=== PATIENT | female | born 1935 | race Caucasian/White ===

== ENCOUNTER → 2016-06-24 | Outpatient (CLI) | payer MEDICARE, OTHER ==
--- NOTE | 2016-06-24 12:09 | KCIC ---
Bilateral digital screening mammograms with CAD: HISTORY Routine screening. COMPARISON Comparison is made to previous studies dated back to 06/07/2014. FINDINGS Breast density category C. The skin and nipples show no abnormalities. No abnormal lymph nodes are seen in the axilla. The breast parenchyma shows heterogeneous density. There are no dominant masses, suspicious calcifications or architectural distortions. Benign appearing calcifications are present. IMPRESSION No evidence of malignancy. Recommend routine annual mammographic screening. This study was interpreted with the benefit of Computerized Aided Detection (CAD). Mammography is not 100% sensitive in detecting breast cancer. Therefore, a self breast exam and a clinical breast exam are very important. A negative mammogram does not negate a clinically suspicious finding and should not result in a delay in biopsying a clinically suspicious abnormality. BI-RADS category 2. Benign. This patient's information has been entered into a reminder system for the patient to be notified with the results of this examination and a target date for her next mammograms. Electronically signed by: Sharonda Currie MD (Jun 24, 2016 12:07:11)
== END | disposition home or self-care (01) ==
LOC: KCIC MAMMO 10:42
PROVIDERS: ATTEND Family Medicine
DX: Z12.31 Encounter for screening mammogram for malignant neoplasm of breast (principal)
CPT/HCPCS: G0202; 77067

== ENCOUNTER → 2017-02-16 | Outpatient (CLI) | payer MEDICARE, OTHER ==
--- NOTE | 2017-02-16 12:13 | KCIC ---
EXAM: Left lower extremity sonogram. HISTORY: Left lower extremity lump and contusion. TECHNIQUE: Sonographic imaging of the left mclain at the site of palpable concern was performed. COMPARISON: None. FINDINGS: There is a complex fluid collection within the anterior lateral mclain soft tissues at the site of palpable concern measuring 7.0 x 3.7 x 1.2 cm in maximum dimensions. There is surrounding soft tissue edema. IMPRESSION: 7.0 cm complex fluid collection within the anterolateral mclain soft tissues, the appearance of which favors a hematoma. There is surrounding soft tissue edema. Continued follow-up of palpable abnormalities is recommended. Electronically signed by: Yanira Valenzuela MD (02/16/2017 12:10 PM) [id number]
--- NOTE | 2017-02-16 12:17 | KCIC ---
Two-view left tibia-fibula and two-view right foot dated 02/16/2017. No comparison available. Clinical indication: Right foot and left calf pain. FINDINGS: Two-view left tibia-fibula show evidence of prior total knee arthroplasty. Femoral and tibial components are intact. No periprosthetic fracture or malalignment. Postsurgical changes of the patella. There is an old healed fracture of the proximal one third fibular shaft. The distal tibia and fibular are intact. Nonspecific calcifications within the soft tissues. 2 views of the right foot show normal bony alignment. There is moderate to severe hallux valgus deformity at the first MTP joint. Moderate degenerative change of the interphalangeal joints and Lisfranc joints. No acute osseous or articular abnormality. Prominent calcaneal spur with vascular calcinosis. Impression left tibia-fibula: 1. No acute radiographic abnormality. 2. Status post left knee arthroplasty. 3. Old healed fracture of the proximal one third fibular shaft. Impression right foot: 1. No acute radiographic abnormality. 2. Degenerative changes as described above. 3. Moderate to severe hallux valgus deformity. Electronically signed by: Levi Philippe MD (02/16/2017 12:14 PM) [facility]
== END | disposition home or self-care (01) ==
LOC: KCIC 11:09
PROVIDERS: ATTEND Family Medicine
DX: S80.12XA Contusion of left lower leg, initial encounter (principal); M79.89 Other specified soft tissue disorders; M20.11 Hallux valgus (acquired), right foot; Z98.890 Other specified postprocedural states; Z96.652 Presence of left artificial knee joint; X58.XXXA Exposure to other specified factors, initial encounter; Y93.89 Activity, other specified; Y92.89 Other specified places as the place of occurrence of the external cause; Y99.8 Other external cause status
CPT/HCPCS: 73590; 73620; 76881

== ENCOUNTER 2018-05-17 15:26 | Emergency (ER) | payer MEDICARE, OTHER ==
[~2018-05-17] VITALS: Ht 154.9 cm; Wt 77.6 kg
[2018-05-17 16:00] VITALS: BP 169/77
[2018-05-17 16:06] LABS: BILIRUBIN,URINE NEGATIVE (NEG); CLARITY,URINE CLOUDY; COLOR,URINE YELLOW; NITRITE,URINE POSITIVE (NEG); PROTEIN,URINE >=300 mg/dL (NEG-TRACE); UROBILINOGEN,URINE 0.2 mg/dL (0.2 mg/dL)
[2018-05-17 16:19] LABS: BACTERIA,URINE MANY /HPF (0-FEW); SQUAMOUS EPITHELIAL CELL,UR MOD /LPF; WBC,URINE >40 /HPF (0-4)
[2018-05-17] MEDS ORDERED: CEPH-264 PO (16:30)
--- NOTE | 2018-05-17 16:31 | PHYS DOC ---
Past Medical History Past Medical History: Diabetes-Type II, High Cholesterol, Hypertension Additional Past Medical Histor: gout, low kidney function Past Surgical History: Appendectomy, Cholecystectomy, Tonsillectomy Additional Past Surgical Histo: ulcer, knee replacements Alcohol Use: None Drug Use: None Adult General Chief Complaint Chief Complaint: PAIN ON URINATION [facility] HPI Patient is a 82 year old female who presents with burning, urgency and frequency with urination. The patient states that her symptoms have been worsening over the past 3 days. The patient states that she has also had one bout of diarrhea. She states that she feels like she needs to urinate but only a few drops will come out. She denies fever, nausea or back pain. Review of Systems Review of Systems Constitutional: Denies fever or chills [] Respiratory: Denies cough or shortness of breath [] Cardiovascular: No additional information not addressed in HPI [] GI: Denies abdominal pain, nausea, vomiting, bloody stools or diarrhea [] : See history of present illness Musculoskeletal: Denies back pain or joint pain [] Integument: Denies rash or skin lesions [] Neurologic: Denies headache, focal weakness or sensory changes [] Endocrine: Denies polyuria or polydipsia [] All other systems were reviewed and found to be within normal limits, except as documented in this note. Physical Exam Physical Exam Constitutional: Well developed, well nourished, no acute distress, non-toxic appearance. [] Cardiovascular:Heart rate regular rhythm, no murmur [] Lungs & Thorax: Bilateral breath sounds clear to auscultation [] Abdomen: Bowel sounds normal, soft, mild suprapubic tenderness, no masses, no pulsatile masses. [] Skin: Warm, dry, no erythema, no rash. [] Back: No tenderness, no CVA tenderness. [] Extremities: No tenderness, no cyanosis, no clubbing, ROM intact, no edema. [] Neurologic: Alert and oriented X 3, normal motor function, normal sensory function, no focal deficits noted. [] Psychologic: Affect normal, judgement normal, mood normal. [] Current Patient Data Vital Signs Vital Signs Date Time Temp Pulse Resp B/P (MAP) Pulse Ox O2 Delivery O2 Flow Rate FiO2 05/17/18 16:00 98.0 83 18 169/77 (107) 95 Room Air 98.0 Lab Values Laboratory Tests Test 05/17/18 14:55 Urine Collection Type Unknown Urine Color Yellow Urine Clarity Cloudy Urine pH 6.0 Urine Specific [place] 1.010 Urine Protein >=300 mg/dL (NEG-TRACE) Urine Glucose (UA) Negative mg/dL (NEG) Urine Ketones (Stick) Negative mg/dL (NEG) Urine Blood Moderate (NEG) Urine Nitrite Positive (NEG) Urine Bilirubin Negative (NEG) Urine Urobilinogen Dipstick 0.2 mg/dL (0.2 mg/dL) Urine Leukocyte Esterase Large (NEG) Urine RBC 6-10 /HPF (0-2) Urine WBC >40 /HPF (0-4) Urine Squamous Epithelial Cells Mod /LPF Urine Bacteria Many /HPF (0-FEW) Urine Mucus Mod /LPF EKG EKG [] Radiology/Procedures Radiology/Procedures [] Course & Med Decision Making Course & Med Decision Making Pertinent Labs and Imaging studies reviewed. (See chart for details) []The patient is positive for a large UTI. She is to follow-up with her primary care provider in one week for urine recheck. She will be placed on antibiotics. She is in agreement with this plan. Dragon Disclaimer Dragon Disclaimer This electronic medical record was generated, in whole or in part, using a voice recognition dictation system. Departure Departure Impression: Primary Impression: UTI (urinary tract infection) Disposition: 01 HOME, SELF-CARE Condition: STABLE Referrals: JODI STEINBERG MD (PCP) Patient Instructions: Urinary Tract Infection Additional Instructions: Take the antibiotic as prescribed. Increase fluids and rest. Follow-up with your primary care provider in one week for urine recheck. If worsening return to the emergency department. Scripts Cephalexin (KEFLEX) 500 Mg Capsule 1 CAP PO TID for UTI, #21 CAP Prov: VINCENT BOUDREAUX RESEARCH PHYSICIAN 05/17/18 VINCENT BOUDREAUX RESEARCH PHYSICIAN May 17, 2018 16:31
[2018-07-18] MEDS ORDERED: INSU100I13 SQ ×2 (10:59→11:00)
[2018-07-18] MEDS ORDERED: INSU100I11 SQ ×2 (10:59→11:01)
[2018-07-18] MEDS ORDERED: CEPH-264 PO (11:02)
== END 2018-05-17 16:37 | disposition home or self-care (01) ==
LOC: ER 15:26
DX: N39.0 Urinary tract infection, site not specified (principal); I10 Essential (primary) hypertension; E78.00 Pure hypercholesterolemia, unspecified; E11.9 Type 2 diabetes mellitus without complications; M10.9 Gout, unspecified; Z90.89 Acquired absence of other organs; Z90.49 Acquired absence of other specified parts of digestive tract
CPT/HCPCS: 81001; 87086; 99283

== ENCOUNTER 2018-07-16 12:01 | Inpatient (IN) | payer MEDICARE, OTHER ==
[~2018-07-16] VITALS: Ht 149.9 cm; Wt 74.4 kg
[~2018-07-16 12:01] MED LIST: CEPH-264 PO
[2018-07-16 12:34] LABS: BASO % 0 % (0-3); EOS % 0 % (0-3); HEMATOCRIT 36.9 % (36.0-47.0); HEMOGLOBIN 12.6 g/dL (12.0-15.5); LYMPH % 11 % (24-48); MEAN CORPUSCULAR HEMOGLOBIN 31 pg (25-35); MEAN CORPUSCULAR HGB CONC 34 g/dL (31-37); MEAN CORPUSCULAR VOLUME 89 fL (79-100); MONO # 0.6 x10^3/uL (0.0-1.1); MONO % 7 % (0-9); NEUT # 7.5 x10^3uL (1.8-7.7); NEUT % 81 % (31-73); PLATELET COUNT 242 x10^3/uL (140-400); RED BLOOD COUNT 4.14 x10^6/uL (3.50-5.40); RED CELL DISTRIBUTION WIDTH 15.5 % (11.5-14.5); WHITE BLOOD COUNT 9.3 x10^3/uL (4.0-11.0)
[2018-07-16 12:42] LABS: ALBUMIN 3.2 g/dL (3.4-5.0); CREATININE 2.3 mg/dL (0.6-1.0); DIRECT BILIRUBIN 0.1 mg/dL (0.0-0.2); GFR 20.4; POTASSIUM 3.3 mmol/L (3.5-5.1); TOTAL BILIRUBIN 0.3 mg/dL (0.2-1.0); TOTAL PROTEIN 7.1 g/dL (6.4-8.2)
--- NOTE | 2018-07-16 12:43 | PHYS DOC ---
Past Medical History Past Medical History: Diabetes-Type II, High Cholesterol, Hypertension Additional Past Medical Histor: gout, low kidney function Past Surgical History: Appendectomy, Cholecystectomy, Tonsillectomy Additional Past Surgical Histo: ulcer, knee replacements Alcohol Use: None Drug Use: None Adult General Chief Complaint Chief Complaint: BLOOD SUGAR PROBLEM HPI HPI 82-year-old male presenting to the emergency department today with elevated blood sugar. She was seen in clinic and has noticed her blood sugar has been elevated for approximately 3-4 days. Blood sugar in the mid 400s. Patient does not take insulin. She takes metformin. She is a type II diabetic. She feels generally tired but denies any pain. She denies any fevers or chills. Review of systems is negative for chest pain abdominal pain nausea vomiting. All other review of systems is negative unless otherwise noted in history of present illness. ED course: 82-year-old female presenting the emergency department today with elevated blood sugar. On arrival she is afebrile with normal heart rate. Blood work ordered. Blood work shows normal CBC. Chemistry panel shows pseudohyponatremia with mild hypokalemia. Hyperglycemia. Elevation in BUN and creatinine without previous for comparison. Urinalysis suggestive of possible infection. We gave the patient is small dose of insulin with IV fluids. We will admit the patient to the hospital. We gave IV antibiotics for the patient's probable urinary tract infection. I spoke with Dr. rosa who accepts the patient for admission. I placed a basic bridge orders. Review of Systems Review of Systems SEE ABOVE. Current Medications Current Medications Current Medications Medications (Trade) Dose Ordered Sig/Latricia Start Time Stop Time Status Last Admin Dose Admin Insulin Human Regular (HumuLIN R VIAL) 5 unit 1X ONCE 07/16/18 13:30 07/16/18 14:04 DC 07/16/18 14:09 5 UNIT Morphine Sulfate (Morphine Sulfate) 2 mg PRN Q2HR PRN 07/16/18 13:30 07/17/18 13:29 Ondansetron HCl (Zofran) 4 mg PRN Q8HRS PRN 07/16/18 13:30 07/17/18 13:29 Sodium Chloride 1,000 ml @ 100 mls/hr Q10H 07/16/18 13:24 07/16/18 23:23 07/16/18 13:24 100 MLS/HR Physical Exam Physical Exam SEE ABOVE Constitutional: Well developed, well nourished, no acute distress, non-toxic appearance. [] HENT: Normocephalic, atraumatic, bilateral external ears normal, oropharynx moist, no oral exudates, nose normal. [] Eyes: PERRLA, EOMI, conjunctiva normal, no discharge. [] Neck: Normal range of motion, no tenderness, supple, no stridor. [] Cardiovascular:Heart rate regular rhythm, no murmur [] Lungs & Thorax: Bilateral breath sounds clear to auscultation [] Abdomen: Bowel sounds normal, soft, no tenderness, no masses, no pulsatile masses. [] Skin: Warm, dry, no erythema, no rash. [] Back: No tenderness, no CVA tenderness. [] Extremities: No tenderness, no cyanosis, no clubbing, ROM intact, no edema. [] Neurologic: Alert and oriented X 3, normal motor function, normal sensory function, no focal deficits noted. [] Psychologic: Affect normal, judgement normal, mood normal. [] Current Patient Data Vital Signs Vital Signs Date Time Temp Pulse Resp B/P (MAP) Pulse Ox O2 Delivery O2 Flow Rate FiO2 07/16/18 13:05 Room Air 07/16/18 12:46 97.6 93 16 149/94 (112) 99 97.6 Lab Values Laboratory Tests Test 07/16/18 12:09 07/16/18 12:20 07/16/18 13:00 07/16/18 13:41 Glucose (Fingerstick) 441 mg/dL (70-99) H White Blood Count 9.3 x10^3/uL (4.0-11.0) Red Blood Count 4.14 x10^6/uL (3.50-5.40) Hemoglobin 12.6 g/dL (12.0-15.5) Hematocrit 36.9 % (36.0-47.0) Mean Corpuscular Volume 89 fL (79-100) Mean Corpuscular Hemoglobin 31 pg (25-35) Mean Corpuscular Hemoglobin Concent 34 g/dL (31-37) Red Cell Distribution Width 15.5 % (11.5-14.5) H Platelet Count 242 x10^3/uL (140-400) Neutrophils (%) (Auto) 81 % (31-73) H Lymphocytes (%) (Auto) 11 % (24-48) L Monocytes (%) (Auto) 7 % (0-9) Eosinophils (%) (Auto) 0 % (0-3) Basophils (%) (Auto) 0 % (0-3) Neutrophils # (Auto) 7.5 x10^3uL (1.8-7.7) Lymphocytes # (Auto) 1.0 x10^3/uL (1.0-4.8) Monocytes # (Auto) 0.6 x10^3/uL (0.0-1.1) Eosinophils # (Auto) 0.0 x10^3/uL (0.0-0.7) Basophils # (Auto) 0.0 x10^3/uL (0.0-0.2) Sodium Level 125 mmol/L (136-145) L Potassium Level 3.3 mmol/L (3.5-5.1) L Chloride Level 86 mmol/L (98-107) L Carbon Dioxide Level 27 mmol/L (21-32) Anion Gap 12 (6-14) Blood Urea Nitrogen 34 mg/dL (7-20) H Creatinine 2.3 mg/dL (0.6-1.0) H Estimated GFR (Cockcroft-Gault) 20.4 Glucose Level 520 mg/dL (70-99) *H Calcium Level 10.0 mg/dL (8.5-10.1) Total Bilirubin 0.3 mg/dL (0.2-1.0) Direct Bilirubin 0.1 mg/dL (0.0-0.2) Aspartate Amino Transferase (AST) 23 U/L (15-37) Alanine Aminotransferase (ALT) 28 U/L (14-59) Alkaline Phosphatase 92 U/L (46-116) Troponin I Quantitative 0.036 ng/mL (0.000-0.055) Total Protein 7.1 g/dL (6.4-8.2) Albumin 3.2 g/dL (3.4-5.0) L Lipase 649 U/L (73-393) H O2 Saturation 94 % (92-99) Arterial Blood pH 7.45 (7.35-7.45) Arterial Blood pCO2 at Patient Temp 38 mmHg (35-46) Arterial Blood pO2 at Patient Temp 72 mmHg (65-108) Arterial Blood HCO3 26 mmol/L (21-28) Arterial Blood Base Excess 2 mmol/L (-3-3) FiO2 21% Urine Collection Type Unknown Urine Color Yellow Urine Clarity Clear Urine pH 5.5 Urine Specific [place] 1.015 Urine Protein Negative mg/dL (NEG-TRACE) Urine Glucose (UA) >=1000 mg/dL (NEG) Urine Ketones (Stick) Negative mg/dL (NEG) Urine Blood Large (NEG) Urine Nitrite Negative (NEG) Urine Bilirubin Negative (NEG) Urine Urobilinogen Dipstick 0.2 mg/dL (0.2 mg/dL) Urine Leukocyte Esterase Moderate (NEG) Urine RBC Tntc /HPF (0-2) Urine WBC >40 /HPF (0-4) Urine Squamous Epithelial Cells Many /LPF Urine Bacteria Many /HPF (0-FEW) Laboratory Tests 07/16/18 12:20 Laboratory Tests 07/16/18 12:20 EKG EKG [] Radiology/Procedures Radiology/Procedures [] Course & Med Decision Making Course & Med Decision Making Pertinent Labs and Imaging studies reviewed. (See chart for details) [] Dragon Disclaimer Dragon Disclaimer This electronic medical record was generated, in whole or in part, using a voice recognition dictation system. Departure Departure Impression: Primary Impression: Hyperglycemia Additional Impressions: Urinary tract infection Acute kidney injury Hypokalemia Disposition: ADMITTED INPATIENT Admitting Physician: Anaid Rosa Condition: STABLE Referrals: ALEX ELLIS MD (PCP) Problem Qualifiers VIRA VELEZ MD Jul 16, 2018 12:43
[2018-07-16 13:12] LABS: BASE EXCESS ABG 2 mmol/L (-3-3); HCO3 ABG 26 mmol/L (21-28); PCO2 ABG 38 mmHg (35-46); PO2 ABG 72 mmHg (65-108); SAT O2 ABG 94 % (92-99)
[2018-07-16 13:14] LABS: FIO2 ABG 21%
[2018-07-16] MEDS ORDERED: IV NORMAL SALINE 1000ML BAG 1,000 ML IV SCH (13:24)
[2018-07-16] MEDS ORDERED: IV NORMAL SALINE 1000ML BAG 1,000 ML IV ONE (13:30)
[2018-07-16] MEDS ORDERED: ONDANSETRON PF 4 MG/2 ML VIAL. IV PRN (13:30)
[2018-07-16] MEDS ORDERED: MORPHINE SULFATE 2 MG/ML VIAL. IV PRN (13:30)
[2018-07-16] MEDS ORDERED: INSULIN REGULAR 100 UNIT/ML 3ML VIAL. IV ONE (13:30)
[2018-07-16 13:58] LABS: BILIRUBIN,URINE NEGATIVE (NEG); CLARITY,URINE CLEAR; COLOR,URINE YELLOW; NITRITE,URINE NEGATIVE (NEG); PH,URINE 5.5; PROTEIN,URINE NEGATIVE (NEG-TRACE); UROBILINOGEN,URINE 0.2 mg/dL (0.2 mg/dL)
[2018-07-16 14:07] LABS: BACTERIA,URINE MANY /HPF (0-FEW); RBC,URINE TNTC /HPF (0-2); SQUAMOUS EPITHELIAL CELL,UR MANY /LPF; WBC,URINE >40 /HPF (0-4)
[2018-07-16] MEDS ORDERED: cefTRIAXone IV Push 1 GM VIAL. IVP ONE (15:30)
[2018-07-16] MEDS ORDERED: POTASSIUM CHLORIDE 20 MEQ TABLET.ER. PO ONE (16:15)
[2018-07-16] MEDS ORDERED: INSULIN GLARGINE 300 UNITS/3 ML INSULN.PEN. SQ SCH (16:30)
[2018-07-16] MEDS ORDERED: INSULIN LISPRO 300 UNITS/3 ML INSULN.PEN. SQ SCH (17:00)
[2018-07-16] MEDS ORDERED: MAGNESIUM SULFATE 2GM 50 ML IV ONE (17:00)
[2018-07-16 17:33] VITALS: BP 168/73
[2018-07-16] MEDS ORDERED: SIMV20TA3 PO (18:20)
[2018-07-16] MEDS ORDERED: METF850T8 PO (18:20)
[2018-07-16] MEDS ORDERED: OMEG1CAP6 PO (18:20)
[2018-07-16] MEDS ORDERED: VERA240C2 PO (18:20)
[2018-07-16] MEDS ORDERED: L GA1CAP2 PO (18:20)
[2018-07-16] MEDS ORDERED: PRED2.5T PO (18:20)
[2018-07-16] MEDS ORDERED: CLON0.1T PO (18:20)
[2018-07-16] MEDS ORDERED: LOPE1LIQ7 PO (18:20)
[2018-07-16] MEDS ORDERED: ALLO100T PO (18:20)
[2018-07-16] MEDS ORDERED: ASPI-630 PO (18:20)
[2018-07-16] MEDS ORDERED: LISI1TAB7 PO (18:20)
[2018-07-16] MEDS ORDERED: GEMF600T8 PO (18:20)
[2018-07-16] MEDS ORDERED: POTA10TA12 PO (18:38)
[2018-07-16 19:59] VITALS: BP 177/72
--- NOTE | 2018-07-16 20:34 | PDOC1 ---
History and Physical Date of Admission Date of Admission DATE: 07/16/18 TIME: 20:24 Source Source: Chart review, Patient History of Present Illness History of Present Illness Yodit is an 82-year-old admit with UTI and elevated blood sugar, sent to the ER from clinic for labs changed, her primary care is Dr. Veronica, [place] She takes metformin. She is a type II diabetic. 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 [facility] that i am not familiar with the name, but on a taper, now on 9mg daily prednisone Past Medical History Cardiovascular: HTN Psych: No pertinent hx Musculoskeletal: low back pain, Osteoarthritis, Swelling, Stiffness Endocrine: Diabetes Family History Family History: Diabetes Social History Smoke: No ALCOHOL: none Current Problem List Problem List Problems Medical Problems: (1) Acute kidney injury Status: Acute (2) Hyperglycemia Status: Acute (3) Hypokalemia Status: Acute (4) Urinary tract infection Status: Acute Current Medications Current Medications Current Medications Sodium Chloride 1,000 ml @ 1,000 mls/hr 1X ONCE IV Last administered on 07/16/18at 14:11; Start 07/16/18 at 13:30; Stop 07/16/18 at 14:29; Status DC Insulin Human Regular (HumuLIN R VIAL) 5 unit 1X ONCE IV Last administered on 07/16/18at 14:09; Start 07/16/18 at 13:30; Stop 07/16/18 at 14:04; Status DC Ondansetron HCl (Zofran) 4 mg PRN Q8HRS PRN IV NAUSEA/VOMITING; Start 07/16/18 at 13:30; Stop 07/17/18 at 13:29 Morphine Sulfate (Morphine Sulfate) 2 mg PRN Q2HR PRN IV PAIN; Start 07/16/18 at 13:30; Stop 07/17/18 at 13:29 Sodium Chloride 1,000 ml @ 100 mls/hr Q10H IV Last administered on 07/16/18at 13:24; Start 07/16/18 at 13:24; Stop 07/16/18 at 23:23 Ceftriaxone Sodium (Rocephin) 1 gm 1X ONCE IVP Last administered on 07/16/18at 15:36; Start 07/16/18 at 15:30; Stop 07/16/18 at 15:31; Status DC Potassium Chloride (Klor-Con) 40 meq 1X ONCE PO Last administered on 07/16/18at 18:42; Start 07/16/18 at 16:15; Stop 07/16/18 at 16:18; Status DC Magnesium Sulfate 50 ml @ 25 mls/hr 1X ONCE IV Last administered on 07/16/18at 18:43; Start 07/16/18 at 17:00; Stop 07/16/18 at 18:59; Status DC Insulin Human Lispro (HumaLOG) 10 units TIDWMEALS SQ Last administered on 07/16/18at 18:52; Start 07/16/18 at 17:00 Insulin Glargine (Lantus) 18 units QHS SQ Last administered on 07/16/18at 18:53; Start 07/16/18 at 16:30 Active Scripts Active Keflex (Cephalexin) 500 Mg Capsule 1 Cap PO TID Reported Potassium Chloride 10 Meq Tab.sr.24h 10 Meq PO DAILY Verapamil Er (Verapamil Hcl) 240 Mg Cap24h.pel 1 Cap PO DAILY Clonidine Hcl 0.1 Mg Tablet 0.1 Mg PO BID Metformin Hcl 850 Mg Tablet 850 Mg PO BIDWMEALS Gemfibrozil 600 Mg Tablet 1 Tab PO BID Simvastatin 20 Mg Tablet 1 Tab PO QHS Lisinopril-Hctz 20-25 Mg Tab (Lisinopril/Hydrochlorothiazide) 1 Each Tablet 1 Tab PO BID Allopurinol 100 Mg Tablet 1 Tab PO BID Aspirin 81 Mg Tab.chew 1 Tab PO DAILY Fish Oil 1,000 Mg Capsule (Archer-3 Fatty Acids/Fish Oil) 1 Each Capsule 1 Each PO DAILY Imodium A-D (Loperamide Hcl) 1 Mg/7.5 Ml Liquid 1 Mg PO HS Gillespie Graphenix Development Capsule (L Gasseri/B Bifidum/B Longum) 1 Each Capsule 1 Each PO DAILY Prednisone 2.5 Mg Tablet 9 Mg PO DAILY Allergies Allergies: Coded Allergies: No Known Drug Allergies (Unverified , 07/16/18) ROS General: YES: Chills PSYCHOLOGICAL ROS: No: Anxiety, Behavioral Disorder, Concentration difficultie, Decreased libido, Depression, Disorientation, Hallucinations, Hostility, Irritablity, Memory difficulties, Mood Swings, Obsessive thoughts, Physical abuse, Sexual abuse, Sleep disturbances, Suicidal ideation, Other Eyes: No Blurry vision, No Decreased vision, No Double vision, No Dry eyes, No Excessive tearing, No Eye Pain, No Itchy Eyes, No Loss of vision, No Photophobia, No Scotomata, No Uses contacts, No Uses glasses, No Other HEENT: No: Heacaches, Visual Changes, Hearing change, Nasal congestion, Nasal discharge, Oral lesions, Sinus pain, Sore Throat, Epistaxis, Sneezing, Snoring, Tinnitus, Vertigo, Vocal changes, Other Respiratory: No: Cough, Hemoptysis, Orthopnea, Pleuritic Pain, Shortness of breath, SOB with excertion, Sputum Changes, Stridor, Tachypnea, Wheezing, Other Gastrointestinal: Yes Nausea; No Vomiting, No Diarrhea, No Constipation, No Melena, No Hematochezia, No Other Genitourinary: No Dysuria, No Frequency, No Incontinence, No Hematuria, No Retention, No Discharge, No Urgency, No Pain, No Flank Pain, No Other, No , No , No , No , No , No , No Musculoskeletal: Yes Joint Pain, Yes Joint Stiffness, Yes Joint Swelling, Yes Pain In:, Yes Swelling In:; No Gait Disturbance, No Muscle Pain, No Muscular Weakness, No Other Neurological: No Behavorial Changes, No Bowel/Bladder ControlChng, No Confusion, No Dizziness, No Gait Disturbance, No Headaches, No Impaired Coord/balance, No Memory Loss, No Numbness/Tingling, No Seizures, No Speech Problems, No Tremors, No Visual Changes, No Weakness, No Other Skin: No Dry Skin, No Eczema, No Hair Changes, No Lumps, No Mole Changes, No Mottling, No Nail Changes, No Pruritus, No Rash, No Skin Lesion Changes, No Other, No Acne Physical Exam General: Alert, Cooperative, No acute distress HEENT: Mucous membr. moist/pink Lungs: Normal air movement Heart: no murmurs Abdomen: Normal bowel sounds, Soft Extremities: No cyanosis, Normal pulses, Other (tender swollen joints, fingers, ITp) Skin: No breakdown Neuro: Normal speech, Sensation intact Psych/Mental Status: Mood NL Vitals Vitals Vital Signs Date Time Temp Pulse Resp B/P (MAP) Pulse Ox O2 Delivery O2 Flow Rate FiO2 07/16/18 18:00 Room Air 07/16/18 17:33 98.2 83 18 168/73 (104) 94 98.2 Labs Labs Laboratory Tests Test 07/16/18 12:09 07/16/18 12:20 07/16/18 13:00 07/16/18 13:41 Glucose (Fingerstick) 441 mg/dL (70-99) White Blood Count 9.3 x10^3/uL (4.0-11.0) Red Blood Count 4.14 x10^6/uL (3.50-5.40) Hemoglobin 12.6 g/dL (12.0-15.5) Hematocrit 36.9 % (36.0-47.0) Mean Corpuscular Volume 89 fL (79-100) Mean Corpuscular Hemoglobin 31 pg (25-35) Mean Corpuscular Hemoglobin Concent 34 g/dL (31-37) Red Cell Distribution Width 15.5 % (11.5-14.5) Platelet Count 242 x10^3/uL (140-400) Neutrophils (%) (Auto) 81 % (31-73) Lymphocytes (%) (Auto) 11 % (24-48) Monocytes (%) (Auto) 7 % (0-9) Eosinophils (%) (Auto) 0 % (0-3) Basophils (%) (Auto) 0 % (0-3) Neutrophils # (Auto) 7.5 x10^3uL (1.8-7.7) Lymphocytes # (Auto) 1.0 x10^3/uL (1.0-4.8) Monocytes # (Auto) 0.6 x10^3/uL (0.0-1.1) Eosinophils # (Auto) 0.0 x10^3/uL (0.0-0.7) Basophils # (Auto) 0.0 x10^3/uL (0.0-0.2) Sodium Level 125 mmol/L (136-145) Potassium Level 3.3 mmol/L (3.5-5.1) Chloride Level 86 mmol/L (98-107) Carbon Dioxide Level 27 mmol/L (21-32) Anion Gap 12 (6-14) Blood Urea Nitrogen 34 mg/dL (7-20) Creatinine 2.3 mg/dL (0.6-1.0) Estimated GFR (Cockcroft-Gault) 20.4 Glucose Level 520 mg/dL (70-99) Calcium Level 10.0 mg/dL (8.5-10.1) Total Bilirubin 0.3 mg/dL (0.2-1.0) Direct Bilirubin 0.1 mg/dL (0.0-0.2) Aspartate Amino Transf (AST/SGOT) 23 U/L (15-37) Alanine Aminotransferase (ALT/SGPT) 28 U/L (14-59) Alkaline Phosphatase 92 U/L (46-116) Troponin I Quantitative 0.036 ng/mL (0.000-0.055) Total Protein 7.1 g/dL (6.4-8.2) Albumin 3.2 g/dL (3.4-5.0) Lipase 649 U/L (73-393) O2 Saturation 94 % (92-99) Arterial Blood pH 7.45 (7.35-7.45) Arterial Blood pCO2 at Patient Temp 38 mmHg (35-46) Arterial Blood pO2 at Patient Temp 72 mmHg (65-108) Arterial Blood HCO3 26 mmol/L (21-28) Arterial Blood Base Excess 2 mmol/L (-3-3) FiO2 21% Urine Collection Type Unknown Urine Color Yellow Urine Clarity Clear Urine pH 5.5 Urine Specific Phillips 1.015 Urine Protein Negative mg/dL (NEG-TRACE) Urine Glucose (UA) >=1000 mg/dL (NEG) Urine Ketones (Stick) Negative mg/dL (NEG) Urine Blood Large (NEG) Urine Nitrite Negative (NEG) Urine Bilirubin Negative (NEG) Urine Urobilinogen Dipstick 0.2 mg/dL (0.2 mg/dL) Urine Leukocyte Esterase Moderate (NEG) Urine RBC Tntc /HPF (0-2) Urine WBC >40 /HPF (0-4) Urine Squamous Epithelial Cells Many /LPF Urine Bacteria Many /HPF (0-FEW) Test 07/16/18 14:39 07/16/18 16:12 07/16/18 18:31 Glucose (Fingerstick) 362 mg/dL (70-99) 317 mg/dL (70-99) 361 mg/dL (70-99) Laboratory Tests Test 07/16/18 12:09 07/16/18 12:20 07/16/18 13:00 07/16/18 13:41 Glucose (Fingerstick) 441 mg/dL (70-99) White Blood Count 9.3 x10^3/uL (4.0-11.0) Red Blood Count 4.14 x10^6/uL (3.50-5.40) Hemoglobin 12.6 g/dL (12.0-15.5) Hematocrit 36.9 % (36.0-47.0) Mean Corpuscular Volume 89 fL (79-100) Mean Corpuscular Hemoglobin 31 pg (25-35) Mean Corpuscular Hemoglobin Concent 34 g/dL (31-37) Red Cell Distribution Width 15.5 % (11.5-14.5) Platelet Count 242 x10^3/uL (140-400) Neutrophils (%) (Auto) 81 % (31-73) Lymphocytes (%) (Auto) 11 % (24-48) Monocytes (%) (Auto) 7 % (0-9) Eosinophils (%) (Auto) 0 % (0-3) Basophils (%) (Auto) 0 % (0-3) Neutrophils # (Auto) 7.5 x10^3uL (1.8-7.7) Lymphocytes # (Auto) 1.0 x10^3/uL (1.0-4.8) Monocytes # (Auto) 0.6 x10^3/uL (0.0-1.1) Eosinophils # (Auto) 0.0 x10^3/uL (0.0-0.7) Basophils # (Auto) 0.0 x10^3/uL (0.0-0.2) Sodium Level 125 mmol/L (136-145) Potassium Level 3.3 mmol/L (3.5-5.1) Chloride Level 86 mmol/L (98-107) Carbon Dioxide Level 27 mmol/L (21-32) Anion Gap 12 (6-14) Blood Urea Nitrogen 34 mg/dL (7-20) Creatinine 2.3 mg/dL (0.6-1.0) Estimated GFR (Cockcroft-Gault) 20.4 Glucose Level 520 mg/dL (70-99) Calcium Level 10.0 mg/dL (8.5-10.1) Total Bilirubin 0.3 mg/dL (0.2-1.0) Direct Bilirubin 0.1 mg/dL (0.0-0.2) Aspartate Amino Transf (AST/SGOT) 23 U/L (15-37) Alanine Aminotransferase (ALT/SGPT) 28 U/L (14-59) Alkaline Phosphatase 92 U/L (46-116) Troponin I Quantitative 0.036 ng/mL (0.000-0.055) Total Protein 7.1 g/dL (6.4-8.2) Albumin 3.2 g/dL (3.4-5.0) Lipase 649 U/L (73-393) O2 Saturation 94 % (92-99) Arterial Blood pH 7.45 (7.35-7.45) Arterial Blood pCO2 at Patient Temp 38 mmHg (35-46) Arterial Blood pO2 at Patient Temp 72 mmHg (65-108) Arterial Blood HCO3 26 mmol/L (21-28) Arterial Blood Base Excess 2 mmol/L (-3-3) FiO2 21% Urine Collection Type Unknown Urine Color Yellow Urine Clarity Clear Urine pH 5.5 Urine Specific Phillips 1.015 Urine Protein Negative mg/dL (NEG-TRACE) Urine Glucose (UA) >=1000 mg/dL (NEG) Urine Ketones (Stick) Negative mg/dL (NEG) Urine Blood Large (NEG) Urine Nitrite Negative (NEG) Urine Bilirubin Negative (NEG) Urine Urobilinogen Dipstick 0.2 mg/dL (0.2 mg/dL) Urine Leukocyte Esterase Moderate (NEG) Urine RBC Tntc /HPF (0-2) Urine WBC >40 /HPF (0-4) Urine Squamous Epithelial Cells Many /LPF Urine Bacteria Many /HPF (0-FEW) Test 07/16/18 14:39 07/16/18 16:12 07/16/18 18:31 Glucose (Fingerstick) 362 mg/dL (70-99) 317 mg/dL (70-99) 361 mg/dL (70-99) VTE Prophylaxis Ordered VTE Prophylaxis Devices: No VTE Pharmacological Prophylaxi: Yes Assessment/Plan Assessment/Plan hyperglycemia hyperosmolar not ketotic exacebation with pseudohyponatremia acute renal failure, hydrate, renal consult, likely vasomotor and electrolyte pancreatitis wihtout abd pain UTI, rocephin, has been on PO abx at home obese, BMI 33 dm2, check a1c admit DIONISIO VICENET MD Jul 16, 2018 20:34
[2018-07-16] MEDS ORDERED: DEXTROSE 50% 25 GM / 50ML DISP.SYRIN. IV PRN (20:45)
[2018-07-16] MEDS ORDERED: SIMVASTATIN 20 MG TABLET PO SCH (21:00)
[2018-07-16] MEDS: LOPERAMIDE 2 MG/10 ML ORAL SOLUTION. PO SCH (21:00)
[2018-07-16] MEDS: ALLOPURINOL 100 MG TABLET. PO SCH (21:44)
[2018-07-16] MEDS: ATORVASTATIN CALCIUM 10 MG TABLET. PO SCH (21:44)
[2018-07-16] MEDS: cloNIDine HCL 0.1 MG TABLET PO SCH (21:44)
[2018-07-16] MEDS: predniSONE 1 MG TABLET PO SCH (21:45)
[2018-07-16] MEDS: IV NORMAL SALINE 1000ML BAG 1,000 ML IV SCH (21:48)
[2018-07-16] MEDS: HEPARIN for SUB-Q USE 5,000 UNIT/ML VIAL. SQ SCH (22:00)
[2018-07-16] MEDS: INSULIN LISPRO 300 UNITS/3 ML INSULN.PEN. SQ SCH (22:02)
[2018-07-16 23:59] VITALS: BP 131/52
[2018-07-17 03:35] VITALS: BP 169/65
[2018-07-17 04:41] LABS: BASO % 0 % (0-3); EOS % 0 % (0-3); HEMATOCRIT 34.2 % (36.0-47.0); HEMOGLOBIN 11.7 g/dL (12.0-15.5); LYMPH # 0.8 x10^3/uL (1.0-4.8); LYMPH % 11 % (24-48); MEAN CORPUSCULAR HEMOGLOBIN 31 pg (25-35); MEAN CORPUSCULAR HGB CONC 34 g/dL (31-37); MEAN CORPUSCULAR VOLUME 89 fL (79-100); MONO # 0.6 x10^3/uL (0.0-1.1); MONO % 7 % (0-9); NEUT # 6.3 x10^3uL (1.8-7.7); NEUT % 81 % (31-73); PLATELET COUNT 210 x10^3/uL (140-400); RED BLOOD COUNT 3.83 x10^6/uL (3.50-5.40); RED CELL DISTRIBUTION WIDTH 15.7 % (11.5-14.5); WHITE BLOOD COUNT 7.7 x10^3/uL (4.0-11.0)
[2018-07-17 05:00] LABS: CALCIUM 9.2 mg/dL (8.5-10.1); CREATININE 1.5 mg/dL (0.6-1.0); GFR 33.3
[2018-07-17] MEDS: HEPARIN for SUB-Q USE 5,000 UNIT/ML VIAL. SQ SCH ×3 (06:00→22:00)
[2018-07-17 07:00] VITALS: BP 176/81
[2018-07-17] MEDS: INSULIN LISPRO 300 UNITS/3 ML INSULN.PEN. SQ SCH ×7 (07:30→21:00)
[2018-07-17] MEDS: IV NORMAL SALINE 1000ML BAG 1,000 ML IV SCH (08:19)
[2018-07-17] MEDS: predniSONE 5 MG TABLET PO SCH (08:23)
[2018-07-17] MEDS: VERAPAMIL SR 120 MG TABLET.ER. PO SCH (08:23)
[2018-07-17] MEDS: cloNIDine HCL 0.1 MG TABLET PO SCH ×2 (08:24→20:47)
[2018-07-17] MEDS: ASPIRIN CHEWABLE 81 MG TABLET. PO SCH (08:25)
[2018-07-17] MEDS: ALLOPURINOL 100 MG TABLET. PO SCH ×2 (08:28→20:46)
[2018-07-17] MEDS: INSULIN GLARGINE 300 UNITS/3 ML INSULN.PEN. SQ SCH (08:37)
[2018-07-17] MEDS ORDERED: POTASSIUM CHLORIDE 10 MEQ TABLET.ER. PO SCH (09:00)
--- NOTE | 2018-07-17 10:52 | PDOC ---
PROGRESS NOTES History of Present Illness History of Present Illness VTE Prophylaxis Ordered VTE Prophylaxis Devices: No VTE Pharmacological Prophylaxi: Yes Assessment/Plan hyperglycemia hyperosmolar not ketotic exacerbation with pseudohyponatremia acute renal failure, hydrate, slow to resolve renal consult, likely vasomotor and electrolyte pancreatitis without abd pain UTI, rocephin, has been on PO abx at home obese, BMI 33 dm2, check a1c hypokalemia on replacement admit replace k follow renal fx in AM iv fluid support CONTINUE LANTUS HS Vitals Vitals Vital Signs Date Time Temp Pulse Resp B/P (MAP) Pulse Ox O2 Delivery O2 Flow Rate FiO2 07/17/18 08:24 76 176/81 07/17/18 08:00 Room Air 07/17/18 07:00 98.6 18 95 98.6 Physical Exam Physical Exam Physical Exam General: Alert, Cooperative, No acute distress HEENT: Mucous membr. moist/pink Lungs: Normal air movement Heart: no murmurs Abdomen: Normal bowel sounds, Soft Extremities: No cyanosis, Normal pulses, Other (tender swollen joints, fingers, ITp) Skin: No breakdown Neuro: Normal speech, Sensation intact Psych/Mental Status: Mood NL General: Alert, Cooperative, No acute distress Abdomen: Normal bowel sounds, Soft Extremities: No cyanosis, Normal pulses, Other (tender swollen joints, fingers, ITp) Skin: No breakdown Labs LABS Laboratory Tests Test 07/16/18 12:09 07/16/18 12:20 07/16/18 13:00 07/16/18 13:41 Glucose (Fingerstick) 441 mg/dL (70-99) White Blood Count 9.3 x10^3/uL (4.0-11.0) Red Blood Count 4.14 x10^6/uL (3.50-5.40) Hemoglobin 12.6 g/dL (12.0-15.5) Hematocrit 36.9 % (36.0-47.0) Mean Corpuscular Volume 89 fL (79-100) Mean Corpuscular Hemoglobin 31 pg (25-35) Mean Corpuscular Hemoglobin Concent 34 g/dL (31-37) Red Cell Distribution Width 15.5 % (11.5-14.5) Platelet Count 242 x10^3/uL (140-400) Neutrophils (%) (Auto) 81 % (31-73) Lymphocytes (%) (Auto) 11 % (24-48) Monocytes (%) (Auto) 7 % (0-9) Eosinophils (%) (Auto) 0 % (0-3) Basophils (%) (Auto) 0 % (0-3) Neutrophils # (Auto) 7.5 x10^3uL (1.8-7.7) Lymphocytes # (Auto) 1.0 x10^3/uL (1.0-4.8) Monocytes # (Auto) 0.6 x10^3/uL (0.0-1.1) Eosinophils # (Auto) 0.0 x10^3/uL (0.0-0.7) Basophils # (Auto) 0.0 x10^3/uL (0.0-0.2) Sodium Level 125 mmol/L (136-145) Potassium Level 3.3 mmol/L (3.5-5.1) Chloride Level 86 mmol/L (98-107) Carbon Dioxide Level 27 mmol/L (21-32) Anion Gap 12 (6-14) Blood Urea Nitrogen 34 mg/dL (7-20) Creatinine 2.3 mg/dL (0.6-1.0) Estimated GFR (Cockcroft-Gault) 20.4 Glucose Level 520 mg/dL (70-99) Calcium Level 10.0 mg/dL (8.5-10.1) Total Bilirubin 0.3 mg/dL (0.2-1.0) Direct Bilirubin 0.1 mg/dL (0.0-0.2) Aspartate Amino Transf (AST/SGOT) 23 U/L (15-37) Alanine Aminotransferase (ALT/SGPT) 28 U/L (14-59) Alkaline Phosphatase 92 U/L (46-116) Troponin I Quantitative 0.036 ng/mL (0.000-0.055) Total Protein 7.1 g/dL (6.4-8.2) Albumin 3.2 g/dL (3.4-5.0) Lipase 649 U/L (73-393) O2 Saturation 94 % (92-99) Arterial Blood pH 7.45 (7.35-7.45) Arterial Blood pCO2 at Patient Temp 38 mmHg (35-46) Arterial Blood pO2 at Patient Temp 72 mmHg (65-108) Arterial Blood HCO3 26 mmol/L (21-28) Arterial Blood Base Excess 2 mmol/L (-3-3) FiO2 21% Urine Collection Type Unknown Urine Color Yellow Urine Clarity Clear Urine pH 5.5 Urine Specific [place] 1.015 Urine Protein Negative mg/dL (NEG-TRACE) Urine Glucose (UA) >=1000 mg/dL (NEG) Urine Ketones (Stick) Negative mg/dL (NEG) Urine Blood Large (NEG) Urine Nitrite Negative (NEG) Urine Bilirubin Negative (NEG) Urine Urobilinogen Dipstick 0.2 mg/dL (0.2 mg/dL) Urine Leukocyte Esterase Moderate (NEG) Urine RBC Tntc /HPF (0-2) Urine WBC >40 /HPF (0-4) Urine Squamous Epithelial Cells Many /LPF Urine Bacteria Many /HPF (0-FEW) Test 07/16/18 14:39 07/16/18 16:12 07/16/18 18:31 07/16/18 21:47 Glucose (Fingerstick) 362 mg/dL (70-99) 317 mg/dL (70-99) 361 mg/dL (70-99) 214 mg/dL (70-99) Test 07/17/18 04:00 07/17/18 07:39 White Blood Count 7.7 x10^3/uL (4.0-11.0) Red Blood Count 3.83 x10^6/uL (3.50-5.40) Hemoglobin 11.7 g/dL (12.0-15.5) Hematocrit 34.2 % (36.0-47.0) Mean Corpuscular Volume 89 fL (79-100) Mean Corpuscular Hemoglobin 31 pg (25-35) Mean Corpuscular Hemoglobin Concent 34 g/dL (31-37) Red Cell Distribution Width 15.7 % (11.5-14.5) Platelet Count 210 x10^3/uL (140-400) Neutrophils (%) (Auto) 81 % (31-73) Lymphocytes (%) (Auto) 11 % (24-48) Monocytes (%) (Auto) 7 % (0-9) Eosinophils (%) (Auto) 0 % (0-3) Basophils (%) (Auto) 0 % (0-3) Neutrophils # (Auto) 6.3 x10^3uL (1.8-7.7) Lymphocytes # (Auto) 0.8 x10^3/uL (1.0-4.8) Monocytes # (Auto) 0.6 x10^3/uL (0.0-1.1) Eosinophils # (Auto) 0.0 x10^3/uL (0.0-0.7) Basophils # (Auto) 0.0 x10^3/uL (0.0-0.2) Sodium Level 139 mmol/L (136-145) Potassium Level 3.0 mmol/L (3.5-5.1) Chloride Level 102 mmol/L (98-107) Carbon Dioxide Level 26 mmol/L (21-32) Anion Gap 11 (6-14) Blood Urea Nitrogen 26 mg/dL (7-20) Creatinine 1.5 mg/dL (0.6-1.0) Estimated GFR (Cockcroft-Gault) 33.3 Glucose Level 159 mg/dL (70-99) Calcium Level 9.2 mg/dL (8.5-10.1) Glucose (Fingerstick) 144 mg/dL (70-99) Assessment and Plan Assessmemt and Plan Problems Medical Problems: (1) Acute kidney injury Status: Acute (2) Hyperglycemia Status: Acute (3) Hypokalemia Status: Acute (4) Urinary tract infection Status: Acute Comment Review of Relevant I have reviewed the following items yudi (where applicable) has been applied. Labs Laboratory Tests Test 07/16/18 12:09 07/16/18 12:20 07/16/18 13:00 07/16/18 13:41 Glucose (Fingerstick) 441 mg/dL (70-99) White Blood Count 9.3 x10^3/uL (4.0-11.0) Red Blood Count 4.14 x10^6/uL (3.50-5.40) Hemoglobin 12.6 g/dL (12.0-15.5) Hematocrit 36.9 % (36.0-47.0) Mean Corpuscular Volume 89 fL (79-100) Mean Corpuscular Hemoglobin 31 pg (25-35) Mean Corpuscular Hemoglobin Concent 34 g/dL (31-37) Red Cell Distribution Width 15.5 % (11.5-14.5) Platelet Count 242 x10^3/uL (140-400) Neutrophils (%) (Auto) 81 % (31-73) Lymphocytes (%) (Auto) 11 % (24-48) Monocytes (%) (Auto) 7 % (0-9) Eosinophils (%) (Auto) 0 % (0-3) Basophils (%) (Auto) 0 % (0-3) Neutrophils # (Auto) 7.5 x10^3uL (1.8-7.7) Lymphocytes # (Auto) 1.0 x10^3/uL (1.0-4.8) Monocytes # (Auto) 0.6 x10^3/uL (0.0-1.1) Eosinophils # (Auto) 0.0 x10^3/uL (0.0-0.7) Basophils # (Auto) 0.0 x10^3/uL (0.0-0.2) Sodium Level 125 mmol/L (136-145) Potassium Level 3.3 mmol/L (3.5-5.1) Chloride Level 86 mmol/L (98-107) Carbon Dioxide Level 27 mmol/L (21-32) Anion Gap 12 (6-14) Blood Urea Nitrogen 34 mg/dL (7-20) Creatinine 2.3 mg/dL (0.6-1.0) Estimated GFR (Cockcroft-Gault) 20.4 Glucose Level 520 mg/dL (70-99) Calcium Level 10.0 mg/dL (8.5-10.1) Total Bilirubin 0.3 mg/dL (0.2-1.0) Direct Bilirubin 0.1 mg/dL (0.0-0.2) Aspartate Amino Transf (AST/SGOT) 23 U/L (15-37) Alanine Aminotransferase (ALT/SGPT) 28 U/L (14-59) Alkaline Phosphatase 92 U/L (46-116) Troponin I Quantitative 0.036 ng/mL (0.000-0.055) Total Protein 7.1 g/dL (6.4-8.2) Albumin 3.2 g/dL (3.4-5.0) Lipase 649 U/L (73-393) O2 Saturation 94 % (92-99) Arterial Blood pH 7.45 (7.35-7.45) Arterial Blood pCO2 at Patient Temp 38 mmHg (35-46) Arterial Blood pO2 at Patient Temp 72 mmHg (65-108) Arterial Blood HCO3 26 mmol/L (21-28) Arterial Blood Base Excess 2 mmol/L (-3-3) FiO2 21% Urine Collection Type Unknown Urine Color Yellow Urine Clarity Clear Urine pH 5.5 Urine Specific [place] 1.015 Urine Protein Negative mg/dL (NEG-TRACE) Urine Glucose (UA) >=1000 mg/dL (NEG) Urine Ketones (Stick) Negative mg/dL (NEG) Urine Blood Large (NEG) Urine Nitrite Negative (NEG) Urine Bilirubin Negative (NEG) Urine Urobilinogen Dipstick 0.2 mg/dL (0.2 mg/dL) Urine Leukocyte Esterase Moderate (NEG) Urine RBC Tntc /HPF (0-2) Urine WBC >40 /HPF (0-4) Urine Squamous Epithelial Cells Many /LPF Urine Bacteria Many /HPF (0-FEW) Test 07/16/18 14:39 07/16/18 16:12 07/16/18 18:31 07/16/18 21:47 Glucose (Fingerstick) 362 mg/dL (70-99) 317 mg/dL (70-99) 361 mg/dL (70-99) 214 mg/dL (70-99) Test 07/17/18 04:00 07/17/18 07:39 White Blood Count 7.7 x10^3/uL (4.0-11.0) Red Blood Count 3.83 x10^6/uL (3.50-5.40) Hemoglobin 11.7 g/dL (12.0-15.5) Hematocrit 34.2 % (36.0-47.0) Mean Corpuscular Volume 89 fL (79-100) Mean Corpuscular Hemoglobin 31 pg (25-35) Mean Corpuscular Hemoglobin Concent 34 g/dL (31-37) Red Cell Distribution Width 15.7 % (11.5-14.5) Platelet Count 210 x10^3/uL (140-400) Neutrophils (%) (Auto) 81 % (31-73) Lymphocytes (%) (Auto) 11 % (24-48) Monocytes (%) (Auto) 7 % (0-9) Eosinophils (%) (Auto) 0 % (0-3) Basophils (%) (Auto) 0 % (0-3) Neutrophils # (Auto) 6.3 x10^3uL (1.8-7.7) Lymphocytes # (Auto) 0.8 x10^3/uL (1.0-4.8) Monocytes # (Auto) 0.6 x10^3/uL (0.0-1.1) Eosinophils # (Auto) 0.0 x10^3/uL (0.0-0.7) Basophils # (Auto) 0.0 x10^3/uL (0.0-0.2) Sodium Level 139 mmol/L (136-145) Potassium Level 3.0 mmol/L (3.5-5.1) Chloride Level 102 mmol/L (98-107) Carbon Dioxide Level 26 mmol/L (21-32) Anion Gap 11 (6-14) Blood Urea Nitrogen 26 mg/dL (7-20) Creatinine 1.5 mg/dL (0.6-1.0) Estimated GFR (Cockcroft-Gault) 33.3 Glucose Level 159 mg/dL (70-99) Calcium Level 9.2 mg/dL (8.5-10.1) Glucose (Fingerstick) 144 mg/dL (70-99) Laboratory Tests Test 07/16/18 12:09 07/16/18 12:20 07/16/18 13:00 07/16/18 13:41 Glucose (Fingerstick) 441 mg/dL (70-99) White Blood Count 9.3 x10^3/uL (4.0-11.0) Red Blood Count 4.14 x10^6/uL (3.50-5.40) Hemoglobin 12.6 g/dL (12.0-15.5) Hematocrit 36.9 % (36.0-47.0) Mean Corpuscular Volume 89 fL (79-100) Mean Corpuscular Hemoglobin 31 pg (25-35) Mean Corpuscular Hemoglobin Concent 34 g/dL (31-37) Red Cell Distribution Width 15.5 % (11.5-14.5) Platelet Count 242 x10^3/uL (140-400) Neutrophils (%) (Auto) 81 % (31-73) Lymphocytes (%) (Auto) 11 % (24-48) Monocytes (%) (Auto) 7 % (0-9) Eosinophils (%) (Auto) 0 % (0-3) Basophils (%) (Auto) 0 % (0-3) Neutrophils # (Auto) 7.5 x10^3uL (1.8-7.7) Lymphocytes # (Auto) 1.0 x10^3/uL (1.0-4.8) Monocytes # (Auto) 0.6 x10^3/uL (0.0-1.1) Eosinophils # (Auto) 0.0 x10^3/uL (0.0-0.7) Basophils # (Auto) 0.0 x10^3/uL (0.0-0.2) Sodium Level 125 mmol/L (136-145) Potassium Level 3.3 mmol/L (3.5-5.1) Chloride Level 86 mmol/L (98-107) Carbon Dioxide Level 27 mmol/L (21-32) Anion Gap 12 (6-14) Blood Urea Nitrogen 34 mg/dL (7-20) Creatinine 2.3 mg/dL (0.6-1.0) Estimated GFR (Cockcroft-Gault) 20.4 Glucose Level 520 mg/dL (70-99) Calcium Level 10.0 mg/dL (8.5-10.1) Total Bilirubin 0.3 mg/dL (0.2-1.0) Direct Bilirubin 0.1 mg/dL (0.0-0.2) Aspartate Amino Transf (AST/SGOT) 23 U/L (15-37) Alanine Aminotransferase (ALT/SGPT) 28 U/L (14-59) Alkaline Phosphatase 92 U/L (46-116) Troponin I Quantitative 0.036 ng/mL (0.000-0.055) Total Protein 7.1 g/dL (6.4-8.2) Albumin 3.2 g/dL (3.4-5.0) Lipase 649 U/L (73-393) O2 Saturation 94 % (92-99) Arterial Blood pH 7.45 (7.35-7.45) Arterial Blood pCO2 at Patient Temp 38 mmHg (35-46) Arterial Blood pO2 at Patient Temp 72 mmHg (65-108) Arterial Blood HCO3 26 mmol/L (21-28) Arterial Blood Base Excess 2 mmol/L (-3-3) FiO2 21% Urine Collection Type Unknown Urine Color Yellow Urine Clarity Clear Urine pH 5.5 Urine Specific [place] 1.015 Urine Protein Negative mg/dL (NEG-TRACE) Urine Glucose (UA) >=1000 mg/dL (NEG) Urine Ketones (Stick) Negative mg/dL (NEG) Urine Blood Large (NEG) Urine Nitrite Negative (NEG) Urine Bilirubin Negative (NEG) Urine Urobilinogen Dipstick 0.2 mg/dL (0.2 mg/dL) Urine Leukocyte Esterase Moderate (NEG) Urine RBC Tntc /HPF (0-2) Urine WBC >40 /HPF (0-4) Urine Squamous Epithelial Cells Many /LPF Urine Bacteria Many /HPF (0-FEW) Test 07/16/18 14:39 07/16/18 16:12 07/16/18 18:31 07/16/18 21:47 Glucose (Fingerstick) 362 mg/dL (70-99) 317 mg/dL (70-99) 361 mg/dL (70-99) 214 mg/dL (70-99) Test 07/17/18 04:00 07/17/18 07:39 White Blood Count 7.7 x10^3/uL (4.0-11.0) Red Blood Count 3.83 x10^6/uL (3.50-5.40) Hemoglobin 11.7 g/dL (12.0-15.5) Hematocrit 34.2 % (36.0-47.0) Mean Corpuscular Volume 89 fL (79-100) Mean Corpuscular Hemoglobin 31 pg (25-35) Mean Corpuscular Hemoglobin Concent 34 g/dL (31-37) Red Cell Distribution Width 15.7 % (11.5-14.5) Platelet Count 210 x10^3/uL (140-400) Neutrophils (%) (Auto) 81 % (31-73) Lymphocytes (%) (Auto) 11 % (24-48) Monocytes (%) (Auto) 7 % (0-9) Eosinophils (%) (Auto) 0 % (0-3) Basophils (%) (Auto) 0 % (0-3) Neutrophils # (Auto) 6.3 x10^3uL (1.8-7.7) Lymphocytes # (Auto) 0.8 x10^3/uL (1.0-4.8) Monocytes # (Auto) 0.6 x10^3/uL (0.0-1.1) Eosinophils # (Auto) 0.0 x10^3/uL (0.0-0.7) Basophils # (Auto) 0.0 x10^3/uL (0.0-0.2) Sodium Level 139 mmol/L (136-145) Potassium Level 3.0 mmol/L (3.5-5.1) Chloride Level 102 mmol/L (98-107) Carbon Dioxide Level 26 mmol/L (21-32) Anion Gap 11 (6-14) Blood Urea Nitrogen 26 mg/dL (7-20) Creatinine 1.5 mg/dL (0.6-1.0) Estimated GFR (Cockcroft-Gault) 33.3 Glucose Level 159 mg/dL (70-99) Calcium Level 9.2 mg/dL (8.5-10.1) Glucose (Fingerstick) 144 mg/dL (70-99) Medications Current Medications Sodium Chloride 1,000 ml @ 1,000 mls/hr 1X ONCE IV Last administered on 07/16/18at 14:11; Start 07/16/18 at 13:30; Stop 07/16/18 at 14:29; Status DC Insulin Human Regular (HumuLIN R VIAL) 5 unit 1X ONCE IV Last administered on 07/16/18at 14:09; Start 07/16/18 at 13:30; Stop 07/16/18 at 14:04; Status DC Ondansetron HCl (Zofran) 4 mg PRN Q8HRS PRN IV NAUSEA/VOMITING; Start 07/16/18 at 13:30; Stop 07/17/18 at 13:29 Morphine Sulfate (Morphine Sulfate) 2 mg PRN Q2HR PRN IV PAIN; Start 07/16/18 at 13:30; Stop 07/17/18 at 13:29 Sodium Chloride 1,000 ml @ 100 mls/hr Q10H IV Last administered on 07/16/18at 13:24; Start 07/16/18 at 13:24; Stop 07/16/18 at 23:23; Status DC Ceftriaxone Sodium (Rocephin) 1 gm 1X ONCE IVP Last administered on 07/16/18at 15:36; Start 07/16/18 at 15:30; Stop 07/16/18 at 15:31; Status DC Potassium Chloride (Klor-Con) 40 meq 1X ONCE PO Last administered on 07/16/18at 18:42; Start 07/16/18 at 16:15; Stop 07/16/18 at 16:18; Status DC Magnesium Sulfate 50 ml @ 25 mls/hr 1X ONCE IV Last administered on 07/16/18at 18:43; Start 07/16/18 at 17:00; Stop 07/16/18 at 18:59; Status DC Insulin Human Lispro (HumaLOG) 10 units TIDWMEALS SQ Last administered on 07/16/18at 18:52; Start 07/16/18 at 17:00; Stop 07/16/18 at 20:33; Status DC Insulin Glargine (Lantus) 18 units QHS SQ Last administered on 07/16/18at 18:53; Start 07/16/18 at 16:30; Stop 07/16/18 at 20:33; Status DC Sodium Chloride 1,000 ml @ 100 mls/hr Q10H IV Last administered on 07/17/18at 08:19; Start 07/16/18 at 20:30 Ceftriaxone Sodium (Rocephin) 1 gm Q24H IVP ; Start 07/17/18 at 15:00 Heparin Sodium (Porcine) (Heparin Sodium) 5,000 unit Q8HRS SQ ; Start 07/16/18 at 22:00 Allopurinol (Zyloprim) 100 mg BID PO Last administered on 07/17/18at 08:28; Start 07/16/18 at 21:00 Aspirin (Children'S Aspirin) 81 mg DAILY PO Last administered on 07/17/18at 08:25; Start 07/17/18 at 09:00 Clonidine HCl (Catapres) 0.1 mg BID PO Last administered on 07/17/18at 08:24; Start 07/16/18 at 21:00 Potassium Chloride (Klor-Con) 10 meq DAILY PO Last administered on 07/17/18at 08:25; Start 07/17/18 at 09:00 Loperamide HCl (Imodium) 1 mg QHS PO ; Start 07/16/18 at 21:00 Simvastatin (Zocor) 20 mg HS PO ; Start 07/16/18 at 21:00; Stop 07/16/18 at 21:00; Status DC Verapamil HCl (Calan Sr) 240 mg DAILY PO Last administered on 07/17/18 08:23; Start 07/17/18 at 09:00 Prednisone (Prednisone) 5 mg DAILY PO Last administered on 07/17/18 08:23; Start 07/17/18 at 09:00 Prednisone (Prednisone) 4 mg QHS PO Last administered on 07/16/18 21:45; Start 07/16/18 at 21:00 Insulin Human Lispro (HumaLOG) 0-9 UNITS QIDACHS SQ Last administered on 07/16/18 22:02; Start 07/16/18 at 21:00 Dextrose (Dextrose 50%-Water Syringe) 12.5 gm PRN Q15MIN PRN IV SEE COMMENTS; Start 07/16/18 at 20:45 Insulin Glargine (Lantus) 25 units DAILY08 SQ Last administered on 07/17/18 08:37; Start 07/17/18 at 08:00 Insulin Human Lispro (HumaLOG) 15 units TIDWMEALS SQ Last administered on 07/17/18 08:36; Start 07/17/18 at 08:00 Atorvastatin Calcium (Lipitor) 10 mg QHS PO Last administered on 07/16/18 21:44; Start 07/16/18 at 21:00 Active Scripts Active Keflex (Cephalexin) 500 Mg Capsule 1 Cap PO TID Reported Potassium Chloride 10 Meq Tab.sr.24h 10 Meq PO DAILY Verapamil Er (Verapamil Hcl) 240 Mg Cap24h.pel 1 Cap PO DAILY Clonidine Hcl 0.1 Mg Tablet 0.1 Mg PO BID Metformin Hcl 850 Mg Tablet 850 Mg PO BIDWMEALS Gemfibrozil 600 Mg Tablet 1 Tab PO BID Simvastatin 20 Mg Tablet 1 Tab PO QHS Lisinopril-Hctz 20-25 Mg Tab (Lisinopril/Hydrochlorothiazide) 1 Each Tablet 1 Tab PO BID Allopurinol 100 Mg Tablet 1 Tab PO BID Aspirin 81 Mg Tab.chew 1 Tab PO DAILY Fish Oil 1,000 Mg Capsule ([place]-3 Fatty Acids/Fish Oil) 1 Each Capsule 1 Each PO DAILY Imodium A-D (Loperamide Hcl) 1 Mg/7.5 Ml Liquid 1 Mg PO HS BitRock Capsule (L Gasseri/B Bifidum/B Longum) 1 Each Capsule 1 Each PO DAILY Prednisone 2.5 Mg Tablet 9 Mg PO DAILY Vitals/I & O Vital Sign - Last 24 Hours 07/16/18 07/16/18 07/16/18 07/16/18 12:46 13:05 13:45 14:45 Temp 97.6 97.6 Pulse 93 86 78 Resp 16 16 16 B/P (MAP) 149/94 (112) 157/83 (107) 176/79 (111) Pulse Ox 99 96 97 O2 Delivery Room Air Room Air Room Air Room Air 07/16/18 07/16/18 07/16/18 07/16/18 15:45 16:45 17:33 18:00 Temp 98.2 98.2 Pulse 76 78 83 Resp 17 17 18 B/P (MAP) 153/76 (101) 148/69 (95) 168/73 (104) Pulse Ox 97 96 94 O2 Delivery Room Air Room Air Room Air Room Air 07/16/18 07/16/18 07/16/18 07/16/18 19:59 20:00 21:44 23:59 Temp 97.6 98.0 97.6 98.0 Pulse 86 86 68 Resp 20 19 B/P (MAP) 177/72 (107) 177/72 131/52 (78) Pulse Ox 96 95 O2 Delivery Room Air Room Air Room Air 07/17/18 07/17/18 07/17/18 07/17/18 03:35 07:00 08:00 08:23 Temp 98.0 98.6 98.0 98.6 Pulse 80 76 76 Resp 18 18 B/P (MAP) 169/65 (99) 176/81 (112) 176/81 Pulse Ox 97 95 O2 Delivery Room Air Room Air Room Air 07/17/18 08:24 Pulse 76 B/P (MAP) 176/81 Intake and Output 07/16/18 07/16/18 07/17/18 14:59 22:59 06:59 Intake Total 1000 ml Balance 1000 ml PHUONG SAPP MD Jul 17, 2018 10:52
[2018-07-17 11:00] VITALS: BP 133/67
[2018-07-17] MEDS ORDERED: POTASSIUM CHLORIDE 20 MEQ TABLET.ER. PO ONE (11:45)
--- NOTE | 2018-07-17 12:23 | PDOC2 ---
CONSULT Date of Consult Date of Consult DATE: 07/17/18 TIME: 12:21 Reason for Consult Reason for Consult: Acute renal failure Referring Physician Referring Physician: Carlito Identification/Chief Complaint Chief Complaint Hyperglycemia Source Source: Caregiver, Patient History of Present Illness Reason for Visit: Yodit is a pleasant 82-year-old female with known chronic disease stage III. She is followed by Dr. Hernandes in our practice. She had blood work done at [facility] on Thursday and was noted to have extremely elevated sugars and was sent to the ER for further evaluation. She claims that she was recently put on prednisone due to her arthritis and that that was being weaned. She also did not have test strips to check her sugars and she wasn't doing so. She claims she was watching her diet closely but did not know what her sugars were running until she had the abnormal tests. On arriving here at her sugars were 441 and 520 on her BMP. She was also noted to be hyponatremic, hypokalemic as well as had a mildly elevated lipase. She denies fevers chills nausea vomiting or diarrhea at this time. She claims is feeling well at this time. She does not know what her baseline creatinine is however her BUN/creatinine were 34 and 2.3 corresponding to a GFR of 20 mL/m and was admitted to the hospital with acute renal failure and we were asked to see her for the same. Past Medical History Cardiovascular: HTN Psych: No pertinent hx Musculoskeletal: low back pain, Osteoarthritis, Swelling, Stiffness Endocrine: Diabetes Family History Family History: Diabetes, Other (noncontributory due to advanced age) Social History No ALCOHOL: none Current Problem List Problem List Problems Medical Problems: (1) Acute kidney injury Status: Acute (2) Hyperglycemia Status: Acute (3) Hypokalemia Status: Acute (4) Urinary tract infection Status: Acute Current Medications Current Medications Current Medications Sodium Chloride 1,000 ml @ 1,000 mls/hr 1X ONCE IV Last administered on 06/22 09/08at 14:11; Start 07/16/18 at 13:30; Stop 07/16/18 at 14:29; Status DC Insulin Human Regular (HumuLIN R VIAL) 5 unit 1X ONCE IV Last administered on 07/16/18at 14:09; Start 07/16/18 at 13:30; Stop 07/16/18 at 14:04; Status DC Ondansetron HCl (Zofran) 4 mg PRN Q8HRS PRN IV NAUSEA/VOMITING; Start 07/16/18 at 13:30; Stop 07/17/18 at 13:29 Morphine Sulfate (Morphine Sulfate) 2 mg PRN Q2HR PRN IV PAIN; Start 07/16/18 at 13:30; Stop 07/17/18 at 13:29 Sodium Chloride 1,000 ml @ 100 mls/hr Q10H IV Last administered on 07/16/18at 13:24; Start 07/16/18 at 13:24; Stop 07/16/18 at 23:23; Status DC Ceftriaxone Sodium (Rocephin) 1 gm 1X ONCE IVP Last administered on 07/16/18at 15:36; Start 07/16/18 at 15:30; Stop 07/16/18 at 15:31; Status DC Potassium Chloride (Klor-Con) 40 meq 1X ONCE PO Last administered on 07/16/18at 18:42; Start 07/16/18 at 16:15; Stop 07/16/18 at 16:18; Status DC Magnesium Sulfate 50 ml @ 25 mls/hr 1X ONCE IV Last administered on 07/16/18at 18:43; Start 07/16/18 at 17:00; Stop 07/16/18 at 18:59; Status DC Insulin Human Lispro (HumaLOG) 10 units TIDWMEALS SQ Last administered on 07/16/18at 18:52; Start 07/16/18 at 17:00; Stop 07/16/18 at 20:33; Status DC Insulin Glargine (Lantus) 18 units QHS SQ Last administered on 07/16/18at 18:53; Start 07/16/18 at 16:30; Stop 07/16/18 at 20:33; Status DC Sodium Chloride 1,000 ml @ 100 mls/hr Q10H IV Last administered on 07/17/18at 08:19; Start 07/16/18 at 20:30 Ceftriaxone Sodium (Rocephin) 1 gm Q24H IVP ; Start 07/17/18 at 15:00 Heparin Sodium (Porcine) (Heparin Sodium) 5,000 unit Q8HRS SQ ; Start 07/16/18 at 22:00 Allopurinol (Zyloprim) 100 mg BID PO Last administered on 07/17/18 08:28; Start 07/16/18 at 21:00 Aspirin (Children'S Aspirin) 81 mg DAILY PO Last administered on 07/17/18 08:25; Start 07/17/18 at 09:00 Clonidine HCl (Catapres) 0.1 mg BID PO Last administered on 07/17/18 08:24; Start 07/16/18 at 21:00 Potassium Chloride (Klor-Con) 10 meq DAILY PO Last administered on 07/17/18 08:25; Start 07/17/18 at 09:00 Loperamide HCl (Imodium) 1 mg QHS PO ; Start 07/16/18 at 21:00 Simvastatin (Zocor) 20 mg HS PO ; Start 07/16/18 at 21:00; Stop 07/16/18 at 21:00; Status DC Verapamil HCl (Calan Sr) 240 mg DAILY PO Last administered on 07/17/18 08:23; Start 07/17/18 at 09:00 Prednisone (Prednisone) 5 mg DAILY PO Last administered on 07/17/18 08:23; Start 07/17/18 at 09:00 Prednisone (Prednisone) 4 mg QHS PO Last administered on 07/16/18 21:45; Start 07/16/18 at 21:00 Insulin Human Lispro (HumaLOG) 0-9 UNITS QIDACHS SQ Last administered on 22:02; Start 07/16/18 at 21:00 Dextrose (Dextrose 50%-Water Syringe) 12.5 gm PRN Q15MIN PRN IV SEE COMMENTS; Start 07/16/18 at 20:45 Insulin Glargine (Lantus) 25 units DAILY08 SQ Last administered on 07/17/18 08:37; Start 07/17/18 at 08:00 Insulin Human Lispro (HumaLOG) 15 units TIDWMEALS SQ Last administered on 07/17/18 12:15; Start 07/17/18 at 08:00 Atorvastatin Calcium (Lipitor) 10 mg QHS PO Last administered on 07/16/18 21:44; Start 07/16/18 at 21:00 Potassium Chloride (Klor-Con) 40 meq 1X ONCE PO Last administered on 07/17/18 12:10; Start 07/17/18 at 11:45; Stop 07/17/18 at 11:46; Status DC Potassium Chloride (Klor-Con) 20 meq DAILYWBKFT PO ; Start 07/18/18 at 08:00 Active Scripts Active Keflex (Cephalexin) 500 Mg Capsule 1 Cap PO TID Reported Potassium Chloride 10 Meq Tab.sr.24h 10 Meq PO DAILY Verapamil Er (Verapamil Hcl) 240 Mg Cap24h.pel 1 Cap PO DAILY Clonidine Hcl 0.1 Mg Tablet 0.1 Mg PO BID Metformin Hcl 850 Mg Tablet 850 Mg PO BIDWMEALS Gemfibrozil 600 Mg Tablet 1 Tab PO BID Simvastatin 20 Mg Tablet 1 Tab PO QHS Lisinopril-Hctz 20-25 Mg Tab (Lisinopril/Hydrochlorothiazide) 1 Each Tablet 1 Tab PO BID Allopurinol 100 Mg Tablet 1 Tab PO BID Aspirin 81 Mg Tab.chew 1 Tab PO DAILY Fish Oil 1,000 Mg Capsule ([place]-3 Fatty Acids/Fish Oil) 1 Each Capsule 1 Each PO DAILY Imodium A-D (Loperamide Hcl) 1 Mg/7.5 Ml Liquid 1 Mg PO HS [employer] Capsule (L Gasseri/B Bifidum/B Longum) 1 Each Capsule 1 Each PO DAILY Prednisone 2.5 Mg Tablet 9 Mg PO DAILY Allergies Allergies: Coded Allergies: No Known Drug Allergies (Unverified , 07/16/18) ROS Review of System As dictated in history of present illness otherwise grossly negative Physical Exam Physical Exam General Appearance: Awake Alert Oriented x 3 In no Distress Eyes: VIsion Unchanged Conjunctiva Normal EN: No EN Drainage Mucous Memb. moist Neck: no JVD no JVP Supple no Thyromegaly, Web neck CVS: S1 S2 no Murmur No Gallop No Rub no Edema Resp: no Rales no Rhonchi no Acc. Muscle use GI: BAS +ve NO Bruit Non Tender Non Distended : no CVA tenderness; no Suprapubic Tenderness SKIN: no Rashes Breast Exam deferred Mu.Sk: Adequate ROM no Muscle Atrophy, mild thoracic kyphosis Heme: Unable to palpate Obvious LAD no Splenomegaly NEURO: Good Strength and Tone Cranial Nerves II - XII grossly intact Psych: not Depressed no Active hallucination Vital Signs Vital Signs Date Time Temp Pulse Resp B/P (MAP) Pulse Ox O2 Delivery O2 Flow Rate FiO2 07/17/18 11:00 98.2 70 18 133/67 (89) 94 Room Air 98.2 Assessment & Plan Acute kidney injury: Suspect associated with prolonged hyperglycemia. She has responded well to IV fluids. Hyponatremia: Suspect pseudohyponatremia associated with hyperglycemia. This appears to have corrected now that sugars are better. Hypokalemia: Continue supplementation at this time. Intravascular volume depletion much improved currently Underlying history of chronic kidney disease: Follow-up with Dr. Hernandes soon as scheduled. Discussed Plan of Care and prognosis etc. at length with family. Labs Labs Laboratory Tests Test 07/16/18 12:09 07/16/18 12:20 07/16/18 13:00 07/16/18 13:41 Glucose (Fingerstick) 441 mg/dL (70-99) White Blood Count 9.3 x10^3/uL (4.0-11.0) Red Blood Count 4.14 x10^6/uL (3.50-5.40) Hemoglobin 12.6 g/dL (12.0-15.5) Hematocrit 36.9 % (36.0-47.0) Mean Corpuscular Volume 89 fL (79-100) Mean Corpuscular Hemoglobin 31 pg (25-35) Mean Corpuscular Hemoglobin Concent 34 g/dL (31-37) Red Cell Distribution Width 15.5 % (11.5-14.5) Platelet Count 242 x10^3/uL (140-400) Neutrophils (%) (Auto) 81 % (31-73) Lymphocytes (%) (Auto) 11 % (24-48) Monocytes (%) (Auto) 7 % (0-9) Eosinophils (%) (Auto) 0 % (0-3) Basophils (%) (Auto) 0 % (0-3) Neutrophils # (Auto) 7.5 x10^3uL (1.8-7.7) Lymphocytes # (Auto) 1.0 x10^3/uL (1.0-4.8) Monocytes # (Auto) 0.6 x10^3/uL (0.0-1.1) Eosinophils # (Auto) 0.0 x10^3/uL (0.0-0.7) Basophils # (Auto) 0.0 x10^3/uL (0.0-0.2) Sodium Level 125 mmol/L (136-145) Potassium Level 3.3 mmol/L (3.5-5.1) Chloride Level 86 mmol/L (98-107) Carbon Dioxide Level 27 mmol/L (21-32) Anion Gap 12 (6-14) Blood Urea Nitrogen 34 mg/dL (7-20) Creatinine 2.3 mg/dL (0.6-1.0) Estimated GFR (Cockcroft-Gault) 20.4 Glucose Level 520 mg/dL (70-99) Calcium Level 10.0 mg/dL (8.5-10.1) Total Bilirubin 0.3 mg/dL (0.2-1.0) Direct Bilirubin 0.1 mg/dL (0.0-0.2) Aspartate Amino Transf (AST/SGOT) 23 U/L (15-37) Alanine Aminotransferase (ALT/SGPT) 28 U/L (14-59) Alkaline Phosphatase 92 U/L (46-116) Troponin I Quantitative 0.036 ng/mL (0.000-0.055) Total Protein 7.1 g/dL (6.4-8.2) Albumin 3.2 g/dL (3.4-5.0) Lipase 649 U/L (73-393) O2 Saturation 94 % (92-99) Arterial Blood pH 7.45 (7.35-7.45) Arterial Blood pCO2 at Patient Temp 38 mmHg (35-46) Arterial Blood pO2 at Patient Temp 72 mmHg (65-108) Arterial Blood HCO3 26 mmol/L (21-28) Arterial Blood Base Excess 2 mmol/L (-3-3) FiO2 21% Urine Collection Type Unknown Urine Color Yellow Urine Clarity Clear Urine pH 5.5 Urine Specific [place] 1.015 Urine Protein Negative mg/dL (NEG-TRACE) Urine Glucose (UA) >=1000 mg/dL (NEG) Urine Ketones (Stick) Negative mg/dL (NEG) Urine Blood Large (NEG) Urine Nitrite Negative (NEG) Urine Bilirubin Negative (NEG) Urine Urobilinogen Dipstick 0.2 mg/dL (0.2 mg/dL) Urine Leukocyte Esterase Moderate (NEG) Urine RBC Tntc /HPF (0-2) Urine WBC >40 /HPF (0-4) Urine Squamous Epithelial Cells Many /LPF Urine Bacteria Many /HPF (0-FEW) Test 07/16/18 14:39 07/16/18 16:12 07/16/18 18:31 07/16/18 21:47 Glucose (Fingerstick) 362 mg/dL (70-99) 317 mg/dL (70-99) 361 mg/dL (70-99) 214 mg/dL (70-99) Test 07/17/18 04:00 07/17/18 07:39 07/17/18 10:59 White Blood Count 7.7 x10^3/uL (4.0-11.0) Red Blood Count 3.83 x10^6/uL (3.50-5.40) Hemoglobin 11.7 g/dL (12.0-15.5) Hematocrit 34.2 % (36.0-47.0) Mean Corpuscular Volume 89 fL (79-100) Mean Corpuscular Hemoglobin 31 pg (25-35) Mean Corpuscular Hemoglobin Concent 34 g/dL (31-37) Red Cell Distribution Width 15.7 % (11.5-14.5) Platelet Count 210 x10^3/uL (140-400) Neutrophils (%) (Auto) 81 % (31-73) Lymphocytes (%) (Auto) 11 % (24-48) Monocytes (%) (Auto) 7 % (0-9) Eosinophils (%) (Auto) 0 % (0-3) Basophils (%) (Auto) 0 % (0-3) Neutrophils # (Auto) 6.3 x10^3uL (1.8-7.7) Lymphocytes # (Auto) 0.8 x10^3/uL (1.0-4.8) Monocytes # (Auto) 0.6 x10^3/uL (0.0-1.1) Eosinophils # (Auto) 0.0 x10^3/uL (0.0-0.7) Basophils # (Auto) 0.0 x10^3/uL (0.0-0.2) Sodium Level 139 mmol/L (136-145) Potassium Level 3.0 mmol/L (3.5-5.1) Chloride Level 102 mmol/L (98-107) Carbon Dioxide Level 26 mmol/L (21-32) Anion Gap 11 (6-14) Blood Urea Nitrogen 26 mg/dL (7-20) Creatinine 1.5 mg/dL (0.6-1.0) Estimated GFR (Cockcroft-Gault) 33.3 Glucose Level 159 mg/dL (70-99) Calcium Level 9.2 mg/dL (8.5-10.1) Glucose (Fingerstick) 144 mg/dL (70-99) 137 mg/dL (70-99) Laboratory Tests Test 07/16/18 13:00 07/16/18 13:41 07/16/18 14:39 07/16/18 16:12 O2 Saturation 94 % (92-99) Arterial Blood pH 7.45 (7.35-7.45) Arterial Blood pCO2 at Patient Temp 38 mmHg (35-46) Arterial Blood pO2 at Patient Temp 72 mmHg (65-108) Arterial Blood HCO3 26 mmol/L (21-28) Arterial Blood Base Excess 2 mmol/L (-3-3) FiO2 21% Urine Collection Type Unknown Urine Color Yellow Urine Clarity Clear Urine pH 5.5 Urine Specific [place] 1.015 Urine Protein Negative mg/dL (NEG-TRACE) Urine Glucose (UA) >=1000 mg/dL (NEG) Urine Ketones (Stick) Negative mg/dL (NEG) Urine Blood Large (NEG) Urine Nitrite Negative (NEG) Urine Bilirubin Negative (NEG) Urine Urobilinogen Dipstick 0.2 mg/dL (0.2 mg/dL) Urine Leukocyte Esterase Moderate (NEG) Urine RBC Tntc /HPF (0-2) Urine WBC >40 /HPF (0-4) Urine Squamous Epithelial Cells Many /LPF Urine Bacteria Many /HPF (0-FEW) Glucose (Fingerstick) 362 mg/dL (70-99) 317 mg/dL (70-99) Test 07/16/18 18:31 07/16/18 21:47 07/17/18 04:00 07/17/18 07:39 Glucose (Fingerstick) 361 mg/dL (70-99) 214 mg/dL (70-99) 144 mg/dL (70-99) White Blood Count 7.7 x10^3/uL (4.0-11.0) Red Blood Count 3.83 x10^6/uL (3.50-5.40) Hemoglobin 11.7 g/dL (12.0-15.5) Hematocrit 34.2 % (36.0-47.0) Mean Corpuscular Volume 89 fL (79-100) Mean Corpuscular Hemoglobin 31 pg (25-35) Mean Corpuscular Hemoglobin Concent 34 g/dL (31-37) Red Cell Distribution Width 15.7 % (11.5-14.5) Platelet Count 210 x10^3/uL (140-400) Neutrophils (%) (Auto) 81 % (31-73) Lymphocytes (%) (Auto) 11 % (24-48) Monocytes (%) (Auto) 7 % (0-9) Eosinophils (%) (Auto) 0 % (0-3) Basophils (%) (Auto) 0 % (0-3) Neutrophils # (Auto) 6.3 x10^3uL (1.8-7.7) Lymphocytes # (Auto) 0.8 x10^3/uL (1.0-4.8) Monocytes # (Auto) 0.6 x10^3/uL (0.0-1.1) Eosinophils # (Auto) 0.0 x10^3/uL (0.0-0.7) Basophils # (Auto) 0.0 x10^3/uL (0.0-0.2) Sodium Level 139 mmol/L (136-145) Potassium Level 3.0 mmol/L (3.5-5.1) Chloride Level 102 mmol/L (98-107) Carbon Dioxide Level 26 mmol/L (21-32) Anion Gap 11 (6-14) Blood Urea Nitrogen 26 mg/dL (7-20) Creatinine 1.5 mg/dL (0.6-1.0) Estimated GFR (Cockcroft-Gault) 33.3 Glucose Level 159 mg/dL (70-99) Calcium Level 9.2 mg/dL (8.5-10.1) Test 07/17/18 10:59 Glucose (Fingerstick) 137 mg/dL (70-99) Review All relevant outside records, renal labs, imaging studies, telemetry/EKG's were reviewed. HERNÁN CORTES MD Jul 17, 2018 12:22
[2018-07-17] MEDS ORDERED: MAGNESIUM SULFATE 2GM 50 ML IV PRN (12:45)
--- NOTE | 2018-07-17 14:40 | NUR ---
heparin nonadmin. pt up independently. wearing TEDS and SCDs in bed.
[2018-07-17 15:00] VITALS: BP 119/59
[2018-07-17] MEDS ORDERED: cefTRIAXone IV Push 1 GM VIAL. IVP SCH (15:00)
[2018-07-17] MEDS: POTASSIUM CHLORIDE 20 MEQ TABLET.ER. PO SCH ×2 (16:43→20:48)
[2018-07-17 19:00] VITALS: BP 157/67
[2018-07-17] MEDS: LOPERAMIDE 2 MG/10 ML ORAL SOLUTION. PO SCH (20:48)
[2018-07-17] MEDS: predniSONE 1 MG TABLET PO SCH (20:48)
[2018-07-17] MEDS: ATORVASTATIN CALCIUM 10 MG TABLET. PO SCH (20:48)
[2018-07-17 23:00] VITALS: BP 166/57
[2018-07-17 23:06] LABS: HEMOGLOBIN A1C 13.2 % (4.8-5.6)
[2018-07-18 03:00] VITALS: BP 171/77
[2018-07-18 04:26] LABS: BILIRUBIN,URINE NEGATIVE (NEG); CLARITY,URINE CLEAR; COLOR,URINE YELLOW; NITRITE,URINE NEGATIVE (NEG); PH,URINE 5.5; PROTEIN,URINE NEGATIVE (NEG-TRACE); UROBILINOGEN,URINE 0.2 mg/dL (0.2 mg/dL)
[2018-07-18 04:34] LABS: BACTERIA,URINE 0 /HPF (0-FEW); RBC,URINE OCC /HPF (0-2); SQUAMOUS EPITHELIAL CELL,UR FEW /LPF
[2018-07-18] MEDS: HEPARIN for SUB-Q USE 5,000 UNIT/ML VIAL. SQ SCH (05:54)
[2018-07-18 07:00] VITALS: BP 185/83
[2018-07-18] MEDS: INSULIN LISPRO 300 UNITS/3 ML INSULN.PEN. SQ SCH ×3 (07:30→11:30)
[2018-07-18] MEDS ORDERED: POTASSIUM CHLORIDE 20 MEQ TABLET.ER. PO SCH (08:00)
--- NOTE | 2018-07-18 08:05 | NUR ---
elevated BP 185/[address] Cervantes. BP meds due @ 0900. No new orders
[2018-07-18] MEDS: ALLOPURINOL 100 MG TABLET. PO SCH (08:19)
[2018-07-18] MEDS: predniSONE 5 MG TABLET PO SCH (08:20)
[2018-07-18] MEDS: cloNIDine HCL 0.1 MG TABLET PO SCH (08:20)
[2018-07-18] MEDS: VERAPAMIL SR 120 MG TABLET.ER. PO SCH (08:20)
[2018-07-18] MEDS: POTASSIUM CHLORIDE 20 MEQ TABLET.ER. PO SCH (08:21)
[2018-07-18] MEDS: ASPIRIN CHEWABLE 81 MG TABLET. PO SCH (08:21)
[2018-07-18] MEDS: INSULIN GLARGINE 300 UNITS/3 ML INSULN.PEN. SQ SCH (08:29)
[2018-07-18 09:34] LABS: CALCIUM 9.3 mg/dL (8.5-10.1); CREATININE 1.6 mg/dL (0.6-1.0); GFR 30.9; PHOSPHORUS 2.3 mg/dL (2.6-4.7); POTASSIUM 3.6 mmol/L (3.5-5.1)
[2018-07-18 09:35] LABS: BASO # 0.1 x10^3/uL (0.0-0.2); BASO % 1 % (0-3); EOS % 1 % (0-3); HEMATOCRIT 38.5 % (36.0-47.0); HEMOGLOBIN 12.8 g/dL (12.0-15.5); LYMPH # 1.3 x10^3/uL (1.0-4.8); LYMPH % 18 % (24-48); MEAN CORPUSCULAR HEMOGLOBIN 30 pg (25-35); MEAN CORPUSCULAR HGB CONC 33 g/dL (31-37); MEAN CORPUSCULAR VOLUME 91 fL (79-100); MONO # 0.3 x10^3/uL (0.0-1.1); MONO % 5 % (0-9); NEUT # 5.4 x10^3uL (1.8-7.7); NEUT % 76 % (31-73); PLATELET COUNT 322 x10^3/uL (140-400); RED BLOOD COUNT 4.23 x10^6/uL (3.50-5.40); RED CELL DISTRIBUTION WIDTH 16.2 % (11.5-14.5); WHITE BLOOD COUNT 7.2 x10^3/uL (4.0-11.0)
[2018-07-18 10:00] VITALS: BP 125/63
[2018-07-18] MEDS ORDERED: INSU100I13 SQ ×2 (10:59→11:00)
[2018-07-18] MEDS ORDERED: INSU100I11 SQ ×2 (10:59→11:01)
[2018-07-18 11:00] VITALS: BP 146/69
[2018-07-18] MEDS ORDERED: MAGNESIUM SULFATE 2GM 50 ML IV ONE (11:00)
[2018-07-18] MEDS ORDERED: CEPH-264 PO (11:02)
--- NOTE | 2018-07-18 11:04 | SNU/HH DC ---
DISCHARGE WITH HOME HEALTH DISCHARGE INFORMATION: Discharge Date: Jul 18, 2018 Final Diagnosis: Problems Medical Problems: (1) Acute kidney injury Status: Acute (2) Hyperglycemia Status: Acute (3) Hypokalemia Status: Acute (4) Urinary tract infection Status: Acute Condition on Discharge: Stable CODE STATUS: Code Status: Full HOME HEALTH: Face to Face: I certify this patient is under my care and that I, or a nurse practitioner or physician's housing assistant property manager working with me, had a face to face encounter that meets the physician face to face encounter requirements with this patient on 07/18 Medical Complications: DJD, DM (new insulin use), Other (UTI, ) Nursing Home For: Diabetic Care, Medication Management, Other: RN For Eval/Treatment: Yes Pt Meets Homebound Status: Limited distance walking, Other: (med check at home, new insulin use, ) POST DISCHARGE ORDERS: DIET AFTER DISCHARGE: ADA FOLLOW-UP: Follow up with: Dr. Veronica as soon as she is back from [place] TREATMENT/EQUIPMENT ORDERS: Adaptive Equipment Issued: None CERTIFICATION STATEMENT: Certification Statement: Certification Statement: Based on the above finding, I certify that this patient is confined to the home and needs intermittent [facility]p care, physical therapy and/or speech therapy, or continues to need occupational therapy.~ This patient is under my care, and I have initiated the establishment of the plan of care.~ This patient will be followed by myself or a community physician who will periodically review the plan of care. Home Meds Active Scripts Cephalexin (KEFLEX) 500 Mg Capsule, 1 CAP PO TID for UTI, #21 CAP Prov:DIONISIO VICENTE MD 07/18/18 Insulin Lispro (HUMALOG) 100 Unit/1 Ml Insuln.pen, 10 UNITS SQ TIDWMEALS for diabetes for 30 Days, EACH Prov:DIONISIO VICENTE MD 07/18/18 Insulin Glargine,Hum.rec.anlog (LANTUS SOLOSTAR) 100 Unit/1 Ml Insuln.pen, 25 UNITS SQ DAILY08 for hyperglycemia, diabetes for 30 Days, EACH Prov:DIONISIO VICENTE MD 07/18/18 Reported Medications Potassium Chloride (POTASSIUM CHLORIDE) 10 Meq Tab.sr.24h, 10 MEQ PO DAILY for supplement, TAB.SR 07/16/18 Verapamil Hcl (VERAPAMIL ER) 240 Mg Cap24h.pel, 1 CAP PO DAILY for HTN, #30 CAP 5 Refills 07/16/18 Clonidine Hcl (CLONIDINE HCL) 0.1 Mg Tablet, 0.1 MG PO BID for HTN, TAB 07/16/18 Gemfibrozil (GEMFIBROZIL) 600 Mg Tablet, 1 TAB PO BID for HLD, #60 TAB 5 Refills 07/16/18 Simvastatin (SIMVASTATIN) 20 Mg Tablet, 1 TAB PO QHS for HLD, #30 TAB 5 Refills 07/16/18 Lisinopril/Hydrochlorothiazide (LISINOPRIL-HCTZ 20-25 MG TAB) 1 Each Tablet, 1 TAB PO BID for HTN, #30 TAB 5 Refills 07/16/18 Allopurinol (ALLOPURINOL) 100 Mg Tablet, 1 TAB PO BID for gout, #30 TAB 5 Refills 07/16/18 Aspirin (ASPIRIN) 81 Mg Tab.chew, 1 TAB PO DAILY for heart health, #30 TAB 3 Refills 07/16/18 [place]-3 Fatty Acids/Fish Oil (FISH OIL 1,000 MG CAPSULE) 1 Each Capsule, 1 EACH PO DAILY for supplement, CAP 07/16/18 Loperamide Hcl (IMODIUM A-D) 1 Mg/7.5 Ml Liquid, 1 MG PO HS for bowel health, LIQUID 07/16/18 L Gasseri/B Bifidum/B Longum ([facility] CAPSULE) 1 Each Capsule, 1 EACH PO DAILY for bowel health, CAP 07/16/18 Prednisone (PREDNISONE) 2.5 Mg Tablet, 9 MG PO DAILY for arthritis, TAB 07/16/18 Discontinued Reported Medications Metformin Hcl (METFORMIN HCL) 850 Mg Tablet, 850 MG PO BIDWMEALS for ANTI- DIABETIC, TAB 0 Refills 07/16/18 DIONISIO VICENTE MD Jul 18, 2018 11:04
--- NOTE | 2018-07-18 11:08 | PDOC3 ---
Discharge Summary Visit Information Date of Admission: Jul 16, 2018 Date of Discharge: Jul 18, 2018 Admitting Diagnosis: acute renal failure Final Diagnosis hyperglycemia hyperosmolar not ketotic exacerbation with pseudohyponatremia acute renal failure, vasomotor and electrolyte pancreatitis without abd pain UTI, obese, BMI 33 dm2, poor control hypokalemia Problems Medical Problems: (1) Acute kidney injury Status: Acute (2) Hyperglycemia Status: Acute (3) Hypokalemia Status: Acute (4) Urinary tract infection Status: Acute Brief Hospital Course Allergies Allergies Coded Allergies Type Severity Reaction Last Updated Verified No Known Drug Allergies 07/16/18 No Vital Signs Vital Signs Date Time Temp Pulse Resp B/P (MAP) Pulse Ox O2 Delivery O2 Flow Rate FiO2 07/18/18 08:20 73 185/83 07/18/18 08:00 Room Air 07/18/18 07:00 98.1 18 93 98.1 Lab Results Laboratory Tests Test 07/16/18 12:09 07/16/18 12:20 07/16/18 13:00 07/16/18 13:41 Glucose (Fingerstick) 441 mg/dL (70-99) White Blood Count 9.3 x10^3/uL (4.0-11.0) Red Blood Count 4.14 x10^6/uL (3.50-5.40) Hemoglobin 12.6 g/dL (12.0-15.5) Hematocrit 36.9 % (36.0-47.0) Mean Corpuscular Volume 89 fL (79-100) Mean Corpuscular Hemoglobin 31 pg (25-35) Mean Corpuscular Hemoglobin Concent 34 g/dL (31-37) Red Cell Distribution Width 15.5 % (11.5-14.5) Platelet Count 242 x10^3/uL (140-400) Neutrophils (%) (Auto) 81 % (31-73) Lymphocytes (%) (Auto) 11 % (24-48) Monocytes (%) (Auto) 7 % (0-9) Eosinophils (%) (Auto) 0 % (0-3) Basophils (%) (Auto) 0 % (0-3) Neutrophils # (Auto) 7.5 x10^3uL (1.8-7.7) Lymphocytes # (Auto) 1.0 x10^3/uL (1.0-4.8) Monocytes # (Auto) 0.6 x10^3/uL (0.0-1.1) Eosinophils # (Auto) 0.0 x10^3/uL (0.0-0.7) Basophils # (Auto) 0.0 x10^3/uL (0.0-0.2) Sodium Level 125 mmol/L (136-145) Potassium Level 3.3 mmol/L (3.5-5.1) Chloride Level 86 mmol/L (98-107) Carbon Dioxide Level 27 mmol/L (21-32) Anion Gap 12 (6-14) Blood Urea Nitrogen 34 mg/dL (7-20) Creatinine 2.3 mg/dL (0.6-1.0) Estimated GFR (Cockcroft-Gault) 20.4 Glucose Level 520 mg/dL (70-99) Calcium Level 10.0 mg/dL (8.5-10.1) Total Bilirubin 0.3 mg/dL (0.2-1.0) Direct Bilirubin 0.1 mg/dL (0.0-0.2) Aspartate Amino Transf (AST/SGOT) 23 U/L (15-37) Alanine Aminotransferase (ALT/SGPT) 28 U/L (14-59) Alkaline Phosphatase 92 U/L (46-116) Troponin I Quantitative 0.036 ng/mL (0.000-0.055) Total Protein 7.1 g/dL (6.4-8.2) Albumin 3.2 g/dL (3.4-5.0) Lipase 649 U/L (73-393) O2 Saturation 94 % (92-99) Arterial Blood pH 7.45 (7.35-7.45) Arterial Blood pCO2 at Patient Temp 38 mmHg (35-46) Arterial Blood pO2 at Patient Temp 72 mmHg (65-108) Arterial Blood HCO3 26 mmol/L (21-28) Arterial Blood Base Excess 2 mmol/L (-3-3) FiO2 21% Urine Collection Type Unknown Urine Color Yellow Urine Clarity Clear Urine pH 5.5 Urine Specific [place] 1.015 Urine Protein Negative mg/dL (NEG-TRACE) Urine Glucose (UA) >=1000 mg/dL (NEG) Urine Ketones (Stick) Negative mg/dL (NEG) Urine Blood Large (NEG) Urine Nitrite Negative (NEG) Urine Bilirubin Negative (NEG) Urine Urobilinogen Dipstick 0.2 mg/dL (0.2 mg/dL) Urine Leukocyte Esterase Moderate (NEG) Urine RBC Tntc /HPF (0-2) Urine WBC >40 /HPF (0-4) Urine Squamous Epithelial Cells Many /LPF Urine Bacteria Many /HPF (0-FEW) Test 07/16/18 14:39 07/16/18 16:12 07/16/18 18:31 07/16/18 21:47 Glucose (Fingerstick) 362 mg/dL (70-99) 317 mg/dL (70-99) 361 mg/dL (70-99) 214 mg/dL (70-99) Test 07/17/18 04:00 07/17/18 07:39 07/17/18 10:59 07/17/18 16:41 White Blood Count 7.7 x10^3/uL (4.0-11.0) Red Blood Count 3.83 x10^6/uL (3.50-5.40) Hemoglobin 11.7 g/dL (12.0-15.5) Hematocrit 34.2 % (36.0-47.0) Mean Corpuscular Volume 89 fL (79-100) Mean Corpuscular Hemoglobin 31 pg (25-35) Mean Corpuscular Hemoglobin Concent 34 g/dL (31-37) Red Cell Distribution Width 15.7 % (11.5-14.5) Platelet Count 210 x10^3/uL (140-400) Neutrophils (%) (Auto) 81 % (31-73) Lymphocytes (%) (Auto) 11 % (24-48) Monocytes (%) (Auto) 7 % (0-9) Eosinophils (%) (Auto) 0 % (0-3) Basophils (%) (Auto) 0 % (0-3) Neutrophils # (Auto) 6.3 x10^3uL (1.8-7.7) Lymphocytes # (Auto) 0.8 x10^3/uL (1.0-4.8) Monocytes # (Auto) 0.6 x10^3/uL (0.0-1.1) Eosinophils # (Auto) 0.0 x10^3/uL (0.0-0.7) Basophils # (Auto) 0.0 x10^3/uL (0.0-0.2) Sodium Level 139 mmol/L (136-145) Potassium Level 3.0 mmol/L (3.5-5.1) Chloride Level 102 mmol/L (98-107) Carbon Dioxide Level 26 mmol/L (21-32) Anion Gap 11 (6-14) Blood Urea Nitrogen 26 mg/dL (7-20) Creatinine 1.5 mg/dL (0.6-1.0) Estimated GFR (Cockcroft-Gault) 33.3 Glucose Level 159 mg/dL (70-99) Hemoglobin A1c 13.2 % (4.8-5.6) Calcium Level 9.2 mg/dL (8.5-10.1) Glucose (Fingerstick) 144 mg/dL (70-99) 137 mg/dL (70-99) 55 mg/dL (70-99) Test 07/17/18 21:05 07/18/18 03:15 07/18/18 07:11 07/18/18 09:04 Glucose (Fingerstick) 175 mg/dL (70-99) 163 mg/dL (70-99) Urine Collection Type Unknown Urine Color Yellow Urine Clarity Clear Urine pH 5.5 Urine Specific [place] 1.010 Urine Protein Negative mg/dL (NEG-TRACE) Urine Glucose (UA) Negative mg/dL (NEG) Urine Ketones (Stick) Negative mg/dL (NEG) Urine Blood Small (NEG) Urine Nitrite Negative (NEG) Urine Bilirubin Negative (NEG) Urine Urobilinogen Dipstick 0.2 mg/dL (0.2 mg/dL) Urine Leukocyte Esterase Trace (NEG) Urine RBC Occ /HPF (0-2) Urine WBC 5-10 /HPF (0-4) Urine Squamous Epithelial Cells Few /LPF Urine Bacteria 0 /HPF (0-FEW) Urine Mucus Slight /LPF White Blood Count 7.2 x10^3/uL (4.0-11.0) Red Blood Count 4.23 x10^6/uL (3.50-5.40) Hemoglobin 12.8 g/dL (12.0-15.5) Hematocrit 38.5 % (36.0-47.0) Mean Corpuscular Volume 91 fL (79-100) Mean Corpuscular Hemoglobin 30 pg (25-35) Mean Corpuscular Hemoglobin Concent 33 g/dL (31-37) Red Cell Distribution Width 16.2 % (11.5-14.5) Platelet Count 322 x10^3/uL (140-400) Neutrophils (%) (Auto) 76 % (31-73) Lymphocytes (%) (Auto) 18 % (24-48) Monocytes (%) (Auto) 5 % (0-9) Eosinophils (%) (Auto) 1 % (0-3) Basophils (%) (Auto) 1 % (0-3) Neutrophils # (Auto) 5.4 x10^3uL (1.8-7.7) Lymphocytes # (Auto) 1.3 x10^3/uL (1.0-4.8) Monocytes # (Auto) 0.3 x10^3/uL (0.0-1.1) Eosinophils # (Auto) 0.0 x10^3/uL (0.0-0.7) Basophils # (Auto) 0.1 x10^3/uL (0.0-0.2) Sodium Level 141 mmol/L (136-145) Potassium Level 3.6 mmol/L (3.5-5.1) Chloride Level 101 mmol/L (98-107) Carbon Dioxide Level 27 mmol/L (21-32) Anion Gap 13 (6-14) Blood Urea Nitrogen 22 mg/dL (7-20) Creatinine 1.6 mg/dL (0.6-1.0) Estimated GFR (Cockcroft-Gault) 30.9 Glucose Level 266 mg/dL (70-99) Calcium Level 9.3 mg/dL (8.5-10.1) Phosphorus Level 2.3 mg/dL (2.6-4.7) Magnesium Level 1.7 mg/dL (1.8-2.4) Albumin 3.0 g/dL (3.4-5.0) Laboratory Tests Test 07/17/18 16:41 07/17/18 21:05 07/18/18 03:15 07/18/18 07:11 Glucose (Fingerstick) 55 mg/dL (70-99) 175 mg/dL (70-99) 163 mg/dL (70-99) Urine Collection Type Unknown Urine Color Yellow Urine Clarity Clear Urine pH 5.5 Urine Specific [place] 1.010 Urine Protein Negative mg/dL (NEG-TRACE) Urine Glucose (UA) Negative mg/dL (NEG) Urine Ketones (Stick) Negative mg/dL (NEG) Urine Blood Small (NEG) Urine Nitrite Negative (NEG) Urine Bilirubin Negative (NEG) Urine Urobilinogen Dipstick 0.2 mg/dL (0.2 mg/dL) Urine Leukocyte Esterase Trace (NEG) Urine RBC Occ /HPF (0-2) Urine WBC 5-10 /HPF (0-4) Urine Squamous Epithelial Cells Few /LPF Urine Bacteria 0 /HPF (0-FEW) Urine Mucus Slight /LPF Test 07/18/18 09:04 White Blood Count 7.2 x10^3/uL (4.0-11.0) Red Blood Count 4.23 x10^6/uL (3.50-5.40) Hemoglobin 12.8 g/dL (12.0-15.5) Hematocrit 38.5 % (36.0-47.0) Mean Corpuscular Volume 91 fL (79-100) Mean Corpuscular Hemoglobin 30 pg (25-35) Mean Corpuscular Hemoglobin Concent 33 g/dL (31-37) Red Cell Distribution Width 16.2 % (11.5-14.5) Platelet Count 322 x10^3/uL (140-400) Neutrophils (%) (Auto) 76 % (31-73) Lymphocytes (%) (Auto) 18 % (24-48) Monocytes (%) (Auto) 5 % (0-9) Eosinophils (%) (Auto) 1 % (0-3) Basophils (%) (Auto) 1 % (0-3) Neutrophils # (Auto) 5.4 x10^3uL (1.8-7.7) Lymphocytes # (Auto) 1.3 x10^3/uL (1.0-4.8) Monocytes # (Auto) 0.3 x10^3/uL (0.0-1.1) Eosinophils # (Auto) 0.0 x10^3/uL (0.0-0.7) Basophils # (Auto) 0.1 x10^3/uL (0.0-0.2) Sodium Level 141 mmol/L (136-145) Potassium Level 3.6 mmol/L (3.5-5.1) Chloride Level 101 mmol/L (98-107) Carbon Dioxide Level 27 mmol/L (21-32) Anion Gap 13 (6-14) Blood Urea Nitrogen 22 mg/dL (7-20) Creatinine 1.6 mg/dL (0.6-1.0) Estimated GFR (Cockcroft-Gault) 30.9 Glucose Level 266 mg/dL (70-99) Calcium Level 9.3 mg/dL (8.5-10.1) Phosphorus Level 2.3 mg/dL (2.6-4.7) Magnesium Level 1.7 mg/dL (1.8-2.4) Albumin 3.0 g/dL (3.4-5.0) Brief Hospital Course Ms. Quezada is a 82 old sent to ER for labs problems, seen at primary care fro UTI, Dr. Veronica pt on 9mg prednsone by Rheum specialist for arthritis A1c hgb 13.2, had been on metformin, will need to stop for renal fxn, acute renal failure, better with blood sugar control and IV fluid, Dr. Bowman seen in consult, will f/u Dr. Hernandes Discharge Information Condition at Discharge: Improved Follow Up: Weeks Disposition/Orders: D/C to Home w/ HH Scheduled Allopurinol (Allopurinol) 100 Mg Tablet, 1 TAB PO BID for gout, #30 Ref 5 (Reported) Entered as Reported by: ERNA YIN RN on 07/16/181819 Last Taken: UNKNOWN on Unknown Date & Time Last Action: Continued on 07/16/182029 by DIONISIO VICENTE Aspirin (Aspirin) 81 Mg Tab.chew, 1 TAB PO DAILY for heart health, #30 Ref 3 (Reported) Entered as Reported by: ERNA YIN RN on 07/16/181819 Last Taken: UNKNOWN on Unknown Date & Time Last Action: Continued on 07/16/182029 by DIONISIO VICENTE Cephalexin (Keflex) 500 Mg Capsule, 1 CAP PO TID for UTI, #21 Prescribed by: DIONISIO VICENTE on 07/18/182 Clonidine Hcl (Clonidine Hcl) 0.1 Mg Tablet, 0.1 MG PO BID for HTN, (Reported) Entered as Reported by: ERNA YIN RN on 07/16/181819 Last Taken: UNKNOWN on Unknown Date & Time Last Action: Continued on 07/16/182029 by DIONISIO VICENTE Gemfibrozil (Gemfibrozil) 600 Mg Tablet, 1 TAB PO BID for HLD, #60 Ref 5 (Reported) Entered as Reported by: ERNA YIN RN on 07/16/181819 Last Taken: UNKNOWN on Unknown Date & Time Last Action: HELD on 07/16/182029 by DIONISIO VICENTE Insulin Glargine,Hum.rec.anlog (Lantus Solostar) 100 Unit/1 Ml Insuln.pen, 25 UNITS SQ DAILY08 for hyperglycemia, diabetes for 30 Days Prescribed by: DIONISIO VICENTE on 07/18/18 1100 Insulin Lispro (Humalog) 100 Unit/1 Ml Insuln.pen, 10 UNITS SQ TIDWMEALS for diabetes for 30 Days Prescribed by: DIONISIO VICENTE on 07/18/18 1101 L [place]/B Bifidum/B Longum (Gillespie' Colon Health Capsule) 1 Each Capsule, 1 EACH PO DAILY for bowel health, (Reported) Entered as Reported by: ERNA YIN RN on 07/16/181819 Last Taken: UNKNOWN on Unknown Date & Time Last Action: HELD on 07/16/182029 by DIONISIO VICENTE Lisinopril/Hydrochlorothiazide (Lisinopril-Hctz 20-25 Mg Tab) 1 Each Tablet, 1 TAB PO BID for HTN, #30 Ref 5 (Reported) Entered as Reported by: ERNA YIN RN on 07/16/181819 Last Taken: UNKNOWN on Unknown Date & Time Last Action: HELD on 07/16/182029 by DIONISIO VICENTE Loperamide Hcl (Imodium A-D) 1 Mg/7.5 Ml Liquid, 1 MG PO HS for bowel health, (Reported) Entered as Reported by: ERNA YIN RN on 07/16/181819 Last Taken: UNKNOWN on Unknown Date & Time Last Action: Converted on 07/16/182029 by DIONISIO VICENTE [place]-3 Fatty Acids/Fish Oil (Fish Oil 1,000 Mg Capsule) 1 Each Capsule, 1 EACH PO DAILY for supplement, (Reported) Entered as Reported by: ERNA YIN RN on 07/16/181819 Last Taken: UNKNOWN on Unknown Date & Time Last Action: New Order on 07/16/181819 by ERNA YIN RN Potassium Chloride (Potassium Chloride) 10 Meq Tab.sr.24h, 10 MEQ PO DAILY for supplement, (Reported) Entered as Reported by: ERNA YIN RN on 07/16/181837 Last Taken: UNKNOWN on Unknown Date & Time Last Action: Continued on 07/16/182029 by DIONISIO VICENTE Prednisone (Prednisone) 2.5 Mg Tablet, 9 MG PO DAILY for arthritis, (Reported) Entered as Reported by: ERNA YIN RN on 07/16/181819 Last Taken: UNKNOWN on Unknown Date & Time Last Action: HELD on 07/16/182029 by DIONISIO VICENTE Simvastatin (Simvastatin) 20 Mg Tablet, 1 TAB PO QHS for HLD, #30 Ref 5 (Reported) Entered as Reported by: ERNA YIN RN on 07/16/181819 Last Taken: UNKNOWN on Unknown Date & Time Last Action: Converted on 07/16/182029 by DIONISIO VICENTE Verapamil Hcl (Verapamil Er) 240 Mg Cap24h.pel, 1 CAP PO DAILY for HTN, #30 Ref 5 (Reported) Entered as Reported by: ERNA YIN RN on 07/16/181819 Last Taken: UNKNOWN on Unknown Date & Time Last Action: Converted on 07/16/182029 by DIONISIO VICENTE Discontinued Medications Metformin Hcl (Metformin Hcl) 850 Mg Tablet, 850 MG PO BIDWMEALS for ANTI- DIABETIC, Ref 0 (Reported) Entered as Reported by: ERNA YIN RN on 07/16/181819 Last Taken: UNKNOWN on Unknown Date & Time Last Action: HELD on 07/16/182029 by DIONISIO VICENTE Patient Instructions Patient Instructions time > 30 min face to face, discussed med changes and f/u cont abx for UTI new insulin use, home health DIONISIO VICENTE MD Jul 18, 2018 11:08
[2018-07-18] MEDS ORDERED: INSULIN LISPRO 300 UNITS/3 ML INSULN.PEN. SQ SCH (12:00)
[2018-07-18 15:00] VITALS: BP 179/83
--- NOTE | 2018-07-18 15:43 | NUR ---
patient discharged home with family. meds and follow up reviewed. pt v/u. stable upon DC.
[2018-07-18] MEDS ORDERED: CEFDINIR 300 MG CAPSULE PO SCH (21:00)
[2018-07-19] MEDS ORDERED: INSULIN GLARGINE 300 UNITS/3 ML INSULN.PEN. SQ SCH (08:00)
== END 2018-07-18 15:57 | disposition home health service (06) | DRG 682 ==
LOC: ER 12:01 → ED HOLD 13:43 → 5 NORTH 17:25
PROVIDERS: ADMIT Internal Medicine; ATTEND Internal Medicine
DX: N17.0 Acute kidney failure with tubular necrosis (principal); E11.00 Type 2 diabetes mellitus with hyperosmolarity without nonketotic hyperglycemic-hyperosmolar coma (NKHHC); K85.90 Acute pancreatitis without necrosis or infection, unspecified; N39.0 Urinary tract infection, site not specified; E87.1 Hypo-osmolality and hyponatremia; E66.9 Obesity, unspecified; E78.00 Pure hypercholesterolemia, unspecified; E87.6 Hypokalemia; I12.9 Hypertensive chronic kidney disease with stage 1 through stage 4 chronic kidney disease, or unspecified chronic kidney disease; M10.9 Gout, unspecified; E11.22 Type 2 diabetes mellitus with diabetic chronic kidney disease; N18.9 Chronic kidney disease, unspecified; M19.90 Unspecified osteoarthritis, unspecified site; Z68.33 Body mass index [BMI] 33.0-33.9, adult; Z83.3 Family history of diabetes mellitus; Z90.49 Acquired absence of other specified parts of digestive tract; Z79.899 Other long term (current) drug therapy; Z79.4 Long term (current) use of insulin
CPT/HCPCS: 36415; 36600; 80048; 80069; 80076; 81001; 82805; 82962; 83036; 83690; 83735; 84484; 85025; 87086; 87186; 96361; 96374; 96375; J0696; J1815; J3475; J7030; J7512; 99285-25

== ENCOUNTER 2019-11-27 09:57 | Inpatient (IN) | payer MEDICARE, OTHER ==
[~2019-11-27] VITALS: Ht 152.4 cm; Wt 84.2 kg
[~2019-11-27 09:57] MED LIST changes: +ALLO100T PO; +ASPI-630 PO; +CLON0.1T PO; +GEMF600T8 PO; +INSU100I11 SQ; +INSU100I13 SQ; +L GA1CAP2 PO; +LISI1TAB20 PO; +LOPE1LIQ7 PO; +METF850T8 PO; +OMEG1CAP6 PO; +POTA10TA12 PO; +PRED2.5T PO; +SIMV20TA18 PO; +VERA240C2 PO
[2019-11-27] MEDS ORDERED: cefTRIAXone IV Push 1 GM VIAL. IVP ONE (10:45)
[2019-11-27] MEDS ORDERED: VANCOMYCIN PER PHARMACY MC PRN (10:45)
--- NOTE | 2019-11-27 10:49 | PHYS DOC ---
Past Medical History Past Medical History: Diabetes-Type II, High Cholesterol, Hypertension Additional Past Medical Histor: gout, low kidney function Past Surgical History: Appendectomy, Cholecystectomy, Tonsillectomy Additional Past Surgical Histo: ulcer, knee replacements Smoking Status: Never Smoker Alcohol Use: None Drug Use: None General Adult EDM: Chief Complaint: LOWER EXTREMITY EDEMA HPI: HPI: Patient is an 84-year-old female presenting with ongoing cellulitis on the lower extremities. Patient states she has "cellulitis" on her legs present past 3 weeks which has been managed by her primary care physician. Patient was originally started on doxycycline 2 weeks ago, cellulitis did not improve so she was changed to Augmentin on 11/21/2019. She states that she was then changed to TMP-SMX on 11/25/2019 which has improved portions of the bilateral cellulitis but erythema has progressed slightly past the knees. Patient states she has a headache and intermittent nausea/vomiting. Patient denies any subjective fevers, weakness, chills. Review of Systems: Review of Systems: Constitutional: Denies fever or chills Eyes: Denies redness or eye pain HENT: Denies nasal congestion or sore throat Respiratory: Denies cough or shortness of breath Cardiovascular: Denies chest pain or palpitations GI: Denies abdominal pain, endorses nausea, or vomiting : Denies dysuria or hematuria Musculoskeletal: Denies back pain or joint pain Integument: Endorses rash or skin lesions Neurologic: Denies headache, focal weakness or sensory changes Complete systems were reviewed and found to be within normal limits, except as documented in this note. Allergies: Allergies: Allergies Coded Allergies Type Severity Reaction Last Updated Verified No Known Drug Allergies 07/16/18 No Physical Exam: PE: Constitutional: Well developed, well nourished, no acute distress, non-toxic appearance HENT: Normocephalic, atraumatic, hearing impairment Eyes: PERRL, EOMI, conjunctiva normal, no discharge Neck: Normal range of motion, no tenderness, supple Lungs & Thorax: Bilateral breath sounds clear to auscultation, no wheezing Abdomen: Soft, no tenderness Skin: Bilateral lower extremities erythematous from ankle to superior knee circumferentially. Back: No tenderness, no CVA tenderness Extremities: No tenderness, ROM intact, +2 pitting edema on bilateral lower extremities Neurologic: Alert and oriented X 3, normal motor function, normal sensory function, no focal deficits noted Psychologic: Affect normal, judgment normal Current Patient Data: Vital Signs: Vital Signs Date Time Temp Pulse Resp B/P (MAP) Pulse Ox O2 Delivery O2 Flow Rate FiO2 11/27/19 10:18 98.0 85 22 138/63 (88) 95 Room Air 98.0 EKG: EK11/27/2019 1257 hours -heart rate 90 bpm, Giller sinus rhythm, QRS 136 ms, QT/QTc 388/479 ms, peaked T waves in I, II, aVF, V3, V4, V5, and V6 Course & Med Decision Making: Course & Med Decision Making Pertinent Labs and Imaging studies reviewed. (See chart for details) Patient is a 84-year-old female presenting with bilateral lower extremity cellulitis. Patient cellulitis has been managed by PCP and per HPI has been resistant to doxycycline and amoxicillin clavulanate, but has slightly responded to TMP-SMX. Patient states the PCP instructed her to immediately go to the ER if signs of infection worsened. Physical exam was remarkable for bilateral lower extremity cellulitis that extends from the ankle to the superior knees. Laboratory hematology shows an elevated white blood cell count at 12.2. Laboratory chemistry shows hyperkalemia at 6.0, a BUN of 130, creatinine of 3.7, estimated GFR of 11.7, glucose of 192. Due to patient's failed outpatient management of cellulitis, hyperkalemia, and renal status patient will be admitted. admission for further evaluation and treatment. Discussed with Dr. Mejía who is in agreement with admission. Discussed findings and plan with patient, who acknowledges understanding and agreement. Derik Disclaimer: Derik Disclaimer: This electronic medical record was generated, in whole or in part, using a voice recognition dictation system. Departure Departure Impression: Primary Impression: Hyperkalemia Additional Impressions: Acute on chronic renal failure Qualified Codes: N17.9 - Acute kidney failure, unspecified; N18.9 - Chronic kidney disease, unspecified Cellulitis Qualified Codes: L03.119 - Cellulitis of unspecified part of limb Failure of outpatient treatment Disposition: ADMITTED INPATIENT Admitting Physician: LALO Chou) Condition: GUARDED Referrals: ALEX ELLIS MD (PCP) Justicifation of Admission Dx: Justifications for Admission: Justification of Admission Dx: Yes Comments: Hyperkalemia, Acute on chronic renal failure, Cellulitis, Failed outpatient therapy Critical Care Time Critical care time was 30 minutes which includes time at bedside, spent in discussion of patient's care with specialists and/or family members, with interpretation of laboratory and/or radiological studies and is exclusive of procedures. DANA SALAZAR DO Nov 27, 2019 10:49
[2019-11-27] MEDS ORDERED: VANCOMYCIN 2 GM in IV NORMAL SALINE 500ML BAG 500 ML IV ONE (11:00)
[2019-11-27 11:04] LABS: BASO % 0 % (0-3); EOS # 0.2 x10^3/uL (0.0-0.7); EOS % 1 % (0-3); HEMATOCRIT 38.5 % (36.0-47.0); HEMOGLOBIN 13.1 g/dL (12.0-15.5); LYMPH % 9 % (24-48); MEAN CORPUSCULAR HEMOGLOBIN 31 pg (25-35); MEAN CORPUSCULAR HGB CONC 34 g/dL (31-37); MEAN CORPUSCULAR VOLUME 92 fL (79-100); MONO # 0.6 x10^3/uL (0.0-1.1); MONO % 5 % (0-9); NEUT # 10.4 x10^3/uL (1.8-7.7); NEUT % 85 % (31-73); PLATELET COUNT 319 x10^3/uL (140-400); RED CELL DISTRIBUTION WIDTH 15.4 % (11.5-14.5); WHITE BLOOD COUNT 12.2 x10^3/uL (4.0-11.0)
[2019-11-27 11:12] LABS: PROTHROMBIN TIME PATIENT 12.8 SEC (11.7-14.0)
[2019-11-27] MEDS ORDERED: fentaNYL PF VIAL 100 MCG/2 ML VIAL IV ONE (11:15)
[2019-11-27] MEDS ORDERED: fentaNYL PF VIAL 100 MCG/2 ML VIAL ONE (11:15)
[2019-11-27] MEDS ORDERED: ONDANSETRON PF 4 MG/2 ML VIAL. IVP ONE (11:15)
[2019-11-27] MEDS ORDERED: ONDANSETRON PF 4 MG/2 ML VIAL. ONE (11:15)
[2019-11-27 11:18] LABS: % BANDS 4 % (0-9); % EOS 1 % (0-5); % LYMPHS 10 % (24-48); % MONOS 4 % (0-10); % SEGS 81 % (35-66); PLT ESTIMATE ADEQUATE (ADEQUATE)
[2019-11-27 11:26] LABS: ALBUMIN 2.8 g/dL (3.4-5.0); ALBUMIN/GLOBULIN RATIO 0.8 (1.0-1.7); CALCIUM 8.1 mg/dL (8.5-10.1); CREATININE 3.7 mg/dL (0.6-1.0); GFR 11.7; MAGNESIUM 1.8 mg/dL (1.8-2.4); TOTAL BILIRUBIN 0.3 mg/dL (0.2-1.0); TOTAL PROTEIN 6.4 g/dL (6.4-8.2)
[2019-11-27] MEDS ORDERED: CALCIUM GLUCONATE 1,000 MG/10 ML VIAL. IVP ONE (12:15)
[2019-11-27] MEDS ORDERED: INSULIN REGULAR 100 UNIT/ML 3ML VIAL. IV ONE (12:15)
[2019-11-27] MEDS ORDERED: DEXTROSE 50% 25 GM / 50ML DISP.SYRIN. IV ONE (12:15)
[2019-11-27] MEDS ORDERED: DEXTROSE 50% 25 GM / 50ML DISP.SYRIN. IV PRN ×2 (12:30→18:45)
[2019-11-27] MEDS ORDERED: ACETAMINOPHEN 325 MG TABLET. PO PRN (12:30)
[2019-11-27] MEDS ORDERED: ONDANSETRON PF 4 MG/2 ML VIAL. IV PRN (12:30)
[2019-11-27] MEDS ORDERED: LIDO:MAALOX 1:1 20 ML SINGLE DOSE. SWSW ONE (13:00)
[2019-11-27] MEDS ORDERED: PANTOPRAZOLE IV PUSH 40 MG VIAL. IVP ONE (13:00)
[2019-11-27] MEDS ORDERED: SODIUM BICARBONATE VIAL 75 MEQ in IV 1/2 NORMAL SALINE 1,000 ML IV ONE (13:30)
[2019-11-27] MEDS ORDERED: ALBUTEROL SULFATE 2.5 MG/3 ML NEBU. CONT NEB ONE (13:30)
[2019-11-27] MEDS ORDERED: ALBUTEROL SULFATE 2.5 MG/3 ML NEBU. NEB ONE (14:00)
[2019-11-27] MEDS ORDERED: SULF1TAB23 PO (15:59)
[2019-11-27 16:00] VITALS: BP 102/54
[2019-11-27] MEDS ORDERED: LACT1CAP19 PO (16:00)
[2019-11-27] MEDS ORDERED: MULT-766 PO (16:06)
[2019-11-27] MEDS ORDERED: ALEN70TA6 PO (16:06)
[2019-11-27] MEDS ORDERED: PRED1TAB3 PO (16:07)
[2019-11-27] MEDS ORDERED: METO2.5T PO (16:12)
[2019-11-27] MEDS ORDERED: CETI10TA74 PO (16:12)
[2019-11-27] MEDS ORDERED: FURO20TA3 PO (16:12)
[2019-11-27] MEDS ORDERED: INSU100V13 SQ (16:12)
[2019-11-27] MEDS ORDERED: INSU100C4 SQ (16:13)
[2019-11-27] MEDS: fentaNYL PF VIAL 100 MCG/2 ML VIAL IV PRN ×2 (16:56→21:00)
[2019-11-27] MEDS ORDERED: INSULIN LISPRO 300 UNITS/3 ML VIAL. SQ SCH (17:00)
--- NOTE | 2019-11-27 17:16 | PDOC1 ---
History and Physical Date of Admission Date of Admission DATE: 11/27/19 TIME: 17:15 Identification/Chief Complaint Chief Complaint Cellulitis Source Source: Caregiver, Patient History of Present Illness History of Present Illness Patient is a 84 yo female with PMHx DM2, who presents with complaint of worsening bilateral leg cellulitis for the past 2 weeks. Patient states she has been treated by her PCP with oral antibiotics, without improvement. She takes daily metolazone and lasix for leg edema, with oral potassium replacement three times daily. She notes a history of a bleeding peptic ulcer, and admits to some nausea and acid reflux.She denies any fever, chest pain, or SOB. Na 126, K 6.0, BUN 130, Cr 3.7, Glucose 208, Albumin 2.8 Past Medical History Cardiovascular: HTN Psych: No pertinent hx Musculoskeletal: low back pain, Osteoarthritis, Swelling, Stiffness Endocrine: Diabetes Past Surgical History Past Surgical History: Appendectomy, Cholecystectomy, Total knee replacement, Tonsillectomy Family History Family History: Diabetes, Other Social History Smoke: No ALCOHOL: none Current Problem List Problem List Problems Medical Problems: (1) Acute on chronic renal failure Status: Acute (2) Cellulitis Status: Acute (3) Failure of outpatient treatment Status: Acute (4) Hyperkalemia Status: Acute Current Medications Current Medications Current Medications Vancomycin HCl (Vanco Per Pharmacy) 1 each PRN DAILY PRN MC SEE COMMENTS; Start 11/27/19 at 10:45 Ceftriaxone Sodium (Rocephin) 1 gm 1X ONCE IVP Last administered on 11/27/19at 11:19; Start 11/27/19 at 10:45; Stop 11/27/19 at 10:51; Status DC Vancomycin HCl 2 gm/Sodium Chloride 500 ml @ 250 mls/hr 1X ONCE IV Last administered on 11/27/19at 11:18; Start 11/27/19 at 11:00; Stop 11/27/19 at 12:59; Status DC Ondansetron HCl (Zofran) 4 mg 1X ONCE IVP Last administered on 11/27/19at 11:19; Start 11/27/19 at 11:15; Stop 11/27/19 at 11:16; Status DC Fentanyl Citrate (Fentanyl 2ml Vial) 50 mcg 1X ONCE IV Last administered on 11/27/19at 11:20; Start 11/27/19 at 11:15; Stop 11/27/19 at 11:16; Status DC Ondansetron HCl (Zofran) 4 mg STK-MED ONCE .ROUTE ; Start 11/27/19 at 11:15; St op 11/27/19 at 11:15; Status DC Fentanyl Citrate (Fentanyl 2ml Vial) 100 mcg STK-MED ONCE .ROUTE ; Start 11/27/19 at 11:15; Stop 11/27/19 at 11:16; Status DC Calcium Gluconate (Calcium Gluconate) 1,000 mg 1X ONCE IVP Last administered on 11/27/19at 13:41; Start 11/27/19 at 12:15; Stop 11/27/19 at 12:17; Status DC Dextrose (Dextrose 50%-Water Syringe) 25 gm 1X ONCE IV Last administered on 11/27/19at 13:42; Start 11/27/19 at 12:15; Stop 11/27/19 at 12:17; Status DC Insulin Human Regular (HumuLIN R VIAL) 10 unit 1X ONCE IV Last administered on 11/27/19at 13:43; Start 11/27/19 at 12:15; Stop 11/27/19 at 12:17; Status DC Ondansetron HCl (Zofran) 4 mg PRN Q8HRS PRN IV NAUSEA/VOMITING; Start 11/27/19 at 12:30; Stop 11/28/19 at 12:29 Fentanyl Citrate (Fentanyl 2ml Vial) 25 mcg PRN Q2HR PRN IV PAIN Last administered on 11/27/19at 16:56; Start 11/27/19 at 12:30 Acetaminophen (Tylenol) 650 mg PRN Q4HRS PRN PO FEVER > 100.3'F; Start 11/27/19 at 12:30; Stop 11/28/19 at 12:29 Insulin Human Lispro (HumaLOG) 0-5 UNITS TIDWMEALS SQ Last administered on 11/27/19at 17:03; Start 11/27/19 at 17:00 Dextrose (Dextrose 50%-Water Syringe) 12.5 gm PRN Q15MIN PRN IV SEE COMMENTS; Start 11/27/19 at 12:30 Multi-Ingredient Mouthwash/Gargle (Gi Cocktail) 20 ml 1X ONCE SWSW Last administered on 11/27/19at 13:43; Start 11/27/19 at 13:00; Stop 11/27/19 at 13:01; Status DC Pantoprazole Sodium (PROTONIX VIAL for IV PUSH) 40 mg 1X ONCE IVP Last administered on 11/27/19at 13:43; Start 11/27/19 at 13:00; Stop 11/27/19 at 13:01; Status DC Sodium Bicarbonate 75 meq/Sodium Chloride 1,075 ml @ 125 mls/hr 1X ONCE IV Last administered on 11/27/19at 13:30; Start 11/27/19 at 13:30; Stop 11/27/19 at 22:05 Albuterol Sulfate (Ventolin Neb Soln) 10 mg 1X ONCE CONT NEB ; Start 11/27/19 at 13:30; Stop 11/27/19 at 14:01; Status DC Albuterol Sulfate (Ventolin Neb Soln) 10 mg 1X ONCE NEB Last administered on 11/27/19at 14:03; Start 11/27/19 at 14:00; Stop 11/27/19 at 14:03; Status DC Active Scripts Active Reported Novolog (Insulin Aspart) 100 Unit/1 Ml Cartridge 5 Unit SQ BID Levemir (Insulin Detemir) 100 Unit/1 Ml Vial 22 Unit SQ DAILY Metolazone 2.5 Mg Tablet 2.5 Mg PO QODAY Zyrtec (Cetirizine Hcl) 10 Mg Tablet 1 Tab PO DAILY Furosemide 20 Mg Tablet 1 Tab PO DAILY Prednisone 1 Mg Tablet 3 Mg PO DAILY Alendronate Sodium 70 Mg Tablet 1 Tab PO WEEKLY Multivitamin 1 Each Tablet 1 Each PO DAILY Culturelle (Lactobacillus Rhamnosus Gg) 1 Each Cap.sprink 1 Cap PO BID 30 Days Bactrim 400-80 Mg Tablet (Sulfamethoxazole/Trimethoprim) 1 Each Tablet 2 Tab PO BID 7 Days Potassium Chloride (Potassium Chloride) 10 Meq Tab.sr.24h 10 Meq PO DAILY Verapamil Er (Verapamil Hcl) 240 Mg Cap24h.pel 1 Cap PO DAILY Clonidine Hcl 0.1 Mg Tablet 0.1 Mg PO BID Simvastatin 20 Mg Tablet 1 Tab PO QHS Lisinopril-Hctz 20-25 Mg Tab (Lisinopril/Hydrochlorothiazide) 1 Each Tablet 1 Tab PO BID Allopurinol 100 Mg Tablet 1 Tab PO BID Aspirin 81 Mg Tab.chew 1 Tab PO DAILY Fish Oil 1,000 Mg Capsule ([place]-3 Fatty Acids/Fish Oil) 1 Each Capsule 1 Each PO DAILY Imodium A-D (Loperamide Hcl) 1 Mg/7.5 Ml Liquid 1 Mg PO HS Allergies Allergies: Coded Allergies: No Known Drug Allergies (Unverified , 07/16/18) ROS General: No: Chills, Night Sweats PSYCHOLOGICAL ROS: No: Depression, Hallucinations Eyes: No Blurry vision, No Loss of vision HEENT: No: Oral lesions, Sore Throat ALLERGY AND IMMUNOLOGY: No: Hives, Nasal Congestion Respiratory: No: Cough, Pleuritic Pain, Shortness of breath Cardiovascular: yes Edema; No Chest Pain, No Palpitations Gastrointestinal: Yes Nausea, Yes Other (Acid reflux); No Vomiting, No Abdominal Pain Genitourinary: No Dysuria, No Frequency Musculoskeletal: No Joint Stiffness, No Muscle Pain Neurological: No Dizziness, No Headaches Skin: Yes Other (Cellulitis); No Pruritus Physical Exam General: Alert, Oriented X3, No acute distress HEENT: Atraumatic, EOMI Lungs: Clear to auscultation Heart: RRR Cardiovascular: S1, S2 Abdomen: Normal bowel sounds, Other (men) Extremities: Other (2+ pitting edema to bilateral lower extremities) Skin: Other (weeping cellulitis to bilateral; lower extremities with surrounding crusting) Neuro: Normal speech, Sensation intact Psych/Mental Status: Mood NL Vitals Vitals Vital Signs Date Time Temp Pulse Resp B/P (MAP) Pulse Ox O2 Delivery O2 Flow Rate FiO2 11/27/19 16:56 Room Air 11/27/19 16:00 98.0 112 19 102/54 (70) 91 98.0 Labs Labs Laboratory Tests Test 11/27/19 10:50 11/27/19 16:01 White Blood Count 12.2 x10^3/uL (4.0-11.0) Red Blood Count 4.20 x10^6/uL (3.50-5.40) Hemoglobin 13.1 g/dL (12.0-15.5) Hematocrit 38.5 % (36.0-47.0) Mean Corpuscular Volume 92 fL (79-100) Mean Corpuscular Hemoglobin 31 pg (25-35) Mean Corpuscular Hemoglobin Concent 34 g/dL (31-37) Red Cell Distribution Width 15.4 % (11.5-14.5) Platelet Count 319 x10^3/uL (140-400) Neutrophils (%) (Auto) 85 % (31-73) Lymphocytes (%) (Auto) 9 % (24-48) Monocytes (%) (Auto) 5 % (0-9) Eosinophils (%) (Auto) 1 % (0-3) Basophils (%) (Auto) 0 % (0-3) Neutrophils # (Auto) 10.4 x10^3/uL (1.8-7.7) Lymphocytes # (Auto) 1.0 x10^3/uL (1.0-4.8) Monocytes # (Auto) 0.6 x10^3/uL (0.0-1.1) Eosinophils # (Auto) 0.2 x10^3/uL (0.0-0.7) Basophils # (Auto) 0.0 x10^3/uL (0.0-0.2) Segmented Neutrophils % 81 % (35-66) Band Neutrophils % 4 % (0-9) Lymphocytes % 10 % (24-48) Monocytes % 4 % (0-10) Eosinophils % 1 % (0-5) Platelet Estimate Adequate (ADEQUATE) Large Platelets Occ Anisocytosis Prothrombin Time 12.8 SEC (11.7-14.0) Prothromb Time International Ratio 1.0 (0.8-1.1) Activated Partial Thromboplast Time 30 SEC (24-38) Sodium Level 126 mmol/L (136-145) Potassium Level 6.0 mmol/L (3.5-5.1) Chloride Level 93 mmol/L (98-107) Carbon Dioxide Level 20 mmol/L (21-32) Anion Gap 13 (6-14) Blood Urea Nitrogen 130 mg/dL (7-20) Creatinine 3.7 mg/dL (0.6-1.0) Estimated GFR (Cockcroft-Gault) 11.7 BUN/Creatinine Ratio 35 (6-20) Glucose Level 192 mg/dL (70-99) Lactic Acid Level 1.2 mmol/L (0.4-2.0) Calcium Level 8.1 mg/dL (8.5-10.1) Magnesium Level 1.8 mg/dL (1.8-2.4) Total Bilirubin 0.3 mg/dL (0.2-1.0) Aspartate Amino Transf (AST/SGOT) 21 U/L (15-37) Alanine Aminotransferase (ALT/SGPT) 27 U/L (14-59) Alkaline Phosphatase 82 U/L (46-116) Total Protein 6.4 g/dL (6.4-8.2) Albumin 2.8 g/dL (3.4-5.0) Albumin/Globulin Ratio 0.8 (1.0-1.7) Glucose (Fingerstick) 208 mg/dL (70-99) Laboratory Tests Test 11/27/19 10:50 11/27/19 16:01 White Blood Count 12.2 x10^3/uL (4.0-11.0) Red Blood Count 4.20 x10^6/uL (3.50-5.40) Hemoglobin 13.1 g/dL (12.0-15.5) Hematocrit 38.5 % (36.0-47.0) Mean Corpuscular Volume 92 fL (79-100) Mean Corpuscular Hemoglobin 31 pg (25-35) Mean Corpuscular Hemoglobin Concent 34 g/dL (31-37) Red Cell Distribution Width 15.4 % (11.5-14.5) Platelet Count 319 x10^3/uL (140-400) Neutrophils (%) (Auto) 85 % (31-73) Lymphocytes (%) (Auto) 9 % (24-48) Monocytes (%) (Auto) 5 % (0-9) Eosinophils (%) (Auto) 1 % (0-3) Basophils (%) (Auto) 0 % (0-3) Neutrophils # (Auto) 10.4 x10^3/uL (1.8-7.7) Lymphocytes # (Auto) 1.0 x10^3/uL (1.0-4.8) Monocytes # (Auto) 0.6 x10^3/uL (0.0-1.1) Eosinophils # (Auto) 0.2 x10^3/uL (0.0-0.7) Basophils # (Auto) 0.0 x10^3/uL (0.0-0.2) Segmented Neutrophils % 81 % (35-66) Band Neutrophils % 4 % (0-9) Lymphocytes % 10 % (24-48) Monocytes % 4 % (0-10) Eosinophils % 1 % (0-5) Platelet Estimate Adequate (ADEQUATE) Large Platelets Occ Anisocytosis Prothrombin Time 12.8 SEC (11.7-14.0) Prothromb Time International Ratio 1.0 (0.8-1.1) Activated Partial Thromboplast Time 30 SEC (24-38) Sodium Level 126 mmol/L (136-145) Potassium Level 6.0 mmol/L (3.5-5.1) Chloride Level 93 mmol/L (98-107) Carbon Dioxide Level 20 mmol/L (21-32) Anion Gap 13 (6-14) Blood Urea Nitrogen 130 mg/dL (7-20) Creatinine 3.7 mg/dL (0.6-1.0) Estimated GFR (Cockcroft-Gault) 11.7 BUN/Creatinine Ratio 35 (6-20) Glucose Level 192 mg/dL (70-99) Lactic Acid Level 1.2 mmol/L (0.4-2.0) Calcium Level 8.1 mg/dL (8.5-10.1) Magnesium Level 1.8 mg/dL (1.8-2.4) Total Bilirubin 0.3 mg/dL (0.2-1.0) Aspartate Amino Transf (AST/SGOT) 21 U/L (15-37) Alanine Aminotransferase (ALT/SGPT) 27 U/L (14-59) Alkaline Phosphatase 82 U/L (46-116) Total Protein 6.4 g/dL (6.4-8.2) Albumin 2.8 g/dL (3.4-5.0) Albumin/Globulin Ratio 0.8 (1.0-1.7) Glucose (Fingerstick) 208 mg/dL (70-99) VTE Prophylaxis Ordered VTE Prophylaxis Devices: Yes VTE Pharmacological Prophylaxi: Yes Assessment/Plan Assessment/Plan Cellulitis Diabetes Hyperkalemia Hyponatremia Acute on Chronic Kidney Disease Malnutrition A/P: Wound cultures, wound care consult, Vancomycin with pharmacy to dose. IV normal saline, consult to Nephrology. IV insulin prn hyperkalemia. Continue metolazone for leg edema, but hold Lasix due to worsening kidney function. Zofran prn. Sliding scale insulin, HbA1c pending. Diabetic diet, VTE prophylaxis, Full Code. Justifications for Admission Other Justification JEFFREY BRODERICK MD Nov 27, 2019 17:16
[2019-11-27] MEDS ORDERED: ONDANSETRON PF 4 MG/2 ML VIAL. IVP PRN (18:45)
[2019-11-27 19:00] VITALS: BP 119/47
[2019-11-27 19:34] LABS: CALCIUM 7.6 mg/dL (8.5-10.1); CREATININE 3.7 mg/dL (0.6-1.0); GFR 11.7; POTASSIUM 5.3 mmol/L (3.5-5.1)
--- NOTE | 2019-11-27 20:24 | CONS ---
DATE OF CONSULTATION: REQUESTING PHYSICIAN: Hospitalist. REASON FOR CONSULTATION: Renal failure. HISTORY OF PRESENT ILLNESS: An 84-year-old female with history of diabetes mellitus, hypertension and known chronic kidney disease stage 3. Baseline serum creatinine currently 1.6-2.3 mg percent. At this time, the patient is admitted with lower extremity edema with ongoing issues associated with cellulitis. She has been on 3 weeks of antibiotics, which have included doxycycline, Augmentin, and Bactrim. On presentation at this time, patient's BUN is 130, creatinine 3.7, GFR 11.7. Potassium 6, CO2 of 20. In this setting, Nephrology evaluation is requested. 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 2. Diabetes mellitus. 3. Hypertension. 4. Anemia of chronic disease. 5. Cellulitis. 6. Gout. PAST SURGICAL HISTORY: 1. Cholecystectomy. 2. Appendectomy. 3. Tonsillectomy. 4. Knee replacements. FAMILY HISTORY: Noncontributory. SOCIAL HISTORY: The patient resides with assistance. REVIEW OF SYSTEMS: No headache, sinus problem, nasal drainage, epistaxis, change in vision or hearing. No difficulty swallowing. No fever, chills, cough, sputum production, or hemoptysis. No chest pain, shortness of breath, PND, orthopnea, dyspnea on exertion. No abdominal pain. No nausea, vomiting, diarrhea. No seizures or malignancies. She has lower extremity edema with cellulitis. PHYSICAL EXAMINATION: GENERAL APPEARANCE: The patient appears chronically ill. HEENT: Pupils are reactive. Mouth and nasal passages are clear. NECK: No increased JVD. No thyromegaly, mass or adenopathy. LUNGS: Clear. CARDIAC: Without S3 or rub. ABDOMEN: Soft, nontender, no bruits. EXTREMITIES: Bilateral lower extremity edema with erythematous changes. Edema is 2-3+. NEUROLOGIC: Nonfocal, nonlocalizing. PSYCHIATRIC: Good attention to detail, appropriate affect. LABORATORY DATA: Sodium 126, potassium 6, chloride 93, CO2 of 20, BUN 130, creatinine 3.7, GFR 11.7, mag 1.8, albumin 2.8. Hemoglobin 13.1, hematocrit 38.5, white count 12.2, platelets are 319. IMPRESSION: 1. Chronic kidney disease stage 3/4, now with acute exacerbation, there is concern for prerenal state. The patient has also been on multiple antibiotics, which could cause allergic interstitial nephritis and/or acute tubular necrosis. The trimethoprim portion of the Bactrim can compete with a serum creatinine excretion. She has had a very significant high BUN to creatinine ratio, which will be more consistent with a prerenal state. 2. Hyperkalemia -- currently asymptomatic. 3. Metabolic acidosis. RECOMMENDATIONS: 1. IV fluid administration to include sodium bicarbonate to assist with metabolic acidosis and hyperkalemia. 2. Hyponatremia -- increased fluid administration with isotonic fluid. 3. Hyperkalemia -- acute management per ER has been pursued, otherwise, IV fluid as described above. 4. Bilateral lower extremity edema and cellulitis -- continue ongoing antibiotics and we would recommend Infectious Disease evaluation. We will follow. At this time, I do not feel that there is an emergent need for dialysis. We will follow expectantly and hope to be able to avoid dialysis. If necessary, can proceed it any time. DANA LOW MD DR: NATALY/chinedu JOB#: [id number] / [id number]
[2019-11-27] MEDS: LOPERAMIDE 2 MG/15 ML ORAL SUSP. PO SCH (21:00)
[2019-11-27] MEDS: SIMVASTATIN 20 MG TABLET PO SCH (21:01)
[2019-11-27] MEDS: LACTOBACILLUS RHAMNOSUS GG 1 CAPSULE. PO SCH (21:01)
[2019-11-27] MEDS: hydroCHLOROthiazide 25 MG TABLET PO SCH (21:01)
[2019-11-27] MEDS: LISINOPRIL 20 MG TABLET PO SCH (21:01)
[2019-11-27] MEDS: cloNIDine HCL 0.1 MG TABLET PO SCH (21:02)
[2019-11-27] MEDS: ALLOPURINOL 100 MG TABLET. PO SCH (21:02)
[2019-11-27] MEDS: HEPARIN for SUB-Q USE 5,000 UNIT/ML VIAL. SQ SCH (21:04)
[2019-11-27] MEDS: IV NORMAL SALINE 1000ML BAG 1,000 ML IV SCH (21:09)
[2019-11-27 23:06] VITALS: BP 93/44
[2019-11-28] MEDS: fentaNYL PF VIAL 100 MCG/2 ML VIAL IV PRN ×4 (00:57→21:17)
[2019-11-28] MEDS: IV NORMAL SALINE 1000ML BAG 1,000 ML IV SCH ×3 (00:58→20:10)
[2019-11-28 03:18] VITALS: BP 101/50
[2019-11-28 06:07] LABS: BASO # 0.1 x10^3/uL (0.0-0.2); BASO % 1 % (0-3); EOS # 0.4 x10^3/uL (0.0-0.7); EOS % 4 % (0-3); HEMATOCRIT 36.5 % (36.0-47.0); LYMPH # 1.4 x10^3/uL (1.0-4.8); LYMPH % 15 % (24-48); MEAN CORPUSCULAR HEMOGLOBIN 31 pg (25-35); MEAN CORPUSCULAR HGB CONC 33 g/dL (31-37); MEAN CORPUSCULAR VOLUME 95 fL (79-100); MONO # 0.7 x10^3/uL (0.0-1.1); MONO % 8 % (0-9); NEUT # 6.7 x10^3/uL (1.8-7.7); NEUT % 72 % (31-73); PLATELET COUNT 253 x10^3/uL (140-400); RED BLOOD COUNT 3.85 x10^6/uL (3.50-5.40); RED CELL DISTRIBUTION WIDTH 15.6 % (11.5-14.5); WHITE BLOOD COUNT 9.3 x10^3/uL (4.0-11.0)
[2019-11-28 06:11] LABS: ALBUMIN 2.5 g/dL (3.4-5.0); CALCIUM 7.8 mg/dL (8.5-10.1); CREATININE 3.6 mg/dL (0.6-1.0); GFR 12.1; POTASSIUM 5.7 mmol/L (3.5-5.1); TOTAL BILIRUBIN 0.3 mg/dL (0.2-1.0); TOTAL PROTEIN 5.1 g/dL (6.4-8.2)
[2019-11-28 07:00] VITALS: BP 114/45
[2019-11-28] MEDS: INSULIN LISPRO 300 UNITS/3 ML VIAL. SQ SCH ×3 (08:00→16:42)
[2019-11-28] MEDS: LISINOPRIL 20 MG TABLET PO SCH ×2 (08:40→20:07)
[2019-11-28] MEDS: hydroCHLOROthiazide 25 MG TABLET PO SCH ×2 (08:40→20:06)
[2019-11-28] MEDS: VERAPAMIL SR 120 MG TABLET.ER. PO SCH (08:40)
[2019-11-28] MEDS: FUROSEMIDE 20 MG TABLET PO SCH (08:41)
[2019-11-28] MEDS: LACTOBACILLUS RHAMNOSUS GG 1 CAPSULE. PO SCH ×2 (08:41→20:06)
[2019-11-28] MEDS: PANTOPRAZOLE 40 MG TABLET.DR. PO SCH (08:41)
[2019-11-28] MEDS: ALLOPURINOL 100 MG TABLET. PO SCH ×2 (08:41→16:55)
[2019-11-28] MEDS: cloNIDine HCL 0.1 MG TABLET PO SCH ×2 (08:41→20:06)
[2019-11-28] MEDS: HEPARIN for SUB-Q USE 5,000 UNIT/ML VIAL. SQ SCH ×2 (08:44→20:17)
--- NOTE | 2019-11-28 10:19 | PDOC ---
PROGRESS NOTES Date of Service: DATE: 11/28/19 TIME: 10:18 Chief Complaint Chief Complaint VTE Prophylaxis Ordered VTE Prophylaxis Devices: Yes VTE Pharmacological Prophylaxi: Yes IMPRESSION Assessment/Plan Cellulitis Diabetes, SUBOPTIMAL CONTROL Hyperkalemia Hyponatremia Acute on Chronic Kidney Disease Malnutrition A/P: Wound cultures, wound care consult, d/c Vancomycin , ID CONSULT . IV normal saline, consult to Nephrology. IV insulin prn hyperkalemia. Continue metolazone for leg edema, hold Lasix due to worsening kidney function. Zofran prn. Sliding scale insulin, HbA1c pending. Diabetic diet, VTE prophylaxis, Full Code. Justifications for Admission Justifications for Admission History of Present Illness History of Present Illness Identification/Chief Complaint Chief Complaint Cellulitis Source Source: Caregiver, Patient History of Present Illness History of Present Illness Patient is a 84 yo female with PMHx DM2, who presents with complaint of worsening bilateral leg cellulitis for the past 2 weeks. Patient states she has been treated by her PCP with oral antibiotics, without improvement. She takes daily metolazone and lasix for leg edema, with oral potassium replacement three times daily. She notes a history of a bleeding peptic ulcer, and admits to some nausea and acid reflux.She denies any fever, chest pain, or SOB. Na 126, K 6.0, BUN 130, Cr 3.7, Glucose 208, Albumin 2.8 Past Medical History Cardiovascular: HTN Psych: No pertinent hx Musculoskeletal: low back pain, Osteoarthritis, Swelling, Stiffness Endocrine: Diabetes Past Surgical History Past Surgical History: Appendectomy, Cholecystectomy, Total knee replacement, Tonsillectomy Family History Family History: Diabetes, Other Social History Smoke: No ALCOHOL: none Current Problem List Problem List Problems Medical Problems: (1) Acute on chronic renal failure Status: Acute (2) Cellulitis Status: Acute (3) Failure of outpatient treatment Status: Acute (4) Hyperkalemia Status: Acute Vitals Vitals Vital Signs Date Time Temp Pulse Resp B/P (MAP) Pulse Ox O2 Delivery O2 Flow Rate FiO2 11/28/19 09:45 Room Air 11/28/19 08:41 82 114/45 11/28/19 03:18 97.8 20 95 97.8 Physical Exam Physical Exam General: Alert, Oriented X3, No acute distress HEENT: Atraumatic, EOMI Lungs: Clear to auscultation Heart: RRR Cardiovascular: S1, S2 Abdomen: Normal bowel sounds, Other (men) Extremities: Other (2+ pitting edema to bilateral lower extremities) Skin: Other (weeping cellulitis to bilateral; lower extremities with surrounding crusting) Neuro: Normal speech, Sensation intact Psych/Mental Status: Mood NL General: Alert, Oriented X3, Cooperative, No acute distress Heart: Regular rate Abdomen: Normal bowel sounds, Soft, Other (men) Extremities: No cyanosis, Other (2+ pitting edema to bilateral lower extremities) Skin: Other (weeping cellulitis to bilateral; lower extremities with surrounding crusting) Labs LABS Laboratory Tests Test 11/27/19 10:50 11/27/19 16:01 11/27/19 19:05 11/27/19 20:42 White Blood Count 12.2 x10^3/uL (4.0-11.0) Red Blood Count 4.20 x10^6/uL (3.50-5.40) Hemoglobin 13.1 g/dL (12.0-15.5) Hematocrit 38.5 % (36.0-47.0) Mean Corpuscular Volume 92 fL (79-100) Mean Corpuscular Hemoglobin 31 pg (25-35) Mean Corpuscular Hemoglobin Concent 34 g/dL (31-37) Red Cell Distribution Width 15.4 % (11.5-14.5) Platelet Count 319 x10^3/uL (140-400) Neutrophils (%) (Auto) 85 % (31-73) Lymphocytes (%) (Auto) 9 % (24-48) Monocytes (%) (Auto) 5 % (0-9) Eosinophils (%) (Auto) 1 % (0-3) Basophils (%) (Auto) 0 % (0-3) Neutrophils # (Auto) 10.4 x10^3/uL (1.8-7.7) Lymphocytes # (Auto) 1.0 x10^3/uL (1.0-4.8) Monocytes # (Auto) 0.6 x10^3/uL (0.0-1.1) Eosinophils # (Auto) 0.2 x10^3/uL (0.0-0.7) Basophils # (Auto) 0.0 x10^3/uL (0.0-0.2) Segmented Neutrophils % 81 % (35-66) Band Neutrophils % 4 % (0-9) Lymphocytes % 10 % (24-48) Monocytes % 4 % (0-10) Eosinophils % 1 % (0-5) Platelet Estimate Adequate (ADEQUATE) Large Platelets Occ Anisocytosis Prothrombin Time 12.8 SEC (11.7-14.0) Prothromb Time International Ratio 1.0 (0.8-1.1) Activated Partial Thromboplast Time 30 SEC (24-38) Sodium Level 126 mmol/L (136-145) 128 mmol/L (136-145) Potassium Level 6.0 mmol/L (3.5-5.1) 5.3 mmol/L (3.5-5.1) Chloride Level 93 mmol/L (98-107) 96 mmol/L (98-107) Carbon Dioxide Level 20 mmol/L (21-32) 21 mmol/L (21-32) Anion Gap 13 (6-14) 11 (6-14) Blood Urea Nitrogen 130 mg/dL (7-20) 124 mg/dL (7-20) Creatinine 3.7 mg/dL (0.6-1.0) 3.7 mg/dL (0.6-1.0) Estimated GFR (Cockcroft-Gault) 11.7 11.7 BUN/Creatinine Ratio 35 (6-20) Glucose Level 192 mg/dL (70-99) 275 mg/dL (70-99) Lactic Acid Level 1.2 mmol/L (0.4-2.0) Calcium Level 8.1 mg/dL (8.5-10.1) 7.6 mg/dL (8.5-10.1) Magnesium Level 1.8 mg/dL (1.8-2.4) Total Bilirubin 0.3 mg/dL (0.2-1.0) Aspartate Amino Transf (AST/SGOT) 21 U/L (15-37) Alanine Aminotransferase (ALT/SGPT) 27 U/L (14-59) Alkaline Phosphatase 82 U/L (46-116) Total Protein 6.4 g/dL (6.4-8.2) Albumin 2.8 g/dL (3.4-5.0) Albumin/Globulin Ratio 0.8 (1.0-1.7) Glucose (Fingerstick) 208 mg/dL (70-99) 223 mg/dL (70-99) Test 11/28/19 05:30 11/28/19 08:41 White Blood Count 9.3 x10^3/uL (4.0-11.0) Red Blood Count 3.85 x10^6/uL (3.50-5.40) Hemoglobin 12.0 g/dL (12.0-15.5) Hematocrit 36.5 % (36.0-47.0) Mean Corpuscular Volume 95 fL (79-100) Mean Corpuscular Hemoglobin 31 pg (25-35) Mean Corpuscular Hemoglobin Concent 33 g/dL (31-37) Red Cell Distribution Width 15.6 % (11.5-14.5) Platelet Count 253 x10^3/uL (140-400) Neutrophils (%) (Auto) 72 % (31-73) Lymphocytes (%) (Auto) 15 % (24-48) Monocytes (%) (Auto) 8 % (0-9) Eosinophils (%) (Auto) 4 % (0-3) Basophils (%) (Auto) 1 % (0-3) Neutrophils # (Auto) 6.7 x10^3/uL (1.8-7.7) Lymphocytes # (Auto) 1.4 x10^3/uL (1.0-4.8) Monocytes # (Auto) 0.7 x10^3/uL (0.0-1.1) Eosinophils # (Auto) 0.4 x10^3/uL (0.0-0.7) Basophils # (Auto) 0.1 x10^3/uL (0.0-0.2) Sodium Level 131 mmol/L (136-145) Potassium Level 5.7 mmol/L (3.5-5.1) Chloride Level 98 mmol/L (98-107) Carbon Dioxide Level 20 mmol/L (21-32) Anion Gap 13 (6-14) Blood Urea Nitrogen 121 mg/dL (7-20) Creatinine 3.6 mg/dL (0.6-1.0) Estimated GFR (Cockcroft-Gault) 12.1 BUN/Creatinine Ratio 34 (6-20) Glucose Level 130 mg/dL (70-99) Calcium Level 7.8 mg/dL (8.5-10.1) Total Bilirubin 0.3 mg/dL (0.2-1.0) Aspartate Amino Transf (AST/SGOT) 26 U/L (15-37) Alanine Aminotransferase (ALT/SGPT) 26 U/L (14-59) Alkaline Phosphatase 75 U/L (46-116) Total Protein 5.1 g/dL (6.4-8.2) Albumin 2.5 g/dL (3.4-5.0) Albumin/Globulin Ratio 1.0 (1.0-1.7) Glucose (Fingerstick) 150 mg/dL (70-99) Assessment and Plan Assessmemt and Plan Problems Medical Problems: (1) Acute on chronic renal failure Status: Acute (2) Cellulitis Status: Acute (3) Failure of outpatient treatment Status: Acute (4) Hyperkalemia Status: Acute Comment Review of Relevant I have reviewed the following items yudi (where applicable) has been applied. Labs Laboratory Tests Test 11/27/19 10:50 11/27/19 16:01 11/27/19 19:05 11/27/19 20:42 White Blood Count 12.2 x10^3/uL (4.0-11.0) Red Blood Count 4.20 x10^6/uL (3.50-5.40) Hemoglobin 13.1 g/dL (12.0-15.5) Hematocrit 38.5 % (36.0-47.0) Mean Corpuscular Volume 92 fL (79-100) Mean Corpuscular Hemoglobin 31 pg (25-35) Mean Corpuscular Hemoglobin Concent 34 g/dL (31-37) Red Cell Distribution Width 15.4 % (11.5-14.5) Platelet Count 319 x10^3/uL (140-400) Neutrophils (%) (Auto) 85 % (31-73) Lymphocytes (%) (Auto) 9 % (24-48) Monocytes (%) (Auto) 5 % (0-9) Eosinophils (%) (Auto) 1 % (0-3) Basophils (%) (Auto) 0 % (0-3) Neutrophils # (Auto) 10.4 x10^3/uL (1.8-7.7) Lymphocytes # (Auto) 1.0 x10^3/uL (1.0-4.8) Monocytes # (Auto) 0.6 x10^3/uL (0.0-1.1) Eosinophils # (Auto) 0.2 x10^3/uL (0.0-0.7) Basophils # (Auto) 0.0 x10^3/uL (0.0-0.2) Segmented Neutrophils % 81 % (35-66) Band Neutrophils % 4 % (0-9) Lymphocytes % 10 % (24-48) Monocytes % 4 % (0-10) Eosinophils % 1 % (0-5) Platelet Estimate Adequate (ADEQUATE) Large Platelets Occ Anisocytosis Prothrombin Time 12.8 SEC (11.7-14.0) Prothromb Time International Ratio 1.0 (0.8-1.1) Activated Partial Thromboplast Time 30 SEC (24-38) Sodium Level 126 mmol/L (136-145) 128 mmol/L (136-145) Potassium Level 6.0 mmol/L (3.5-5.1) 5.3 mmol/L (3.5-5.1) Chloride Level 93 mmol/L (98-107) 96 mmol/L (98-107) Carbon Dioxide Level 20 mmol/L (21-32) 21 mmol/L (21-32) Anion Gap 13 (6-14) 11 (6-14) Blood Urea Nitrogen 130 mg/dL (7-20) 124 mg/dL (7-20) Creatinine 3.7 mg/dL (0.6-1.0) 3.7 mg/dL (0.6-1.0) Estimated GFR (Cockcroft-Gault) 11.7 11.7 BUN/Creatinine Ratio 35 (6-20) Glucose Level 192 mg/dL (70-99) 275 mg/dL (70-99) Lactic Acid Level 1.2 mmol/L (0.4-2.0) Calcium Level 8.1 mg/dL (8.5-10.1) 7.6 mg/dL (8.5-10.1) Magnesium Level 1.8 mg/dL (1.8-2.4) Total Bilirubin 0.3 mg/dL (0.2-1.0) Aspartate Amino Transf (AST/SGOT) 21 U/L (15-37) Alanine Aminotransferase (ALT/SGPT) 27 U/L (14-59) Alkaline Phosphatase 82 U/L (46-116) Total Protein 6.4 g/dL (6.4-8.2) Albumin 2.8 g/dL (3.4-5.0) Albumin/Globulin Ratio 0.8 (1.0-1.7) Glucose (Fingerstick) 208 mg/dL (70-99) 223 mg/dL (70-99) Test 11/28/19 05:30 11/28/19 08:41 White Blood Count 9.3 x10^3/uL (4.0-11.0) Red Blood Count 3.85 x10^6/uL (3.50-5.40) Hemoglobin 12.0 g/dL (12.0-15.5) Hematocrit 36.5 % (36.0-47.0) Mean Corpuscular Volume 95 fL (79-100) Mean Corpuscular Hemoglobin 31 pg (25-35) Mean Corpuscular Hemoglobin Concent 33 g/dL (31-37) Red Cell Distribution Width 15.6 % (11.5-14.5) Platelet Count 253 x10^3/uL (140-400) Neutrophils (%) (Auto) 72 % (31-73) Lymphocytes (%) (Auto) 15 % (24-48) Monocytes (%) (Auto) 8 % (0-9) Eosinophils (%) (Auto) 4 % (0-3) Basophils (%) (Auto) 1 % (0-3) Neutrophils # (Auto) 6.7 x10^3/uL (1.8-7.7) Lymphocytes # (Auto) 1.4 x10^3/uL (1.0-4.8) Monocytes # (Auto) 0.7 x10^3/uL (0.0-1.1) Eosinophils # (Auto) 0.4 x10^3/uL (0.0-0.7) Basophils # (Auto) 0.1 x10^3/uL (0.0-0.2) Sodium Level 131 mmol/L (136-145) Potassium Level 5.7 mmol/L (3.5-5.1) Chloride Level 98 mmol/L (98-107) Carbon Dioxide Level 20 mmol/L (21-32) Anion Gap 13 (6-14) Blood Urea Nitrogen 121 mg/dL (7-20) Creatinine 3.6 mg/dL (0.6-1.0) Estimated GFR (Cockcroft-Gault) 12.1 BUN/Creatinine Ratio 34 (6-20) Glucose Level 130 mg/dL (70-99) Calcium Level 7.8 mg/dL (8.5-10.1) Total Bilirubin 0.3 mg/dL (0.2-1.0) Aspartate Amino Transf (AST/SGOT) 26 U/L (15-37) Alanine Aminotransferase (ALT/SGPT) 26 U/L (14-59) Alkaline Phosphatase 75 U/L (46-116) Total Protein 5.1 g/dL (6.4-8.2) Albumin 2.5 g/dL (3.4-5.0) Albumin/Globulin Ratio 1.0 (1.0-1.7) Glucose (Fingerstick) 150 mg/dL (70-99) Laboratory Tests Test 11/27/19 10:50 11/27/19 16:01 11/27/19 19:05 11/27/19 20:42 White Blood Count 12.2 x10^3/uL (4.0-11.0) Red Blood Count 4.20 x10^6/uL (3.50-5.40) Hemoglobin 13.1 g/dL (12.0-15.5) Hematocrit 38.5 % (36.0-47.0) Mean Corpuscular Volume 92 fL (79-100) Mean Corpuscular Hemoglobin 31 pg (25-35) Mean Corpuscular Hemoglobin Concent 34 g/dL (31-37) Red Cell Distribution Width 15.4 % (11.5-14.5) Platelet Count 319 x10^3/uL (140-400) Neutrophils (%) (Auto) 85 % (31-73) Lymphocytes (%) (Auto) 9 % (24-48) Monocytes (%) (Auto) 5 % (0-9) Eosinophils (%) (Auto) 1 % (0-3) Basophils (%) (Auto) 0 % (0-3) Neutrophils # (Auto) 10.4 x10^3/uL (1.8-7.7) Lymphocytes # (Auto) 1.0 x10^3/uL (1.0-4.8) Monocytes # (Auto) 0.6 x10^3/uL (0.0-1.1) Eosinophils # (Auto) 0.2 x10^3/uL (0.0-0.7) Basophils # (Auto) 0.0 x10^3/uL (0.0-0.2) Segmented Neutrophils % 81 % (35-66) Band Neutrophils % 4 % (0-9) Lymphocytes % 10 % (24-48) Monocytes % 4 % (0-10) Eosinophils % 1 % (0-5) Platelet Estimate Adequate (ADEQUATE) Large Platelets Occ Anisocytosis Prothrombin Time 12.8 SEC (11.7-14.0) Prothromb Time International Ratio 1.0 (0.8-1.1) Activated Partial Thromboplast Time 30 SEC (24-38) Sodium Level 126 mmol/L (136-145) 128 mmol/L (136-145) Potassium Level 6.0 mmol/L (3.5-5.1) 5.3 mmol/L (3.5-5.1) Chloride Level 93 mmol/L (98-107) 96 mmol/L (98-107) Carbon Dioxide Level 20 mmol/L (21-32) 21 mmol/L (21-32) Anion Gap 13 (6-14) 11 (6-14) Blood Urea Nitrogen 130 mg/dL (7-20) 124 mg/dL (7-20) Creatinine 3.7 mg/dL (0.6-1.0) 3.7 mg/dL (0.6-1.0) Estimated GFR (Cockcroft-Gault) 11.7 11.7 BUN/Creatinine Ratio 35 (6-20) Glucose Level 192 mg/dL (70-99) 275 mg/dL (70-99) Lactic Acid Level 1.2 mmol/L (0.4-2.0) Calcium Level 8.1 mg/dL (8.5-10.1) 7.6 mg/dL (8.5-10.1) Magnesium Level 1.8 mg/dL (1.8-2.4) Total Bilirubin 0.3 mg/dL (0.2-1.0) Aspartate Amino Transf (AST/SGOT) 21 U/L (15-37) Alanine Aminotransferase (ALT/SGPT) 27 U/L (14-59) Alkaline Phosphatase 82 U/L (46-116) Total Protein 6.4 g/dL (6.4-8.2) Albumin 2.8 g/dL (3.4-5.0) Albumin/Globulin Ratio 0.8 (1.0-1.7) Glucose (Fingerstick) 208 mg/dL (70-99) 223 mg/dL (70-99) Test 11/28/19 05:30 11/28/19 08:41 White Blood Count 9.3 x10^3/uL (4.0-11.0) Red Blood Count 3.85 x10^6/uL (3.50-5.40) Hemoglobin 12.0 g/dL (12.0-15.5) Hematocrit 36.5 % (36.0-47.0) Mean Corpuscular Volume 95 fL (79-100) Mean Corpuscular Hemoglobin 31 pg (25-35) Mean Corpuscular Hemoglobin Concent 33 g/dL (31-37) Red Cell Distribution Width 15.6 % (11.5-14.5) Platelet Count 253 x10^3/uL (140-400) Neutrophils (%) (Auto) 72 % (31-73) Lymphocytes (%) (Auto) 15 % (24-48) Monocytes (%) (Auto) 8 % (0-9) Eosinophils (%) (Auto) 4 % (0-3) Basophils (%) (Auto) 1 % (0-3) Neutrophils # (Auto) 6.7 x10^3/uL (1.8-7.7) Lymphocytes # (Auto) 1.4 x10^3/uL (1.0-4.8) Monocytes # (Auto) 0.7 x10^3/uL (0.0-1.1) Eosinophils # (Auto) 0.4 x10^3/uL (0.0-0.7) Basophils # (Auto) 0.1 x10^3/uL (0.0-0.2) Sodium Level 131 mmol/L (136-145) Potassium Level 5.7 mmol/L (3.5-5.1) Chloride Level 98 mmol/L (98-107) Carbon Dioxide Level 20 mmol/L (21-32) Anion Gap 13 (6-14) Blood Urea Nitrogen 121 mg/dL (7-20) Creatinine 3.6 mg/dL (0.6-1.0) Estimated GFR (Cockcroft-Gault) 12.1 BUN/Creatinine Ratio 34 (6-20) Glucose Level 130 mg/dL (70-99) Calcium Level 7.8 mg/dL (8.5-10.1) Total Bilirubin 0.3 mg/dL (0.2-1.0) Aspartate Amino Transf (AST/SGOT) 26 U/L (15-37) Alanine Aminotransferase (ALT/SGPT) 26 U/L (14-59) Alkaline Phosphatase 75 U/L (46-116) Total Protein 5.1 g/dL (6.4-8.2) Albumin 2.5 g/dL (3.4-5.0) Albumin/Globulin Ratio 1.0 (1.0-1.7) Glucose (Fingerstick) 150 mg/dL (70-99) Medications Current Medications Vancomycin HCl (Vanco Per Pharmacy) 1 each PRN DAILY PRN MC SEE COMMENTS; Start 11/27/19 at 10:45 Ceftriaxone Sodium (Rocephin) 1 gm 1X ONCE IVP Last administered on 11/27/19at 11:19; Start 11/27/19 at 10:45; Stop 11/27/19 at 10:51; Status DC Vancomycin HCl 2 gm/Sodium Chloride 500 ml @ 250 mls/hr 1X ONCE IV Last administered on 11/27/19at 11:18; Start 11/27/19 at 11:00; Stop 11/27/19 at 12:59; Status DC Ondansetron HCl (Zofran) 4 mg 1X ONCE IVP Last administered on 11/27/19at 11:19; Start 11/27/19 at 11:15; Stop 11/27/19 at 11:16; Status DC Fentanyl Citrate (Fentanyl 2ml Vial) 50 mcg 1X ONCE IV Last administered on 11/27/19at 11:20; Start 11/27/19 at 11:15; Stop 11/27/19 at 11:16; Status DC Ondansetron HCl (Zofran) 4 mg STK-MED ONCE .ROUTE ; Start 11/27/19 at 11:15; Stop 11/27/19 at 11:15; Status DC Fentanyl Citrate (Fentanyl 2ml Vial) 100 mcg STK-MED ONCE .ROUTE ; Start 11/27/19 at 11:15; Stop 11/27/19 at 11:16; Status DC Calcium Gluconate (Calcium Gluconate) 1,000 mg 1X ONCE IVP Last administered on 11/27/19at 13:41; Start 11/27/19 at 12:15; Stop 11/27/19 at 12:17; Status DC Dextrose (Dextrose 50%-Water Syringe) 25 gm 1X ONCE IV Last administered on 11/27/19at 13:42; Start 11/27/19 at 12:15; Stop 11/27/19 at 12:17; Status DC Insulin Human Regular (HumuLIN R VIAL) 10 unit 1X ONCE IV Last administered on 11/27/19at 13:43; Start 11/27/19 at 12:15; Stop 11/27/19 at 12:17; Status DC Ondansetron HCl (Zofran) 4 mg PRN Q8HRS PRN IV NAUSEA/VOMITING; Start 11/27/19 at 12:30; Stop 11/27/19 at 18:44; Status DC Fentanyl Citrate (Fentanyl 2ml Vial) 25 mcg PRN Q2HR PRN IV PAIN Last administered on 11/28/19at 09:45; Start 11/27/19 at 12:30 Acetaminophen (Tylenol) 650 mg PRN Q4HRS PRN PO FEVER > 100.3'F; Start 11/27/19 at 12:30; Stop 11/28/19 at 12:29 Insulin Human Lispro (HumaLOG) 0-5 UNITS TIDWMEALS SQ Last administered on 11/27/19at 17:03; Start 11/27/19 at 17:00; Stop 11/27/19 at 18:53; Status DC Dextrose (Dextrose 50%-Water Syringe) 12.5 gm PRN Q15MIN PRN IV SEE COMMENTS; Start 11/27/19 at 12:30; Stop 11/27/19 at 18:52; Status DC Multi-Ingredient Mouthwash/Gargle (Gi Cocktail) 20 ml 1X ONCE SWSW Last administered on 11/27/19at 13:43; Start 11/27/19 at 13:00; Stop 11/27/19 at 13:01; Status DC Pantoprazole Sodium (PROTONIX VIAL for IV PUSH) 40 mg 1X ONCE IVP Last administered on 11/27/19 13:43; Start 11/27/19 at 13:00; Stop 11/27/19 at 13:01; Status DC Sodium Bicarbonate 75 meq/Sodium Chloride 1,075 ml @ 125 mls/hr 1X ONCE IV Last administered on 11/27/19at 13:30; Start 11/27/19 at 13:30; Stop 11/27/19 at 22:05; Status DC Albuterol Sulfate (Ventolin Neb Soln) 10 mg 1X ONCE CONT NEB ; Start 11/27/19 at 13:30; Stop 11/27/19 at 14:01; Status DC Albuterol Sulfate (Ventolin Neb Soln) 10 mg 1X ONCE NEB Last administered on 11/27/19at 14:03; Start 11/27/19 at 14:00; Stop 11/27/19 at 14:03; Status DC Ondansetron HCl (Zofran) 4 mg PRN Q6HRS PRN IVP NAUSEA/VOMITING; Start 11/27/19 at 18:45 Heparin Sodium (Porcine) (Heparin Sodium) 5,000 unit Q12HR SQ Last administered on 11/28/19at 08:44; Start 11/27/19 at 21:00 Sodium Chloride 1,000 ml @ 100 mls/hr Q10H IV Last administered on 11/28/19at 00:58; Start 11/27/19 at 18:45 Insulin Human Lispro (HumaLOG) 0-5 UNITS TIDWMEALS SQ ; Start 11/28/19 at 08:00 Dextrose (Dextrose 50%-Water Syringe) 12.5 gm PRN Q15MIN PRN IV SEE COMMENTS; Start 11/27/19 at 18:45 Pantoprazole Sodium (Protonix) 40 mg DAILYAC PO Last administered on 11/28/19 08:41; Start 11/28/19 at 07:30 Allopurinol (Zyloprim) 100 mg BIDAFTMEAL PO Last administered on 11/28/19 08:41; Start 11/27/19 at 21:00 Clonidine HCl (Catapres) 0.1 mg BID PO Last administered on 11/28/19 08:41; Start 11/27/19 at 21:00 Furosemide (Lasix) 20 mg DAILY PO Last administered on 9/7/20at 08:41; Start 11/28/19 at 09:00 Lactobacillus Rhamnosus (Culturelle) 1 cap BID PO Last administered on 11/28/19at 08:41; Start 11/27/19 at 21:00 Loperamide HCl (Immodium Oral Susp) 1 mg HS PO ; Start 11/27/19 at 21:00 Metolazone (Zaroxolyn) 2.5 mg QODAY PO ; Start 11/29/19 at 09:00 Simvastatin (Zocor) 20 mg QHS PO Last administered on 11/27/19at 21:01; Start 11/27/19 at 21:00 Lisinopril (Prinivil) 20 mg BID PO Last administered on 11/28/19at 08:40; Start 11/27/19 at 21:00 Verapamil HCl (Calan Sr) 240 mg DAILY PO Last administered on 11/28/19at 08:40; Start 11/28/19 at 09:00 Hydrochlorothiazide (Hydrodiuril) 25 mg BID PO Last administered on 11/28/19at 08:40; Start 11/27/19 at 21:00 Active Scripts Active Reported Novolog (Insulin Aspart) 100 Unit/1 Ml Cartridge 5 Unit SQ BID Levemir (Insulin Detemir) 100 Unit/1 Ml Vial 22 Unit SQ DAILY Metolazone 2.5 Mg Tablet 2.5 Mg PO QODAY Zyrtec (Cetirizine Hcl) 10 Mg Tablet 1 Tab PO DAILY Furosemide 20 Mg Tablet 1 Tab PO DAILY Prednisone 1 Mg Tablet 3 Mg PO DAILY Alendronate Sodium 70 Mg Tablet 1 Tab PO WEEKLY Multivitamin 1 Each Tablet 1 Each PO DAILY Culturelle (Lactobacillus Rhamnosus Gg) 1 Each Cap.sprink 1 Cap PO BID 30 Days Bactrim 400-80 Mg Tablet (Sulfamethoxazole/Trimethoprim) 1 Each Tablet 2 Tab PO BID 7 Days Potassium Chloride (Potassium Chloride) 10 Meq Tab.sr.24h 10 Meq PO DAILY Verapamil Er (Verapamil Hcl) 240 Mg Cap24h.pel 1 Cap PO DAILY Clonidine Hcl 0.1 Mg Tablet 0.1 Mg PO BID Simvastatin 20 Mg Tablet 1 Tab PO QHS Lisinopril-Hctz 20-25 Mg Tab (Lisinopril/Hydrochlorothiazide) 1 Each Tablet 1 Tab PO BID Allopurinol 100 Mg Tablet 1 Tab PO BID Aspirin 81 Mg Tab.chew 1 Tab PO DAILY Fish Oil 1,000 Mg Capsule ([place]-3 Fatty Acids/Fish Oil) 1 Each Capsule 1 Each PO DAILY Imodium A-D (Loperamide Hcl) 1 Mg/7.5 Ml Liquid 1 Mg PO HS Vitals/I & O Vital Sign - Last 24 Hours 11/27/19 11/27/19 11/27/19 11/27/19 10:56 11:20 11:26 11:56 Pulse 88 86 82 Resp 18 18 18 18 B/P (MAP) 141/66 (91) 141/63 (89) 138/60 (86) Pulse Ox 98 97 97 98 O2 Delivery Room Air Room Air Room Air 11/27/19 11/27/19 11/27/19 11/27/19 12:26 13:30 14:05 14:30 Pulse 84 92 108 Resp 18 18 18 B/P (MAP) 137/60 (85) 129/68 (88) 122/56 (78) Pulse Ox 96 96 97 94 O2 Delivery Room Air Room Air Room Air Room Air 11/27/19 11/27/19 11/27/19 11/27/19 15:00 16:00 16:30 16:56 Temp 98.0 98.0 Pulse 112 112 Resp 18 19 B/P (MAP) 130/59 (82) 102/54 (70) Pulse Ox 98 91 O2 Delivery Room Air Room Air Room Air Room Air 11/27/19 11/27/19 11/27/19 11/27/19 17:26 19:00 20:25 21:00 Temp 97.9 97.9 Pulse 104 Resp 20 18 B/P (MAP) 119/47 (71) Pulse Ox 97 97 O2 Delivery Room Air Room Air Room Air Room Air 11/27/19 11/27/19 11/27/19 11/27/19 21:01 21:02 21:53 23:06 Temp 98.4 98.4 Pulse 104 104 96 Resp 18 20 B/P (MAP) 119/47 119/47 93/44 (60) Pulse Ox 97 95 O2 Delivery Room Air Room Air 11/28/19 11/28/19 11/28/19 11/28/19 00:57 01:28 03:18 08:40 Temp 97.8 97.8 Pulse 86 82 Resp 18 18 20 B/P (MAP) 101/50 (67) 114/45 Pulse Ox 95 95 95 O2 Delivery Room Air Room Air Room Air 11/28/19 11/28/19 11/28/19 08:40 08:41 09:45 Pulse 82 82 B/P (MAP) 114/45 114/45 O2 Delivery Room Air Intake and Output 11/27/19 11/27/19 11/28/19 15:00 23:00 07:00 Intake Total 300 ml Output Total 0 ml Balance 300 ml 0 ml Justicifation of Admission Dx: Justifications for Admission: Justification of Admission Dx: Yes PHUONG SAPP MD Nov 28, 2019 10:18
[2019-11-28 11:00] VITALS: BP 76/42
--- NOTE | 2019-11-28 14:10 | PDOC ---
PROGRESS NOTES Date of Service DATE: 11/28/19 TIME: 14:07 Subjective Subjective SEEN IN FOLLOW UP OF CKD AND NOW ARF Objective Objective Vital Signs Date Time Temp Pulse Resp B/P (MAP) Pulse Ox O2 Delivery O2 Flow Rate FiO2 11/28/19 13:56 Room Air 11/28/19 11:00 97.3 84 16 76/42 (53) 96 97.3 Intake and Output 11/28/19 07:00 Intake Total 300 ml Output Total 0 ml Balance 300 ml Intake Oral 300 ml Output Urine Total 0 ml # Voids 1 Physical Exam Abdomen: Normal bowel sounds, Soft, No tenderness, No hepatosplenomegaly, No masses Heart: Regular rate, Normal S1, Normal S2, No murmurs, Gallops Extremities: Other (BLE EDEMA) General: Alert, Oriented X3, Cooperative, No acute distress Lungs: Clear to auscultation, Normal air movement Psych/Mental Status: Mental status NL, Mood NL Diagnosis RENAL FAILURE: Acute (Acute tubular necrosis), Chronic (CKD stage III) Assessment Assessment Problems Medical Problems: (1) Acute on chronic renal failure Status: Acute (2) Cellulitis Status: Acute (3) Failure of outpatient treatment Status: Acute (4) Hyperkalemia Status: Acute Plan Plan of Care SHE FEELS BETTER TODAY. NO SIGNIFICANT CHANGE IN RENAL FUNCTION. CONT IVF AND FOLLOW . Comment Review of Relevant I have reviewed the following items yudi (where applicable) has been applied. Labs Laboratory Tests Test 11/27/19 10:50 11/27/19 16:01 11/27/19 19:05 11/27/19 20:42 White Blood Count 12.2 x10^3/uL (4.0-11.0) Red Blood Count 4.20 x10^6/uL (3.50-5.40) Hemoglobin 13.1 g/dL (12.0-15.5) Hematocrit 38.5 % (36.0-47.0) Mean Corpuscular Volume 92 fL (79-100) Mean Corpuscular Hemoglobin 31 pg (25-35) Mean Corpuscular Hemoglobin Concent 34 g/dL (31-37) Red Cell Distribution Width 15.4 % (11.5-14.5) Platelet Count 319 x10^3/uL (140-400) Neutrophils (%) (Auto) 85 % (31-73) Lymphocytes (%) (Auto) 9 % (24-48) Monocytes (%) (Auto) 5 % (0-9) Eosinophils (%) (Auto) 1 % (0-3) Basophils (%) (Auto) 0 % (0-3) Neutrophils # (Auto) 10.4 x10^3/uL (1.8-7.7) Lymphocytes # (Auto) 1.0 x10^3/uL (1.0-4.8) Monocytes # (Auto) 0.6 x10^3/uL (0.0-1.1) Eosinophils # (Auto) 0.2 x10^3/uL (0.0-0.7) Basophils # (Auto) 0.0 x10^3/uL (0.0-0.2) Segmented Neutrophils % 81 % (35-66) Band Neutrophils % 4 % (0-9) Lymphocytes % 10 % (24-48) Monocytes % 4 % (0-10) Eosinophils % 1 % (0-5) Platelet Estimate Adequate (ADEQUATE) Large Platelets Occ Anisocytosis Prothrombin Time 12.8 SEC (11.7-14.0) Prothromb Time International Ratio 1.0 (0.8-1.1) Activated Partial Thromboplast Time 30 SEC (24-38) Sodium Level 126 mmol/L (136-145) 128 mmol/L (136-145) Potassium Level 6.0 mmol/L (3.5-5.1) 5.3 mmol/L (3.5-5.1) Chloride Level 93 mmol/L (98-107) 96 mmol/L (98-107) Carbon Dioxide Level 20 mmol/L (21-32) 21 mmol/L (21-32) Anion Gap 13 (6-14) 11 (6-14) Blood Urea Nitrogen 130 mg/dL (7-20) 124 mg/dL (7-20) Creatinine 3.7 mg/dL (0.6-1.0) 3.7 mg/dL (0.6-1.0) Estimated GFR (Cockcroft-Gault) 11.7 11.7 BUN/Creatinine Ratio 35 (6-20) Glucose Level 192 mg/dL (70-99) 275 mg/dL (70-99) Lactic Acid Level 1.2 mmol/L (0.4-2.0) Calcium Level 8.1 mg/dL (8.5-10.1) 7.6 mg/dL (8.5-10.1) Magnesium Level 1.8 mg/dL (1.8-2.4) Total Bilirubin 0.3 mg/dL (0.2-1.0) Aspartate Amino Transf (AST/SGOT) 21 U/L (15-37) Alanine Aminotransferase (ALT/SGPT) 27 U/L (14-59) Alkaline Phosphatase 82 U/L (46-116) Total Protein 6.4 g/dL (6.4-8.2) Albumin 2.8 g/dL (3.4-5.0) Albumin/Globulin Ratio 0.8 (1.0-1.7) Glucose (Fingerstick) 208 mg/dL (70-99) 223 mg/dL (70-99) Test 11/28/19 05:30 11/28/19 08:41 11/28/19 11:17 White Blood Count 9.3 x10^3/uL (4.0-11.0) Red Blood Count 3.85 x10^6/uL (3.50-5.40) Hemoglobin 12.0 g/dL (12.0-15.5) Hematocrit 36.5 % (36.0-47.0) Mean Corpuscular Volume 95 fL (79-100) Mean Corpuscular Hemoglobin 31 pg (25-35) Mean Corpuscular Hemoglobin Concent 33 g/dL (31-37) Red Cell Distribution Width 15.6 % (11.5-14.5) Platelet Count 253 x10^3/uL (140-400) Neutrophils (%) (Auto) 72 % (31-73) Lymphocytes (%) (Auto) 15 % (24-48) Monocytes (%) (Auto) 8 % (0-9) Eosinophils (%) (Auto) 4 % (0-3) Basophils (%) (Auto) 1 % (0-3) Neutrophils # (Auto) 6.7 x10^3/uL (1.8-7.7) Lymphocytes # (Auto) 1.4 x10^3/uL (1.0-4.8) Monocytes # (Auto) 0.7 x10^3/uL (0.0-1.1) Eosinophils # (Auto) 0.4 x10^3/uL (0.0-0.7) Basophils # (Auto) 0.1 x10^3/uL (0.0-0.2) Sodium Level 131 mmol/L (136-145) Potassium Level 5.7 mmol/L (3.5-5.1) Chloride Level 98 mmol/L (98-107) Carbon Dioxide Level 20 mmol/L (21-32) Anion Gap 13 (6-14) Blood Urea Nitrogen 121 mg/dL (7-20) Creatinine 3.6 mg/dL (0.6-1.0) Estimated GFR (Cockcroft-Gault) 12.1 BUN/Creatinine Ratio 34 (6-20) Glucose Level 130 mg/dL (70-99) Calcium Level 7.8 mg/dL (8.5-10.1) Total Bilirubin 0.3 mg/dL (0.2-1.0) Aspartate Amino Transf (AST/SGOT) 26 U/L (15-37) Alanine Aminotransferase (ALT/SGPT) 26 U/L (14-59) Alkaline Phosphatase 75 U/L (46-116) Total Protein 5.1 g/dL (6.4-8.2) Albumin 2.5 g/dL (3.4-5.0) Albumin/Globulin Ratio 1.0 (1.0-1.7) Glucose (Fingerstick) 150 mg/dL (70-99) 170 mg/dL (70-99) Laboratory Tests Test 11/27/19 16:01 11/27/19 19:05 11/27/19 20:42 11/28/19 05:30 Glucose (Fingerstick) 208 mg/dL (70-99) 223 mg/dL (70-99) Sodium Level 128 mmol/L (136-145) 131 mmol/L (136-145) Potassium Level 5.3 mmol/L (3.5-5.1) 5.7 mmol/L (3.5-5.1) Chloride Level 96 mmol/L (98-107) 98 mmol/L (98-107) Carbon Dioxide Level 21 mmol/L (21-32) 20 mmol/L (21-32) Anion Gap 11 (6-14) 13 (6-14) Blood Urea Nitrogen 124 mg/dL (7-20) 121 mg/dL (7-20) Creatinine 3.7 mg/dL (0.6-1.0) 3.6 mg/dL (0.6-1.0) Estimated GFR (Cockcroft-Gault) 11.7 12.1 Glucose Level 275 mg/dL (70-99) 130 mg/dL (70-99) Calcium Level 7.6 mg/dL (8.5-10.1) 7.8 mg/dL (8.5-10.1) White Blood Count 9.3 x10^3/uL (4.0-11.0) Red Blood Count 3.85 x10^6/uL (3.50-5.40) Hemoglobin 12.0 g/dL (12.0-15.5) Hematocrit 36.5 % (36.0-47.0) Mean Corpuscular Volume 95 fL (79-100) Mean Corpuscular Hemoglobin 31 pg (25-35) Mean Corpuscular Hemoglobin Concent 33 g/dL (31-37) Red Cell Distribution Width 15.6 % (11.5-14.5) Platelet Count 253 x10^3/uL (140-400) Neutrophils (%) (Auto) 72 % (31-73) Lymphocytes (%) (Auto) 15 % (24-48) Monocytes (%) (Auto) 8 % (0-9) Eosinophils (%) (Auto) 4 % (0-3) Basophils (%) (Auto) 1 % (0-3) Neutrophils # (Auto) 6.7 x10^3/uL (1.8-7.7) Lymphocytes # (Auto) 1.4 x10^3/uL (1.0-4.8) Monocytes # (Auto) 0.7 x10^3/uL (0.0-1.1) Eosinophils # (Auto) 0.4 x10^3/uL (0.0-0.7) Basophils # (Auto) 0.1 x10^3/uL (0.0-0.2) BUN/Creatinine Ratio 34 (6-20) Total Bilirubin 0.3 mg/dL (0.2-1.0) Aspartate Amino Transf (AST/SGOT) 26 U/L (15-37) Alanine Aminotransferase (ALT/SGPT) 26 U/L (14-59) Alkaline Phosphatase 75 U/L (46-116) Total Protein 5.1 g/dL (6.4-8.2) Albumin 2.5 g/dL (3.4-5.0) Albumin/Globulin Ratio 1.0 (1.0-1.7) Test 11/28/19 08:41 11/28/19 11:17 Glucose (Fingerstick) 150 mg/dL (70-99) 170 mg/dL (70-99) Microbiology 11/27/19 Gram Stain - Final, Resulted 11/27/19 Aerobic Culture, Resulted Pending 11/27/19 Blood Culture - Preliminary, Resulted NO GROWTH AFTER 1 DAY Medications Current Medications Vancomycin HCl (Vanco Per Pharmacy) 1 each PRN DAILY PRN MC SEE COMMENTS; Start 11/27/19 at 10:45 Ceftriaxone Sodium (Rocephin) 1 gm 1X ONCE IVP Last administered on 11/27/19at 11:19; Start 11/27/19 at 10:45; Stop 11/27/19 at 10:51; Status DC Vancomycin HCl 2 gm/Sodium Chloride 500 ml @ 250 mls/hr 1X ONCE IV Last administered on 11/27/19at 11:18; Start 11/27/19 at 11:00; Stop 11/27/19 at 12:59; Status DC Ondansetron HCl (Zofran) 4 mg 1X ONCE IVP Last administered on 11/27/19at 11:19; Start 11/27/19 at 11:15; Stop 11/27/19 at 11:16; Status DC Fentanyl Citrate (Fentanyl 2ml Vial) 50 mcg 1X ONCE IV Last administered on 11/27/19at 11:20; Start 11/27/19 at 11:15; Stop 11/27/19 at 11:16; Status DC Ondansetron HCl (Zofran) 4 mg STK-MED ONCE .ROUTE ; Start 11/27/19 at 11:15; Stop 11/27/19 at 11:15; Status DC Fentanyl Citrate (Fentanyl 2ml Vial) 100 mcg STK-MED ONCE .ROUTE ; Start 11/27/19 at 11:15; Stop 11/27/19 at 11:16; Status DC Calcium Gluconate (Calcium Gluconate) 1,000 mg 1X ONCE IVP Last administered on 11/27/19at 13:41; Start 11/27/19 at 12:15; Stop 11/27/19 at 12:17; Status DC Dextrose (Dextrose 50%-Water Syringe) 25 gm 1X ONCE IV Last administered on 11/27/19at 13:42; Start 11/27/19 at 12:15; Stop 11/27/19 at 12:17; Status DC Insulin Human Regular (HumuLIN R VIAL) 10 unit 1X ONCE IV Last administered on 11/27/19at 13:43; Start 11/27/19 at 12:15; Stop 11/27/19 at 12:17; Status DC Ondansetron HCl (Zofran) 4 mg PRN Q8HRS PRN IV NAUSEA/VOMITING; Start 11/27/19 at 12:30; Stop 11/27/19 at 18:44; Status DC Fentanyl Citrate (Fentanyl 2ml Vial) 25 mcg PRN Q2HR PRN IV PAIN Last administered on 11/28/19at 13:11; Start 11/27/19 at 12:30 Acetaminophen (Tylenol) 650 mg PRN Q4HRS PRN PO FEVER > 100.3'F; Start 11/27/19 at 12:30; Stop 11/28/19 at 12:29; Status DC Insulin Human Lispro (HumaLOG) 0-5 UNITS TIDWMEALS SQ Last administered on 11/27/19at 17:03; Start 11/27/19 at 17:00; Stop 11/27/19 at 18:53; Status DC Dextrose (Dextrose 50%-Water Syringe) 12.5 gm PRN Q15MIN PRN IV SEE COMMENTS; Start 11/27/19 at 12:30; Stop 11/27/19 at 18:52; Status DC Multi-Ingredient Mouthwash/Gargle (Gi Cocktail) 20 ml 1X ONCE SWSW Last administered on 11/27/19at 13:43; Start 11/27/19 at 13:00; Stop 11/27/19 at 13:01; Status DC Pantoprazole Sodium (PROTONIX VIAL for IV PUSH) 40 mg 1X ONCE IVP Last administered on 11/27/19at 13:43; Start 11/27/19 at 13:00; Stop 11/27/19 at 13:01; Status DC Sodium Bicarbonate 75 meq/Sodium Chloride 1,075 ml @ 125 mls/hr 1X ONCE IV Last administered on 11/27/19at 13:30; Start 11/27/19 at 13:30; Stop 11/27/19 at 22:05; Status DC Albuterol Sulfate (Ventolin Neb Soln) 10 mg 1X ONCE CONT NEB ; Start 11/27/19 at 13:30; Stop 11/27/19 at 14:01; Status DC Albuterol Sulfate (Ventolin Neb Soln) 10 mg 1X ONCE NEB Last administered on 11/27/19at 14:03; Start 11/27/19 at 14:00; Stop 11/27/19 at 14:03; Status DC Ondansetron HCl (Zofran) 4 mg PRN Q6HRS PRN IVP NAUSEA/VOMITING; Start 11/27/19 at 18:45 Heparin Sodium (Porcine) (Heparin Sodium) 5,000 unit Q12HR SQ Last administered on 11/28/19at 08:44; Start 11/27/19 at 21:00 Sodium Chloride 1,000 ml @ 100 mls/hr Q10H IV Last administered on 11/28/19at 11:53; Start 11/27/19 at 18:45 Insulin Human Lispro (HumaLOG) 0-5 UNITS TIDWMEALS SQ Last administered on 11/28/19at 11:53; Start 11/28/19 at 08:00 Dextrose (Dextrose 50%-Water Syringe) 12.5 gm PRN Q15MIN PRN IV SEE COMMENTS; Start 11/27/19 at 18:45 Pantoprazole Sodium (Protonix) 40 mg DAILYAC PO Last administered on 11/28/19at 08:41; Start 11/28/19 at 07:30 Allopurinol (Zyloprim) 100 mg BIDAFTMEAL PO Last administered on 11/28/19at 08:41; Start 11/27/19 at 21:00 Clonidine HCl (Catapres) 0.1 mg BID PO Last administered on 11/28/19at 08:41; Start 11/27/19 at 21:00 Furosemide (Lasix) 20 mg DAILY PO Last administered on 11/28/19 08:41; Start 11/28/19 at 09:00 Lactobacillus Rhamnosus (Culturelle) 1 cap BID PO Last administered on 11/28/19at 08:41; Start 11/27/19 at 21:00 Loperamide HCl (Immodium Oral Susp) 1 mg HS PO ; Start 11/27/19 at 21:00 Metolazone (Zaroxolyn) 2.5 mg QODAY PO ; Start 11/29/19 at 09:00 Simvastatin (Zocor) 20 mg QHS PO Last administered on 11/27/19at 21:01; Start 11/27/19 at 21:00 Lisinopril (Prinivil) 20 mg BID PO Last administered on 11/28/19at 08:40; Start 11/27/19 at 21:00 Verapamil HCl (Calan Sr) 240 mg DAILY PO Last administered on 11/28/19at 08:40; Start 11/28/19 at 09:00 Hydrochlorothiazide (Hydrodiuril) 25 mg BID PO Last administered on 11/28/19at 08:40; Start 11/27/19 at 21:00 Active Scripts Active Reported Novolog (Insulin Aspart) 100 Unit/1 Ml Cartridge 5 Unit SQ BID Levemir (Insulin Detemir) 100 Unit/1 Ml Vial 22 Unit SQ DAILY Metolazone 2.5 Mg Tablet 2.5 Mg PO QODAY Zyrtec (Cetirizine Hcl) 10 Mg Tablet 1 Tab PO DAILY Furosemide 20 Mg Tablet 1 Tab PO DAILY Prednisone 1 Mg Tablet 3 Mg PO DAILY Alendronate Sodium 70 Mg Tablet 1 Tab PO WEEKLY Multivitamin 1 Each Tablet 1 Each PO DAILY Culturelle (Lactobacillus Rhamnosus Gg) 1 Each Cap.sprink 1 Cap PO BID 30 Days Bactrim 400-80 Mg Tablet (Sulfamethoxazole/Trimethoprim) 1 Each Tablet 2 Tab PO BID 7 Days Potassium Chloride (Potassium Chloride) 10 Meq Tab.sr.24h 10 Meq PO DAILY Verapamil Er (Verapamil Hcl) 240 Mg Cap24h.pel 1 Cap PO DAILY Clonidine Hcl 0.1 Mg Tablet 0.1 Mg PO BID Simvastatin 20 Mg Tablet 1 Tab PO QHS Lisinopril-Hctz 20-25 Mg Tab (Lisinopril/Hydrochlorothiazide) 1 Each Tablet 1 Tab PO BID Allopurinol 100 Mg Tablet 1 Tab PO BID Aspirin 81 Mg Tab.chew 1 Tab PO DAILY Fish Oil 1,000 Mg Capsule ([place]-3 Fatty Acids/Fish Oil) 1 Each Capsule 1 Each PO DAILY Imodium A-D (Loperamide Hcl) 1 Mg/7.5 Ml Liquid 1 Mg PO HS Vitals/I & O Vital Sign - Last 24 Hours 11/27/19 11/27/19 11/27/19 11/27/19 14:30 15:00 16:00 16:30 Temp 98.0 98.0 Pulse 108 112 112 Resp 18 18 19 B/P (MAP) 122/56 (78) 130/59 (82) 102/54 (70) Pulse Ox 94 98 91 O2 Delivery Room Air Room Air Room Air Room Air 11/27/19 11/27/19 11/27/19 11/27/19 16:56 17:26 19:00 20:25 Temp 97.9 97.9 Pulse 104 Resp 20 B/P (MAP) 119/47 (71) Pulse Ox 97 O2 Delivery Room Air Room Air Room Air Room Air 11/27/19 11/27/19 11/27/19 11/27/19 21:00 21:01 21:02 21:53 Pulse 104 104 Resp 18 18 B/P (MAP) 119/47 119/47 Pulse Ox 97 97 O2 Delivery Room Air Room Air 11/27/19 11/28/19 11/28/19 11/28/19 23:06 00:57 01:28 03:18 Temp 98.4 97.8 98.4 97.8 Pulse 96 86 Resp 20 18 18 20 B/P (MAP) 93/44 (60) 101/50 (67) Pulse Ox 95 95 95 95 O2 Delivery Room Air Room Air Room Air Room Air 11/28/19 11/28/19 11/28/19 11/28/19 07:00 08:00 08:40 08:40 Temp 98.8 98.8 Pulse 80 82 82 Resp 16 B/P (MAP) 114/45 (68) 114/45 114/45 Pulse Ox 87 O2 Delivery Room Air Room Air 11/28/19 11/28/19 11/28/19 11/28/19 08:41 09:45 10:19 11:00 Temp 97.3 97.3 Pulse 82 84 Resp 16 B/P (MAP) 114/45 76/42 (53) Pulse Ox 96 O2 Delivery Room Air Room Air Room Air 11/28/19 11/28/19 13:11 13:56 O2 Delivery Room Air Room Air Intake and Output 11/27/19 11/27/19 11/28/19 15:00 23:00 07:00 Intake Total 300 ml Output Total 0 ml Balance 300 ml 0 ml Justifications for Admission Other Justification DANA LOW MD Nov 28, 2019 14:10
[2019-11-28 15:00] VITALS: BP 85/41
[2019-11-28] MEDS: cefTRIAXone IV Push 2 GM VIAL. IVP SCH (16:55)
[2019-11-28] MEDS: oxyCODONE/APAP 5/325 1 TAB TABLET PO PRN (18:06)
[2019-11-28 19:00] VITALS: BP 103/56
[2019-11-28] MEDS: SIMVASTATIN 20 MG TABLET PO SCH (20:04)
[2019-11-28] MEDS: LOPERAMIDE 2 MG/15 ML ORAL SUSP. PO SCH (20:09)
[2019-11-28 23:00] VITALS: BP 94/45
[2019-11-29] VITALS (8 sets, daily range): BP systolic 88–147; BP diastolic 39–63
[2019-11-29] MEDS: oxyCODONE/APAP 5/325 1 TAB TABLET PO PRN ×2 (01:10→17:27)
[2019-11-29 03:07] LABS: HEMOGLOBIN A1C 6.9 % (4.8-5.6)
[2019-11-29] MEDS: PANTOPRAZOLE 40 MG TABLET.DR. PO SCH (05:36)
[2019-11-29] MEDS: fentaNYL PF VIAL 100 MCG/2 ML VIAL IV PRN (05:37)
[2019-11-29] MEDS: IV NORMAL SALINE 1000ML BAG 1,000 ML IV SCH ×2 (05:39→17:27)
[2019-11-29 07:22] LABS: BASO # 0.2 x10^3/uL (0.0-0.2); BASO % 2 % (0-3); EOS % 12 % (0-3); HEMATOCRIT 32.7 % (36.0-47.0); HEMOGLOBIN 11.1 g/dL (12.0-15.5); LYMPH # 1.4 x10^3/uL (1.0-4.8); LYMPH % 18 % (24-48); MEAN CORPUSCULAR HEMOGLOBIN 31 pg (25-35); MEAN CORPUSCULAR HGB CONC 34 g/dL (31-37); MEAN CORPUSCULAR VOLUME 93 fL (79-100); MONO # 0.6 x10^3/uL (0.0-1.1); MONO % 8 % (0-9); NEUT % 61 % (31-73); PLATELET COUNT 244 x10^3/uL (140-400); RED BLOOD COUNT 3.53 x10^6/uL (3.50-5.40); RED CELL DISTRIBUTION WIDTH 15.5 % (11.5-14.5); WHITE BLOOD COUNT 8.2 x10^3/uL (4.0-11.0)
[2019-11-29 07:34] LABS: CALCIUM 7.4 mg/dL (8.5-10.1); CREATININE 3.3 mg/dL (0.6-1.0); GFR 13.4; POTASSIUM 5.3 mmol/L (3.5-5.1)
[2019-11-29] MEDS: INSULIN LISPRO 300 UNITS/3 ML VIAL. SQ SCH ×3 (08:00→17:37)
[2019-11-29] MEDS: ALLOPURINOL 100 MG TABLET. PO SCH ×2 (09:00→17:26)
[2019-11-29] MEDS ORDERED: metOLazone 2.5 MG TABLET PO SCH (09:00)
[2019-11-29] MEDS: hydroCHLOROthiazide 25 MG TABLET PO SCH (09:11)
[2019-11-29] MEDS: LACTOBACILLUS RHAMNOSUS GG 1 CAPSULE. PO SCH ×2 (09:11→22:31)
[2019-11-29] MEDS: LISINOPRIL 20 MG TABLET PO SCH (09:12)
[2019-11-29] MEDS: FUROSEMIDE 20 MG TABLET PO SCH (09:12)
[2019-11-29] MEDS: VERAPAMIL SR 120 MG TABLET.ER. PO SCH (09:13)
[2019-11-29] MEDS: HEPARIN for SUB-Q USE 5,000 UNIT/ML VIAL. SQ SCH ×2 (09:16→22:38)
[2019-11-29] MEDS ORDERED: DAPTOmycin (GENERIC) IVPB 500 MG in IV NORMAL SALINE 50ML 50 ML IV ONE (09:30)
--- NOTE | 2019-11-29 10:00 | PDOC ---
Infectious Disease Note Vital Sign Vital Signs Vital Signs Date Time Temp Pulse Resp B/P (MAP) Pulse Ox O2 Delivery O2 Flow Rate FiO2 11/29/19 09:13 78 113/41 11/29/19 07:00 97.9 18 94 Room Air 97.9 Physical Exam PHYSICAL EXAM General: Alert, Oriented X3, No acute distress HEENT: Atraumatic, EOMI Lungs: Clear to auscultation Heart: RRR Cardiovascular: S1, S2 Abdomen: Normal bowel sounds, Other (men) Extremities: Other (2+ pitting edema to bilateral lower extremities) Skin: Other (weeping cellulitis to bilateral; lower extremities with surrounding crusting) Neuro: Normal speech, Sensation intact Psych/Mental Status: Mood NL Labs Lab Laboratory Tests Test 11/28/19 11:17 11/28/19 16:23 11/28/19 20:00 11/29/19 06:15 Glucose (Fingerstick) 170 mg/dL (70-99) 125 mg/dL (70-99) 159 mg/dL (70-99) White Blood Count 8.2 x10^3/uL (4.0-11.0) Red Blood Count 3.53 x10^6/uL (3.50-5.40) Hemoglobin 11.1 g/dL (12.0-15.5) Hematocrit 32.7 % (36.0-47.0) Mean Corpuscular Volume 93 fL (79-100) Mean Corpuscular Hemoglobin 31 pg (25-35) Mean Corpuscular Hemoglobin Concent 34 g/dL (31-37) Red Cell Distribution Width 15.5 % (11.5-14.5) Platelet Count 244 x10^3/uL (140-400) Neutrophils (%) (Auto) 61 % (31-73) Lymphocytes (%) (Auto) 18 % (24-48) Monocytes (%) (Auto) 8 % (0-9) Eosinophils (%) (Auto) 12 % (0-3) Basophils (%) (Auto) 2 % (0-3) Neutrophils # (Auto) 5.0 x10^3/uL (1.8-7.7) Lymphocytes # (Auto) 1.4 x10^3/uL (1.0-4.8) Monocytes # (Auto) 0.6 x10^3/uL (0.0-1.1) Eosinophils # (Auto) 1.0 x10^3/uL (0.0-0.7) Basophils # (Auto) 0.2 x10^3/uL (0.0-0.2) Sodium Level 133 mmol/L (136-145) Potassium Level 5.3 mmol/L (3.5-5.1) Chloride Level 102 mmol/L (98-107) Carbon Dioxide Level 22 mmol/L (21-32) Anion Gap 9 (6-14) Blood Urea Nitrogen 119 mg/dL (7-20) Creatinine 3.3 mg/dL (0.6-1.0) Estimated GFR (Cockcroft-Gault) 13.4 Glucose Level 126 mg/dL (70-99) Calcium Level 7.4 mg/dL (8.5-10.1) Test 11/29/19 07:56 Glucose (Fingerstick) 113 mg/dL (70-99) Micro Microbiology 11/27/19 Blood Culture - Preliminary, Resulted NO GROWTH AFTER 1 DAY 11/27/19 Gram Stain - Final, Resulted 11/27/19 Aerobic Culture, Resulted Pending Objective Assessment B LE cellulitis ETHAN on CKD DM GPC/GNR Plan Plan of Care Clinically improving Dose Daptomycin and cont the rocephin added 11/27 F/u labs and cults Elevation Will benefit from compression D/w nursing and niece Thank you # [id number] DELMI PENA MD Nov 29, 2019 10:00
--- NOTE | 2019-11-29 10:26 | CONS ---
DATE OF CONSULTATION: 11/29/2019 INFECTIOUS DISEASE CONSULTATION PATIENT'S ROOM: 514. REQUESTING PHYSICIAN: Dr. Pruitt. REASON FOR CONSULTATION: Cellulitis. HISTORY OF PRESENT ILLNESS: The patient is an 84-year-old female with history of diabetes and a distant history of cellulitis back in 2008. She states over a month ago, she developed water blisters on her right lower extremity. She states that she put Band-Aids over them and is to avoid her dogs licking them. However, when she removed the Band-Aid, she developed some skin tears. She then developed some cellulitic type picture, mainly on her right leg; however, her left leg also developed some scratches and became somewhat inflamed well. Over the past couple of weeks, she has been on doxycycline, Augmentin and recently Bactrim. She has not had any fevers. She has had occasional chills. She had decreased appetite and occasional nausea and upset stomach, particularly with the Bactrim. Things continued to worsen and she presented to [facility] Emergency Room on 11/26. She had a white count of 12.2. Her creatinine was elevated at 3.7, had been 1.6 approximately a year or so ago. She was given a dose of vancomycin in the Emergency Room as well as Rocephin and admitted to the hospital. I was consulted yesterday, held further vancomycin given her renal failure and continued the Rocephin. Currently, the patient is feeling better. Her appetite is improved. She has improved pain in her leg, but she has taken some Percocet, pain mainly in the posterior aspect of her right leg. She is constipated and has issues with chronic loose stools and takes Imodium periodically, but has not had any bowel movement, but feels like she has close to this having one. She denies any complications with urinary symptoms. PAST MEDICAL HISTORY: Positive for previous cellulitis, history of UTI, history of peptic ulcer, history of gastroesophageal reflux disease, hypertension, diabetes, low back pain, osteoarthritis, and chronic diarrhea. PAST SURGICAL HISTORY: Positive for appendectomy, cholecystectomy, total knee replacement, tonsillectomy. REVIEW OF SYSTEMS: Otherwise negative except as mentioned above. SOCIAL HISTORY: No tobacco or alcohol. She does have dogs at home. FAMILY HISTORY: Positive for diabetes. CURRENT MEDICATIONS: Include Rocephin. She received a dose of vancomycin as well. She is on allopurinol, Catapres, fentanyl, Lasix, heparin, hydrochlorothiazide, insulin, lactobacillus, Prinivil, Zaroxolyn, Protonix, Zocor, loperamide. PHYSICAL EXAMINATION: VITAL SIGNS: She is afebrile, temperature is 97.9, pulse 78, respirations 18, blood pressure 113/41, satting 94% on room air. CONSTITUTIONAL: She is cooperative. She is in no acute distress. She looks comfortable. She is lying in bed. HEENT: Pupils equal and reactive. She has normal conjunctivae. Oral cavity, pharynx is clear. She has dentures. NECK: Supple, no JVD. LUNGS: Decreased in the bases. HEART: S1, S2. ABDOMEN: Soft, no guarding. Obese. EXTREMITIES: Without clubbing, cyanosis. Her right lower extremity has 1-2+ edema, her left has 1+. There is mild erythema, but no gross warmth. She has scabbing on the medial aspect of both her middle legs. No gross pus. There is some wrinkling shows some improvement. No gross warmth. She had more erythema in the posterior aspect of her right leg. SKIN: Otherwise, warm to touch without signs of rash. NEUROLOGIC: She is nonfocal, moves all extremities, answers questions appropriately. PSYCHIATRIC: Affect is very pleasant. LABORATORY DATA: White count 8.2, hemoglobin 11.1, platelets 244, neutrophils 61, lymphs are 18. Creatinine 3.3, glucose 126. Blood cultures were negative. Wound cultures have gram-positive cocci and gram-negative veronica. There are no imaging studies. IMPRESSION: 1. Bilateral lower extremity cellulitis. 2. Acute kidney injury on chronic kidney disease. 3. Diabetes. 4. Gram-positive cocci, gram-negative veronica. RECOMMENDATIONS: Clinically, she is improving. We will dose daptomycin. Continue Rocephin that was added on the 7th. Follow up labs and cultures, elevation. She will benefit from compression. This was discussed with nursing, also discussed with niece. Thank you so much for the patient's care. If you have any questions, please do not hesitate to contact me. DELMI PENA MD DR: [email or web address]/[email or web address] JOB#: [id number] / [id number] [id number]
--- NOTE | 2019-11-29 10:27 | NUR ---
SW following. Discussed with RN, pt from home with daughter, gets around fine, room air, renal diet. Pt currently on IV dapto and rocephin. PT/OT recommending home. SW will continue to follow.
[2019-11-29] MEDS: cloNIDine HCL 0.1 MG TABLET PO SCH ×2 (12:26→21:00)
--- NOTE | 2019-11-29 13:31 | PDOC ---
[employer] PROGRESS NOTE Date of Service DOS: DATE: 11/29/19 TIME: 13:20 Chief Complaint Chief Complaint Assessment/Plan Sepsis due to Bilateral lower extremity cellulitis Hypertension Diabetes, SUBOPTIMAL CONTROL Acute electrolyte derangement, improved hyperkalemia, Hyponatremia Acute on Chronic Kidney Disease Severe protein malnutrition A/P: Wound cultures, wound care consult, start IV daptomycin, ID CONSULT . IV normal saline, consult to Nephrology. IV insulin prn hyperkalemia. We will hold metolazone, HCTZ, and lisinopril due to kidney function will defer to nephrology for further management of renal function and blood pressure management hold Lasix due to worsening kidney function. Zofran prn. Sliding scale insulin, HbA1c pending. Diabetic diet, Heparin for VTE prophylaxis Full Code. Gordo CRISTINA is History of Present Illness History of Present Illness History of Present Illness Patient is a 84 yo female with PMHx DM2, who presents with complaint of worsening bilateral leg cellulitis for the past 2 weeks. Patient states she has been treated by her PCP with oral antibiotics, without improvement. She takes daily metolazone and lasix for leg edema, with oral potassium replacement three times daily. She notes a history of a bleeding peptic ulcer, and admits to some nausea and acid reflux.She denies any fever, chest pain, or SOB. 11/29/2019 No acute events overnight. Vitals/I&O Vitals/I&O: Vital Signs Date Time Temp Pulse Resp B/P (MAP) Pulse Ox O2 Delivery O2 Flow Rate FiO2 11/29/19 12:26 89 147/63 11/29/19 11:00 97.9 18 94 97.9 11/29/19 08:00 Room Air I & O 11/28/19 11/28/19 11/29/19 15:00 23:00 07:00 Intake Total 1400 ml 1500 ml 0 ml Balance 1400 ml 1500 ml 0 ml Physical Exam Physical Exam: General: Alert, Oriented X3, No acute distress HEENT: Atraumatic, EOMI Lungs: Clear to auscultation Heart: RRR Cardiovascular: S1, S2 Abdomen: Normal bowel sounds, Other (men) Extremities: Other (2+ pitting edema to bilateral lower extremities) Skin: Other (weeping cellulitis to bilateral; lower extremities with surrounding crusting) Neuro: Normal speech, Sensation intact Psych/Mental Status: Mood NL General: Alert, Oriented X3, Cooperative, No acute distress Heart: Regular rate Abdomen: Normal bowel sounds, Soft, Other (men) Extremities: No cyanosis, Other (2+ pitting edema to bilateral lower extremities) Skin: Other (weeping cellulitis to bilateral; lower extremities with surrounding crusting) Labs Labs: Laboratory Tests Test 11/28/19 16:23 11/28/19 20:00 11/29/19 06:15 11/29/19 07:56 Glucose (Fingerstick) 125 mg/dL (70-99) 159 mg/dL (70-99) 113 mg/dL (70-99) White Blood Count 8.2 x10^3/uL (4.0-11.0) Red Blood Count 3.53 x10^6/uL (3.50-5.40) Hemoglobin 11.1 g/dL (12.0-15.5) Hematocrit 32.7 % (36.0-47.0) Mean Corpuscular Volume 93 fL (79-100) Mean Corpuscular Hemoglobin 31 pg (25-35) Mean Corpuscular Hemoglobin Concent 34 g/dL (31-37) Red Cell Distribution Width 15.5 % (11.5-14.5) Platelet Count 244 x10^3/uL (140-400) Neutrophils (%) (Auto) 61 % (31-73) Lymphocytes (%) (Auto) 18 % (24-48) Monocytes (%) (Auto) 8 % (0-9) Eosinophils (%) (Auto) 12 % (0-3) Basophils (%) (Auto) 2 % (0-3) Neutrophils # (Auto) 5.0 x10^3/uL (1.8-7.7) Lymphocytes # (Auto) 1.4 x10^3/uL (1.0-4.8) Monocytes # (Auto) 0.6 x10^3/uL (0.0-1.1) Eosinophils # (Auto) 1.0 x10^3/uL (0.0-0.7) Basophils # (Auto) 0.2 x10^3/uL (0.0-0.2) Sodium Level 133 mmol/L (136-145) Potassium Level 5.3 mmol/L (3.5-5.1) Chloride Level 102 mmol/L (98-107) Carbon Dioxide Level 22 mmol/L (21-32) Anion Gap 9 (6-14) Blood Urea Nitrogen 119 mg/dL (7-20) Creatinine 3.3 mg/dL (0.6-1.0) Estimated GFR (Cockcroft-Gault) 13.4 Glucose Level 126 mg/dL (70-99) Calcium Level 7.4 mg/dL (8.5-10.1) Procalcitonin 0.38 ng/mL (0.00-0.10) Test 11/29/19 12:16 Glucose (Fingerstick) 184 mg/dL (70-99) Assessment and Plan Assessmemt and Plan Problems Medical Problems: (1) Acute on chronic renal failure Status: Acute (2) Cellulitis Status: Acute (3) Failure of outpatient treatment Status: Acute (4) Hyperkalemia Status: Acute Comment Review of Relevant I have reviewed the following items yudi (where applicable) has been applied. Medications: Current Medications Medications (Trade) Dose Ordered Sig/Latricia Route PRN Reason Start Time Stop Time Status Last Admin Dose Admin Metolazone (Zaroxolyn) 2.5 mg QODAY PO 11/29/19 09:00 11/29/19 12:49 DC 11/29/19 09:11 Ceftriaxone Sodium (Rocephin) 2 gm Q24H IVP 11/28/19 17:00 11/28/19 16:55 Oxycodone/ Acetaminophen (Percocet 5/325) 1 tab PRN Q6HRS PRN PO PAIN 11/28/19 18:00 11/29/19 01:10 Daptomycin 500 mg/ Sodium Chloride 50 ml @ 100 mls/hr ONCE ONCE IV 11/29/19 09:30 11/29/19 09:59 DC 11/29/19 10:55 Justifications for Admission Other Justification INES RIVERA MD Nov 29, 2019 13:31
[2019-11-29] MEDS ORDERED: FUROSEMIDE 40 MG/4 ML VIAL. IVP ONE (14:00)
--- NOTE | 2019-11-29 15:04 | NUR ---
Wound/Ostomy Care Wound Type/Assessment: Patient seen per wound care consult. See wound assessment. patient has cellulitis to BLE's. Wounds cleansed, assessed, and measured. Treatment Recommendations/Plan: Recommendations for honey alginate to slough covered areas, then cover with ABD pads, and kerlix to BLE's. change every 2 days or sooner if saturated. Education provided: Patient educated on dressing changes, elevation, and compression. Offloading surface/device: N/A Recommended Referrals/Tests: Patient may benefit from arterial doppler and vascular consult in order to heal wounds. Discharge Recommendations for dressings: Continue current treatment. Patient would like to speak to our director, Jose Raul in order to possibly follow up in the wound clinic after discharge. Patient left at bedside and family member present. Dressing change instructions left in room as well as extra honey alginate for next two dressing changes. Patient call light in reach. Will follow up with patient on 12/06/19.
--- NOTE | 2019-11-29 15:38 | PDOC ---
Renal-Progress Notes Subjective Notes Notes NO NEW COMPLAINTS History of Present Illness Hx of present illness STABLE Vitals Vitals Vital Signs Date Time Temp Pulse Resp B/P (MAP) Pulse Ox O2 Delivery O2 Flow Rate FiO2 11/29/19 12:26 89 147/63 11/29/19 11:00 97.9 18 94 97.9 11/29/19 08:00 Room Air Weight Weight [ ] I.O. Intake and Output Intake and Output 11/29/19 07:00 Intake Total 2900 ml Balance 2900 ml Intake Oral 900 ml IV Total 2000 ml # Voids 4 Labs Labs Laboratory Tests Test 11/28/19 16:23 11/28/19 20:00 11/29/19 06:15 11/29/19 07:56 Glucose (Fingerstick) 125 mg/dL (70-99) 159 mg/dL (70-99) 113 mg/dL (70-99) White Blood Count 8.2 x10^3/uL (4.0-11.0) Red Blood Count 3.53 x10^6/uL (3.50-5.40) Hemoglobin 11.1 g/dL (12.0-15.5) Hematocrit 32.7 % (36.0-47.0) Mean Corpuscular Volume 93 fL (79-100) Mean Corpuscular Hemoglobin 31 pg (25-35) Mean Corpuscular Hemoglobin Concent 34 g/dL (31-37) Red Cell Distribution Width 15.5 % (11.5-14.5) Platelet Count 244 x10^3/uL (140-400) Neutrophils (%) (Auto) 61 % (31-73) Lymphocytes (%) (Auto) 18 % (24-48) Monocytes (%) (Auto) 8 % (0-9) Eosinophils (%) (Auto) 12 % (0-3) Basophils (%) (Auto) 2 % (0-3) Neutrophils # (Auto) 5.0 x10^3/uL (1.8-7.7) Lymphocytes # (Auto) 1.4 x10^3/uL (1.0-4.8) Monocytes # (Auto) 0.6 x10^3/uL (0.0-1.1) Eosinophils # (Auto) 1.0 x10^3/uL (0.0-0.7) Basophils # (Auto) 0.2 x10^3/uL (0.0-0.2) Sodium Level 133 mmol/L (136-145) Potassium Level 5.3 mmol/L (3.5-5.1) Chloride Level 102 mmol/L (98-107) Carbon Dioxide Level 22 mmol/L (21-32) Anion Gap 9 (6-14) Blood Urea Nitrogen 119 mg/dL (7-20) Creatinine 3.3 mg/dL (0.6-1.0) Estimated GFR (Cockcroft-Gault) 13.4 Glucose Level 126 mg/dL (70-99) Calcium Level 7.4 mg/dL (8.5-10.1) Procalcitonin 0.38 ng/mL (0.00-0.10) Test 11/29/19 12:16 Glucose (Fingerstick) 184 mg/dL (70-99) Micro Micro Microbiology 11/27/19 Blood Culture - Preliminary, Resulted NO GROWTH AFTER 1 DAY 11/27/19 Gram Stain - Final, Resulted 11/27/19 Aerobic Culture - Preliminary, Resulted Review of Systems Constitutional: yes: malaise, weakness, alert Ears/Nose/Throat: Yes: no symptom reported Eyes: Yes: no symptom reported Pulmonary: Yes no symptom reported Cardiovascular: Yes edema Gastrointestional: Yes: no symptom reported Genitourinary: Yes: no symptom reported Musculoskeletal: Yes: no symptom reported Skin: Yes no symptom reported Psychiatric/Neurological: Yes: no symptom reported Endocrine: Yes: no symptom reported Physical Exam General Appearance: no apparent distress, afebrile Skin: warm Respiratory: bilateral CTA Heart: S1S2 Abdomen: soft, bowel sounds present Genitourinary: bladder flat Extremities: edema Musculoskeletal: low back pain, Osteoarthritis, Swelling, Stiffness Assessment Assessment IMP ETHAN WITH CR UP TO 3.3 CKD STAGE 3 WITH ABOUT 2.0-2.5 EXTRACELLULAR VOLUME DEPLETION LE EDEMA-CHRONIC LYMPHEDEMA PLAN DECREASE HER DIURETICS HYDRATION LABS IN AM ZUNILDA ORELLANA MD Nov 29, 2019 15:38
--- NOTE | 2019-11-29 15:42 | EKG ---
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
[2019-11-29] MEDS: cefTRIAXone IV Push 2 GM VIAL. IVP SCH (17:27)
[2019-11-29] MEDS: LOPERAMIDE 2 MG/15 ML ORAL SUSP. PO SCH (21:00)
[2019-11-29] MEDS: SIMVASTATIN 20 MG TABLET PO SCH (22:30)
--- NOTE | 2019-11-30 01:45 | RAD ---
BILATERAL LOWER EXTREMITY DUPLEX ARTERY ULTRASOUND Indication: Reason: bilateral lower leg wounds Comparison: None. Procedure: Real-time grayscale, color flow Doppler, and Doppler spectral waveform analysis of the arterial system of the lower extremity is performed. Findings: The bilateral distal posterior tibial arteries are not visualized. In the right lower extremity the waveforms are biphasic with the exception of triphasic common femoral artery and monophasic popliteal and proximal posterior tibial and peroneal and anterior tibial arteries. There is elevated peak systolic velocity of the common femoral artery, 214 cm/s. No other elevated peak systolic velocity is identified. In the left lower extremity the waveforms are biphasic with the exception of triphasic common femoral artery and monophasic dorsalis pedis artery. Mildly elevated peak systolic velocity of the common femoral artery, 158 cm/s. No other elevated peak systolic velocity is identified. IMPRESSION: No hemodynamically significant stenosis. Electronically signed by: Adelfo Sanchez MD (11/30/2019 1:41 AM) JOSE CRUZAALIYAH
[2019-11-30 03:00] VITALS: BP 137/52
[2019-11-30] MEDS: IV NORMAL SALINE 1000ML BAG 1,000 ML IV SCH (03:36)
[2019-11-30] MEDS: oxyCODONE/APAP 5/325 1 TAB TABLET PO PRN ×2 (03:39→16:10)
[2019-11-30 06:07] LABS: CALCIUM 7.5 mg/dL (8.5-10.1); CREATININE 2.6 mg/dL (0.6-1.0); GFR 17.6; POTASSIUM 4.6 mmol/L (3.5-5.1)
[2019-11-30 06:12] LABS: BASO # 0.2 x10^3/uL (0.0-0.2); BASO % 2 % (0-3); EOS # 0.9 x10^3/uL (0.0-0.7); EOS % 10 % (0-3); HEMATOCRIT 31.2 % (36.0-47.0); HEMOGLOBIN 10.4 g/dL (12.0-15.5); LYMPH # 1.3 x10^3/uL (1.0-4.8); LYMPH % 14 % (24-48); MEAN CORPUSCULAR HEMOGLOBIN 31 pg (25-35); MEAN CORPUSCULAR HGB CONC 33 g/dL (31-37); MEAN CORPUSCULAR VOLUME 93 fL (79-100); MONO # 0.6 x10^3/uL (0.0-1.1); MONO % 7 % (0-9); NEUT # 6.2 x10^3/uL (1.8-7.7); NEUT % 67 % (31-73); PLATELET COUNT 244 x10^3/uL (140-400); RED BLOOD COUNT 3.36 x10^6/uL (3.50-5.40); RED CELL DISTRIBUTION WIDTH 15.7 % (11.5-14.5); WHITE BLOOD COUNT 9.3 x10^3/uL (4.0-11.0)
[2019-11-30] MEDS: PANTOPRAZOLE 40 MG TABLET.DR. PO SCH (06:34)
[2019-11-30 07:00] VITALS: BP 126/55
[2019-11-30] MEDS: INSULIN LISPRO 300 UNITS/3 ML VIAL. SQ SCH ×3 (08:00→17:00)
--- NOTE | 2019-11-30 08:34 | PDOC ---
PROGRESS NOTES Date of Service: DATE: 11/30/19 TIME: 08:33 Chief Complaint Chief Complaint impression Sepsis due to Bilateral lower extremity cellulitis Hypertension Diabetes, SUBOPTIMAL CONTROL Acute electrolyte derangement, improved hyperkalemia, Hyponatremia Acute on Chronic Kidney Disease Severe protein malnutrition elevated peak systolic velocity of the common femoral artery, 214 cm/s. No other elevated peak systolic velocity is identified. c/w PVD Moderate to severe hallux valgus deformity. A/P: Wound cultures, wound care consult, start IV daptomycin, ID CONSULT . IV normal saline, consult to Nephrology. IV insulin prn hyperkalemia. We will hold metolazone, HCTZ, and lisinopril due to kidney function will defer to nephrology for further management of renal function and blood pressure management hold Lasix due to worsening kidney function. Zofran prn. Sliding scale insulin, HbA1c pending. Diabetic diet, Heparin for VTE prophylaxis Full Code. Gordo CRISTINA is History of Present Illness History of Present Illness History of Present Illness Patient is a 84 yo female with PMHx DM2, who presents with complaint of worsening bilateral leg cellulitis for the past 2 weeks. Patient states she has been treated by her PCP with oral antibiotics, without improvement. She takes daily metolazone and lasix for leg edema, with oral potassium replacement three times daily. She notes a history of a bleeding peptic ulcer, and admits to some nausea and acid reflux.She denies any fever, chest pain, or SOB. 11/29/2019 No acute events overnight. Vitals Vitals Vital Signs Date Time Temp Pulse Resp B/P (MAP) Pulse Ox O2 Delivery O2 Flow Rate FiO2 11/30/19 04:39 99 Room Air 11/30/19 03:39 20 11/30/19 03:00 98.0 84 137/52 (80) 98.0 Physical Exam Physical Exam General: Alert, Oriented X3, No acute distress HEENT: Atraumatic, EOMI Lungs: Clear to auscultation Heart: RRR Cardiovascular: S1, S2 Abdomen: Normal bowel sounds, Other (men) Extremities: Other (2+ pitting edema to bilateral lower extremities) Skin: Other (weeping cellulitis to bilateral; lower extremities with surrounding crusting) Neuro: Normal speech, Sensation intact Psych/Mental Status: Mood NL General: Alert, Oriented X3, Cooperative, No acute distress Heart: Regular rate Abdomen: Normal bowel sounds, Soft, Other (men) Extremities: No cyanosis, Other (2+ pitting edema to bilateral lower extremities) Skin: Other (weeping cellulitis to bilateral; lower extremities with surr ounding crusting) Labs LABS wo-view left tibia-fibula and two-view right foot dated 02/16/2017. No comparison available. Clinical indication: Right foot and left calf pain. FINDINGS: Two-view left tibia-fibula show evidence of prior total knee arthroplasty. Femoral and tibial components are intact. No periprosthetic fracture or malalignment. Postsurgical changes of the patella. There is an old healed fracture of the proximal one third fibular shaft. The distal tibia and fibular are intact. Nonspecific calcifications within the soft tissues. 2 views of the right foot show normal bony alignment. There is moderate to severe hallux valgus deformity at the first MTP joint. Moderate degenerative change of the interphalangeal joints and Lisfranc joints. No acute osseous or articular abnormality. Prominent calcaneal spur with vascular calcinosis. Impression left tibia-fibula: 1. No acute radiographic abnormality. 2. Status post left knee arthroplasty. 3. Old healed fracture of the proximal one third fibular shaft. Impression right foot: 1. No acute radiographic abnormality. 2. Degenerative changes as described above. 3. Moderate to severe hallux valgus deformity. Electronically signed by: Levi Philippe MD (02/16/2017 12:14 PM) [facility] DICTATED and SIGNED BY: LEVI PHILIPPE MD BILATERAL LOWER EXTREMITY DUPLEX ARTERY ULTRASOUND Indication: Reason: bilateral lower leg wounds Comparison: None. Procedure: Real-time grayscale, color flow Doppler, and Doppler spectral waveform analysis of the arterial system of the lower extremity is performed. Findings: The bilateral distal posterior tibial arteries are not visualized. In the right lower extremity the waveforms are biphasic with the exception of triphasic common femoral artery and monophasic popliteal and proximal posterior tibial and peroneal and anterior tibial arteries. There is elevated peak systolic velocity of the common femoral artery, 214 cm/s. No other elevated peak systolic velocity is identified. In the left lower extremity the waveforms are biphasic with the exception of triphasic common femoral artery and monophasic dorsalis pedis artery. Mildly elevated peak systolic velocity of the common femoral artery, 158 cm/s. No other elevated peak systolic velocity is identified. IMPRESSION: No hemodynamically significant stenosis. Electronically signed by: Adelfo Sanchez MD (11/30/2019 1:41 AM) [facility] DICTATED and SIGNED BY: ADELFO SANCHEZ MD DATE: 11/30/19 0141 Laboratory Tests Test 11/29/19 12:16 11/29/19 17:21 11/29/19 20:58 11/30/19 05:00 Glucose (Fingerstick) 184 mg/dL (70-99) 157 mg/dL (70-99) 160 mg/dL (70-99) White Blood Count 9.3 x10^3/uL (4.0-11.0) Red Blood Count 3.36 x10^6/uL (3.50-5.40) Hemoglobin 10.4 g/dL (12.0-15.5) Hematocrit 31.2 % (36.0-47.0) Mean Corpuscular Volume 93 fL (79-100) Mean Corpuscular Hemoglobin 31 pg (25-35) Mean Corpuscular Hemoglobin Concent 33 g/dL (31-37) Red Cell Distribution Width 15.7 % (11.5-14.5) Platelet Count 244 x10^3/uL (140-400) Neutrophils (%) (Auto) 67 % (31-73) Lymphocytes (%) (Auto) 14 % (24-48) Monocytes (%) (Auto) 7 % (0-9) Eosinophils (%) (Auto) 10 % (0-3) Basophils (%) (Auto) 2 % (0-3) Neutrophils # (Auto) 6.2 x10^3/uL (1.8-7.7) Lymphocytes # (Auto) 1.3 x10^3/uL (1.0-4.8) Monocytes # (Auto) 0.6 x10^3/uL (0.0-1.1) Eosinophils # (Auto) 0.9 x10^3/uL (0.0-0.7) Basophils # (Auto) 0.2 x10^3/uL (0.0-0.2) Sodium Level 137 mmol/L (136-145) Potassium Level 4.6 mmol/L (3.5-5.1) Chloride Level 105 mmol/L (98-107) Carbon Dioxide Level 21 mmol/L (21-32) Anion Gap 11 (6-14) Blood Urea Nitrogen 94 mg/dL (7-20) Creatinine 2.6 mg/dL (0.6-1.0) Estimated GFR (Cockcroft-Gault) 17.6 Glucose Level 126 mg/dL (70-99) Calcium Level 7.5 mg/dL (8.5-10.1) Test 11/30/19 07:56 Glucose (Fingerstick) 131 mg/dL (70-99) Assessment and Plan Assessmemt and Plan Problems Medical Problems: (1) Acute on chronic renal failure Status: Acute (2) Cellulitis Status: Acute (3) Failure of outpatient treatment Status: Acute (4) Hyperkalemia Status: Acute Comment Review of Relevant I have reviewed the following items yudi (where applicable) has been applied. Labs Laboratory Tests Test 11/28/19 08:41 11/28/19 11:17 11/28/19 16:23 11/28/19 20:00 Glucose (Fingerstick) 150 mg/dL (70-99) 170 mg/dL (70-99) 125 mg/dL (70-99) 159 mg/dL (70-99) Test 11/29/19 06:15 11/29/19 07:56 11/29/19 12:16 11/29/19 17:21 White Blood Count 8.2 x10^3/uL (4.0-11.0) Red Blood Count 3.53 x10^6/uL (3.50-5.40) Hemoglobin 11.1 g/dL (12.0-15.5) Hematocrit 32.7 % (36.0-47.0) Mean Corpuscular Volume 93 fL (79-100) Mean Corpuscular Hemoglobin 31 pg (25-35) Mean Corpuscular Hemoglobin Concent 34 g/dL (31-37) Red Cell Distribution Width 15.5 % (11.5-14.5) Platelet Count 244 x10^3/uL (140-400) Neutrophils (%) (Auto) 61 % (31-73) Lymphocytes (%) (Auto) 18 % (24-48) Monocytes (%) (Auto) 8 % (0-9) Eosinophils (%) (Auto) 12 % (0-3) Basophils (%) (Auto) 2 % (0-3) Neutrophils # (Auto) 5.0 x10^3/uL (1.8-7.7) Lymphocytes # (Auto) 1.4 x10^3/uL (1.0-4.8) Monocytes # (Auto) 0.6 x10^3/uL (0.0-1.1) Eosinophils # (Auto) 1.0 x10^3/uL (0.0-0.7) Basophils # (Auto) 0.2 x10^3/uL (0.0-0.2) Sodium Level 133 mmol/L (136-145) Potassium Level 5.3 mmol/L (3.5-5.1) Chloride Level 102 mmol/L (98-107) Carbon Dioxide Level 22 mmol/L (21-32) Anion Gap 9 (6-14) Blood Urea Nitrogen 119 mg/dL (7-20) Creatinine 3.3 mg/dL (0.6-1.0) Estimated GFR (Cockcroft-Gault) 13.4 Glucose Level 126 mg/dL (70-99) Calcium Level 7.4 mg/dL (8.5-10.1) Procalcitonin 0.38 ng/mL (0.00-0.10) Glucose (Fingerstick) 113 mg/dL (70-99) 184 mg/dL (70-99) 157 mg/dL (70-99) Test 11/29/19 20:58 11/30/19 05:00 11/30/19 07:56 Glucose (Fingerstick) 160 mg/dL (70-99) 131 mg/dL (70-99) White Blood Count 9.3 x10^3/uL (4.0-11.0) Red Blood Count 3.36 x10^6/uL (3.50-5.40) Hemoglobin 10.4 g/dL (12.0-15.5) Hematocrit 31.2 % (36.0-47.0) Mean Corpuscular Volume 93 fL (79-100) Mean Corpuscular Hemoglobin 31 pg (25-35) Mean Corpuscular Hemoglobin Concent 33 g/dL (31-37) Red Cell Distribution Width 15.7 % (11.5-14.5) Platelet Count 244 x10^3/uL (140-400) Neutrophils (%) (Auto) 67 % (31-73) Lymphocytes (%) (Auto) 14 % (24-48) Monocytes (%) (Auto) 7 % (0-9) Eosinophils (%) (Auto) 10 % (0-3) Basophils (%) (Auto) 2 % (0-3) Neutrophils # (Auto) 6.2 x10^3/uL (1.8-7.7) Lymphocytes # (Auto) 1.3 x10^3/uL (1.0-4.8) Monocytes # (Auto) 0.6 x10^3/uL (0.0-1.1) Eosinophils # (Auto) 0.9 x10^3/uL (0.0-0.7) Basophils # (Auto) 0.2 x10^3/uL (0.0-0.2) Sodium Level 137 mmol/L (136-145) Potassium Level 4.6 mmol/L (3.5-5.1) Chloride Level 105 mmol/L (98-107) Carbon Dioxide Level 21 mmol/L (21-32) Anion Gap 11 (6-14) Blood Urea Nitrogen 94 mg/dL (7-20) Creatinine 2.6 mg/dL (0.6-1.0) Estimated GFR (Cockcroft-Gault) 17.6 Glucose Level 126 mg/dL (70-99) Calcium Level 7.5 mg/dL (8.5-10.1) Laboratory Tests Test 11/29/19 12:16 11/29/19 17:21 11/29/19 20:58 11/30/19 05:00 Glucose (Fingerstick) 184 mg/dL (70-99) 157 mg/dL (70-99) 160 mg/dL (70-99) White Blood Count 9.3 x10^3/uL (4.0-11.0) Red Blood Count 3.36 x10^6/uL (3.50-5.40) Hemoglobin 10.4 g/dL (12.0-15.5) Hematocrit 31.2 % (36.0-47.0) Mean Corpuscular Volume 93 fL (79-100) Mean Corpuscular Hemoglobin 31 pg (25-35) Mean Corpuscular Hemoglobin Concent 33 g/dL (31-37) Red Cell Distribution Width 15.7 % (11.5-14.5) Platelet Count 244 x10^3/uL (140-400) Neutrophils (%) (Auto) 67 % (31-73) Lymphocytes (%) (Auto) 14 % (24-48) Monocytes (%) (Auto) 7 % (0-9) Eosinophils (%) (Auto) 10 % (0-3) Basophils (%) (Auto) 2 % (0-3) Neutrophils # (Auto) 6.2 x10^3/uL (1.8-7.7) Lymphocytes # (Auto) 1.3 x10^3/uL (1.0-4.8) Monocytes # (Auto) 0.6 x10^3/uL (0.0-1.1) Eosinophils # (Auto) 0.9 x10^3/uL (0.0-0.7) Basophils # (Auto) 0.2 x10^3/uL (0.0-0.2) Sodium Level 137 mmol/L (136-145) Potassium Level 4.6 mmol/L (3.5-5.1) Chloride Level 105 mmol/L (98-107) Carbon Dioxide Level 21 mmol/L (21-32) Anion Gap 11 (6-14) Blood Urea Nitrogen 94 mg/dL (7-20) Creatinine 2.6 mg/dL (0.6-1.0) Estimated GFR (Cockcroft-Gault) 17.6 Glucose Level 126 mg/dL (70-99) Calcium Level 7.5 mg/dL (8.5-10.1) Test 11/30/19 07:56 Glucose (Fingerstick) 131 mg/dL (70-99) Microbiology 11/27/19 Blood Culture - Preliminary, Resulted NO GROWTH AFTER 2 DAYS 11/27/19 Gram Stain - Final, Resulted 11/27/19 Aerobic Culture - Preliminary, Resulted Medications Current Medications Vancomycin HCl (Vanco Per Pharmacy) 1 each PRN DAILY PRN MC SEE COMMENTS; Start 11/27/19 at 10:45; Stop 11/28/19 at 14:29; Status DC Ceftriaxone Sodium (Rocephin) 1 gm 1X ONCE IVP Last administered on 11/27/19at 11:19; Start 11/27/19 at 10:45; Stop 11/27/19 at 10:51; Status DC Vancomycin HCl 2 gm/Sodium Chloride 500 ml @ 250 mls/hr 1X ONCE IV Last administered on 11/27/19at 11:18; Start 11/27/19 at 11:00; Stop 11/27/19 at 12:59; Status DC Ondansetron HCl (Zofran) 4 mg 1X ONCE IVP Last administered on 11/27/19at 11:19; Start 11/27/19 at 11:15; Stop 11/27/19 at 11:16; Status DC Fentanyl Citrate (Fentanyl 2ml Vial) 50 mcg 1X ONCE IV Last administered on 11/27/19at 11:20; Start 11/27/19 at 11:15; Stop 11/27/19 at 11:16; Status DC Ondansetron HCl (Zofran) 4 mg STK-MED ONCE .ROUTE ; Start 11/27/19 at 11:15; Stop 11/27/19 at 11:15; Status DC Fentanyl Citrate (Fentanyl 2ml Vial) 100 mcg STK-MED ONCE .ROUTE ; Start 11/27/19 at 11:15; Stop 11/27/19 at 11:16; Status DC Calcium Gluconate (Calcium Gluconate) 1,000 mg 1X ONCE IVP Last administered on 11/27/19at 13:41; Start 11/27/19 at 12:15; Stop 11/27/19 at 12:17; Status DC Dextrose (Dextrose 50%-Water Syringe) 25 gm 1X ONCE IV Last administered on 11/27/19at 13:42; Start 11/27/19 at 12:15; Stop 11/27/19 at 12:17; Status DC Insulin Human Regular (HumuLIN R VIAL) 10 unit 1X ONCE IV Last administered on 11/27/19at 13:43; Start 11/27/19 at 12:15; Stop 11/27/19 at 12:17; Status DC Ondansetron HCl (Zofran) 4 mg PRN Q8HRS PRN IV NAUSEA/VOMITING; Start 11/27/19 at 12:30; Stop 11/27/19 at 18:44; Status DC Fentanyl Citrate (Fentanyl 2ml Vial) 25 mcg PRN Q2HR PRN IV PAIN Last adm inistered on 11/29/19at 05:37; Start 11/27/19 at 12:30 Acetaminophen (Tylenol) 650 mg PRN Q4HRS PRN PO FEVER > 100.3'F; Start 11/27/19 at 12:30; Stop 11/28/19 at 12:29; Status DC Insulin Human Lispro (HumaLOG) 0-5 UNITS TIDWMEALS SQ Last administered on at 17:03; Start 11/27/19 at 17:00; Stop 11/27/19 at 18:53; Status DC Dextrose (Dextrose 50%-Water Syringe) 12.5 gm PRN Q15MIN PRN IV SEE COMMENTS; Start 11/27/19 at 12:30; Stop 11/27/19 at 18:52; Status DC Multi-Ingredient Mouthwash/Gargle (Gi Cocktail) 20 ml 1X ONCE SWSW Last administered on 11/27/19at 13:43; Start 11/27/19 at 13:00; Stop 11/27/19 at 13:01; Status DC Pantoprazole Sodium (PROTONIX VIAL for IV PUSH) 40 mg 1X ONCE IVP Last administered on 11/27/19at 13:43; Start 11/27/19 at 13:00; Stop 11/27/19 at 13:01; Status DC Sodium Bicarbonate 75 meq/Sodium Chloride 1,075 ml @ 125 mls/hr 1X ONCE IV Last administered on 11/27/19at 13:30; Start 11/27/19 at 13:30; Stop 11/27/19 at 22:05; Status DC Albuterol Sulfate (Ventolin Neb Soln) 10 mg 1X ONCE CONT NEB ; Start 11/27/19 at 13:30; Stop 11/27/19 at 14:01; Status DC Albuterol Sulfate (Ventolin Neb Soln) 10 mg 1X ONCE NEB Last administered on 11/27/19at 14:03; Start 11/27/19 at 14:00; Stop 11/27/19 at 14:03; Status DC Ondansetron HCl (Zofran) 4 mg PRN Q6HRS PRN IVP NAUSEA/VOMITING; Start 11/27/19 at 18:45 Heparin Sodium (Porcine) (Heparin Sodium) 5,000 unit Q12HR SQ Last administered on 11/29/19at 22:38; Start 11/27/19 at 21:00 Sodium Chloride 1,000 ml @ 100 mls/hr Q10H IV Last administered on 11/30/19 03:36; Start 11/27/19 at 18:45 Insulin Human Lispro (HumaLOG) 0-5 UNITS TIDWMEALS SQ Last administered on 11/29/19at 17:37; Start 11/28/19 at 08:00 Dextrose (Dextrose 50%-Water Syringe) 12.5 gm PRN Q15MIN PRN IV SEE COMMENTS; Start 11/27/19 at 18:45 Pantoprazole Sodium (Protonix) 40 mg DAILYAC PO Last administered on 11/30/19 06:34; Start 11/28/19 at 07:30 Allopurinol (Zyloprim) 100 mg BIDAFTMEAL PO Last administered on 11/29/19 17:26; Start 11/27/19 at 21:00 Clonidine HCl (Catapres) 0.1 mg BID PO Last administered on 11/29/19 12:26; Start 11/27/19 at 21:00 Furosemide (Lasix) 20 mg DAILY PO Last administered on 11/29/19 09:12; Start 11/28/19 at 09:00; Stop 11/29/19 at 12:49; Status DC Lactobacillus Rhamnosus (Culturelle) 1 cap BID PO Last administered on 11/29/19at 22:31; Start 11/27/19 at 21:00 Loperamide HCl (Immodium Oral Susp) 1 mg HS PO ; Start 11/27/19 at 21:00 Metolazone (Zaroxolyn) 2.5 mg QODAY PO Last administered on 11/29/19 09:11; Start 11/29/19 at 09:00; Stop 11/29/19 at 12:49; Status DC Simvastatin (Zocor) 20 mg QHS PO Last administered on 11/29/19 22:30; Start 11/27/19 at 21:00 Lisinopril (Prinivil) 20 mg BID PO Last administered on 11/29/19 09:12; Start 11/27/19 at 21:00; Stop 11/29/19 at 12:49; Status DC Verapamil HCl (Calan Sr) 240 mg DAILY PO Last administered on 9/8/20at 09:13; Start 11/28/19 at 09:00 Hydrochlorothiazide (Hydrodiuril) 25 mg BID PO Last administered on 11/29/19at 09 :11; Start 11/27/19 at 21:00; Stop 11/29/19 at 12:49; Status DC Ceftriaxone Sodium (Rocephin) 2 gm Q24H IVP Last administered on 11/29/19at 17:27; Start 11/28/19 at 17:00 Oxycodone/ Acetaminophen (Percocet 5/325) 1 tab PRN Q6HRS PRN PO PAIN Last administered on 11/30/19at 03:39; Start 11/28/19 at 18:00 Daptomycin 500 mg/ Sodium Chloride 50 ml @ 100 mls/hr ONCE ONCE IV Last administered on 11/29/19at 10:55; Start 11/29/19 at 09:30; Stop 11/29/19 at 09:59; Status DC Furosemide (Lasix) 40 mg 1X ONCE IVP ; Start 11/29/19 at 14:00; Stop 11/29/19 at 14:01; Status Cancel Active Scripts Active Reported Novolog (Insulin Aspart) 100 Unit/1 Ml Cartridge 5 Unit SQ BID Levemir (Insulin Detemir) 100 Unit/1 Ml Vial 22 Unit SQ DAILY Metolazone 2.5 Mg Tablet 2.5 Mg PO QODAY Zyrtec (Cetirizine Hcl) 10 Mg Tablet 1 Tab PO DAILY Furosemide 20 Mg Tablet 1 Tab PO DAILY Prednisone 1 Mg Tablet 3 Mg PO DAILY Alendronate Sodium 70 Mg Tablet 1 Tab PO WEEKLY Multivitamin 1 Each Tablet 1 Each PO DAILY Culturelle (Lactobacillus Rhamnosus Gg) 1 Each Cap.sprink 1 Cap PO BID 30 Days Bactrim 400-80 Mg Tablet (Sulfamethoxazole/Trimethoprim) 1 Each Tablet 2 Tab PO BID 7 Days Potassium Chloride (Potassium Chloride) 10 Meq Tab.sr.24h 10 Meq PO DAILY Verapamil Er (Verapamil Hcl) 240 Mg Cap24h.pel 1 Cap PO DAILY Clonidine Hcl 0.1 Mg Tablet 0.1 Mg PO BID Simvastatin 20 Mg Tablet 1 Tab PO QHS Lisinopril-Hctz 20-25 Mg Tab (Lisinopril/Hydrochlorothiazide) 1 Each Tablet 1 Tab PO BID Allopurinol 100 Mg Tablet 1 Tab PO BID Aspirin 81 Mg Tab.chew 1 Tab PO DAILY Fish Oil 1,000 Mg Capsule (Fowler-3 Fatty Acids/Fish Oil) 1 Each Capsule 1 Each PO DAILY Imodium A-D (Loperamide Hcl) 1 Mg/7.5 Ml Liquid 1 Mg PO HS Vitals/I & O Vital Sign - Last 24 Hours 11/29/19 11/29/19 11/29/19 11/29/19 09:12 09:13 11:00 12:26 Temp 97.9 97.9 Pulse 78 78 89 89 Resp 18 B/P (MAP) 113/41 113/41 147/63 (91) 147/63 Pulse Ox 94 11/29/19 11/29/19 11/29/19 11/29/19 15:00 17:27 18:32 19:00 Temp 98.2 98.0 98.2 98.0 Pulse 80 77 Resp 20 18 B/P (MAP) 104/41 (62) 88/39 (55) Pulse Ox 92 92 O2 Delivery Room Air Room Air Room Air 11/29/19 11/29/19 11/29/19 11/29/19 20:00 21:00 21:53 22:40 Temp 98.4 98.4 Pulse 71 70 71 Resp 16 B/P (MAP) 97/41 111/42 (65) 97/41 (59) Pulse Ox 95 O2 Delivery Room Air Room Air 11/29/19 11/30/19 11/30/19 11/30/19 23:00 03:00 03:39 04:39 Temp 98.4 98.0 98.4 98.0 Pulse 72 84 Resp 18 20 20 B/P (MAP) 93/39 (57) 137/52 (80) Pulse Ox 99 92 99 99 O2 Delivery Room Air Room Air Room Air Room Air Intake and Output 11/29/19 11/29/19 11/30/19 15:00 23:00 07:00 Intake Total 260 ml 200 ml 320 ml Balance 260 ml 200 ml 320 ml Justicifation of Admission Dx: Justifications for Admission: Justification of Admission Dx: Yes PHUONG SAPP MD Nov 30, 2019 08:34
[2019-11-30] MEDS: LACTOBACILLUS RHAMNOSUS GG 1 CAPSULE. PO SCH ×2 (08:35→21:46)
[2019-11-30] MEDS: VERAPAMIL SR 120 MG TABLET.ER. PO SCH (08:36)
[2019-11-30] MEDS: ALLOPURINOL 100 MG TABLET. PO SCH ×2 (08:36→17:30)
[2019-11-30] MEDS: cloNIDine HCL 0.1 MG TABLET PO SCH ×2 (08:37→21:47)
[2019-11-30] MEDS: HEPARIN for SUB-Q USE 5,000 UNIT/ML VIAL. SQ SCH ×2 (08:43→21:52)
--- NOTE | 2019-11-30 09:54 | NUR ---
SW following. Discussed with RN, MODE ordered today. Pt still on IV abx. Per chart, pt wanting to follow with the wound clinic. SW will continue to follow.
--- NOTE | 2019-11-30 10:30 | RAD ---
INDICATION: Reason: olinda / Spl. Instructions: / History: COMPARISON: None. TECHNIQUE: Grayscale and color ultrasound images obtained of the bilateral kidneys and bladder. FINDINGS: Right Kidney: 88 mm. No hydronephrosis. Hypoechoic lesion measuring approximately 12 mm. Left Kidney: 111 mm. No hydronephrosis. 18 x 16 mm hypoechoic lesion with some apparent vascularity within. Bladder: Partially distended with trabeculation wall IMPRESSION: * Hypoechoic lesion of the left kidney. Would consider obtaining CT or MRI renal protocol to further assess given that there appears to be some internal vascularity therefore a solid renal mass such as renal cell carcinoma is within the differential. * Suspected right renal cyst. * No hydronephrosis. Electronically signed by: Chandan Lynch MD (11/30/2019 10:27 AM) [id number]
--- NOTE | 2019-11-30 10:32 | PDOC ---
Infectious Disease Note Subjective Subjective Covina cold last pm. vomited times one this am Legs some better ROS ROS o/w neg Vital Sign Vital Signs Vital Signs Date Time Temp Pulse Resp B/P (MAP) Pulse Ox O2 Delivery O2 Flow Rate FiO2 11/30/19 08:37 80 126/55 11/30/19 08:30 Room Air 11/30/19 07:00 97.9 18 95 97.9 Physical Exam PHYSICAL EXAM CONSTITUTIONAL: She is cooperative. She is in no acute distress. She looks comfortable. She is lying in bed. HEENT: Pupils equal and reactive. She has normal conjunctivae. Oral cavity, pharynx is clear. She has dentures. NECK: Supple, no JVD. LUNGS: Decreased in the bases. HEART: S1, S2. ABDOMEN: Soft, no guarding. Obese. EXTREMITIES: Without clubbing, cyanosis. Her right lower extremity has 1 + edema, her left has 1+. There is improved erythema, but no gross warmth. She has scabbing on the medial aspect of both her middle legs. No gross pus. There is some wrinkling shows some improvement. No gross warmth. She had more erythema in the posterior aspect of her right leg but is improved SKIN: Otherwise, warm to touch without signs of rash. NEUROLOGIC: She is nonfocal, moves all extremities, answers questions appropriately. PSYCHIATRIC: Affect is very pleasant. Labs Lab Laboratory Tests Test 11/29/19 12:16 11/29/19 17:21 11/29/19 20:58 11/30/19 05:00 Glucose (Fingerstick) 184 mg/dL (70-99) 157 mg/dL (70-99) 160 mg/dL (70-99) White Blood Count 9.3 x10^3/uL (4.0-11.0) Red Blood Count 3.36 x10^6/uL (3.50-5.40) Hemoglobin 10.4 g/dL (12.0-15.5) Hematocrit 31.2 % (36.0-47.0) Mean Corpuscular Volume 93 fL (79-100) Mean Corpuscular Hemoglobin 31 pg (25-35) Mean Corpuscular Hemoglobin Concent 33 g/dL (31-37) Red Cell Distribution Width 15.7 % (11.5-14.5) Platelet Count 244 x10^3/uL (140-400) Neutrophils (%) (Auto) 67 % (31-73) Lymphocytes (%) (Auto) 14 % (24-48) Monocytes (%) (Auto) 7 % (0-9) Eosinophils (%) (Auto) 10 % (0-3) Basophils (%) (Auto) 2 % (0-3) Neutrophils # (Auto) 6.2 x10^3/uL (1.8-7.7) Lymphocytes # (Auto) 1.3 x10^3/uL (1.0-4.8) Monocytes # (Auto) 0.6 x10^3/uL (0.0-1.1) Eosinophils # (Auto) 0.9 x10^3/uL (0.0-0.7) Basophils # (Auto) 0.2 x10^3/uL (0.0-0.2) Sodium Level 137 mmol/L (136-145) Potassium Level 4.6 mmol/L (3.5-5.1) Chloride Level 105 mmol/L (98-107) Carbon Dioxide Level 21 mmol/L (21-32) Anion Gap 11 (6-14) Blood Urea Nitrogen 94 mg/dL (7-20) Creatinine 2.6 mg/dL (0.6-1.0) Estimated GFR (Cockcroft-Gault) 17.6 Glucose Level 126 mg/dL (70-99) Calcium Level 7.5 mg/dL (8.5-10.1) Test 11/30/19 07:56 Glucose (Fingerstick) 131 mg/dL (70-99) Micro Preliminary MANY GRAM POSITIVE COCCI on 11/29/19 at 1236 FINAL ID= [STAPHYLOCOCCUS AUREUS] Testing Performed by: [address] [id number] For Inquires, the Physician may contact the Microbiology department at [phone] STAPHYLOCOCCUS AUREUS MODERATE [STAPHYLOCOCCUS AUREUS] MODERATE [ENTEROCOCCUS FAECALIS] MODERATE [STENOTROPHOMONAS MALTOPHILIA] Testing Performed by: Microbiology 11/27/19 Blood Culture - Preliminary, Resulted NO GROWTH AFTER 1 DAY 11/27/19 Gram Stain - Final, Resulted 11/27/19 Aerobic Culture, Resulted Pending Objective Assessment B LE cellulitis Staph aureus/XMAL ETHAN on CKD DM GPC/GNR Plan Plan of Care Clinically improving Cont Daptomycin and Discont the rocephin and dose levoflox times one IV with N/V F/u labs and cults Elevation Will benefit from compression D/w nursing and daughter DELMI PENA MD Nov 30, 2019 10:32
[2019-11-30 11:00] VITALS: BP 158/57
[2019-11-30 13:38] LABS: BILIRUBIN,URINE NEGATIVE (NEG); CLARITY,URINE CLEAR; COLOR,URINE YELLOW; NITRITE,URINE NEGATIVE (NEG); PROTEIN,URINE NEGATIVE (NEG-TRACE); UROBILINOGEN,URINE 0.2 mg/dL (0.2 mg/dL)
[2019-11-30 13:48] LABS: SQUAMOUS EPITHELIAL CELL,UR MANY /LPF
[2019-11-30 13:49] LABS: BACTERIA,URINE FEW /HPF (0-FEW); RBC,URINE RARE /HPF (0-2); YEAST,URINE PRESENT /HPF
--- NOTE | 2019-11-30 14:24 | PDOC ---
Renal-Progress Notes Subjective Notes Notes FEELS SWOLLEN History of Present Illness Hx of present illness STABLE Vitals Vitals Vital Signs Date Time Temp Pulse Resp B/P (MAP) Pulse Ox O2 Delivery O2 Flow Rate FiO2 11/30/19 11:00 97.9 71 20 158/57 (90) 94 97.9 11/30/19 08:30 Room Air Weight Weight [ ] I.O. Intake and Output Intake and Output 11/30/19 07:00 Intake Total 780 ml Balance 780 ml Intake Oral 780 ml # Voids 5 Labs Labs Laboratory Tests Test 11/29/19 17:21 11/29/19 20:58 11/30/19 05:00 11/30/19 07:56 Glucose (Fingerstick) 157 mg/dL (70-99) 160 mg/dL (70-99) 131 mg/dL (70-99) White Blood Count 9.3 x10^3/uL (4.0-11.0) Red Blood Count 3.36 x10^6/uL (3.50-5.40) Hemoglobin 10.4 g/dL (12.0-15.5) Hematocrit 31.2 % (36.0-47.0) Mean Corpuscular Volume 93 fL (79-100) Mean Corpuscular Hemoglobin 31 pg (25-35) Mean Corpuscular Hemoglobin Concent 33 g/dL (31-37) Red Cell Distribution Width 15.7 % (11.5-14.5) Platelet Count 244 x10^3/uL (140-400) Neutrophils (%) (Auto) 67 % (31-73) Lymphocytes (%) (Auto) 14 % (24-48) Monocytes (%) (Auto) 7 % (0-9) Eosinophils (%) (Auto) 10 % (0-3) Basophils (%) (Auto) 2 % (0-3) Neutrophils # (Auto) 6.2 x10^3/uL (1.8-7.7) Lymphocytes # (Auto) 1.3 x10^3/uL (1.0-4.8) Monocytes # (Auto) 0.6 x10^3/uL (0.0-1.1) Eosinophils # (Auto) 0.9 x10^3/uL (0.0-0.7) Basophils # (Auto) 0.2 x10^3/uL (0.0-0.2) Sodium Level 137 mmol/L (136-145) Potassium Level 4.6 mmol/L (3.5-5.1) Chloride Level 105 mmol/L (98-107) Carbon Dioxide Level 21 mmol/L (21-32) Anion Gap 11 (6-14) Blood Urea Nitrogen 94 mg/dL (7-20) Creatinine 2.6 mg/dL (0.6-1.0) Estimated GFR (Cockcroft-Gault) 17.6 Glucose Level 126 mg/dL (70-99) Calcium Level 7.5 mg/dL (8.5-10.1) Test 11/30/19 12:10 11/30/19 13:17 Glucose (Fingerstick) 169 mg/dL (70-99) Urine Collection Type Unknown Urine Color Yellow Urine Clarity Clear Urine pH 5.0 (<5.0-8.0) Urine Specific [place] 1.010 (1.000-1.030) Urine Protein Negative mg/dL (NEG-TRACE) Urine Glucose (UA) Negative mg/dL (NEG) Urine Ketones (Stick) Negative mg/dL (NEG) Urine Blood Negative (NEG) Urine Nitrite Negative (NEG) Urine Bilirubin Negative (NEG) Urine Urobilinogen Dipstick 0.2 mg/dL (0.2 mg/dL) Urine Leukocyte Esterase Negative (NEG) Urine RBC Rare /HPF (0-2) Urine WBC 1-4 /HPF (0-4) Urine Squamous Epithelial Cells Many /LPF Urine Bacteria Few /HPF (0-FEW) Urine Yeast Present /HPF Micro Micro Microbiology 11/27/19 Blood Culture - Preliminary, Resulted NO GROWTH AFTER 2 DAYS 11/27/19 Gram Stain - Final, Complete 11/27/19 Aerobic Culture - Final, Complete 11/27/19 Antimicrobic Susceptibility - Final, Complete Review of Systems Constitutional: yes: malaise, weakness, alert Ears/Nose/Throat: Yes: no symptom reported Eyes: Yes: no symptom reported Pulmonary: Yes no symptom reported Cardiovascular: Yes edema Gastrointestional: Yes: no symptom reported Genitourinary: Yes: no symptom reported Musculoskeletal: Yes: no symptom reported Skin: Yes no symptom reported Psychiatric/Neurological: Yes: no symptom reported Endocrine: Yes: no symptom reported Physical Exam General Appearance: no apparent distress, afebrile Skin: warm Respiratory: bilateral CTA Heart: S1S2 Abdomen: soft, bowel sounds present Genitourinary: bladder flat Extremities: edema Musculoskeletal: low back pain, Osteoarthritis, Swelling, Stiffness Assessment Assessment IMP ETHAN WITH CR UP TO 3.3 AND NOW DOWN TO 2.7 CKD STAGE 3 WITH ABOUT 2.0-2.5 EXTRACELLULAR VOLUME DEPLETION LE EDEMA-CHRONIC LYMPHEDEMA PLAN RESUME ONE OF HER DIURETICS STOP HYDRATION LABS IN AM ZUNILDA ORELLANA MD Nov 30, 2019 14:24
[2019-11-30] MEDS: FUROSEMIDE 40 MG TABLET. PO SCH (14:51)
[2019-11-30 15:00] VITALS: BP 107/33
--- NOTE | 2019-11-30 15:48 | NUR ---
Dressings changed at 1100 d/t ID opening dressing to visualize wound. Information shared with wound care when they arrived. Will continue to monitor for changes.
--- NOTE | 2019-11-30 17:45 | PDOC2 ---
Chief Complaint: Chief Complaint: Bilateral lower extremity peripheral artery disease with open ulcerations and secondary MRSA infection Vital Signs: Vital Signs: Vital Signs Date Time Temp Pulse Resp B/P (MAP) Pulse Ox O2 Delivery O2 Flow Rate FiO2 11/29/19 07:00 97.9 78 18 113/41 (65) 94 Room Air 97.9 Vital Signs Date Time Temp Pulse Resp B/P (MAP) Pulse Ox O2 Delivery O2 Flow Rate FiO2 11/30/19 16:10 Room Air 11/30/19 15:00 97.6 73 18 107/33 (57) 96 97.6 Allergies: Allergies: Allergies Coded Allergies Type Severity Reaction Last Updated Verified No Known Drug Allergies 07/16/18 No Medications: Home Meds Reported Medications Insulin Aspart (NOVOLOG) 100 Unit/1 Ml Cartridge, 5 UNIT SQ BID for dm, EACH 11/27/19 Insulin Detemir (LEVEMIR) 100 Unit/1 Ml Vial, 22 UNIT SQ DAILY for dm, VIAL 11/27/19 Metolazone (METOLAZONE) 2.5 Mg Tablet, 2.5 MG PO QODAY for water pill, #30 TAB 0 Refills 11/27/19 Cetirizine Hcl (ZYRTEC) 10 Mg Tablet, 1 TAB PO DAILY for allergies, #30 TAB 2 Refills 11/27/19 Furosemide (FUROSEMIDE) 20 Mg Tablet, 1 TAB PO DAILY for water retention, #90 T AB 1 Refill 11/27/19 Prednisone (PREDNISONE) 1 Mg Tablet, 3 MG PO DAILY for arthiritis, TAB 11/27/19 Alendronate Sodium (ALENDRONATE SODIUM) 70 Mg Tablet, 1 TAB PO WEEKLY for sup, #4 TAB 3 Refills 11/27/19 Multivitamin (Multivitamin) 1 Each Tablet, 1 EACH PO DAILY for vitamin, TAB 11/27/19 Lactobacillus Rhamnosus Gg (CULTURELLE) 1 Each Cap.sprink, 1 CAP PO BID for probiotic for 30 Days, #60 CAP 0 Refills 11/27/19 Sulfamethoxazole/Trimethoprim (BACTRIM 400-80 MG TABLET) 1 Each Tablet, 2 TAB PO BID for cellulitis for 7 Days, #28 TAB 0 Refills 11/27/19 Potassium Chloride (POTASSIUM CHLORIDE ) 10 Meq Tab.sr.24h, 10 MEQ PO DAILY for supplement, TAB.SR 07/16/18 Verapamil Hcl (VERAPAMIL ER) 240 Mg Cap24h.pel, 1 CAP PO DAILY for HTN, #30 CAP 5 Refills 07/16/18 Clonidine Hcl (CLONIDINE HCL) 0.1 Mg Tablet, 0.1 MG PO BID for HTN, TAB 07/16/18 Simvastatin (SIMVASTATIN) 20 Mg Tablet, 1 TAB PO QHS for HLD, #30 TAB 5 Refills 07/16/18 Lisinopril/Hydrochlorothiazide (LISINOPRIL-HCTZ 20-25 MG TAB) 1 Each Tablet, 1 TAB PO BID for HTN, #30 TAB 5 Refills 07/16/18 Allopurinol (ALLOPURINOL) 100 Mg Tablet, 1 TAB PO BID for gout, #30 TAB 5 Refills 07/16/18 Aspirin (ASPIRIN) 81 Mg Tab.chew, 1 TAB PO DAILY for heart health, #30 TAB 3 Refills 07/16/18 [place]-3 Fatty Acids/Fish Oil (FISH OIL 1,000 MG CAPSULE) 1 Each Capsule, 1 EACH PO DAILY for supplement, CAP 07/16/18 Loperamide Hcl (IMODIUM A-D) 1 Mg/7.5 Ml Liquid, 1 MG PO HS for bowel health, LIQUID 07/16/18 Discontinued Reported Medications L Gasseri/B Bifidum/B Longum (BostInno [employer] CAPSULE) 1 Each Capsule, 1 EACH PO DAILY for bowel health, CAP 07/16/18 Prednisone (PREDNISONE) 2.5 Mg Tablet, 9 MG PO DAILY for arthritis, TAB 07/16/18 Pain: Pain Location: Leg (Bilaterally) Pain Description: Acute Scale (pain): 4 Pain Context: Improving (With hospitalization and IV antibiotics) Date of Onset Patient admitted to the hospital following failure of oral antibiotics for bilateral lower extremity cellulitis and pain. Upon admission patient with leukocytosis with left shift. Blood cultures negative for sepsis and wound culture revealed MRSA. ID consulting. Patient has been on Rocephin and Levaquin and was changed to daptomycin today. Patient reports history of lower extremity wounds with difficulty healing. Patient with underlying diabetes with most recent hemoglobin A1c drawn on 11/26, 6.9. Patient denies history of previous work-up for vascular disease. Review of Systems: Patient complains of bilateral lower extremity pain, 4 out of 10 on a pain scale. Patient denies cough or shortness of breath. Patient states that she has been eating and drinking well with good output. Patient denies nausea, vomiting or diarrhea. Patient states that she has been sleeping well with good output. Physical Exam Patient awake and alert 84-year-old female in no apparent distress. Patient is pleasant in conversation and is good historian. Patient's daughter is at bedside. Vital signs are stable and patient is afebrile. Respirations are even and unlabored. Patient is on room air not requiring supplemental oxygen. Abdomen is soft, nondistended and nontender to palpation. Bilateral lower extremities, distal to knees with blanchable erythema, scaling and multiple, superficial open ulcerations. Right lower extremity presentation is worse than the left lower extremity. Wound beds are pink and moist with copious serosanguineous drainage present. No odor following cleansing. A/P Bilateral lower extremity peripheral artery disease with open ulcerations and secondary MRSA infection -Arterial Doppler obtained on 11/28 reviewed and revealed no hemodynamically significant stenosis. There was monophasic flow in the right lower extremity popliteal and proximal posterior tibial and peroneal and anterior tibial arteries. -ID consulting for antibiotic recommendations. Patient currently on daptomycin. -Cleanse and pat dry bilateral lower extremities. Cover open ulcerations with honey alginate, ABD and secure with Kerlix. Change daily or as needed if dressings loose or saturated. -Encourage patient to keep legs elevated as much as possible. -Upon discharge, we will continue to follow the patient at the wound care center MALIA HALL APRN Nov 30, 2019 17:45
[2019-11-30 19:00] VITALS: BP 114/55
[2019-11-30] MEDS: LOPERAMIDE 2 MG/15 ML ORAL SUSP. PO SCH (21:00)
[2019-11-30] MEDS: SIMVASTATIN 20 MG TABLET PO SCH (21:46)
[2019-11-30 22:38] VITALS: BP 90/54
[2019-12-01 03:00] VITALS: BP 116/60
[2019-12-01] MEDS: PANTOPRAZOLE 40 MG TABLET.DR. PO SCH (06:42)
[2019-12-01 07:00] VITALS: BP 179/63
--- NOTE | 2019-12-01 07:31 | NUR ---
IP: Pt is mrsa + in ankle wound requiring contact precautions.
[2019-12-01] MEDS: INSULIN LISPRO 300 UNITS/3 ML VIAL. SQ SCH ×3 (08:27→17:10)
--- NOTE | 2019-12-01 08:27 | PDOC ---
PROGRESS NOTES Date of Service: DATE: 12/01/19 TIME: 08:27 Chief Complaint Chief Complaint impression Sepsis due to Bilateral lower extremity cellulitis Hypertension Diabetes, SUBOPTIMAL CONTROL Acute electrolyte derangement, improved hyperkalemia, Hyponatremia Acute on Chronic Kidney Disease Severe protein malnutrition elevated peak systolic velocity of the common femoral artery, 214 cm/s. No other elevated peak systolic velocity is identified. c/w PVD Moderate to severe hallux valgus deformity. PLAN A/P: Wound cultures, wound care consult, start IV daptomycin, ID CONSULT . IV normal saline, consult to Nephrology. IV insulin prn hyperkalemia. We will hold metolazone, HCTZ, and lisinopril due to kidney function will defer to nephrology for further management of renal function and blood pressure management hold Lasix due to worsening kidney function. Zofran prn. Sliding scale insulin, HbA1c pending. Diabetic diet, Heparin for VTE prophylaxis Full Code. DPOA is 11/30 LABS PENDING THIS AM D/W RN History of Present Illness History of Present Illness History of Present Illness Patient is a 84 yo female with PMHx DM2, who presents with complaint of worsening bilateral leg cellulitis for the past 2 weeks. Patient states she has been treated by her PCP with oral antibiotics, without improvement. She takes daily metolazone and lasix for leg edema, with oral potassium replacement three times daily. She notes a history of a bleeding peptic ulcer, and admits to some nausea and acid reflux.She denies any fever, chest pain, or SOB. 11/29/2019 No acute events overnight. Vitals Vitals Vital Signs Date Time Temp Pulse Resp B/P (MAP) Pulse Ox O2 Delivery O2 Flow Rate FiO2 12/01/19 03:00 97.8 55 18 116/60 (78) 97 Room Air 97.8 Physical Exam Physical Exam CONSTITUTIONAL: She is cooperative. She is in no acute distress. She looks comfortable. She is lying in bed. HEENT: Pupils equal and reactive. She has normal conjunctivae. Oral cavity, pharynx is clear. She has dentures. NECK: Supple, no JVD. LUNGS: Decreased in the bases. HEART: S1, S2. ABDOMEN: Soft, no guarding. Obese. EXTREMITIES: Without clubbing, cyanosis. Her right lower extremity has 1 + edema, her left has 1+. There is improved erythema, but no gross warmth. She has scabbing on the medial aspect of both her middle legs. No gross pus. There is some wrinkling shows some improvement. No gross warmth. She had more erythema in the posterior aspect of her right leg but is improved SKIN: Otherwise, warm to touch without signs of rash. NEUROLOGIC: She is nonfocal, moves all extremities, answers questions appropriately. PSYCHIATRIC: Affect is very pleasant. General: Alert, Oriented X3, Cooperative, No acute distress Heart: Regular rate, Normal S1 Abdomen: Normal bowel sounds, Soft, Other (men) Extremities: No clubbing, No cyanosis, Other (2+ pitting edema to bilateral lower extremities) Skin: Other (weeping cellulitis to bilateral; lower extremities with surrounding crusting) Labs LABS Laboratory Tests Test 11/30/19 12:10 11/30/19 13:17 11/30/19 17:00 11/30/19 20:19 Glucose (Fingerstick) 169 mg/dL (70-99) 131 mg/dL (70-99) 190 mg/dL (70-99) Urine Collection Type Unknown Urine Color Yellow Urine Clarity Clear Urine pH 5.0 (<5.0-8.0) Urine Specific [place] 1.010 (1.000-1.030) Urine Protein Negative mg/dL (NEG-TRACE) Urine Glucose (UA) Negative mg/dL (NEG) Urine Ketones (Stick) Negative mg/dL (NEG) Urine Blood Negative (NEG) Urine Nitrite Negative (NEG) Urine Bilirubin Negative (NEG) Urine Urobilinogen Dipstick 0.2 mg/dL (0.2 mg/dL) Urine Leukocyte Esterase Negative (NEG) Urine RBC Rare /HPF (0-2) Urine WBC 1-4 /HPF (0-4) Urine Squamous Epithelial Cells Many /LPF Urine Bacteria Few /HPF (0-FEW) Urine Yeast Present /HPF Test 12/01/19 08:19 Glucose (Fingerstick) 164 mg/dL (70-99) Assessment and Plan Assessmemt and Plan Problems Medical Problems: (1) Acute on chronic renal failure Status: Acute (2) Cellulitis Status: Acute (3) Failure of outpatient treatment Status: Acute (4) Hyperkalemia Status: Acute Visit Type * Pt Declined Attempted Visit Details * Patient politely refusing due to just getting up to chair and nurse placing IV after multiple attempts. PT will follow-up tomorrow. 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 Labs Laboratory Tests Test 11/29/19 12:16 11/29/19 17:21 11/29/19 20:58 11/30/19 05:00 Glucose (Fingerstick) 184 mg/dL (70-99) 157 mg/dL (70-99) 160 mg/dL (70-99) White Blood Count 9.3 x10^3/uL (4.0-11.0) Red Blood Count 3.36 x10^6/uL (3.50-5.40) Hemoglobin 10.4 g/dL (12.0-15.5) Hematocrit 31.2 % (36.0-47.0) Mean Corpuscular Volume 93 fL (79-100) Mean Corpuscular Hemoglobin 31 pg (25-35) Mean Corpuscular Hemoglobin Concent 33 g/dL (31-37) Red Cell Distribution Width 15.7 % (11.5-14.5) Platelet Count 244 x10^3/uL (140-400) Neutrophils (%) (Auto) 67 % (31-73) Lymphocytes (%) (Auto) 14 % (24-48) Monocytes (%) (Auto) 7 % (0-9) Eosinophils (%) (Auto) 10 % (0-3) Basophils (%) (Auto) 2 % (0-3) Neutrophils # (Auto) 6.2 x10^3/uL (1.8-7.7) Lymphocytes # (Auto) 1.3 x10^3/uL (1.0-4.8) Monocytes # (Auto) 0.6 x10^3/uL (0.0-1.1) Eosinophils # (Auto) 0.9 x10^3/uL (0.0-0.7) Basophils # (Auto) 0.2 x10^3/uL (0.0-0.2) Sodium Level 137 mmol/L (136-145) Potassium Level 4.6 mmol/L (3.5-5.1) Chloride Level 105 mmol/L (98-107) Carbon Dioxide Level 21 mmol/L (21-32) Anion Gap 11 (6-14) Blood Urea Nitrogen 94 mg/dL (7-20) Creatinine 2.6 mg/dL (0.6-1.0) Estimated GFR (Cockcroft-Gault) 17.6 Glucose Level 126 mg/dL (70-99) Calcium Level 7.5 mg/dL (8.5-10.1) Test 11/30/19 07:56 11/30/19 12:10 11/30/19 13:17 11/30/19 17:00 Glucose (Fingerstick) 131 mg/dL (70-99) 169 mg/dL (70-99) 131 mg/dL (70-99) Urine Collection Type Unknown Urine Color Yellow Urine Clarity Clear Urine pH 5.0 (<5.0-8.0) Urine Specific [place] 1.010 (1.000-1.030) Urine Protein Negative mg/dL (NEG-TRACE) Urine Glucose (UA) Negative mg/dL (NEG) Urine Ketones (Stick) Negative mg/dL (NEG) Urine Blood Negative (NEG) Urine Nitrite Negative (NEG) Urine Bilirubin Negative (NEG) Urine Urobilinogen Dipstick 0.2 mg/dL (0.2 mg/dL) Urine Leukocyte Esterase Negative (NEG) Urine RBC Rare /HPF (0-2) Urine WBC 1-4 /HPF (0-4) Urine Squamous Epithelial Cells Many /LPF Urine Bacteria Few /HPF (0-FEW) Urine Yeast Present /HPF Test 11/30/19 20:19 12/01/19 08:19 Glucose (Fingerstick) 190 mg/dL (70-99) 164 mg/dL (70-99) Laboratory Tests Test 11/30/19 12:10 11/30/19 13:17 11/30/19 17:00 11/30/19 20:19 Glucose (Fingerstick) 169 mg/dL (70-99) 131 mg/dL (70-99) 190 mg/dL (70-99) Urine Collection Type Unknown Urine Color Yellow Urine Clarity Clear Urine pH 5.0 (<5.0-8.0) Urine Specific [place] 1.010 (1.000-1.030) Urine Protein Negative mg/dL (NEG-TRACE) Urine Glucose (UA) Negative mg/dL (NEG) Urine Ketones (Stick) Negative mg/dL (NEG) Urine Blood Negative (NEG) Urine Nitrite Negative (NEG) Urine Bilirubin Negative (NEG) Urine Urobilinogen Dipstick 0.2 mg/dL (0.2 mg/dL) Urine Leukocyte Esterase Negative (NEG) Urine RBC Rare /HPF (0-2) Urine WBC 1-4 /HPF (0-4) Urine Squamous Epithelial Cells Many /LPF Urine Bacteria Few /HPF (0-FEW) Urine Yeast Present /HPF Test 12/01/19 08:19 Glucose (Fingerstick) 164 mg/dL (70-99) Microbiology 11/27/19 Blood Culture - Preliminary, Resulted NO GROWTH AFTER 3 DAYS 11/27/19 Gram Stain - Final, Complete 11/27/19 Aerobic Culture - Final, Complete 11/27/19 Antimicrobic Susceptibility - Final, Complete Medications Current Medications Vancomycin HCl (Vanco Per Pharmacy) 1 each PRN DAILY PRN MC SEE COMMENTS; Start 11/27/19 at 10:45; Stop 11/28/19 at 14:29; Status DC Ceftriaxone Sodium (Rocephin) 1 gm 1X ONCE IVP Last administered on 11/27/19at 11:19; Start 11/27/19 at 10:45; Stop 11/27/19 at 10:51; Status DC Vancomycin HCl 2 gm/Sodium Chloride 500 ml @ 250 mls/hr 1X ONCE IV Last administered on 11/27/19at 11:18; Start 11/27/19 at 11:00; Stop 11/27/19 at 12:59; Status DC Ondansetron HCl (Zofran) 4 mg 1X ONCE IVP Last administered on 11/27/19at 11:19; Start 11/27/19 at 11:15; Stop 11/27/19 at 11:16; Status DC Fentanyl Citrate (Fentanyl 2ml Vial) 50 mcg 1X ONCE IV Last administered on 11/27/19at 11:20; Start 11/27/19 at 11:15; Stop 11/27/19 at 11:16; Status DC Ondansetron HCl (Zofran) 4 mg STK-MED ONCE .ROUTE ; Start 11/27/19 at 11:15; Stop 11/27/19 at 11:15; Status DC Fentanyl Citrate (Fentanyl 2ml Vial) 100 mcg STK-MED ONCE .ROUTE ; Start 11/27/19 at 11:15; Stop 11/27/19 at 11:16; Status DC Calcium Gluconate (Calcium Gluconate) 1,000 mg 1X ONCE IVP Last administered on 11/27/19at 13:41; Start 11/27/19 at 12:15; Stop 11/27/19 at 12:17; Status DC Dextrose (Dextrose 50%-Water Syringe) 25 gm 1X ONCE IV Last administered on 11/27/19at 13:42; Start 11/27/19 at 12:15; Stop 11/27/19 at 12:17; Status DC Insulin Human Regular (HumuLIN R VIAL) 10 unit 1X ONCE IV Last administered on 11/27/19at 13:43; Start 11/27/19 at 12:15; Stop 11/27/19 at 12:17; Status DC Ondansetron HCl (Zofran) 4 mg PRN Q8HRS PRN IV NAUSEA/VOMITING; Start 11/27/19 at 12:30; Stop 11/27/19 at 18:44; Status DC Fentanyl Citrate (Fentanyl 2ml Vial) 25 mcg PRN Q2HR PRN IV PAIN Last administered on 11/29/19at 05:37; Start 11/27/19 at 12:30 Acetaminophen (Tylenol) 650 mg PRN Q4HRS PRN PO FEVER > 100.3'F; Start 11/27/19 at 12:30; Stop 11/28/19 at 12:29; Status DC Insulin Human Lispro (HumaLOG) 0-5 UNITS TIDWMEALS SQ Last administered on 11/27/19at 17:03; Start 11/27/19 at 17:00; Stop 11/27/19 at 18:53; Status DC Dextrose (Dextrose 50%-Water Syringe) 12.5 gm PRN Q15MIN PRN IV SEE COMMENTS; Start 11/27/19 at 12:30; Stop 11/27/19 at 18:52; Status DC Multi-Ingredient Mouthwash/Gargle (Gi Cocktail) 20 ml 1X ONCE SWSW Last administered on 11/27/19at 13:43; Start 11/27/19 at 13:00; Stop 11/27/19 at 13:01; Status DC Pantoprazole Sodium (PROTONIX VIAL for IV PUSH) 40 mg 1X ONCE IVP Last administered on 11/27/19at 13:43; Start 11/27/19 at 13:00; Stop 11/27/19 at 13:01; Status DC Sodium Bicarbonate 75 meq/Sodium Chloride 1,075 ml @ 125 mls/hr 1X ONCE IV Last administered on 11/27/19at 13:30; Start 11/27/19 at 13:30; Stop 11/27/19 at 22:05; Status DC Albuterol Sulfate (Ventolin Neb Soln) 10 mg 1X ONCE CONT NEB ; Start 11/27/19 at 13:30; Stop 11/27/19 at 14:01; Status DC Albuterol Sulfate (Ventolin Neb Soln) 10 mg 1X ONCE NEB Last administered on 11/27/19at 14:03; Start 11/27/19 at 14:00; Stop 11/27/19 at 14:03; Status DC Ondansetron HCl (Zofran) 4 mg PRN Q6HRS PRN IVP NAUSEA/VOMITING Last administered on 11/30/19at 09:16; Start 11/27/19 at 18:45 Heparin Sodium (Porcine) (Heparin Sodium) 5,000 unit Q12HR SQ Last administered on 11/30/19at 21:52; Start 11/27/19 at 21:00 Sodium Chloride 1,000 ml @ 100 mls/hr Q10H IV Last administered on 11/30/19at 03:36; Start 11/27/19 at 18:45; Stop 11/30/19 at 14:26; Status DC Insulin Human Lispro (HumaLOG) 0-5 UNITS TIDWMEALS SQ Last administered on 11/30/19at 12:16; Start 11/28/19 at 08:00 Dextrose (Dextrose 50%-Water Syringe) 12.5 gm PRN Q15MIN PRN IV SEE COMMENTS; Start 11/27/19 at 18:45 Pantoprazole Sodium (Protonix) 40 mg DAILYAC PO Last administered on 12/01/19at 06:42; Start 11/28/19 at 07:30 Allopurinol (Zyloprim) 100 mg BIDAFTMEAL PO Last administered on 11/30/19at 17:30; Start 11/27/19 at 21:00 Clonidine HCl (Catapres) 0.1 mg BID PO Last administered on 11/30/19 21:47; Start 11/27/19 at 21:00 Furosemide (Lasix) 20 mg DAILY PO Last administered on 11/29/19 09:12; Start 11/28/19 at 09:00; Stop 11/29/19 at 12:49; Status DC Lactobacillus Rhamnosus (Culturelle) 1 cap BID PO Last administered on 11/30/19at 21:46; Start 11/27/19 at 21:00 Loperamide HCl (Immodium Oral Susp) 1 mg HS PO ; Start 11/27/19 at 21:00 Metolazone (Zaroxolyn) 2.5 mg QODAY PO Last administered on 11/29/19 09:11; Start 11/29/19 at 09:00; Stop 11/29/19 at 12:49; Status DC Simvastatin (Zocor) 20 mg QHS PO Last administered on 11/30/19 21:46; Start 11/27/19 at 21:00 Lisinopril (Prinivil) 20 mg BID PO Last administered on 11/29/19 09:12; Start 11/27/19 at 21:00; Stop 11/29/19 at 12:49; Status DC Verapamil HCl (Calan Sr) 240 mg DAILY PO Last administered on 11/30/19 08:36; Start 11/28/19 at 09:00 Hydrochlorothiazide (Hydrodiuril) 25 mg BID PO Last administered on 11/29/19 09:11; Start 11/27/19 at 21:00; Stop 11/29/19 at 12:49; Status DC Ceftriaxone Sodium (Rocephin) 2 gm Q24H IVP Last administered on 11/29/19 17:27; Start 11/28/19 at 17:00; Stop 11/30/19 at 10:54; Status DC Oxycodone/ Acetaminophen (Percocet 5/325) 1 tab PRN Q6HRS PRN PO PAIN Last administered on 11/30/19 16:10; Start 11/28/19 at 18:00 Daptomycin 500 mg/ Sodium Chloride 50 ml @ 100 mls/hr ONCE ONCE IV Last administered on 11/29/19at 10:55; Start 11/29/19 at 09:30; Stop 11/29/19 at 09:59; Status DC Furosemide (Lasix) 40 mg 1X ONCE IVP ; Start 11/29/19 at 14:00; Stop 11/29/19 at 14:01; Status Cancel Levofloxacin/ Dextrose 100 ml @ 100 mls/hr 1X ONCE IV Last administered on 11/30/19at 11:29; Start 11/30/19 at 11:30; Stop 11/30/19 at 12:29; Status DC Ascorbic Acid (Vitamin C) 500 mg DAILY PO ; Start 12/01/19 at 09:00 Multivitamins (Thera M Plus) 1 tab DAILY PO ; Start 12/01/19 at 09:00 Furosemide (Lasix) 40 mg DAILY PO Last administered on 11/30/19at 14:51; Start 11/30/19 at 15:00 Active Scripts Active Reported Novolog (Insulin Aspart) 100 Unit/1 Ml Cartridge 5 Unit SQ BID Levemir (Insulin Detemir) 100 Unit/1 Ml Vial 22 Unit SQ DAILY Metolazone 2.5 Mg Tablet 2.5 Mg PO QODAY Zyrtec (Cetirizine Hcl) 10 Mg Tablet 1 Tab PO DAILY Furosemide 20 Mg Tablet 1 Tab PO DAILY Prednisone 1 Mg Tablet 3 Mg PO DAILY Alendronate Sodium 70 Mg Tablet 1 Tab PO WEEKLY Multivitamin 1 Each Tablet 1 Each PO DAILY Culturelle (Lactobacillus Rhamnosus Gg) 1 Each Cap.sprink 1 Cap PO BID 30 Days Bactrim 400-80 Mg Tablet (Sulfamethoxazole/Trimethoprim) 1 Each Tablet 2 Tab PO BID 7 Days Potassium Chloride (Potassium Chloride) 10 Meq Tab.sr.24h 10 Meq PO DAILY Verapamil Er (Verapamil Hcl) 240 Mg Cap24h.pel 1 Cap PO DAILY Clonidine Hcl 0.1 Mg Tablet 0.1 Mg PO BID Simvastatin 20 Mg Tablet 1 Tab PO QHS Lisinopril-Hctz 20-25 Mg Tab (Lisinopril/Hydrochlorothiazide) 1 Each Tablet 1 Tab PO BID Allopurinol 100 Mg Tablet 1 Tab PO BID Aspirin 81 Mg Tab.chew 1 Tab PO DAILY Fish Oil 1,000 Mg Capsule (Jackson-3 Fatty Acids/Fish Oil) 1 Each Capsule 1 Each PO DAILY Imodium A-D (Loperamide Hcl) 1 Mg/7.5 Ml Liquid 1 Mg PO HS Vitals/I & O Vital Sign - Last 24 Hours 11/30/19 11/30/19 11/30/19 11/30/19 08:30 08:36 08:37 11:00 Temp 97.9 97.9 Pulse 80 80 71 Resp 20 B/P (MAP) 126/55 126/55 158/57 (90) Pulse Ox 94 O2 Delivery Room Air 11/30/19 11/30/19 11/30/19 11/30/19 15:00 16:10 17:31 19:00 Temp 97.6 97.9 97.6 97.9 Pulse 73 76 Resp 18 22 B/P (MAP) 107/33 (57) 114/55 (74) Pulse Ox 96 92 O2 Delivery Room Air Room Air Room Air 11/30/19 11/30/19 11/30/19 12/01/19 20:00 21:47 22:38 03:00 Temp 98.4 97.8 98.4 97.8 Pulse 76 81 55 Resp 22 18 B/P (MAP) 114/55 90/54 (66) 116/60 (78) Pulse Ox 98 97 O2 Delivery Room Air Room Air Room Air Intake and Output 11/30/19 11/30/19 12/01/19 15:00 23:00 07:00 Intake Total 220 ml Balance 220 ml Nutrition Consultation Dietary Evaluation: Recommendations by RD: Dietary education by RD, Protein supplementation Comments: Recommend continuing ADA Renal diet and sending Nepro with breakfast and dinner for protein/ watching renal labs. MVI and Vit C in place per wound protocol Expected Outcomes/Goals: increase PO intake to meet 75% estimated needs Malnutrition Findings: Food and Nutrition Intake (Mod: <75% est energy req 7days Weight Status: Obese Fluid Accumulation (Non-Severe: Mild depletion Justicifation of Admission Dx: Justifications for Admission: Justification of Admission Dx: Yes PHUONG SAPP MD Dec 01, 2019 08:27
[2019-12-01] MEDS: ALLOPURINOL 100 MG TABLET. PO SCH ×2 (09:52→17:58)
[2019-12-01] MEDS: MULTIVITAMIN with MINERAL TABLET. PO SCH (09:52)
[2019-12-01] MEDS: LACTOBACILLUS RHAMNOSUS GG 1 CAPSULE. PO SCH ×2 (09:52→21:49)
[2019-12-01] MEDS: ASCORBIC ACID 500 MG TABLET PO SCH (09:52)
[2019-12-01] MEDS: FUROSEMIDE 40 MG TABLET. PO SCH (09:52)
[2019-12-01] MEDS: cloNIDine HCL 0.1 MG TABLET PO SCH ×2 (09:53→21:49)
[2019-12-01] MEDS: VERAPAMIL SR 120 MG TABLET.ER. PO SCH (09:53)
[2019-12-01] MEDS: HEPARIN for SUB-Q USE 5,000 UNIT/ML VIAL. SQ SCH ×2 (09:59→21:58)
--- NOTE | 2019-12-01 10:14 | NUR ---
SW following. Discussed with RN, pt from home with daughter, room air. IV abx have been switched to oral abx. PT/OT recommending home. Anticipate possible discharge home today, pt will follow at the wound care clinic outpatient. SW will continue to follow, should any discharge needs arise.
--- NOTE | 2019-12-01 10:55 | PDOC ---
Infectious Disease Note Subjective Subjective Feeling well. Ate this am. No Bm yet No N/V/D/SOA/rash Legs better ROS ROS o/w neg Vital Sign Vital Signs Vital Signs Date Time Temp Pulse Resp B/P (MAP) Pulse Ox O2 Delivery O2 Flow Rate FiO2 12/01/19 09:53 95 179/63 12/01/19 08:00 Room Air 12/01/19 07:00 97.9 20 95 97.9 Physical Exam PHYSICAL EXAM CONSTITUTIONAL: She is cooperative. She is in no acute distress. She looks comfortable. She is in a chair and looks well HEENT: Pupils equal and reactive. She has normal conjunctivae. Oral cavity, pharynx is clear. She has dentures. NECK: Supple, no JVD. LUNGS: Decreased in the bases. HEART: S1, S2. ABDOMEN: Soft, no guarding. Obese. EXTREMITIES: Without clubbing, cyanosis. Her right lower extremity has 1 + edema, her left has 1+. Dressed. No tracking SKIN: Otherwise, warm to touch without signs of rash. NEUROLOGIC: She is nonfocal, moves all extremities, answers questions appropriately. PSYCHIATRIC: Affect is very pleasant. Labs Lab Laboratory Tests Test 11/30/19 12:10 11/30/19 13:17 11/30/19 17:00 11/30/19 20:19 Glucose (Fingerstick) 169 mg/dL (70-99) 131 mg/dL (70-99) 190 mg/dL (70-99) Urine Collection Type Unknown Urine Color Yellow Urine Clarity Clear Urine pH 5.0 (<5.0-8.0) Urine Specific [place] 1.010 (1.000-1.030) Urine Protein Negative mg/dL (NEG-TRACE) Urine Glucose (UA) Negative mg/dL (NEG) Urine Ketones (Stick) Negative mg/dL (NEG) Urine Blood Negative (NEG) Urine Nitrite Negative (NEG) Urine Bilirubin Negative (NEG) Urine Urobilinogen Dipstick 0.2 mg/dL (0.2 mg/dL) Urine Leukocyte Esterase Negative (NEG) Urine RBC Rare /HPF (0-2) Urine WBC 1-4 /HPF (0-4) Urine Squamous Epithelial Cells Many /LPF Urine Bacteria Few /HPF (0-FEW) Urine Yeast Present /HPF Test 12/01/19 08:19 Glucose (Fingerstick) 164 mg/dL (70-99) Micro Preliminary MANY GRAM POSITIVE COCCI on 11/29/19 at 1236 FINAL ID= [STAPHYLOCOCCUS AUREUS] Testing Performed by: [facility] [address] [place] [address] For Inquires, the Physician may contact the Microbiology department at [phone] STAPHYLOCOCCUS AUREUS MODERATE [STAPHYLOCOCCUS AUREUS] MODERATE [ENTEROCOCCUS FAECALIS] MODERATE [STENOTROPHOMONAS MALTOPHILIA] Testing Performed by: Microbiology 11/27/19 Blood Culture - Preliminary, Resulted NO GROWTH AFTER 1 DAY 11/27/19 Gram Stain - Final, Resulted 11/27/19 Aerobic Culture, Resulted Pending Objective Assessment B LE cellulitis MRSA/XMAL ETHAN on CKD DM Plan Plan of Care Clinically improving Cont Daptomycin and dosed levoflox times one IV with N/V 11/29 F/u labs in the am and cults Elevation Will benefit from compression D/w nursing and daughter DELMI PENA MD Dec 01, 2019 10:55
[2019-12-01 11:00] VITALS: BP 142/65
--- NOTE | 2019-12-01 11:50 | PDOC ---
Renal-Progress Notes Subjective Notes Notes NO NEW COMPLAINTS History of Present Illness Hx of present illness STABLE Vitals Vitals Vital Signs Date Time Temp Pulse Resp B/P (MAP) Pulse Ox O2 Delivery O2 Flow Rate FiO2 12/01/19 11:00 97.9 84 18 142/65 (90) 95 97.9 12/01/19 08:00 Room Air Weight Weight [ ] I.O. Intake and Output Intake and Output 12/01/19 07:00 Intake Total 220 ml Balance 220 ml Intake Oral 120 ml IV Total 100 ml # Voids 7 Labs Labs Laboratory Tests Test 11/30/19 12:10 11/30/19 13:17 11/30/19 17:00 11/30/19 20:19 Glucose (Fingerstick) 169 mg/dL (70-99) 131 mg/dL (70-99) 190 mg/dL (70-99) Urine Collection Type Unknown Urine Color Yellow Urine Clarity Clear Urine pH 5.0 (<5.0-8.0) Urine Specific [place] 1.010 (1.000-1.030) Urine Protein Negative mg/dL (NEG-TRACE) Urine Glucose (UA) Negative mg/dL (NEG) Urine Ketones (Stick) Negative mg/dL (NEG) Urine Blood Negative (NEG) Urine Nitrite Negative (NEG) Urine Bilirubin Negative (NEG) Urine Urobilinogen Dipstick 0.2 mg/dL (0.2 mg/dL) Urine Leukocyte Esterase Negative (NEG) Urine RBC Rare /HPF (0-2) Urine WBC 1-4 /HPF (0-4) Urine Squamous Epithelial Cells Many /LPF Urine Bacteria Few /HPF (0-FEW) Urine Yeast Present /HPF Test 12/01/19 08:19 12/01/19 11:46 Glucose (Fingerstick) 164 mg/dL (70-99) 193 mg/dL (70-99) Micro Micro Microbiology 11/27/19 Blood Culture - Preliminary, Resulted NO GROWTH AFTER 3 DAYS 11/27/19 Gram Stain - Final, Complete 11/27/19 Aerobic Culture - Final, Complete 11/27/19 Antimicrobic Susceptibility - Final, Complete Review of Systems Constitutional: yes: malaise, weakness, alert Ears/Nose/Throat: Yes: no symptom reported Eyes: Yes: no symptom reported Pulmonary: Yes no symptom reported Cardiovascular: Yes edema Gastrointestional: Yes: no symptom reported Genitourinary: Yes: no symptom reported Musculoskeletal: Yes: no symptom reported Skin: Yes no symptom reported Psychiatric/Neurological: Yes: no symptom reported Endocrine: Yes: no symptom reported Physical Exam General Appearance: no apparent distress, afebrile Skin: warm Respiratory: bilateral CTA Heart: S1S2 Abdomen: soft, bowel sounds present Genitourinary: bladder flat Extremities: edema Musculoskeletal: low back pain, Osteoarthritis, Swelling, Stiffness Assessment Assessment IMP ETHAN WITH CR UP TO 3.3 AND NOW DOWN TO 2.7 CKD STAGE 3 WITH ABOUT 2.0-2.5 EXTRACELLULAR VOLUME DEPLETION LE EDEMA-CHRONIC LYMPHEDEMA PLAN RESUMED LASIX ADD METOLAZONE OFF HYDRATION LABS IN AM ZUNILDA ORELLANA MD Dec 01, 2019 11:50
[2019-12-01] MEDS: metOLazone 2.5 MG TABLET PO SCH (12:07)
[2019-12-01 15:00] VITALS: BP 127/49
[2019-12-01] MEDS ORDERED: DAPTOmycin (GENERIC) IVPB 500 MG in IV NORMAL SALINE 50ML 50 ML IV SCH (16:00)
[2019-12-01 17:37] LABS: BASO # 0.1 x10^3/uL (0.0-0.2); BASO % 1 % (0-3); EOS % 11 % (0-3); HEMATOCRIT 34.6 % (36.0-47.0); HEMOGLOBIN 11.4 g/dL (12.0-15.5); LYMPH # 1.2 x10^3/uL (1.0-4.8); LYMPH % 13 % (24-48); MEAN CORPUSCULAR HEMOGLOBIN 31 pg (25-35); MEAN CORPUSCULAR HGB CONC 33 g/dL (31-37); MEAN CORPUSCULAR VOLUME 93 fL (79-100); MONO # 0.7 x10^3/uL (0.0-1.1); MONO % 8 % (0-9); NEUT % 67 % (31-73); PLATELET COUNT 250 x10^3/uL (140-400); RED CELL DISTRIBUTION WIDTH 16.1 % (11.5-14.5)
[2019-12-01 18:06] LABS: ALBUMIN 2.4 g/dL (3.4-5.0); ALBUMIN/GLOBULIN RATIO 0.9 (1.0-1.7); CALCIUM 8.6 mg/dL (8.5-10.1); CREATININE 1.9 mg/dL (0.6-1.0); GFR 25.2; POTASSIUM 4.6 mmol/L (3.5-5.1); TOTAL BILIRUBIN 0.2 mg/dL (0.2-1.0); TOTAL PROTEIN 5.1 g/dL (6.4-8.2)
[2019-12-01 19:00] VITALS: BP 134/77
[2019-12-01] MEDS: LOPERAMIDE 2 MG/15 ML ORAL SUSP. PO SCH (21:00)
[2019-12-01] MEDS: SIMVASTATIN 20 MG TABLET PO SCH (21:49)
[2019-12-01 23:00] VITALS: BP 136/61
[2019-12-02 03:00] VITALS: BP 135/61
[2019-12-02 05:43] LABS: BASO # 0.1 x10^3/uL (0.0-0.2); BASO % 1 % (0-3); EOS # 1.2 x10^3/uL (0.0-0.7); EOS % 13 % (0-3); HEMATOCRIT 31.6 % (36.0-47.0); HEMOGLOBIN 10.7 g/dL (12.0-15.5); LYMPH # 1.4 x10^3/uL (1.0-4.8); LYMPH % 16 % (24-48); MEAN CORPUSCULAR HEMOGLOBIN 31 pg (25-35); MEAN CORPUSCULAR HGB CONC 34 g/dL (31-37); MEAN CORPUSCULAR VOLUME 92 fL (79-100); MONO # 0.6 x10^3/uL (0.0-1.1); MONO % 7 % (0-9); NEUT # 5.7 x10^3/uL (1.8-7.7); NEUT % 63 % (31-73); PLATELET COUNT 214 x10^3/uL (140-400); RED BLOOD COUNT 3.43 x10^6/uL (3.50-5.40); RED CELL DISTRIBUTION WIDTH 15.6 % (11.5-14.5); WHITE BLOOD COUNT 9.1 x10^3/uL (4.0-11.0)
[2019-12-02 05:53] LABS: ALBUMIN 2.2 g/dL (3.4-5.0); ALBUMIN/GLOBULIN RATIO 0.7 (1.0-1.7); CALCIUM 8.8 mg/dL (8.5-10.1); CREATININE 1.7 mg/dL (0.6-1.0); GFR 28.7; POTASSIUM 4.4 mmol/L (3.5-5.1); TOTAL BILIRUBIN 0.3 mg/dL (0.2-1.0); TOTAL PROTEIN 5.2 g/dL (6.4-8.2)
[2019-12-02 07:30] VITALS: BP 131/62
[2019-12-02] MEDS: PANTOPRAZOLE 40 MG TABLET.DR. PO SCH (07:37)
[2019-12-02] MEDS: INSULIN LISPRO 300 UNITS/3 ML VIAL. SQ SCH ×2 (08:00→12:03)
--- NOTE | 2019-12-02 08:42 | PDOC ---
PROGRESS NOTES Date of Service: DATE: 12/02/19 TIME: 08:42 Chief Complaint Chief Complaint impression Sepsis due to Bilateral lower extremity cellulitis Hypertension Diabetes, SUBOPTIMAL CONTROL Acute electrolyte derangement, improved hyperkalemia, Hyponatremia Acute on Chronic Kidney Disease Severe protein malnutrition elevated peak systolic velocity of the common femoral artery, 214 cm/s. No other elevated peak systolic velocity is identified. c/w PVD Moderate to severe hallux valgus deformity. PLAN A/P: Wound cultures, wound care consult, start IV daptomycin, ID CONSULT . IV normal saline, consult to Nephrology. IV insulin prn hyperkalemia. We will hold metolazone, HCTZ, and lisinopril due to kidney function will defer to nephrology for further management of renal function and blood pressure management hold Lasix due to worsening kidney function. Zofran prn. Sliding scale insulin, HbA1c pending. Diabetic diet, Heparin for VTE prophylaxis Full Code. DPOA is 12/01 CR BETTER AT 1.7 D/W RN History of Present Illness History of Present Illness History of Present Illness Patient is a 84 yo female with PMHx DM2, who presents with complaint of worsening bilateral leg cellulitis for the past 2 weeks. Patient states she has been treated by her PCP with oral antibiotics, without improvement. She takes daily metolazone and lasix for leg edema, with oral potassium replacement three times daily. She notes a history of a bleeding peptic ulcer, and admits to some nausea and acid reflux.She denies any fever, chest pain, or SOB. 11/29/2019 No acute events overnight. Vitals Vitals Vital Signs Date Time Temp Pulse Resp B/P (MAP) Pulse Ox O2 Delivery O2 Flow Rate FiO2 12/02/19 03:00 98.1 88 18 135/61 (85) 93 Room Air 98.1 Physical Exam Physical Exam CONSTITUTIONAL: She is cooperative. She is in no acute distress. She looks comfortable. She is in a chair and looks well HEENT: Pupils equal and reactive. She has normal conjunctivae. Oral cavity, pharynx is clear. She has dentures. NECK: Supple, no JVD. LUNGS: Decreased in the bases. HEART: S1, S2. ABDOMEN: Soft, no guarding. Obese. EXTREMITIES: Without clubbing, cyanosis. Her right lower extremity has 1 + edema, her left has 1+. Dressed. No tracking SKIN: Otherwise, warm to touch without signs of rash. NEUROLOGIC: She is nonfocal, moves all extremities, answers questions appropriately. PSYCHIATRIC: Affect is very pleasant. General: Alert, Oriented X3, Cooperative, No acute distress Heart: Regular rate, Normal S1 Lungs: Clear Abdomen: Normal bowel sounds, Soft, Other (men) Extremities: No clubbing, No cyanosis, Other (2+ pitting edema to bilateral lower extremities) Skin: Other (weeping cellulitis to bilateral; lower extremities with surrounding crusting) Labs LABS ESC: ORDERED: BCULT Procedure Result BLOOD CULTURE Preliminary NO GROWTH AFTER 4 DAYS Laboratory Tests Test 12/01/19 11:46 12/01/19 16:41 12/01/19 17:25 12/01/19 21:15 Glucose (Fingerstick) 193 mg/dL (70-99) 213 mg/dL (70-99) 136 mg/dL (70-99) White Blood Count 9.0 x10^3/uL (4.0-11.0) Red Blood Count 3.70 x10^6/uL (3.50-5.40) Hemoglobin 11.4 g/dL (12.0-15.5) Hematocrit 34.6 % (36.0-47.0) Mean Corpuscular Volume 93 fL (79-100) Mean Corpuscular Hemoglobin 31 pg (25-35) Mean Corpuscular Hemoglobin Concent 33 g/dL (31-37) Red Cell Distribution Width 16.1 % (11.5-14.5) Platelet Count 250 x10^3/uL (140-400) Neutrophils (%) (Auto) 67 % (31-73) Lymphocytes (%) (Auto) 13 % (24-48) Monocytes (%) (Auto) 8 % (0-9) Eosinophils (%) (Auto) 11 % (0-3) Basophils (%) (Auto) 1 % (0-3) Neutrophils # (Auto) 6.0 x10^3/uL (1.8-7.7) Lymphocytes # (Auto) 1.2 x10^3/uL (1.0-4.8) Monocytes # (Auto) 0.7 x10^3/uL (0.0-1.1) Eosinophils # (Auto) 1.0 x10^3/uL (0.0-0.7) Basophils # (Auto) 0.1 x10^3/uL (0.0-0.2) Sodium Level 138 mmol/L (136-145) Potassium Level 4.6 mmol/L (3.5-5.1) Chloride Level 102 mmol/L (98-107) Carbon Dioxide Level 28 mmol/L (21-32) Anion Gap 8 (6-14) Blood Urea Nitrogen 58 mg/dL (7-20) Creatinine 1.9 mg/dL (0.6-1.0) Estimated GFR (Cockcroft-Gault) 25.2 BUN/Creatinine Ratio 31 (6-20) Glucose Level 225 mg/dL (70-99) Calcium Level 8.6 mg/dL (8.5-10.1) Total Bilirubin 0.2 mg/dL (0.2-1.0) Aspartate Amino Transf (AST/SGOT) 21 U/L (15-37) Alanine Aminotransferase (ALT/SGPT) 26 U/L (14-59) Alkaline Phosphatase 77 U/L (46-116) Total Protein 5.1 g/dL (6.4-8.2) Albumin 2.4 g/dL (3.4-5.0) Albumin/Globulin Ratio 0.9 (1.0-1.7) Test 12/02/19 04:15 12/02/19 08:00 White Blood Count 9.1 x10^3/uL (4.0-11.0) Red Blood Count 3.43 x10^6/uL (3.50-5.40) Hemoglobin 10.7 g/dL (12.0-15.5) Hematocrit 31.6 % (36.0-47.0) Mean Corpuscular Volume 92 fL (79-100) Mean Corpuscular Hemoglobin 31 pg (25-35) Mean Corpuscular Hemoglobin Concent 34 g/dL (31-37) Red Cell Distribution Width 15.6 % (11.5-14.5) Platelet Count 214 x10^3/uL (140-400) Neutrophils (%) (Auto) 63 % (31-73) Lymphocytes (%) (Auto) 16 % (24-48) Monocytes (%) (Auto) 7 % (0-9) Eosinophils (%) (Auto) 13 % (0-3) Basophils (%) (Auto) 1 % (0-3) Neutrophils # (Auto) 5.7 x10^3/uL (1.8-7.7) Lymphocytes # (Auto) 1.4 x10^3/uL (1.0-4.8) Monocytes # (Auto) 0.6 x10^3/uL (0.0-1.1) Eosinophils # (Auto) 1.2 x10^3/uL (0.0-0.7) Basophils # (Auto) 0.1 x10^3/uL (0.0-0.2) Sodium Level 137 mmol/L (136-145) Potassium Level 4.4 mmol/L (3.5-5.1) Chloride Level 103 mmol/L (98-107) Carbon Dioxide Level 28 mmol/L (21-32) Anion Gap 6 (6-14) Blood Urea Nitrogen 52 mg/dL (7-20) Creatinine 1.7 mg/dL (0.6-1.0) Estimated GFR (Cockcroft-Gault) 28.7 BUN/Creatinine Ratio 31 (6-20) Glucose Level 145 mg/dL (70-99) Calcium Level 8.8 mg/dL (8.5-10.1) Magnesium Level 1.6 mg/dL (1.8-2.4) Total Bilirubin 0.3 mg/dL (0.2-1.0) Aspartate Amino Transf (AST/SGOT) 19 U/L (15-37) Alanine Aminotransferase (ALT/SGPT) 21 U/L (14-59) Alkaline Phosphatase 64 U/L (46-116) Total Protein 5.2 g/dL (6.4-8.2) Albumin 2.2 g/dL (3.4-5.0) Albumin/Globulin Ratio 0.7 (1.0-1.7) Glucose (Fingerstick) 140 mg/dL (70-99) Assessment and Plan Assessmemt and Plan Problems Medical Problems: (1) Acute on chronic renal failure Status: Acute (2) Cellulitis Status: Acute (3) Failure of outpatient treatment Status: Acute (4) Hyperkalemia Status: Acute Comment Review of Relevant I have reviewed the following items yudi (where applicable) has been applied. Labs Laboratory Tests Test 11/30/19 12:10 11/30/19 13:17 11/30/19 17:00 11/30/19 20:19 Glucose (Fingerstick) 169 mg/dL (70-99) 131 mg/dL (70-99) 190 mg/dL (70-99) Urine Collection Type Unknown Urine Color Yellow Urine Clarity Clear Urine pH 5.0 (<5.0-8.0) Urine Specific [place] 1.010 (1.000-1.030) Urine Protein Negative mg/dL (NEG-TRACE) Urine Glucose (UA) Negative mg/dL (NEG) Urine Ketones (Stick) Negative mg/dL (NEG) Urine Blood Negative (NEG) Urine Nitrite Negative (NEG) Urine Bilirubin Negative (NEG) Urine Urobilinogen Dipstick 0.2 mg/dL (0.2 mg/dL) Urine Leukocyte Esterase Negative (NEG) Urine RBC Rare /HPF (0-2) Urine WBC 1-4 /HPF (0-4) Urine Squamous Epithelial Cells Many /LPF Urine Bacteria Few /HPF (0-FEW) Urine Yeast Present /HPF Test 12/01/19 08:19 12/01/19 11:46 12/01/19 16:41 12/01/19 17:25 Glucose (Fingerstick) 164 mg/dL (70-99) 193 mg/dL (70-99) 213 mg/dL (70-99) White Blood Count 9.0 x10^3/uL (4.0-11.0) Red Blood Count 3.70 x10^6/uL (3.50-5.40) Hemoglobin 11.4 g/dL (12.0-15.5) Hematocrit 34.6 % (36.0-47.0) Mean Corpuscular Volume 93 fL (79-100) Mean Corpuscular Hemoglobin 31 pg (25-35) Mean Corpuscular Hemoglobin Concent 33 g/dL (31-37) Red Cell Distribution Width 16.1 % (11.5-14.5) Platelet Count 250 x10^3/uL (140-400) Neutrophils (%) (Auto) 67 % (31-73) Lymphocytes (%) (Auto) 13 % (24-48) Monocytes (%) (Auto) 8 % (0-9) Eosinophils (%) (Auto) 11 % (0-3) Basophils (%) (Auto) 1 % (0-3) Neutrophils # (Auto) 6.0 x10^3/uL (1.8-7.7) Lymphocytes # (Auto) 1.2 x10^3/uL (1.0-4.8) Monocytes # (Auto) 0.7 x10^3/uL (0.0-1.1) Eosinophils # (Auto) 1.0 x10^3/uL (0.0-0.7) Basophils # (Auto) 0.1 x10^3/uL (0.0-0.2) Sodium Level 138 mmol/L (136-145) Potassium Level 4.6 mmol/L (3.5-5.1) Chloride Level 102 mmol/L (98-107) Carbon Dioxide Level 28 mmol/L (21-32) Anion Gap 8 (6-14) Blood Urea Nitrogen 58 mg/dL (7-20) Creatinine 1.9 mg/dL (0.6-1.0) Estimated GFR (Cockcroft-Gault) 25.2 BUN/Creatinine Ratio 31 (6-20) Glucose Level 225 mg/dL (70-99) Calcium Level 8.6 mg/dL (8.5-10.1) Total Bilirubin 0.2 mg/dL (0.2-1.0) Aspartate Amino Transf (AST/SGOT) 21 U/L (15-37) Alanine Aminotransferase (ALT/SGPT) 26 U/L (14-59) Alkaline Phosphatase 77 U/L (46-116) Total Protein 5.1 g/dL (6.4-8.2) Albumin 2.4 g/dL (3.4-5.0) Albumin/Globulin Ratio 0.9 (1.0-1.7) Test 12/01/19 21:15 12/02/19 04:15 12/02/19 08:00 Glucose (Fingerstick) 136 mg/dL (70-99) 140 mg/dL (70-99) White Blood Count 9.1 x10^3/uL (4.0-11.0) Red Blood Count 3.43 x10^6/uL (3.50-5.40) Hemoglobin 10.7 g/dL (12.0-15.5) Hematocrit 31.6 % (36.0-47.0) Mean Corpuscular Volume 92 fL (79-100) Mean Corpuscular Hemoglobin 31 pg (25-35) Mean Corpuscular Hemoglobin Concent 34 g/dL (31-37) Red Cell Distribution Width 15.6 % (11.5-14.5) Platelet Count 214 x10^3/uL (140-400) Neutrophils (%) (Auto) 63 % (31-73) Lymphocytes (%) (Auto) 16 % (24-48) Monocytes (%) (Auto) 7 % (0-9) Eosinophils (%) (Auto) 13 % (0-3) Basophils (%) (Auto) 1 % (0-3) Neutrophils # (Auto) 5.7 x10^3/uL (1.8-7.7) Lymphocytes # (Auto) 1.4 x10^3/uL (1.0-4.8) Monocytes # (Auto) 0.6 x10^3/uL (0.0-1.1) Eosinophils # (Auto) 1.2 x10^3/uL (0.0-0.7) Basophils # (Auto) 0.1 x10^3/uL (0.0-0.2) Sodium Level 137 mmol/L (136-145) Potassium Level 4.4 mmol/L (3.5-5.1) Chloride Level 103 mmol/L (98-107) Carbon Dioxide Level 28 mmol/L (21-32) Anion Gap 6 (6-14) Blood Urea Nitrogen 52 mg/dL (7-20) Creatinine 1.7 mg/dL (0.6-1.0) Estimated GFR (Cockcroft-Gault) 28.7 BUN/Creatinine Ratio 31 (6-20) Glucose Level 145 mg/dL (70-99) Calcium Level 8.8 mg/dL (8.5-10.1) Magnesium Level 1.6 mg/dL (1.8-2.4) Total Bilirubin 0.3 mg/dL (0.2-1.0) Aspartate Amino Transf (AST/SGOT) 19 U/L (15-37) Alanine Aminotransferase (ALT/SGPT) 21 U/L (14-59) Alkaline Phosphatase 64 U/L (46-116) Total Protein 5.2 g/dL (6.4-8.2) Albumin 2.2 g/dL (3.4-5.0) Albumin/Globulin Ratio 0.7 (1.0-1.7) Laboratory Tests Test 12/01/19 11:46 12/01/19 16:41 12/01/19 17:25 12/01/19 21:15 Glucose (Fingerstick) 193 mg/dL (70-99) 213 mg/dL (70-99) 136 mg/dL (70-99) White Blood Count 9.0 x10^3/uL (4.0-11.0) Red Blood Count 3.70 x10^6/uL (3.50-5.40) Hemoglobin 11.4 g/dL (12.0-15.5) Hematocrit 34.6 % (36.0-47.0) Mean Corpuscular Volume 93 fL (79-100) Mean Corpuscular Hemoglobin 31 pg (25-35) Mean Corpuscular Hemoglobin Concent 33 g/dL (31-37) Red Cell Distribution Width 16.1 % (11.5-14.5) Platelet Count 250 x10^3/uL (140-400) Neutrophils (%) (Auto) 67 % (31-73) Lymphocytes (%) (Auto) 13 % (24-48) Monocytes (%) (Auto) 8 % (0-9) Eosinophils (%) (Auto) 11 % (0-3) Basophils (%) (Auto) 1 % (0-3) Neutrophils # (Auto) 6.0 x10^3/uL (1.8-7.7) Lymphocytes # (Auto) 1.2 x10^3/uL (1.0-4.8) Monocytes # (Auto) 0.7 x10^3/uL (0.0-1.1) Eosinophils # (Auto) 1.0 x10^3/uL (0.0-0.7) Basophils # (Auto) 0.1 x10^3/uL (0.0-0.2) Sodium Level 138 mmol/L (136-145) Potassium Level 4.6 mmol/L (3.5-5.1) Chloride Level 102 mmol/L (98-107) Carbon Dioxide Level 28 mmol/L (21-32) Anion Gap 8 (6-14) Blood Urea Nitrogen 58 mg/dL (7-20) Creatinine 1.9 mg/dL (0.6-1.0) Estimated GFR (Cockcroft-Gault) 25.2 BUN/Creatinine Ratio 31 (6-20) Glucose Level 225 mg/dL (70-99) Calcium Level 8.6 mg/dL (8.5-10.1) Total Bilirubin 0.2 mg/dL (0.2-1.0) Aspartate Amino Transf (AST/SGOT) 21 U/L (15-37) Alanine Aminotransferase (ALT/SGPT) 26 U/L (14-59) Alkaline Phosphatase 77 U/L (46-116) Total Protein 5.1 g/dL (6.4-8.2) Albumin 2.4 g/dL (3.4-5.0) Albumin/Globulin Ratio 0.9 (1.0-1.7) Test 9/11/20 04:15 12/02/19 08:00 White Blood Count 9.1 x10^3/uL (4.0-11.0) Red Blood Count 3.43 x10^6/uL (3.50-5.40) Hemoglobin 10.7 g/dL (12.0-15.5) Hematocrit 31.6 % (36.0-47.0) Mean Corpuscular Volume 92 fL (79-100) Mean Corpuscular Hemoglobin 31 pg (25-35) Mean Corpuscular Hemoglobin Concent 34 g/dL (31-37) Red Cell Distribution Width 15.6 % (11.5-14.5) Platelet Count 214 x10^3/uL (140-400) Neutrophils (%) (Auto) 63 % (31-73) Lymphocytes (%) (Auto) 16 % (24-48) Monocytes (%) (Auto) 7 % (0-9) Eosinophils (%) (Auto) 13 % (0-3) Basophils (%) (Auto) 1 % (0-3) Neutrophils # (Auto) 5.7 x10^3/uL (1.8-7.7) Lymphocytes # (Auto) 1.4 x10^3/uL (1.0-4.8) Monocytes # (Auto) 0.6 x10^3/uL (0.0-1.1) Eosinophils # (Auto) 1.2 x10^3/uL (0.0-0.7) Basophils # (Auto) 0.1 x10^3/uL (0.0-0.2) Sodium Level 137 mmol/L (136-145) Potassium Level 4.4 mmol/L (3.5-5.1) Chloride Level 103 mmol/L (98-107) Carbon Dioxide Level 28 mmol/L (21-32) Anion Gap 6 (6-14) Blood Urea Nitrogen 52 mg/dL (7-20) Creatinine 1.7 mg/dL (0.6-1.0) Estimated GFR (Cockcroft-Gault) 28.7 BUN/Creatinine Ratio 31 (6-20) Glucose Level 145 mg/dL (70-99) Calcium Level 8.8 mg/dL (8.5-10.1) Magnesium Level 1.6 mg/dL (1.8-2.4) Total Bilirubin 0.3 mg/dL (0.2-1.0) Aspartate Amino Transf (AST/SGOT) 19 U/L (15-37) Alanine Aminotransferase (ALT/SGPT) 21 U/L (14-59) Alkaline Phosphatase 64 U/L (46-116) Total Protein 5.2 g/dL (6.4-8.2) Albumin 2.2 g/dL (3.4-5.0) Albumin/Globulin Ratio 0.7 (1.0-1.7) Glucose (Fingerstick) 140 mg/dL (70-99) Microbiology 11/27/19 Blood Culture - Preliminary, Resulted NO GROWTH AFTER 4 DAYS 11/27/19 Gram Stain - Final, Complete 11/27/19 Aerobic Culture - Final, Complete 11/27/19 Antimicrobic Susceptibility - Final, Complete Medications Current Medications Vancomycin HCl (Vanco Per Pharmacy) 1 each PRN DAILY PRN MC SEE COMMENTS; Start 11/27/19 at 10:45; Stop 11/28/19 at 14:29; Status DC Ceftriaxone Sodium (Rocephin) 1 gm 1X ONCE IVP Last administered on 11/27/19at 11:19; Start 11/27/19 at 10:45; Stop 11/27/19 at 10:51; Status DC Vancomycin HCl 2 gm/Sodium Chloride 500 ml @ 250 mls/hr 1X ONCE IV Last administered on 11/27/19at 11:18; Start 11/27/19 at 11:00; Stop 11/27/19 at 12:59; Status DC Ondansetron HCl (Zofran) 4 mg 1X ONCE IVP Last administered on 11/27/19at 11:19; Start 11/27/19 at 11:15; Stop 11/27/19 at 11:16; Status DC Fentanyl Citrate (Fentanyl 2ml Vial) 50 mcg 1X ONCE IV Last administered on 11/27/19at 11:20; Start 11/27/19 at 11:15; Stop 11/27/19 at 11:16; Status DC Ondansetron HCl (Zofran) 4 mg STK-MED ONCE .ROUTE ; Start 11/27/19 at 11:15; Stop 11/27/19 at 11:15; Status DC Fentanyl Citrate (Fentanyl 2ml Vial) 100 mcg STK-MED ONCE .ROUTE ; Start 11/27/19 at 11:15; Stop 11/27/19 at 11:16; Status DC Calcium Gluconate (Calcium Gluconate) 1,000 mg 1X ONCE IVP Last administered on 11/27/19at 13:41; Start 11/27/19 at 12:15; Stop 11/27/19 at 12:17; Status DC Dextrose (Dextrose 50%-Water Syringe) 25 gm 1X ONCE IV Last administered on 11/27/19at 13:42; Start 11/27/19 at 12:15; Stop 11/27/19 at 12:17; Status DC Insulin Human Regular (HumuLIN R VIAL) 10 unit 1X ONCE IV Last administered on 11/27/19at 13:43; Start 11/27/19 at 12:15; Stop 11/27/19 at 12:17; Status DC Ondansetron HCl (Zofran) 4 mg PRN Q8HRS PRN IV NAUSEA/VOMITING; Start 11/27/19 at 12:30; Stop 11/27/19 at 18:44; Status DC Fentanyl Citrate (Fentanyl 2ml Vial) 25 mcg PRN Q2HR PRN IV PAIN Last administered on 11/29/19at 05:37; Start 11/27/19 at 12:30 Acetaminophen (Tylenol) 650 mg PRN Q4HRS PRN PO FEVER > 100.3'F; Start 11/27/19 at 12:30; Stop 11/28/19 at 12:29; Status DC Insulin Human Lispro (HumaLOG) 0-5 UNITS TIDWMEALS SQ Last administered on 11/27/19at 17:03; Start 11/27/19 at 17:00; Stop 11/27/19 at 18:53; Status DC Dextrose (Dextrose 50%-Water Syringe) 12.5 gm PRN Q15MIN PRN IV SEE COMMENTS; Start 11/27/19 at 12:30; Stop 11/27/19 at 18:52; Status DC Multi-Ingredient Mouthwash/Gargle (Gi Cocktail) 20 ml 1X ONCE SWSW Last administered on 11/27/19at 13:43; Start 11/27/19 at 13:00; Stop 11/27/19 at 13:01; Status DC Pantoprazole Sodium (PROTONIX VIAL for IV PUSH) 40 mg 1X ONCE IVP Last administered on 11/27/19at 13:43; Start 11/27/19 at 13:00; Stop 11/27/19 at 13:01; Status DC Sodium Bicarbonate 75 meq/Sodium Chloride 1,075 ml @ 125 mls/hr 1X ONCE IV Last administered on 11/27/19at 13:30; Start 11/27/19 at 13:30; Stop 11/27/19 at 22:05; Status DC Albuterol Sulfate (Ventolin Neb Soln) 10 mg 1X ONCE CONT NEB ; Start 11/27/19 at 13:30; Stop 11/27/19 at 14:01; Status DC Albuterol Sulfate (Ventolin Neb Soln) 10 mg 1X ONCE NEB Last administered on 11/27/19at 14:03; Start 11/27/19 at 14:00; Stop 11/27/19 at 14:03; Status DC Ondansetron HCl (Zofran) 4 mg PRN Q6HRS PRN IVP NAUSEA/VOMITING Last administered on 11/30/19at 09:16; Start 11/27/19 at 18:45 Heparin Sodium (Porcine) (Heparin Sodium) 5,000 unit Q12HR SQ Last administered on 12/01/19at 21:58; Start 11/27/19 at 21:00 Sodium Chloride 1,000 ml @ 100 mls/hr Q10H IV Last administered on 11/30/19at 03:36; Start 11/27/19 at 18:45; Stop 11/30/19 at 14:26; Status DC Insulin Human Lispro (HumaLOG) 0-5 UNITS TIDWMEALS SQ Last administered on 12/01/19at 17:10; Start 11/28/19 at 08:00 Dextrose (Dextrose 50%-Water Syringe) 12.5 gm PRN Q15MIN PRN IV SEE COMMENTS; Start 11/27/19 at 18:45 Pantoprazole Sodium (Protonix) 40 mg DAILYAC PO Last administered on 12/02/19at 07:37; Start 11/28/19 at 07:30 Allopurinol (Zyloprim) 100 mg BIDAFTMEAL PO Last administered on 12/01/19at 17:58; Start 11/27/19 at 21:00 Clonidine HCl (Catapres) 0.1 mg BID PO Last administered on 12/01/19at 21:49; Start 9/6/20 at 21:00 Furosemide (Lasix) 20 mg DAILY PO Last administered on 11/29/19 09:12; Start 11/28/19 at 09:00; Stop 11/29/19 at 12:49; Status DC Lactobacillus Rhamnosus (Culturelle) 1 cap BID PO Last administered on 12/01/19at 21:49; Start 11/27/19 at 21:00 Loperamide HCl (Immodium Oral Susp) 1 mg HS PO ; Start 11/27/19 at 21:00 Metolazone (Zaroxolyn) 2.5 mg QODAY PO Last administered on 11/29/19 09:11; Start 11/29/19 at 09:00; Stop 11/29/19 at 12:49; Status DC Simvastatin (Zocor) 20 mg QHS PO Last administered on 12/01/19at 21:49; Start 11/27/19 at 21:00 Lisinopril (Prinivil) 20 mg BID PO Last administered on 11/29/19at 09:12; Start 11/27/19 at 21:00; Stop 11/29/19 at 12:49; Status DC Verapamil HCl (Calan Sr) 240 mg DAILY PO Last administered on 12/01/19at 09:53; Start 11/28/19 at 09:00 Hydrochlorothiazide (Hydrodiuril) 25 mg BID PO Last administered on 11/29/19at 09:11; Start 11/27/19 at 21:00; Stop 11/29/19 at 12:49; Status DC Ceftriaxone Sodium (Rocephin) 2 gm Q24H IVP Last administered on 11/29/19at 17:27; Start 11/28/19 at 17:00; Stop 11/30/19 at 10:54; Status DC Oxycodone/ Acetaminophen (Percocet 5/325) 1 tab PRN Q6HRS PRN PO PAIN Last administered on 11/30/19at 16:10; Start 11/28/19 at 18:00 Daptomycin 500 mg/ Sodium Chloride 50 ml @ 100 mls/hr ONCE ONCE IV Last administered on 11/29/19at 10:55; Start 11/29/19 at 09:30; Stop 11/29/19 at 09:59; Status DC Furosemide (Lasix) 40 mg 1X ONCE IVP ; Start 11/29/19 at 14:00; Stop 11/29/19 at 14:01; Status Cancel Levofloxacin/ Dextrose 100 ml @ 100 mls/hr 1X ONCE IV Last administered on 11/30/19at 11:29; Start 11/30/19 at 11:30; Stop 11/30/19 at 12:29; Status DC Ascorbic Acid (Vitamin C) 500 mg DAILY PO Last administered on 12/01/19at 09:52; Start 12/01/19 at 09:00 Multivitamins (Thera M Plus) 1 tab DAILY PO Last administered on 12/01/19at 09:52; Start 12/01/19 at 09:00 Furosemide (Lasix) 40 mg DAILY PO Last administered on 12/01/19at 09:52; Start 11/30/19 at 15:00 Metolazone (Zaroxolyn) 2.5 mg DAILY PO Last administered on 12/01/19at 12:07; Start 12/01/19 at 12:00 Daptomycin 500 mg/ Sodium Chloride 50 ml @ 100 mls/hr Q48H IV Last administer ed on 12/01/19at 15:48; Start 12/01/19 at 16:00 Active Scripts Active Reported Novolog (Insulin Aspart) 100 Unit/1 Ml Cartridge 5 Unit SQ BID Levemir (Insulin Detemir) 100 Unit/1 Ml Vial 22 Unit SQ DAILY Metolazone 2.5 Mg Tablet 2.5 Mg PO QODAY Zyrtec (Cetirizine Hcl) 10 Mg Tablet 1 Tab PO DAILY Furosemide 20 Mg Tablet 1 Tab PO DAILY Prednisone 1 Mg Tablet 3 Mg PO DAILY Alendronate Sodium 70 Mg Tablet 1 Tab PO WEEKLY Multivitamin 1 Each Tablet 1 Each PO DAILY Culturelle (Lactobacillus Rhamnosus Gg) 1 Each Cap.sprink 1 Cap PO BID 30 Days Bactrim 400-80 Mg Tablet (Sulfamethoxazole/Trimethoprim) 1 Each Tablet 2 Tab PO BID 7 Days Potassium Chloride (Potassium Chloride) 10 Meq Tab.sr.24h 10 Meq PO DAILY Verapamil Er (Verapamil Hcl) 240 Mg Cap24h.pel 1 Cap PO DAILY Clonidine Hcl 0.1 Mg Tablet 0.1 Mg PO BID Simvastatin 20 Mg Tablet 1 Tab PO QHS Lisinopril-Hctz 20-25 Mg Tab (Lisinopril/Hydrochlorothiazide) 1 Each Tablet 1 Tab PO BID Allopurinol 100 Mg Tablet 1 Tab PO BID Aspirin 81 Mg Tab.chew 1 Tab PO DAILY Fish Oil 1,000 Mg Capsule ([place]-3 Fatty Acids/Fish Oil) 1 Each Capsule 1 Each PO DAILY Imodium A-D (Loperamide Hcl) 1 Mg/7.5 Ml Liquid 1 Mg PO HS Vitals/I & O Vital Sign - Last 24 Hours 12/01/19 12/01/19 12/01/19 12/01/19 09:53 09:53 11:00 15:00 Temp 97.9 98.0 97.9 98.0 Pulse 95 95 84 72 Resp 18 18 B/P (MAP) 179/63 179/63 142/65 (90) 127/49 (75) Pulse Ox 95 97 12/01/19 12/01/19 12/01/19 12/01/19 19:00 20:28 21:49 23:00 Temp 98.4 98.1 98.4 98.1 Pulse 80 80 76 Resp 18 18 B/P (MAP) 134/77 (96) 134/77 136/61 (86) Pulse Ox 94 92 O2 Delivery Room Air Room Air Room Air 12/02/19 03:00 Temp 98.1 98.1 Pulse 88 Resp 18 B/P (MAP) 135/61 (85) Pulse Ox 93 O2 Delivery Room Air Intake and Output 12/01/19 12/01/19 12/02/19 15:00 23:00 07:00 Intake Total 120 ml Balance 120 ml Nutrition Consultation Dietary Evaluation: Recommendations by RD: Dietary education by RD, Protein supplementation Comments: Recommend continuing ADA Renal diet and sending Nepro with breakfast and dinner for protein/ watching renal labs. MVI and Vit C in place per wound protocol Expected Outcomes/Goals: increase PO intake to meet 75% estimated needs Malnutrition Findings: Food and Nutrition Intake (Mod: <75% est energy req 7days Weight Status: Obese Fluid Accumulation (Non-Severe: Mild depletion Justicifation of Admission Dx: Justifications for Admission: Justification of Admission Dx: Yes PHUONG SAPP MD Dec 02, 2019 08:42
[2019-12-02 09:10] LABS: % BANDS 5 % (0-9); % BASOS 2 % (0-3); % EOS 14 % (0-5); % LYMPHS 13 % (24-48); % MONOS 4 % (0-10); % SEGS 62 % (35-66)
[2019-12-02 09:13] LABS: ANISOCYTOSIS SLIGHT; PLT ESTIMATE ADEQUATE (ADEQUATE)
[2019-12-02] MEDS: MULTIVITAMIN with MINERAL TABLET. PO SCH (09:25)
[2019-12-02] MEDS: FUROSEMIDE 40 MG TABLET. PO SCH (09:25)
[2019-12-02] MEDS: LACTOBACILLUS RHAMNOSUS GG 1 CAPSULE. PO SCH (09:25)
[2019-12-02] MEDS: ALLOPURINOL 100 MG TABLET. PO SCH (09:25)
[2019-12-02] MEDS: cloNIDine HCL 0.1 MG TABLET PO SCH (09:25)
[2019-12-02] MEDS: metOLazone 2.5 MG TABLET PO SCH (09:25)
[2019-12-02] MEDS: VERAPAMIL SR 120 MG TABLET.ER. PO SCH (09:25)
[2019-12-02] MEDS: ASCORBIC ACID 500 MG TABLET PO SCH (09:26)
[2019-12-02] MEDS: HEPARIN for SUB-Q USE 5,000 UNIT/ML VIAL. SQ SCH (09:36)
--- NOTE | 2019-12-02 10:28 | NUR ---
SW following. Discussed with RN, pt from home with daughter, room air, renal diet. PT/OT still recommending home. Pt getting IV Dapto q48, awaiting final abx determination from ID. Anticipate possible discharge home today. SW will continue to follow for any discharge planning needs. Addendum: 12/02/19 at 1238 by DEYA NG SW Discharge order for home health for wound care x 1 day a week. Bernarda Rosas RN met with pt, [facility] today with daughter and oral abx.
--- NOTE | 2019-12-02 10:46 | PDOC ---
Infectious Disease Note Subjective Subjective Feeling well. Ate this am. small Bm No N/V/D/SOA/rash Legs better ROS ROS ow neg Vital Sign Vital Signs Vital Signs Date Time Temp Pulse Resp B/P (MAP) Pulse Ox O2 Delivery O2 Flow Rate FiO2 12/02/19 09:25 85 131/62 12/02/19 08:15 Room Air 12/02/19 07:30 97.9 16 95 97.9 Physical Exam PHYSICAL EXAM CONSTITUTIONAL: She is cooperative. She is in no acute distress. She looks comfortable. She is in a chair and looks well HEENT: Pupils equal and reactive. She has normal conjunctivae. Oral cavity, pharynx is clear. She has dentures. NECK: Supple, no JVD. LUNGS: Decreased in the bases. HEART: S1, S2. ABDOMEN: Soft, no guarding. Obese. EXTREMITIES: Without clubbing, cyanosis. Her right lower extremity has 1 + edema, her left has 1+. . Wound is clean and infection practically resolved. No tracking SKIN: Otherwise, warm to touch without signs of rash. NEUROLOGIC: She is nonfocal, moves all extremities, answers questions appropriately. PSYCHIATRIC: Affect is very pleasant. Labs Lab Laboratory Tests Test 12/01/19 11:46 12/01/19 16:41 12/01/19 17:25 12/01/19 21:15 Glucose (Fingerstick) 193 mg/dL (70-99) 213 mg/dL (70-99) 136 mg/dL (70-99) White Blood Count 9.0 x10^3/uL (4.0-11.0) Red Blood Count 3.70 x10^6/uL (3.50-5.40) Hemoglobin 11.4 g/dL (12.0-15.5) Hematocrit 34.6 % (36.0-47.0) Mean Corpuscular Volume 93 fL (79-100) Mean Corpuscular Hemoglobin 31 pg (25-35) Mean Corpuscular Hemoglobin Concent 33 g/dL (31-37) Red Cell Distribution Width 16.1 % (11.5-14.5) Platelet Count 250 x10^3/uL (140-400) Neutrophils (%) (Auto) 67 % (31-73) Lymphocytes (%) (Auto) 13 % (24-48) Monocytes (%) (Auto) 8 % (0-9) Eosinophils (%) (Auto) 11 % (0-3) Basophils (%) (Auto) 1 % (0-3) Neutrophils # (Auto) 6.0 x10^3/uL (1.8-7.7) Lymphocytes # (Auto) 1.2 x10^3/uL (1.0-4.8) Monocytes # (Auto) 0.7 x10^3/uL (0.0-1.1) Eosinophils # (Auto) 1.0 x10^3/uL (0.0-0.7) Basophils # (Auto) 0.1 x10^3/uL (0.0-0.2) Sodium Level 138 mmol/L (136-145) Potassium Level 4.6 mmol/L (3.5-5.1) Chloride Level 102 mmol/L (98-107) Carbon Dioxide Level 28 mmol/L (21-32) Anion Gap 8 (6-14) Blood Urea Nitrogen 58 mg/dL (7-20) Creatinine 1.9 mg/dL (0.6-1.0) Estimated GFR (Cockcroft-Gault) 25.2 BUN/Creatinine Ratio 31 (6-20) Glucose Level 225 mg/dL (70-99) Calcium Level 8.6 mg/dL (8.5-10.1) Total Bilirubin 0.2 mg/dL (0.2-1.0) Aspartate Amino Transf (AST/SGOT) 21 U/L (15-37) Alanine Aminotransferase (ALT/SGPT) 26 U/L (14-59) Alkaline Phosphatase 77 U/L (46-116) Total Protein 5.1 g/dL (6.4-8.2) Albumin 2.4 g/dL (3.4-5.0) Albumin/Globulin Ratio 0.9 (1.0-1.7) Test 12/02/19 04:15 12/02/19 08:00 White Blood Count 9.1 x10^3/uL (4.0-11.0) Red Blood Count 3.43 x10^6/uL (3.50-5.40) Hemoglobin 10.7 g/dL (12.0-15.5) Hematocrit 31.6 % (36.0-47.0) Mean Corpuscular Volume 92 fL (79-100) Mean Corpuscular Hemoglobin 31 pg (25-35) Mean Corpuscular Hemoglobin Concent 34 g/dL (31-37) Red Cell Distribution Width 15.6 % (11.5-14.5) Platelet Count 214 x10^3/uL (140-400) Neutrophils (%) (Auto) 63 % (31-73) Lymphocytes (%) (Auto) 16 % (24-48) Monocytes (%) (Auto) 7 % (0-9) Eosinophils (%) (Auto) 13 % (0-3) Basophils (%) (Auto) 1 % (0-3) Neutrophils # (Auto) 5.7 x10^3/uL (1.8-7.7) Lymphocytes # (Auto) 1.4 x10^3/uL (1.0-4.8) Monocytes # (Auto) 0.6 x10^3/uL (0.0-1.1) Eosinophils # (Auto) 1.2 x10^3/uL (0.0-0.7) Basophils # (Auto) 0.1 x10^3/uL (0.0-0.2) Segmented Neutrophils % 62 % (35-66) Band Neutrophils % 5 % (0-9) Lymphocytes % 13 % (24-48) Monocytes % 4 % (0-10) Eosinophils % 14 % (0-5) Basophils % 2 % (0-3) Platelet Estimate Adequate (ADEQUATE) Anisocytosis Slight Sodium Level 137 mmol/L (136-145) Potassium Level 4.4 mmol/L (3.5-5.1) Chloride Level 103 mmol/L (98-107) Carbon Dioxide Level 28 mmol/L (21-32) Anion Gap 6 (6-14) Blood Urea Nitrogen 52 mg/dL (7-20) Creatinine 1.7 mg/dL (0.6-1.0) Estimated GFR (Cockcroft-Gault) 28.7 BUN/Creatinine Ratio 31 (6-20) Glucose Level 145 mg/dL (70-99) Calcium Level 8.8 mg/dL (8.5-10.1) Magnesium Level 1.6 mg/dL (1.8-2.4) Total Bilirubin 0.3 mg/dL (0.2-1.0) Aspartate Amino Transf (AST/SGOT) 19 U/L (15-37) Alanine Aminotransferase (ALT/SGPT) 21 U/L (14-59) Alkaline Phosphatase 64 U/L (46-116) Total Protein 5.2 g/dL (6.4-8.2) Albumin 2.2 g/dL (3.4-5.0) Albumin/Globulin Ratio 0.7 (1.0-1.7) Glucose (Fingerstick) 140 mg/dL (70-99) Micro Preliminary MANY GRAM POSITIVE COCCI on 11/29/19 at 1236 FINAL ID= [STAPHYLOCOCCUS AUREUS] Testing Performed by: [address] [address] For Inquires, the Physician may contact the Microbiology department at [phone] STAPHYLOCOCCUS AUREUS MODERATE [STAPHYLOCOCCUS AUREUS] MODERATE [ENTEROCOCCUS FAECALIS] MODERATE [STENOTROPHOMONAS MALTOPHILIA] Testing Performed by: Microbiology 11/27/19 Blood Culture - Preliminary, Resulted NO GROWTH AFTER 1 DAY 11/27/19 Gram Stain - Final, Resulted 11/27/19 Aerobic Culture, Resulted Pending Objective Assessment B LE cellulitis MRSA/XMAL ETHAN on CKD DM Plan Plan of Care Clinically improving Redose Levoflox times one Discont Daptomycin ok to d/c home and f/u with C. D/w Dr. nUderwood and Dr. Pruitt D/w nursing and daughter DELMI PENA MD Dec 02, 2019 10:46
[2019-12-02 11:00] VITALS: BP 120/66
--- NOTE | 2019-12-02 11:06 | PDOC3 ---
Discharge Summary Date of Admission: Nov 27, 2019 Date of Discharge: Dec 02, 2019 Follow-Up: 1-2 days Admitting Diagnosis comment: impression Sepsis due to Bilateral lower extremity cellulitis Hypertension Diabetes, SUBOPTIMAL CONTROL Acute electrolyte derangement, improved hyperkalemia, Hyponatremia Acute on Chronic Kidney Disease Severe protein malnutrition elevated peak systolic velocity of the common femoral artery, 214 cm/s. No other elevated peak systolic velocity is identified. c/w PVD Moderate to severe hallux valgus deformity. PLAN A/P: Wound cultures, wound care consult, start IV daptomycin, ID CONSULT . IV normal saline, consult to Nephrology. IV insulin prn hyperkalemia. We will hold metolazone, HCTZ, and lisinopril due to kidney function will defer to nephrology for further management of renal function and blood pressure management hold Lasix due to worsening kidney function. Zofran prn. Sliding scale insulin, HbA1c pending. Diabetic diet, Heparin for VTE prophylaxis Full Code. DPOA is 12/01 CR BETTER AT 1.7 D/W RN d/c planning 32 min History of Present Illness History of Present Illness History of Present Illness Patient is a 84 yo female with PMHx DM2, who presents with complaint of worsening bilateral leg cellulitis for the past 2 weeks. Patient states she has been treated by her PCP with oral antibiotics, without improvement. She takes daily metolazone and lasix for leg edema, with oral potassium replacement three times daily. She notes a history of a bleeding peptic ulcer, and admits to some nausea and acid reflux.She denies any fever, chest pain, or SOB. 11/29/2019 No acute events overnight. Vitals Vitals Vital Signs Date Time Temp Pulse Resp B/P (MAP) Pulse Ox O2 Delivery O2 Flow Rate FiO2 12/02/19 03:00 98.1 88 18 135/61 (85) 93 Room Air 98.1 Physical Exam Physical Exam CONSTITUTIONAL: She is cooperative. She is in no acute distress. She looks comfortable. She is in a chair and looks well HEENT: Pupils equal and reactive. She has normal conjunctivae. Oral cavity, pharynx is clear. She has dentures. NECK: Supple, no JVD. LUNGS: Decreased in the bases. HEART: S1, S2. ABDOMEN: Soft, no guarding. Obese. EXTREMITIES: Without clubbing, cyanosis. Her right lower extremity has 1 + edema, her left has 1+. Dressed. No tracking SKIN: Otherwise, warm to touch without signs of rash. NEUROLOGIC: She is nonfocal, moves all extremities, answers questions appropriately. PSYCHIATRIC: Affect is very pleasant. General: Alert, Oriented X3, Cooperative, No acute distress Heart: Regular rate, Normal S1 Lungs: Clear Abdomen: Normal bowel sounds, Soft, Other (men) Extremities: No clubbing, No cyanosis, Other (2+ pitting edema to bilateral lower extremities) Skin: Other (cellulitis improving Labs LABS ESC: ORDERED: BCULT -- Procedure Result BLOOD CULTURE Preliminary NO GROWTH AFTER 4 DAYS - FINAL DIAGNOSIS Problems Medical Problems: (1) Acute on chronic renal failure Status: Acute (2) Cellulitis Status: Acute (3) Failure of outpatient treatment Status: Acute (4) Hyperkalemia Status: Acute Brief Hospital Course Ms. Quezada is a 84 old [sex] who presented with [ acute real failure, cellulitis ] CONDITION AT DISCHARGE: Improved Discharge Medications Current Medications Vancomycin HCl (Vanco Per Pharmacy) 1 each PRN DAILY PRN MC SEE COMMENTS; Start 11/27/19 at 10:45; Stop 11/28/19 at 14:29; Status DC Ceftriaxone Sodium (Rocephin) 1 gm 1X ONCE IVP Last administered on 11/27/19at 11:19; Start 11/27/19 at 10:45; Stop 11/27/19 at 10:51; Status DC Vancomycin HCl 2 gm/Sodium Chloride 500 ml @ 250 mls/hr 1X ONCE IV Last administered on 11/27/19at 11:18; Start 11/27/19 at 11:00; Stop 11/27/19 at 12:59; Status DC Ondansetron HCl (Zofran) 4 mg 1X ONCE IVP Last administered on 11/27/19at 11:19; Start 11/27/19 at 11:15; Stop 11/27/19 at 11:16; Status DC Fentanyl Citrate (Fentanyl 2ml Vial) 50 mcg 1X ONCE IV Last administered on 11/27/19at 11:20; Start 11/27/19 at 11:15; Stop 11/27/19 at 11:16; Status DC Ondansetron HCl (Zofran) 4 mg STK-MED ONCE .ROUTE ; Start 11/27/19 at 11:15; Stop 11/27/19 at 11:15; Status DC Fentanyl Citrate (Fentanyl 2ml Vial) 100 mcg STK-MED ONCE .ROUTE ; Start 11/27/19 at 11:15; Stop 11/27/19 at 11:16; Status DC Calcium Gluconate (Calcium Gluconate) 1,000 mg 1X ONCE IVP Last administered on 11/27/19at 13:41; Start 11/27/19 at 12:15; Stop 11/27/19 at 12:17; Status DC Dextrose (Dextrose 50%-Water Syringe) 25 gm 1X ONCE IV Last administered on 11/27/19at 13:42; Start 11/27/19 at 12:15; Stop 11/27/19 at 12:17; Status DC Insulin Human Regular (HumuLIN R VIAL) 10 unit 1X ONCE IV Last administered on 11/27/19at 13:43; Start 11/27/19 at 12:15; Stop 11/27/19 at 12:17; Status DC Ondansetron HCl (Zofran) 4 mg PRN Q8HRS PRN IV NAUSEA/VOMITING; Start 11/27/19 at 12:30; Stop 11/27/19 at 18:44; Status DC Fentanyl Citrate (Fentanyl 2ml Vial) 25 mcg PRN Q2HR PRN IV PAIN Last administered on 11/29/19at 05:37; Start 11/27/19 at 12:30 Acetaminophen (Tylenol) 650 mg PRN Q4HRS PRN PO FEVER > 100.3'F; Start 11/27/19 at 12:30; Stop 11/28/19 at 12:29; Status DC Insulin Human Lispro (HumaLOG) 0-5 UNITS TIDWMEALS SQ Last administered on 11/27/19at 17:03; Start 11/27/19 at 17:00; Stop 11/27/19 at 18:53; Status DC Dextrose (Dextrose 50%-Water Syringe) 12.5 gm PRN Q15MIN PRN IV SEE COMMENTS; Start 11/27/19 at 12:30; Stop 11/27/19 at 18:52; Status DC Multi-Ingredient Mouthwash/Gargle (Gi Cocktail) 20 ml 1X ONCE SWSW Last administered on 11/27/19at 13:43; Start 11/27/19 at 13:00; Stop 11/27/19 at 13:01; Status DC Pantoprazole Sodium (PROTONIX VIAL for IV PUSH) 40 mg 1X ONCE IVP Last administered on 11/27/19at 13:43; Start 11/27/19 at 13:00; Stop 11/27/19 at 13:01; Status DC Sodium Bicarbonate 75 meq/Sodium Chloride 1,075 ml @ 125 mls/hr 1X ONCE IV Last administered on 11/27/19at 13:30; Start 11/27/19 at 13:30; Stop 11/27/19 at 22:05; Status DC Albuterol Sulfate (Ventolin Neb Soln) 10 mg 1X ONCE CONT NEB ; Start 11/27/19 at 13:30; Stop 11/27/19 at 14:01; Status DC Albuterol Sulfate (Ventolin Neb Soln) 10 mg 1X ONCE NEB Last administered on 11/27/19 14:03; Start 11/27/19 at 14:00; Stop 11/27/19 at 14:03; Status DC Ondansetron HCl (Zofran) 4 mg PRN Q6HRS PRN IVP NAUSEA/VOMITING Last administered on 11/30/19 09:16; Start 11/27/19 at 18:45 Heparin Sodium (Porcine) (Heparin Sodium) 5,000 unit Q12HR SQ Last administered on 12/02/19 09:36; Start 11/27/19 at 21:00 Sodium Chloride 1,000 ml @ 100 mls/hr Q10H IV Last administered on 11/30/19 03:36; Start 11/27/19 at 18:45; Stop 11/30/19 at 14:26; Status DC Insulin Human Lispro (HumaLOG) 0-5 UNITS TIDWMEALS SQ Last administered on 12/01/19at 17:10; Start 11/28/19 at 08:00 Dextrose (Dextrose 50%-Water Syringe) 12.5 gm PRN Q15MIN PRN IV SEE COMMENTS; Start 11/27/19 at 18:45 Pantoprazole Sodium (Protonix) 40 mg DAILYAC PO Last administered on 12/02/19 07:37; Start 11/28/19 at 07:30 Allopurinol (Zyloprim) 100 mg BIDAFTMEAL PO Last administered on 12/02/19 09:25; Start 11/27/19 at 21:00 Clonidine HCl (Catapres) 0.1 mg BID PO Last administered on 12/02/19 09:25; Start 11/27/19 at 21:00 Furosemide (Lasix) 20 mg DAILY PO Last administered on 11/29/19 09:12; Start 11/28/19 at 09:00; Stop 11/29/19 at 12:49; Status DC Lactobacillus Rhamnosus (Culturelle) 1 cap BID PO Last administered on 12/02/19 09:25; Start 11/27/19 at 21:00 Loperamide HCl (Immodium Oral Susp) 1 mg HS PO ; Start 11/27/19 at 21:00 Metolazone (Zaroxolyn) 2.5 mg QODAY PO Last administered on 11/29/19 09:11; Start 11/29/19 at 09:00; Stop 11/29/19 at 12:49; Status DC Simvastatin (Zocor) 20 mg QHS PO Last administered on 12/01/19at 21:49; Start 11/27/19 at 21:00 Lisinopril (Prinivil) 20 mg BID PO Last administered on 11/29/19at 09:12; Start 11/27/19 at 21:00; Stop 11/29/19 at 12:49; Status DC Verapamil HCl (Calan Sr) 240 mg DAILY PO Last administered on 12/02/19 09:25; Start 11/28/19 at 09:00 Hydrochlorothiazide (Hydrodiuril) 25 mg BID PO Last administered on 11/29/19at 09:11; Start 11/27/19 at 21:00; Stop 11/29/19 at 12:49; Status DC Ceftriaxone Sodium (Rocephin) 2 gm Q24H IVP Last administered on 11/29/19at 17:27; Start 11/28/19 at 17:00; Stop 11/30/19 at 10:54; Status DC Oxycodone/ Acetaminophen (Percocet 5/325) 1 tab PRN Q6HRS PRN PO PAIN Last administered on 11/30/19at 16:10; Start 11/28/19 at 18:00 Daptomycin 500 mg/ Sodium Chloride 50 ml @ 100 mls/hr ONCE ONCE IV Last administered on 11/29/19at 10:55; Start 11/29/19 at 09:30; Stop 11/29/19 at 09:59; Status DC Furosemide (Lasix) 40 mg 1X ONCE IVP ; Start 11/29/19 at 14:00; Stop 11/29/19 at 14:01; Status Cancel Levofloxacin/ Dextrose 100 ml @ 100 mls/hr 1X ONCE IV Last administered on 11/30/19at 11:29; Start 11/30/19 at 11:30; Stop 11/30/19 at 12:29; Status DC Ascorbic Acid (Vitamin C) 500 mg DAILY PO Last administered on 12/02/19at 09:26; Start 12/01/19 at 09:00 Multivitamins (Thera M Plus) 1 tab DAILY PO Last administered on 12/02/19at 09:25; Start 12/01/19 at 09:00 Furosemide (Lasix) 40 mg DAILY PO Last administered on 12/02/19at 09:25; Start 11/30/19 at 15:00 Metolazone (Zaroxolyn) 2.5 mg DAILY PO Last administered on 12/02/19at 09:25; Start 12/01/19 at 12:00 Daptomycin 500 mg/ Sodium Chloride 50 ml @ 100 mls/hr Q48H IV Last administered on 12/01/19at 15:48; Start 12/01/19 at 16:00; Stop 12/02/19 at 10:47; Status DC Levofloxacin (Levaquin) 500 mg 1X ONCE PO ; Start 12/02/19 at 10:45; Stop 12/02/19 at 10:48; Status DC Active Scripts Active Reported Novolog (Insulin Aspart) 100 Unit/1 Ml Cartridge 5 Unit SQ BID Levemir (Insulin Detemir) 100 Unit/1 Ml Vial 22 Unit SQ DAILY Metolazone 2.5 Mg Tablet 2.5 Mg PO QODAY Zyrtec (Cetirizine Hcl) 10 Mg Tablet 1 Tab PO DAILY Furosemide 20 Mg Tablet 1 Tab PO DAILY Prednisone 1 Mg Tablet 3 Mg PO DAILY Alendronate Sodium 70 Mg Tablet 1 Tab PO WEEKLY Multivitamin 1 Each Tablet 1 Each PO DAILY Culturelle (Lactobacillus Rhamnosus Gg) 1 Each Cap.sprink 1 Cap PO BID 30 Days Bactrim 400-80 Mg Tablet (Sulfamethoxazole/Trimethoprim) 1 Each Tablet 2 Tab PO BID 7 Days Potassium Chloride (Potassium Chloride) 10 Meq Tab.sr.24h 10 Meq PO DAILY Verapamil Er (Verapamil Hcl) 240 Mg Cap24h.pel 1 Cap PO DAILY Clonidine Hcl 0.1 Mg Tablet 0.1 Mg PO BID Simvastatin 20 Mg Tablet 1 Tab PO QHS Lisinopril-Hctz 20-25 Mg Tab (Lisinopril/Hydrochlorothiazide) 1 Each Tablet 1 Tab PO BID Allopurinol 100 Mg Tablet 1 Tab PO BID Aspirin 81 Mg Tab.chew 1 Tab PO DAILY Fish Oil 1,000 Mg Capsule ([place]-3 Fatty Acids/Fish Oil) 1 Each Capsule 1 Each PO DAILY Imodium A-D (Loperamide Hcl) 1 Mg/7.5 Ml Liquid 1 Mg PO HS Vital Signs Vital Signs Date Time Temp Pulse Resp B/P (MAP) Pulse Ox O2 Delivery O2 Flow Rate FiO2 12/02/19 09:25 85 131/62 12/02/19 08:15 Room Air 12/02/19 07:30 97.9 16 95 97.9 Labs Laboratory Tests Test 11/30/19 12:10 11/30/19 13:17 11/30/19 17:00 11/30/19 20:19 Glucose (Fingerstick) 169 mg/dL (70-99) 131 mg/dL (70-99) 190 mg/dL (70-99) Urine Collection Type Unknown Urine Color Yellow Urine Clarity Clear Urine pH 5.0 (<5.0-8.0) Urine Specific [place] 1.010 (1.000-1.030) Urine Protein Negative mg/dL (NEG-TRACE) Urine Glucose (UA) Negative mg/dL (NEG) Urine Ketones (Stick) Negative mg/dL (NEG) Urine Blood Negative (NEG) Urine Nitrite Negative (NEG) Urine Bilirubin Negative (NEG) Urine Urobilinogen Dipstick 0.2 mg/dL (0.2 mg/dL) Urine Leukocyte Esterase Negative (NEG) Urine RBC Rare /HPF (0-2) Urine WBC 1-4 /HPF (0-4) Urine Squamous Epithelial Cells Many /LPF Urine Bacteria Few /HPF (0-FEW) Urine Yeast Present /HPF Test 12/01/19 08:19 12/01/19 11:46 12/01/19 16:41 12/01/19 17:25 Glucose (Fingerstick) 164 mg/dL (70-99) 193 mg/dL (70-99) 213 mg/dL (70-99) White Blood Count 9.0 x10^3/uL (4.0-11.0) Red Blood Count 3.70 x10^6/uL (3.50-5.40) Hemoglobin 11.4 g/dL (12.0-15.5) Hematocrit 34.6 % (36.0-47.0) Mean Corpuscular Volume 93 fL (79-100) Mean Corpuscular Hemoglobin 31 pg (25-35) Mean Corpuscular Hemoglobin Concent 33 g/dL (31-37) Red Cell Distribution Width 16.1 % (11.5-14.5) Platelet Count 250 x10^3/uL (140-400) Neutrophils (%) (Auto) 67 % (31-73) Lymphocytes (%) (Auto) 13 % (24-48) Monocytes (%) (Auto) 8 % (0-9) Eosinophils (%) (Auto) 11 % (0-3) Basophils (%) (Auto) 1 % (0-3) Neutrophils # (Auto) 6.0 x10^3/uL (1.8-7.7) Lymphocytes # (Auto) 1.2 x10^3/uL (1.0-4.8) Monocytes # (Auto) 0.7 x10^3/uL (0.0-1.1) Eosinophils # (Auto) 1.0 x10^3/uL (0.0-0.7) Basophils # (Auto) 0.1 x10^3/uL (0.0-0.2) Sodium Level 138 mmol/L (136-145) Potassium Level 4.6 mmol/L (3.5-5.1) Chloride Level 102 mmol/L (98-107) Carbon Dioxide Level 28 mmol/L (21-32) Anion Gap 8 (6-14) Blood Urea Nitrogen 58 mg/dL (7-20) Creatinine 1.9 mg/dL (0.6-1.0) Estimated GFR (Cockcroft-Gault) 25.2 BUN/Creatinine Ratio 31 (6-20) Glucose Level 225 mg/dL (70-99) Calcium Level 8.6 mg/dL (8.5-10.1) Total Bilirubin 0.2 mg/dL (0.2-1.0) Aspartate Amino Transf (AST/SGOT) 21 U/L (15-37) Alanine Aminotransferase (ALT/SGPT) 26 U/L (14-59) Alkaline Phosphatase 77 U/L (46-116) Total Protein 5.1 g/dL (6.4-8.2) Albumin 2.4 g/dL (3.4-5.0) Albumin/Globulin Ratio 0.9 (1.0-1.7) Test 12/01/19 21:15 12/02/19 04:15 12/02/19 08:00 Glucose (Fingerstick) 136 mg/dL (70-99) 140 mg/dL (70-99) White Blood Count 9.1 x10^3/uL (4.0-11.0) Red Blood Count 3.43 x10^6/uL (3.50-5.40) Hemoglobin 10.7 g/dL (12.0-15.5) Hematocrit 31.6 % (36.0-47.0) Mean Corpuscular Volume 92 fL (79-100) Mean Corpuscular Hemoglobin 31 pg (25-35) Mean Corpuscular Hemoglobin Concent 34 g/dL (31-37) Red Cell Distribution Width 15.6 % (11.5-14.5) Platelet Count 214 x10^3/uL (140-400) Neutrophils (%) (Auto) 63 % (31-73) Lymphocytes (%) (Auto) 16 % (24-48) Monocytes (%) (Auto) 7 % (0-9) Eosinophils (%) (Auto) 13 % (0-3) Basophils (%) (Auto) 1 % (0-3) Neutrophils # (Auto) 5.7 x10^3/uL (1.8-7.7) Lymphocytes # (Auto) 1.4 x10^3/uL (1.0-4.8) Monocytes # (Auto) 0.6 x10^3/uL (0.0-1.1) Eosinophils # (Auto) 1.2 x10^3/uL (0.0-0.7) Basophils # (Auto) 0.1 x10^3/uL (0.0-0.2) Segmented Neutrophils % 62 % (35-66) Band Neutrophils % 5 % (0-9) Lymphocytes % 13 % (24-48) Monocytes % 4 % (0-10) Eosinophils % 14 % (0-5) Basophils % 2 % (0-3) Platelet Estimate Adequate (ADEQUATE) Anisocytosis Slight Sodium Level 137 mmol/L (136-145) Potassium Level 4.4 mmol/L (3.5-5.1) Chloride Level 103 mmol/L (98-107) Carbon Dioxide Level 28 mmol/L (21-32) Anion Gap 6 (6-14) Blood Urea Nitrogen 52 mg/dL (7-20) Creatinine 1.7 mg/dL (0.6-1.0) Estimated GFR (Cockcroft-Gault) 28.7 BUN/Creatinine Ratio 31 (6-20) Glucose Level 145 mg/dL (70-99) Calcium Level 8.8 mg/dL (8.5-10.1) Magnesium Level 1.6 mg/dL (1.8-2.4) Total Bilirubin 0.3 mg/dL (0.2-1.0) Aspartate Amino Transf (AST/SGOT) 19 U/L (15-37) Alanine Aminotransferase (ALT/SGPT) 21 U/L (14-59) Alkaline Phosphatase 64 U/L (46-116) Total Protein 5.2 g/dL (6.4-8.2) Albumin 2.2 g/dL (3.4-5.0) Albumin/Globulin Ratio 0.7 (1.0-1.7) Laboratory Tests Test 12/01/19 11:46 12/01/19 16:41 12/01/19 17:25 12/01/19 21:15 Glucose (Fingerstick) 193 mg/dL (70-99) 213 mg/dL (70-99) 136 mg/dL (70-99) White Blood Count 9.0 x10^3/uL (4.0-11.0) Red Blood Count 3.70 x10^6/uL (3.50-5.40) Hemoglobin 11.4 g/dL (12.0-15.5) Hematocrit 34.6 % (36.0-47.0) Mean Corpuscular Volume 93 fL (79-100) Mean Corpuscular Hemoglobin 31 pg (25-35) Mean Corpuscular Hemoglobin Concent 33 g/dL (31-37) Red Cell Distribution Width 16.1 % (11.5-14.5) Platelet Count 250 x10^3/uL (140-400) Neutrophils (%) (Auto) 67 % (31-73) Lymphocytes (%) (Auto) 13 % (24-48) Monocytes (%) (Auto) 8 % (0-9) Eosinophils (%) (Auto) 11 % (0-3) Basophils (%) (Auto) 1 % (0-3) Neutrophils # (Auto) 6.0 x10^3/uL (1.8-7.7) Lymphocytes # (Auto) 1.2 x10^3/uL (1.0-4.8) Monocytes # (Auto) 0.7 x10^3/uL (0.0-1.1) Eosinophils # (Auto) 1.0 x10^3/uL (0.0-0.7) Basophils # (Auto) 0.1 x10^3/uL (0.0-0.2) Sodium Level 138 mmol/L (136-145) Potassium Level 4.6 mmol/L (3.5-5.1) Chloride Level 102 mmol/L (98-107) Carbon Dioxide Level 28 mmol/L (21-32) Anion Gap 8 (6-14) Blood Urea Nitrogen 58 mg/dL (7-20) Creatinine 1.9 mg/dL (0.6-1.0) Estimated GFR (Cockcroft-Gault) 25.2 BUN/Creatinine Ratio 31 (6-20) Glucose Level 225 mg/dL (70-99) Calcium Level 8.6 mg/dL (8.5-10.1) Total Bilirubin 0.2 mg/dL (0.2-1.0) Aspartate Amino Transf (AST/SGOT) 21 U/L (15-37) Alanine Aminotransferase (ALT/SGPT) 26 U/L (14-59) Alkaline Phosphatase 77 U/L (46-116) Total Protein 5.1 g/dL (6.4-8.2) Albumin 2.4 g/dL (3.4-5.0) Albumin/Globulin Ratio 0.9 (1.0-1.7) Test 12/02/19 04:15 12/02/19 08:00 White Blood Count 9.1 x10^3/uL (4.0-11.0) Red Blood Count 3.43 x10^6/uL (3.50-5.40) Hemoglobin 10.7 g/dL (12.0-15.5) Hematocrit 31.6 % (36.0-47.0) Mean Corpuscular Volume 92 fL (79-100) Mean Corpuscular Hemoglobin 31 pg (25-35) Mean Corpuscular Hemoglobin Concent 34 g/dL (31-37) Red Cell Distribution Width 15.6 % (11.5-14.5) Platelet Count 214 x10^3/uL (140-400) Neutrophils (%) (Auto) 63 % (31-73) Lymphocytes (%) (Auto) 16 % (24-48) Monocytes (%) (Auto) 7 % (0-9) Eosinophils (%) (Auto) 13 % (0-3) Basophils (%) (Auto) 1 % (0-3) Neutrophils # (Auto) 5.7 x10^3/uL (1.8-7.7) Lymphocytes # (Auto) 1.4 x10^3/uL (1.0-4.8) Monocytes # (Auto) 0.6 x10^3/uL (0.0-1.1) Eosinophils # (Auto) 1.2 x10^3/uL (0.0-0.7) Basophils # (Auto) 0.1 x10^3/uL (0.0-0.2) Segmented Neutrophils % 62 % (35-66) Band Neutrophils % 5 % (0-9) Lymphocytes % 13 % (24-48) Monocytes % 4 % (0-10) Eosinophils % 14 % (0-5) Basophils % 2 % (0-3) Platelet Estimate Adequate (ADEQUATE) Anisocytosis Slight Sodium Level 137 mmol/L (136-145) Potassium Level 4.4 mmol/L (3.5-5.1) Chloride Level 103 mmol/L (98-107) Carbon Dioxide Level 28 mmol/L (21-32) Anion Gap 6 (6-14) Blood Urea Nitrogen 52 mg/dL (7-20) Creatinine 1.7 mg/dL (0.6-1.0) Estimated GFR (Cockcroft-Gault) 28.7 BUN/Creatinine Ratio 31 (6-20) Glucose Level 145 mg/dL (70-99) Calcium Level 8.8 mg/dL (8.5-10.1) Magnesium Level 1.6 mg/dL (1.8-2.4) Total Bilirubin 0.3 mg/dL (0.2-1.0) Aspartate Amino Transf (AST/SGOT) 19 U/L (15-37) Alanine Aminotransferase (ALT/SGPT) 21 U/L (14-59) Alkaline Phosphatase 64 U/L (46-116) Total Protein 5.2 g/dL (6.4-8.2) Albumin 2.2 g/dL (3.4-5.0) Albumin/Globulin Ratio 0.7 (1.0-1.7) Glucose (Fingerstick) 140 mg/dL (70-99) Allergies Allergies Coded Allergies Type Severity Reaction Last Updated Verified I S O L A T I O N *CONTACT* Allergy Unknown 12/01/19 Yes No Known Medication Allergies Allergy Unknown 12/01/19 Yes Disposition/Orders: D/C to Home w/ HH Justicifation of Admission Dx: Justifications for Admission: Justification of Admission Dx: Yes PHUONG SAPP MD Dec 02, 2019 11:06
[2019-12-02] MEDS ORDERED: PANT40TA77 PO (11:10)
[2019-12-02] MEDS ORDERED: FURO40TA4 PO (11:10)
[2019-12-02] MEDS ORDERED: ASCO500T4 PO (11:10)
[2019-12-02] MEDS ORDERED: LEVO500T8 PO (11:12)
--- NOTE | 2019-12-02 11:13 | SNU/HH DC ---
DISCHARGE WITH HOME HEALTH DISCHARGE INFORMATION: Final Diagnosis: Problems Medical Problems: (1) Acute on chronic renal failure Status: Acute (2) Cellulitis Status: Acute (3) Failure of outpatient treatment Status: Acute (4) Hyperkalemia Status: Acute Condition on Discharge: Stable CODE STATUS: Code Status: Full HOME HEALTH: Face to Face: I certify this patient is under my care and that I, or a nurse practitioner or physician's physician assistant primary care working with me, had a face to face encounter that meets the physician face to face encounter requirements with this patient on []. 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 POST DISCHARGE ORDERS: Activity Instructions for Disc: Activity as tolerated DIET AFTER DISCHARGE: ADA CHECKS AFTER DISCHARGE: Checks after discharge: Check blood press - daily, Check blood sugar, ac/hs TREATMENT/EQUIPMENT ORDERS: Adaptive Equipment Issued: None, Front wheeled walker CERTIFICATION STATEMENT: Certification Statement: Certification Statement: Based on the above finding, I certify that this patient is confined to the home and needs intermittent fdc care, physical therapy and/or speech therapy, or continues to need occupational therapy.~ This patient is under my care, and I have initiated the establishment of the plan of care.~ This patient will be followed by myself or a community physician who will periodically review the plan of care. Home Meds Active Scripts Levofloxacin (LEVOFLOXACIN) 500 Mg Tablet, 1 TAB PO DAILY for infection for 7 Days, #7 TAB Prov:PHUONG SAPP MD 12/02/19 Ascorbic Acid (VITAMIN C) 500 Mg Tablet, 500 MG PO DAILY for supplement for 30 Days, #30 TAB Prov:PHUONG SAPP MD 12/02/19 Pantoprazole Sodium (PANTOPRAZOLE SODIUM ) 40 Mg Tablet.dr, 40 MG PO DAILYAC for gerd for 30 Days, #30 TAB.SR Prov:PHUONG SAPP MD 12/02/19 Furosemide (FUROSEMIDE) 40 Mg Tablet, 40 MG PO DAILY for chf for 10 Days, #10 TAB Prov:PHUONG SAPP MD 12/02/19 Reported Medications Insulin Aspart (NOVOLOG) 100 Unit/1 Ml Cartridge, 5 UNIT SQ BID for dm, EACH 11/27/19 Insulin Detemir (LEVEMIR) 100 Unit/1 Ml Vial, 22 UNIT SQ DAILY for dm, VIAL 11/27/19 Metolazone (METOLAZONE) 2.5 Mg Tablet, 2.5 MG PO QODAY for water pill, #30 TAB 0 Refills 11/27/19 Cetirizine Hcl (ZYRTEC) 10 Mg Tablet, 1 TAB PO DAILY for allergies, #30 TAB 2 Refills 11/27/19 Alendronate Sodium (ALENDRONATE SODIUM) 70 Mg Tablet, 1 TAB PO WEEKLY for sup, #4 TAB 3 Refills 11/27/19 Multivitamin (Multivitamin) 1 Each Tablet, 1 EACH PO DAILY for vitamin, TAB 11/27/19 Lactobacillus Rhamnosus Gg (CULTURELLE) 1 Each Cap.sprink, 1 CAP PO BID for probiotic for 30 Days, #60 CAP 0 Refills 11/27/19 Potassium Chloride (POTASSIUM CHLORIDE ) 10 Meq Tab.sr.24h, 10 MEQ PO DAILY for supplement, TAB.SR 07/16/18 Verapamil Hcl (VERAPAMIL ER) 240 Mg Cap24h.pel, 1 CAP PO DAILY for HTN, #30 CAP 5 Refills 07/16/18 Clonidine Hcl (CLONIDINE HCL) 0.1 Mg Tablet, 0.1 MG PO BID for HTN, TAB 07/16/18 Simvastatin (SIMVASTATIN) 20 Mg Tablet, 1 TAB PO QHS for HLD, #30 TAB 5 Refills 07/16/18 Allopurinol (ALLOPURINOL) 100 Mg Tablet, 1 TAB PO BID for gout, #30 TAB 5 Refills 07/16/18 Aspirin (ASPIRIN) 81 Mg Tab.chew, 1 TAB PO DAILY for heart health, #30 TAB 3 Refills 07/16/18 [place]-3 Fatty Acids/Fish Oil (FISH OIL 1,000 MG CAPSULE) 1 Each Capsule, 1 EACH PO DAILY for supplement, CAP 07/16/18 Loperamide Hcl (IMODIUM A-D) 1 Mg/7.5 Ml Liquid, 1 MG PO HS for bowel health, LIQUID 07/16/18 Discontinued Reported Medications Furosemide (FUROSEMIDE) 20 Mg Tablet, 1 TAB PO DAILY for water retention, #90 TAB 1 Refill 11/27/19 Prednisone (PREDNISONE) 1 Mg Tablet, 3 MG PO DAILY for arthiritis, TAB 11/27/19 Sulfamethoxazole/Trimethoprim (BACTRIM 400-80 MG TABLET) 1 Each Tablet, 2 TAB PO BID for cellulitis for 7 Days, #28 TAB 0 Refills 11/27/19 Lisinopril/Hydrochlorothiazide (LISINOPRIL-HCTZ 20-25 MG TAB) 1 Each Tablet, 1 TAB PO BID for HTN, #30 TAB 5 Refills 07/16/18 L Gasseri/B Bifidum/B Longum ([employer] COLON HEALTH CAPSULE) 1 Each Capsule, 1 EACH PO DAILY for bowel health, CAP 07/16/18 Prednisone (PREDNISONE) 2.5 Mg Tablet, 9 MG PO DAILY for arthritis, TAB 07/16/18 PHUONG SAPP MD Dec 02, 2019 11:13
--- NOTE | 2019-12-02 12:36 | PDOC ---
Renal-Progress Notes Subjective Notes Notes NONE History of Present Illness Hx of present illness STABLE Vitals Vitals Vital Signs Date Time Temp Pulse Resp B/P (MAP) Pulse Ox O2 Delivery O2 Flow Rate FiO2 12/02/19 09:25 85 131/62 12/02/19 08:15 Room Air 12/02/19 07:30 97.9 16 95 97.9 Weight Weight [ ] I.O. Intake and Output Intake and Output 12/02/19 07:00 Intake Total 120 ml Balance 120 ml Intake Oral 120 ml # Voids 5 Labs Labs Laboratory Tests Test 12/01/19 16:41 12/01/19 17:25 12/01/19 21:15 12/02/19 04:15 Glucose (Fingerstick) 213 mg/dL (70-99) 136 mg/dL (70-99) White Blood Count 9.0 x10^3/uL (4.0-11.0) 9.1 x10^3/uL (4.0-11.0) Red Blood Count 3.70 x10^6/uL (3.50-5.40) 3.43 x10^6/uL (3.50-5.40) Hemoglobin 11.4 g/dL (12.0-15.5) 10.7 g/dL (12.0-15.5) Hematocrit 34.6 % (36.0-47.0) 31.6 % (36.0-47.0) Mean Corpuscular Volume 93 fL (79-100) 92 fL (79-100) Mean Corpuscular Hemoglobin 31 pg (25-35) 31 pg (25-35) Mean Corpuscular Hemoglobin Concent 33 g/dL (31-37) 34 g/dL (31-37) Red Cell Distribution Width 16.1 % (11.5-14.5) 15.6 % (11.5-14.5) Platelet Count 250 x10^3/uL (140-400) 214 x10^3/uL (140-400) Neutrophils (%) (Auto) 67 % (31-73) 63 % (31-73) Lymphocytes (%) (Auto) 13 % (24-48) 16 % (24-48) Monocytes (%) (Auto) 8 % (0-9) 7 % (0-9) Eosinophils (%) (Auto) 11 % (0-3) 13 % (0-3) Basophils (%) (Auto) 1 % (0-3) 1 % (0-3) Neutrophils # (Auto) 6.0 x10^3/uL (1.8-7.7) 5.7 x10^3/uL (1.8-7.7) Lymphocytes # (Auto) 1.2 x10^3/uL (1.0-4.8) 1.4 x10^3/uL (1.0-4.8) Monocytes # (Auto) 0.7 x10^3/uL (0.0-1.1) 0.6 x10^3/uL (0.0-1.1) Eosinophils # (Auto) 1.0 x10^3/uL (0.0-0.7) 1.2 x10^3/uL (0.0-0.7) Basophils # (Auto) 0.1 x10^3/uL (0.0-0.2) 0.1 x10^3/uL (0.0-0.2) Sodium Level 138 mmol/L (136-145) 137 mmol/L (136-145) Potassium Level 4.6 mmol/L (3.5-5.1) 4.4 mmol/L (3.5-5.1) Chloride Level 102 mmol/L (98-107) 103 mmol/L (98-107) Carbon Dioxide Level 28 mmol/L (21-32) 28 mmol/L (21-32) Anion Gap 8 (6-14) 6 (6-14) Blood Urea Nitrogen 58 mg/dL (7-20) 52 mg/dL (7-20) Creatinine 1.9 mg/dL (0.6-1.0) 1.7 mg/dL (0.6-1.0) Estimated GFR (Cockcroft-Gault) 25.2 28.7 BUN/Creatinine Ratio 31 (6-20) 31 (6-20) Glucose Level 225 mg/dL (70-99) 145 mg/dL (70-99) Calcium Level 8.6 mg/dL (8.5-10.1) 8.8 mg/dL (8.5-10.1) Total Bilirubin 0.2 mg/dL (0.2-1.0) 0.3 mg/dL (0.2-1.0) Aspartate Amino Transf (AST/SGOT) 21 U/L (15-37) 19 U/L (15-37) Alanine Aminotransferase (ALT/SGPT) 26 U/L (14-59) 21 U/L (14-59) Alkaline Phosphatase 77 U/L (46-116) 64 U/L (46-116) Total Protein 5.1 g/dL (6.4-8.2) 5.2 g/dL (6.4-8.2) Albumin 2.4 g/dL (3.4-5.0) 2.2 g/dL (3.4-5.0) Albumin/Globulin Ratio 0.9 (1.0-1.7) 0.7 (1.0-1.7) Segmented Neutrophils % 62 % (35-66) Band Neutrophils % 5 % (0-9) Lymphocytes % 13 % (24-48) Monocytes % 4 % (0-10) Eosinophils % 14 % (0-5) Basophils % 2 % (0-3) Platelet Estimate Adequate (ADEQUATE) Anisocytosis Slight Magnesium Level 1.6 mg/dL (1.8-2.4) Test 12/02/19 08:00 12/02/19 11:59 Glucose (Fingerstick) 140 mg/dL (70-99) 235 mg/dL (70-99) Micro Micro Microbiology 11/27/19 Blood Culture - Preliminary, Resulted NO GROWTH AFTER 4 DAYS 11/27/19 Gram Stain - Final, Complete 11/27/19 Aerobic Culture - Final, Complete 11/27/19 Antimicrobic Susceptibility - Final, Complete Review of Systems Constitutional: yes: malaise, weakness, alert Ears/Nose/Throat: Yes: no symptom reported Eyes: Yes: no symptom reported Pulmonary: Yes no symptom reported Cardiovascular: Yes edema Gastrointestional: Yes: no symptom reported Genitourinary: Yes: no symptom reported Musculoskeletal: Yes: no symptom reported Skin: Yes no symptom reported Psychiatric/Neurological: Yes: no symptom reported Endocrine: Yes: no symptom reported Physical Exam General Appearance: no apparent distress, afebrile Skin: warm Respiratory: bilateral CTA Heart: S1S2 Abdomen: soft, bowel sounds present Genitourinary: bladder flat Extremities: edema Musculoskeletal: low back pain, Osteoarthritis, Swelling, Stiffness Assessment Assessment IMP ETHAN WITH CR UP TO 3.3 AND NOW DOWN TO 1.9-RESOLVED CKD STAGE 3 WITH ABOUT 2.0-2.5 EXTRACELLULAR VOLUME DEPLETION LE EDEMA-CHRONIC LYMPHEDEMA PLAN CONT LASIX PT TO F/U IN OFFICE WITH DR SANDERSON D/C PLANS NOTED ZUNILDA ORELLANA MD Dec 02, 2019 12:36
--- NOTE | 2019-12-02 14:05 | NUR ---
Discharge Note: JASWANT DARBY Discharge instructions and discharge home medications reviewed with Patient and a copy given. All questions have been answered and understanding verbalized. The following instructions and handouts were given: discharge instructions, new prescriptions, education and follow up recommendations. Discontinued lines and drains: Peripheral IV discontinued intact. Patient discharged to Home or [facility] with Family Member via Wheelchair off unit by DEB
== END 2019-12-02 13:10 | disposition home health service (06) | DRG 871 ==
LOC: ER 09:57 → ED HOLD 12:42 → 5 NORTH 13:31
PROVIDERS: ADMIT Family Medicine; ATTEND Family Medicine
DX: A41.9 Sepsis, unspecified organism (principal); E43 Unspecified severe protein-calorie malnutrition; N17.9 Acute kidney failure, unspecified; L03.115 Cellulitis of right lower limb; L03.116 Cellulitis of left lower limb; N18.4 Chronic kidney disease, stage 4 (severe); E87.1 Hypo-osmolality and hyponatremia; K21.9 Gastro-esophageal reflux disease without esophagitis; M10.9 Gout, unspecified; Z96.653 Presence of artificial knee joint, bilateral; I12.9 Hypertensive chronic kidney disease with stage 1 through stage 4 chronic kidney disease, or unspecified chronic kidney disease; E78.00 Pure hypercholesterolemia, unspecified; Z68.36 Body mass index [BMI] 36.0-36.9, adult; E11.22 Type 2 diabetes mellitus with diabetic chronic kidney disease; M19.90 Unspecified osteoarthritis, unspecified site; E87.5 Hyperkalemia; E66.9 Obesity, unspecified; M20.10 Hallux valgus (acquired), unspecified foot; M54.5 Low back pain; Z87.11 Personal history of peptic ulcer disease; B95.62 Methicillin resistant Staphylococcus aureus infection as the cause of diseases classified elsewhere; Z90.49 Acquired absence of other specified parts of digestive tract; Z83.3 Family history of diabetes mellitus; Z87.440 Personal history of urinary (tract) infections; Z88.8 Allergy status to other drugs, medicaments and biological substances
CPT/HCPCS: 36415; 76770; 80048; 80053; 81001; 82962; 83036; 83605; 83735; 84145; 85007; 85025; 85610; 85730; 87040; 87070; 87077; 87186; 93005; 93925; 94640; 96365; 96367; 96375; 99291; C9113; J0610; J0696; J0878; J1644; J1815; J1956; J2405; J3010; J3370; J3490; J7030; J7040; 97110-GO; 97110-GP; 97530-GO; 97530-GP; 97535-GO; G0378; J7613

== ENCOUNTER → 2020-08-28 | Outpatient (CLI) | payer MEDICARE, OTHER ==
[2019-12-02 09:25] VITALS: BP 131/62
[~2020-08-28] MED LIST changes: +ALEN70TA71 PO; +ASCO500T4 PO; +CETI10TA74 PO; +FURO20TA3 PO; +FURO40TA4 PO; +GEMF600T20 PO; -GEMF600T8 PO; +INSU100C4 SQ; +INSU100V13 SQ; +LACT1CAP19 PO; +LEVO500T8 PO; +METO2.5T PO; +MULT-766 PO; +PANT40TA77 PO; +PRED1TAB3 PO; +SULF1TAB23 PO
--- NOTE | 2020-08-28 12:11 | KCIC ---
EXAM: DUAL ENERGY X-RAY ABSORPTIOMETRY (DEXA). HISTORY: Postmenopausal screening. Long-term steroid use. FINDINGS: The lowest measured T-score is -0.4 in the left hip, based on a bone mineral density of 0.8 96 g/cm^2. Refer to the worksheets for full detail. No comparison examinations are available. IMPRESSION: 1. Normal. Bone mineral density yields a T-score of -1.0 or greater. Fracture risk is low. 2. FRAX report: Not calculated. METHODOLOGY: Dual energy x-ray absorptiometry was performed to measure bone mineral density. The foll owing analysis is based on the 2019 Official Positions of the International Society for Clinical Dens itometry: Measurements of the hips and the average of L1-L4 are preferred. When the spine and/or hip cannot be feasibly measured or interpreted, or in the setting of hyperparathyroidism, distal radial bone minera l density may be measured. The lumbar spine T-score is based on the average bone mineral density of L1-L4. In the setting of art ifact or anatomic abnormality, some lumbar levels may be excluded, and the remaining levels used for calculation. A single lumbar level is not used for diagnosis, and if only a single level is available for assessment, another anatomic site will be used to assign a diagnosis. The hip T-score is based on the bone mineral density measurement of the femoral neck or total proxima l femur of either side, whichever is lowest. Bilateral mean values are not used for diagnosis. The forearm T-score is derived from 33% of the distal radius of the nondominant forearm. Electronically signed by: Yanira Valenzuela MD (08/28/2020 12:08 PM) [id number]
== END ==
LOC: KCIC DEXA 10:53
PROVIDERS: ATTEND Family Medicine
DX: M81.0 Age-related osteoporosis without current pathological fracture (principal); Z79.52 Long term (current) use of systemic steroids
CPT/HCPCS: 77080

== ENCOUNTER → 2020-09-10 | Outpatient (CLI) | payer MEDICARE, OTHER ==
[2019-12-02 09:25] VITALS: BP 131/62
--- NOTE | 2020-09-10 16:43 | RAD ---
EXAMINATION: US DPLX ARTR EXTREM LOWER BILAT INDICATION: 84 years, Female, claudication. COMPARISON: 11/29/2019 TECHNIQUE: Grayscale, color and spectral Doppler evaluation of the bilateral lower extremity arterial system(s) was performed. FINDINGS: RIGHT PEAK SYSTOLIC VELOCITIES: COMMON FEMORAL ARTERY: 155 cm/s WAVEFORMS: Triphasic. DEEP FEMORAL ARTERY: 109 cm/s WAVEFORMS: Triphasic PROXIMAL SUPERFICIAL FEMORAL ARTERY: 121 cm/s WAVEFORMS: Triphasic MID SUPERFICIAL FEMORAL ARTERY: 128 cm/s WAVEFORMS: Triphasic DISTAL SUPERFICIAL FEMORAL ARTERY: 110 cm/s WAVEFORMS: Triphasic POPLITEAL ARTERY: 75 cm/s WAVEFORMS: Biphasic DORSALIS PEDIS ARTERY: 140 cm/s WAVEFORMS: Biphasic. PROXIMAL POSTERIOR TIBIAL ARTERY: 75 cm/s WAVEFORMS: Biphasic DISTAL POSTERIOR TIBIAL ARTERY: Not seen ANTERIOR TIBIAL ARTERY: 84 cm/s WAVEFORMS: Biphasic PERONEAL ARTERY: 75 cm/s WAVEFORMS: Biphasic LEFT PEAK SYSTOLIC VELOCITIES: COMMON FEMORAL ARTERY: 130 cm/s WAVEFORMS: Biphasic. DEEP FEMORAL ARTERY: 88 cm/s WAVEFORMS: Biphasic. PROXIMAL SUPERFICIAL FEMORAL ARTERY: 94 cm/s WAVEFORMS: Triphasic. MID SUPERFICIAL FEMORAL ARTERY: 93 cm/s WAVEFORMS: Triphasic. DISTAL SUPERFICIAL FEMORAL ARTERY: 110 cm/s WAVEFORMS: Triphasic. POPLITEAL ARTERY: 93 cm/s WAVEFORMS: Biphasic. DORSALIS PEDIS ARTERY: 143 cm/s WAVEFORMS: Biphasic. PROXIMAL POSTERIOR TIBIAL ARTERY: 59 cm/s WAVEFORMS: Biphasic. DISTAL POSTERIOR TIBIAL ARTERY: 38 cm/s WAVEFORMS: Monophasic. ANTERIOR TIBIAL ARTERY: 124 cm/s WAVEFORMS: Biphasic. PERONEAL ARTERY: 55 cm/s WAVEFORMS: Biphasic. IMPRESSION: No hemodynamically significant stenosis in both lower extremity arteries. Electronically signed by: Smiley Newsome MD (09/10/2020 4:41 PM) [facility]
== END ==
LOC: US 14:07
PROVIDERS: ATTEND Family Medicine
DX: I73.9 Peripheral vascular disease, unspecified (principal)
CPT/HCPCS: 93925

== ENCOUNTER 2020-09-18 08:56 | Outpatient (CLI) | payer MEDICARE, OTHER ==
[2020-09-18] VITALS (13 sets, daily range): BP systolic 131–179; BP diastolic 41–76
[~2020-09-18] VITALS: Ht 149.9 cm; Wt 95.0 kg
[2020-09-18] MEDS ORDERED: CYAN10002 IM (09:27)
[2020-09-18] MEDS ORDERED: LISI1TAB20 PO (09:31)
[2020-09-18 09:34] LABS: HEMATOCRIT 39.1 % (36.0-47.0); HEMOGLOBIN 12.9 g/dL (12.0-15.5); RED BLOOD COUNT 4.27 x10^6/uL (3.50-5.40); RED CELL DISTRIBUTION WIDTH 16.3 % (11.5-14.5); WHITE BLOOD COUNT 10.5 x10^3/uL (4.0-11.0)
[2020-09-18 09:44] LABS: CALCIUM 9.1 mg/dL (8.5-10.1); CREATININE 1.4 mg/dL (0.6-1.0); GFR 35.9; POTASSIUM 3.5 mmol/L (3.5-5.1)
[2020-09-18 09:45] LABS: PROTHROMBIN TIME PATIENT 10.9 SEC (11.7-14.0)
[2020-09-18] MEDS ORDERED: fentaNYL PF VIAL 100 MCG/2 ML VIAL IV ONE (11:30)
[2020-09-18] MEDS ORDERED: MIDAZOLAM HCL/PF 2 MG/2 ML VIAL. IV ONE (11:30)
[2020-09-18] MEDS ORDERED: NITROGLYCERIN 200 MCG/2 ML SYRINGE FOR CATH/VASC LAB. IART ONE (11:30)
[2020-09-18] MEDS ORDERED: HEPARIN for IV BOLUS 10,000 UNIT/10 ML VIAL. IART ONE (11:30)
[2020-09-18] MEDS ORDERED: IODIXANOL 320 MG/ML 100 ML VIAL. IART ONE (11:30)
[2020-09-18] MEDS ORDERED: VERAPAMIL 5 MG/2 ML VIAL. IART ONE (11:30)
[2020-09-18] MEDS ORDERED: LIDOCAINE 1% Multi-Dose 20 ML VIAL. INJ ONE (11:30)
[2020-09-18] MEDS ORDERED: CONTRAST GIVEN. MC PRN (11:45)
[2020-09-18] MEDS ORDERED: fentaNYL PF VIAL 100 MCG/2 ML VIAL ONE (11:55)
[2020-09-18] MEDS ORDERED: MIDAZOLAM HCL/PF 2 MG/2 ML VIAL. ONE (11:55)
[2020-09-18] MEDS ORDERED: HEPARIN for IV BOLUS 10,000 UNIT/10 ML VIAL. ONE (11:56)
[2020-09-18] MEDS ORDERED: LIDOCAINE 1% Multi-Dose 20 ML VIAL. ONE (11:56)
[2020-09-18] MEDS ORDERED: NITROGLYCERIN 200 MCG/2 ML SYRINGE FOR CATH/VASC LAB. ONE (11:56)
[2020-09-18] MEDS ORDERED: VERAPAMIL 5 MG/2 ML VIAL. ONE (11:56)
[2020-09-18] MEDS ORDERED: IODIXANOL 320 MG/ML 100 ML VIAL. ONE (11:56)
[2020-09-18] MEDS ORDERED: LIDOCAINE 2%/EPI 1:100,000 20 ML VIAL. ONE (13:25)
[2020-09-18] MEDS ORDERED: LIDOCAINE 2%/EPI 1:100,000 20 ML VIAL. IJ ONE (13:30)
--- NOTE | 2020-09-18 16:03 | CARD ---
MR#: [id number] Date of Study: 09/18/2020 Ordering Physician: LUDIN NUNN, Referring Physician: LUDIN NUNN, Tech: Nito Campoverde [facility] APPROVED REPORT EXAM: Two-dimensional and M-mode echocardiogram with Doppler and color Doppler. Other Information Quality : AverageHR: 64bpm Rhythm : NSR INDICATION CVA/TIA Cardiac Disease: CAD 2D DIMENSIONS Left Atrium(2D)4.9 (1.6-4.0cm)IVSd1.0 (0.7-1.1cm) Aortic Root(2D)3.4 (2.0-3.7cm)LVDd3.2 (3.9-5.9cm) LVOT Diameter2.0 (1.8-2.4cm)PWd1.1 (0.7-1.1cm) LVDs2.5 (2.5-4.0cm)FS (%) 22.6 % SV19.6 mlLVEF(%)46.7 (>50%) Aortic Valve AoV Peak Ko.177.3cm/sAoV VTI40.0cm AO Peak GR.12.6mmHgLVOT VTI 29.73cm AO Mean GR.7mmHg Mitral Valve MV E Andxssyd992.0cm/sMV E Peak Gr.9mmHg MV DECEL [id number] A Vzqthpsw734.4cm/s MV E Mean Gr.3mmHgE/A Ratio0.8 TDI Lateral E' P. V6.95cm/sMedial E' P. V4.96cm/s E/Lateral E'15.1E/Medial E'21.2 Tricuspid Valve TR P. Mhxofdgz341wb/sTR Peak Gr.36mmHg LEFT VENTRICLE The left ventricle is normal size. There is borderline concentric left ventricular hypertrophy. Basal posterior wall hypokinesis. The ejection fraction is estimated at 55%. Transmitral Doppler flow marly sena is Grade I-abnormal relaxation pattern. No left ventricle thrombus noted on this study. There is no ventricular septal defect visualized. There is no left ventricular aneurysm. There is no mass note d in the left ventricle. RIGHT VENTRICLE The right ventricle is normal size. There is normal right ventricular wall thickness. The right ventr icular systolic function is normal. ATRIA The left atrium is moderately dilated. The right atrium size is normal. The interatrial septum is int act with no evidence for an atrial septal defect or patent foramen ovale as noted on 2-D or Doppler i maging. AORTIC VALVE The aortic valve is normal in structure and function. Doppler and Color Flow revealed no significant aortic regurgitation. There is no significant aortic valvular stenosis. There is no aortic valvular v egetation. MITRAL VALVE Mitral annular calcification is mild to moderate. There is no evidence of mitral valve prolapse. Ther e is no mitral valve stenosis. Doppler and Color-flow revealed trace to mild mitral regurgitation. TRICUSPID VALVE Doppler and Color Flow revealed mild tricuspid regurgitation. There is no tricuspid valve stenosis. GREAT VESSELS The aortic root is normal in size. The ascending aorta is normal in size. The pulmonary artery is nor mal. The IVC is normal in size and collapses >50% with inspiration. PERICARDIAL EFFUSION There is no pleural effusion. There is no evidence of significant pericardial effusion. Critical Notification Critical Value: No <Conclusion> Basal posterior wall hypokinesis. The ejection fraction is estimated at 55%. Transmitral Doppler flow pattern is Grade I-abnormal relaxation pattern. Trace to mild mitral regurgitation. Mild tricuspid regurgitation. There is no evidence of significant pericardial effusion. Signed by : Rome Douglas, Electronically Approved : 09/18/2020 16:03:18
--- NOTE | 2020-09-18 17:16 | NUR ---
Discharge Note: JASWANT DARBY Discharge instructions and discharge home medications reviewed with Patient and a copy given. All questions have been answered and understanding verbalized. The following instructions and handouts were given: groin site care, radial site care, and moderate sedation Dressings to R groin site, R radial site and R IJ site clean and dry. R IJ site has some ecchymosis visible, but is soft and non tender. Discontinued lines and drains: Peripheral IV intact. While removing dressing from IV site to L AC, small skin tear from tegaderm noted. Site was dressed with an aquacel dressing and pt instructed to remove in 48 hours. Patient discharged to Home or Self Care with Family Member via Wheelchair LUIZ BOYD Addendum: 09/18/20 at 1739 by ERICK WEBB RN Amended: Links added.
--- NOTE | 2020-09-18 18:20 | CARD ---
MR#: [id number] Date of Study: 09/18/2020 Ordering Physician: LUDIN WHITLOCK, Referring Physician: LUDIN WHITLOCK, Tech: RT Garrett(R) APPROVED REPORT Technologist: RT Garrett(R) Nurse: Mona Sauceda RN Procedure(s) performed: fl time: 15.3 mins dose: 69 gycm2 contrast: 43 ml moderate sedation: 70 minutes RHC, LHC, Coronary angiography [facility] Clinical Frailty Scale [facility] Clinical Frailty Scale: Moderately Frail Heart Failure Heart Failure: Yes If Yes, Newly Diagnosed: Yes If Yes, HF Type: Diastolic If Yes, NYHA Class: Class III CASE TECHNIQUE IV conscious sedation was used throughout procedure with appropriate monitoring and was performed in the presence of a registered nurse who was an independent trained observer other than the physician p erforming the procedure. During this case, Fluoroscopy and low osmolar contrast were used for imaging . Specimen(s) Removed: N/A Estimated Blood loss: 15 cc's. PROCEDURE NARRATIVE Clinical information: 84-year-old woman presented to the catheterization laboratory in the setting of exertional dyspnea an d worsening unstable angina symptoms. After appropriate discussion of the risks and benefits a right and left heart catheterization were performed. Procedure details: The right groin, right neck and right wrist were prepped and draped in usual sterile fashion. Under 1% lidocaine local anesthesia a five Qatari sheath was placed in the right internal jugular vein via ultrasound guidance. Next, a five Qatari PA catheter was advanced to the right heart chambers and pr essures and saturations were obtained. Next, under 1% lidocaine local anesthesia a six Qatari sheath was placed in the right radial artery v ia the Seldinger technique. Diagnostic angiography was extremely difficult due to significant subcla vian tortuosity. A six Qatari TIG catheter, five Qatari JR four and four Qatari JL4 catheters were u nable to be engaged into the coronary arteries. A 5 Qatari JR4 catheter with a J-tipped guidewire pl aced for support was ultimately able to cannulate the right coronary artery. Due to difficulty engag ing left coronary artery a decision was made to proceed with right femoral arterial access. Under 1% lidocaine local anesthesia a five Qatari sheath was placed in the right common femoral artery via th e modified Seldinger technique. Diagnostic angiography was performed with a five Qatari JL4 catheter . At case completion the right groin sheath was removed and hemostasis was achieved with manual comp ression. The right IJ sheath was removed and hemostasis was achieved with manual compression. The r ight radial sheath was removed and hemostasis was achieved with a Terumo radial band inflated to 12 m L. No acute complications are noted. Findings: Right heart catheterization RA 6 mmHg RV 28/5 mmHg PA 33/10/16 Wedge 12 mmHg PA saturation 80% FA saturation 100% William cardiac output 5.24, cardiac index 2.8 Coronary angiography: Left main is a large-caliber vessel with a distal 20% stenosis LAD is a moderate caliber vessel with normal angiographic appearance D1 is a moderate caliber vessel with normal angiographic appearance Left circumflex is a moderate caliber nondominant vessel with a proximal 20% stenosis RCA is a large caliber dominant vessel with mild diffuse luminal irregularities. Conclusion 1. Normal biventricular filling pressures 2. No evidence of pulmonary pretension 3. Normal cardiac output 4. No significant coronary artery disease Recommendations Aggressive Medical Therapy Weight Loss Reduction Program Signed by : Ludin Whitlock, Electronically Approved : 09/18/2020 18:20:22
== END 2020-09-18 17:30 | disposition home or self-care (01) ==
LOC: CCL 08:56
PROVIDERS: ATTEND Internal Medicine Cardiovascular Disease
DX: I25.110 Atherosclerotic heart disease of native coronary artery with unstable angina pectoris (principal); R06.09 Other forms of dyspnea; I10 Essential (primary) hypertension; E78.00 Pure hypercholesterolemia, unspecified; E11.9 Type 2 diabetes mellitus without complications; M19.90 Unspecified osteoarthritis, unspecified site; Z79.82 Long term (current) use of aspirin; Z79.4 Long term (current) use of insulin; Z79.899 Other long term (current) drug therapy; Z98.890 Other specified postprocedural states; Z90.49 Acquired absence of other specified parts of digestive tract
CPT/HCPCS: 36415; 76937; 80048; 85027; 85610; 93306; 93451; 99152; 99153; C1769; C1773; C1894; J1644; J2250; J3010; J3490; Q9967; 93456

== ENCOUNTER → 2021-06-12 | Outpatient (CLI) | payer MEDICARE, OTHER ==
[2020-09-18 17:00] VITALS: BP 162/76
[~2021-06-12] MED LIST changes: +CYAN10002 IM; -LEVO500T8 PO; +LEVO500T9 PO; -LISI1TAB20 PO; +LISI1TAB39 PO
--- NOTE | 2021-06-12 17:23 | CARD ---
MR#: [id number] Date of Study: 06/12/2021 Ordering Physician: LUDIN NUNN, Referring Physician: LUDIN NUNN, Tech: Viviane Girard [facility] APPROVED REPORT EXAM: Two-dimensional and M-mode echocardiogram with Doppler and color Doppler. Other Information Quality : AverageHR: 73bpm Rhythm : NSR INDICATION Dyspnea RISK FACTORS Hypertension Obesity 2D DIMENSIONS RVDd3.3 (2.9-3.5cm)Left Atrium(2D)3.2 (1.6-4.0cm) IVSd1.1 (0.7-1.1cm)Aortic Root(2D)3.2 (2.0-3.7cm) LVDd4.4 (3.9-5.9cm)LVOT Diameter2.1 (1.8-2.4cm) PWd1.1 (0.7-1.1cm)LVDs2.6 (2.5-4.0cm) FS (%) 41.0 %SV62.9 ml Aortic Valve AoV Peak Ko.211.6cm/sAoV VTI47.7cm AO Peak GR.17.9mmHgLVOT Peak Ko.118.2cm/s AO Mean GR.9mmHgAVA (VMAX)1.98cm2 Mitral Valve MV E Eirzwcmx067.8cm/sMV DECEL [id number] MV A Sszdwjqc868.0cm/sE/A Ratio0.8 Pulmonary Valve PV Peak Cxvmukoh390.6cm/s Tricuspid Valve TR P. Ehfrtznk457jy/sTR Peak Gr.29mmHg LEFT VENTRICLE The left ventricle is normal size. There is normal left ventricular wall thickness. The left ventricu lar systolic function is normal and the ejection fraction is within normal range. LV ejection fracti on is 55 to 60%. There is normal LV segmental wall motion. Transmitral Doppler flow pattern is Grade I-abnormal relaxation pattern. RIGHT VENTRICLE The right ventricle is normal size. There is normal right ventricular wall thickness. The right ventr icular systolic function is normal. ATRIA The left atrium is mildly dilated. The right atrium size is normal. The interatrial septum is intact with no evidence for an atrial septal defect or patent foramen ovale as noted on 2-D or Doppler imagi ng. AORTIC VALVE The aortic valve is normal in structure and function. Doppler and Color Flow revealed no significant aortic regurgitation. There is no significant aortic valvular stenosis. MITRAL VALVE The mitral valve is calcified but opens well. There is no evidence of mitral valve prolapse. There is no mitral valve stenosis. Doppler and Color-flow revealed mild mitral regurgitation. TRICUSPID VALVE The tricuspid valve is normal in structure and function. Doppler and Color Flow revealed trace tricus pid regurgitation. Estimated PAP 32 mmhg. There is no tricuspid valve stenosis. PULMONIC VALVE The pulmonary valve is normal in structure and function. Doppler and Color Flow revealed mild pulmoni c valvular regurgitation. GREAT VESSELS The aortic root is normal in size. The ascending aorta is normal in size. The IVC is normal in size a nd collapses >50% with inspiration. PERICARDIAL EFFUSION There is no evidence of significant pericardial effusion. Critical Notification Critical Value: No <Conclusion> The left ventricle is normal size. The left ventricular systolic function is normal and the ejection fraction is within normal range. LV ejection fraction is 55 to 60%. Doppler and Color Flow revealed no significant aortic regurgitation. There is no significant aortic valvular stenosis. Doppler and Color-flow revealed mild mitral regurgitation. Doppler and Color Flow revealed trace tricuspid regurgitation. Estimated PAP 32 mmhg. Signed by : Zoltan Stevens MD Electronically Approved : 06/12/2021 17:22:50
== END ==
LOC: ECHO 10:31
PROVIDERS: ATTEND Internal Medicine Cardiovascular Disease
DX: I34.0 Nonrheumatic mitral (valve) insufficiency (principal); I37.1 Nonrheumatic pulmonary valve insufficiency; I10 Essential (primary) hypertension; I48.0 Paroxysmal atrial fibrillation
CPT/HCPCS: 93306; C8929